=== PATIENT | male | born 1965 | race Caucasian/White ===

== ENCOUNTER 2020-08-19 11:47 | Outpatient (REF) | payer MEDICARE, OTHER, SELFPAY | END 2020-08-19 11:48 | disposition home or self-care (01) | LOC: HO.LAB 11:47 | PROVIDERS: Visit Provider Internal Medicine | DX: Z20.828 Contact with and (suspected) exposure to other viral communicable diseases (principal) | CPT/HCPCS: C9803; U0003 ==

== ENCOUNTER 2021-02-08 09:53 | Outpatient (REF) | payer MEDICARE, OTHER, SELFPAY ==
[2021-02-08 11:06] LABS: Appearance Urine CLEAR; Color Urine YELLOW; Glucose Urine UA NEG (NEG); Leukocyte Esterase Urine NEG (NEG); Nitrite Urine NEG (NEG); Specific Gravity - Urine 1.025 (1.005-1.025); Urine Blood 1+ (NEG); Urine Ketones NEG (NEG); Urine Protein NEG (NEG-TRACE)
[2021-02-08 11:21] LABS: Amorphous Sediment Urine 2+ /LPF; Mucus Urine TRACE /LPF; WBC Urine 0 /HPF (0-4)
[2021-02-08 11:57] LABS: Alanine Aminotransferase 30 U/L (0-40); Albumin Level 4.3 g/dL (3.5-5.0); Alkaline Phosphatase 52 U/L (39-117); Anion Gap 13 (12-20); Aspartate Amino Transferase 36 U/L (5-37); Bilirubin Total 0.2 mg/dL (0.0-1.0); Blood Urea Nitrogen 17 mg/dL (9-16); Calcium 9.8 mg/dL (8.4-10.2); Carbon Dioxide 27 mmol/L (22-29); Chloride 104 mmol/L (96-108); Cholesterol 186 mg/dL; Estimated Glomerular Filt Rate > 60; Glucose Random 95 mg/dL (60-115); HDL Cholesterol 38 mg/dL; LDL Cholesterol Calculated 124 mg/dl; Potassium 4.3 mmol/L (3.3-5.1); Sodium 140 mmol/L (135-145); Triglycerides 121 mg/dL
[2021-02-08 12:18] LABS: Prostate Specific Antigen Scr 0.46 ng/mL (<0.05-4.0)
[2021-02-09 08:36] LABS: LDL Cholesterol Direct 128 mg/dL (<100)
== END 2021-02-08 09:54 | disposition home or self-care (01) ==
LOC: HO.WFDLDS 09:53
PROVIDERS: Visit Provider Family Medicine
DX: Z00.00 Encounter for general adult medical examination without abnormal findings (principal); E78.5 Hyperlipidemia, unspecified; I10 Essential (primary) hypertension; K21.9 Gastro-esophageal reflux disease without esophagitis; M54.5 Low back pain; M46.1 Sacroiliitis, not elsewhere classified; Z12.5 Encounter for screening for malignant neoplasm of prostate; Z87.19 Personal history of other diseases of the digestive system; Z98.1 Arthrodesis status
CPT/HCPCS: 36415; 80053; 80061; 81001; 81003; 83721; 84153; 84443

== ENCOUNTER → 2021-03-04 08:04 | Outpatient (BNVA) | payer MEDICARE, OTHER, SELFPAY | PROVIDERS: PCP Family Medicine; Visit Provider Nurse Practitioner Family | DX: M53.3 Sacrococcygeal disorders, not elsewhere classified (principal); M47.816 Spondylosis without myelopathy or radiculopathy, lumbar region | CPT/HCPCS: 99202 ==

== ENCOUNTER → 2021-03-16 10:29 | Outpatient (BNVA) | payer MEDICARE, OTHER, SELFPAY | PROVIDERS: PCP Family Medicine; Visit Provider Nurse Practitioner Family | DX: M47.816 Spondylosis without myelopathy or radiculopathy, lumbar region (principal); M53.3 Sacrococcygeal disorders, not elsewhere classified | CPT/HCPCS: 99212 ==

== ENCOUNTER → 2021-03-24 13:28 | Outpatient (BNVA) | payer MEDICARE, SELFPAY | PROVIDERS: PCP Family Medicine; Visit Provider Physician Assistant | DX: R13.10 Dysphagia, unspecified (principal); Z87.19 Personal history of other diseases of the digestive system | CPT/HCPCS: 99202 ==

== ENCOUNTER 2021-04-07 08:26 | Outpatient (REF) | payer MEDICARE, SELFPAY ==
--- NOTE | ~2021-04-07 | FL_ITS ---
EXAMINATION: FL BARIUM SWALLOW CLINICAL INFORMATION: Dysphagia COMPARISON: None TECHNIQUE: Barium swallow examination is performed using fluoroscopic evaluation in addition to multiple fluoroscopic spot views. The patient is imaged both upright and prone and using both thick and thin sulfate along with effervescent granules. Fluoroscopy time: 2.7 minutes DAP: 42.634 Gycm2 Images: 68 FINDINGS: Following oral administration of thick barium and barium coated turkey there is normal progression of bolus from the oral cavity through the pharynx, esophagus into stomach without any evidence of obstruction, narrowing or stricture. On placing patient supine and prone lying and oral administration of thin barium, there is good distention of esophagus without obstruction or narrowing. There is a small sliding hiatal hernia with no visible gastroesophageal reflux. FL/FL barium swallow IMPRESSION: Small sliding hiatal hernia without gastroesophageal reflux.
== END 2021-04-07 08:27 | disposition home or self-care (01) ==
LOC: HO.XRAY 08:26
PROVIDERS: Visit Provider Physician Assistant
DX: K21.9 Gastro-esophageal reflux disease without esophagitis (principal); Z87.19 Personal history of other diseases of the digestive system; R13.10 Dysphagia, unspecified
CPT/HCPCS: 74220

== ENCOUNTER → 2021-05-12 07:11 | Outpatient (BNVA) | payer MEDICARE, OTHER, SELFPAY | PROVIDERS: PCP Family Medicine; Visit Provider Physician Assistant | DX: R13.10 Dysphagia, unspecified (principal) | CPT/HCPCS: Q3014 ==

== ENCOUNTER 2021-05-19 08:29 | Day surgery (SDC) | payer MEDICARE, OTHER, SELFPAY ==
[2021-05-13 14:53] VITALS: BMI 32.5
--- NOTE | 2021-05-18 09:28 | P.CONAN_ITS ---
Documented by User: Elza Rodriguez NP 05/18/21 09:29 HPI - Anesthesia Eval Consult details Narrative: 56yo M for Upper Endoscopy [facility] Active Problems Active Problems: All Active Problems (Updated 05/13/21 @ 14:52 by Tran Velazquez RN) Hypertension (Acute Unknown) Asthma (Acute) Chronic headaches (Acute) Depression (Acute) Low back pain (Acute) History of lumbar fusion (Acute) Sacroiliitis (Acute) Essential hypertension (Acute) GERD (gastroesophageal reflux disease) (Acute) History of esophageal stricture (Acute) Hyperlipidemia (Acute) Sacroiliac joint pain (Acute) Spondylosis of lumbar region without myelopathy or radiculopathy (Acute) Encounter for screening colonoscopy (Acute) Dysphagia (Acute) Past Medical History Medical History Asthma Back pain Depression Dysphagia Elevated cholesterol GERD (gastroesophageal reflux disease) HTN (hypertension) Family History Family History Father Paternal family history of mental health disorder Alcoholism Mother No problems noted. Brother Brain aneurysm Surgical History Surgical History H/O colonoscopy History of back surgery History of esophagogastroduodenoscopy (EGD) Social History Social History Household Members Other:: With his mother- relocated from [place]- getting Alcohol intake: current Advance Directives Information Provided: No Current occupational status: previously employed and disabled Meds Allergies Allergy/AdvReac Type Severity Reaction Status Date / Time Hydrocodone-Ibuprofen Allergy Mild headaches Uncoded 05/12/21 07:42 Home Medications Medication Instructions Recorded Confirmed Last Taken Type fluticasone propionate 220 1 puff INHALATION BID 06/18/20 05/13/21 Unknown History mcg/actuation HFA aerosol inhaler (Flovent HFA) methocarbamol 500 mg tablet 500 mg PO Q4H tab 06/18/20 05/13/21 Unknown History omeprazole 40 mg capsule,delayed 40 mg PO DAILY 06/18/20 05/13/21 Unknown History release Exam Exam Date and Time: May 18, 2021 0928 Height,Weight and Vital Signs: Height 5 ft 7 in Weight 94.347 kg Pertinent Lab Results Pertinent Lab Results: Laboratory Tests 02/08/21 10:10 Sodium 140 Potassium 4.3 Chloride 104 Carbon Dioxide 27 BUN 17 H Creatinine 1.04 Assessment and Plan Assessment Anesthesia Assessment: Chart Reviewed Documented by User: Magaly Bourgeois MD 05/19/21 09:13 [facility] Past Medical History Medical History Asthma Back pain Depression Dysphagia Elevated cholesterol GERD (gastroesophageal reflux disease) HTN (hypertension) Family History Family History Father Paternal family history of mental health disorder Alcoholism Mother No problems noted. Brother Brain aneurysm Surgical History Surgical History H/O colonoscopy History of back surgery History of esophagogastroduodenoscopy (EGD) History of Problems with Anesthesia: No Social History Social History Household Members Other:: With his mother- relocated from [place]- getting Alcohol intake: current Advance Directives Information Provided: No Current occupational status: previously employed and disabled Meds Allergies Allergy/AdvReac Type Severity Reaction Status Date / Time Hydrocodone-Ibuprofen Allergy Mild headaches Uncoded 05/12/21 07:42 Home Medications Medication Instructions Recorded Confirmed Last Taken Type fluticasone propionate 220 1 puff INHALATION BID 06/18/20 05/13/21 Unknown History mcg/actuation HFA aerosol inhaler (Flovent HFA) methocarbamol 500 mg tablet 500 mg PO Q4H tab 06/18/20 05/13/21 Unknown History omeprazole 40 mg capsule,delayed 40 mg PO DAILY 06/18/20 05/13/21 Unknown History release Exam Airway Mallampati Class: III TM Dist: >3cm Neck ROM: Limited Loose/Missing/Broken Teeth: No Heart: RRR Lungs: CTA Assessment and Plan Assessment Anesthesia Assessment: Anesthesia Plan Discussed Final Anesthetic Review History of Problems with Anesthesia: No NPO: Yes ASA Class: II Final Preanesthetic Review: Meds/Allgs Chart Reviewed, Consent Obtained/Reviewed and Anes Risks/Benef Reviewed Patient Risk: Low Procedure Risk: Intermediate Anesthetic Plan Anesthetic Plan: MAC: Disposition: Standard PACU
[2021-05-19 08:51] VITALS: BP 158/104; PULSE 71; RESP 16; TEMP 36.8; O2SAT 97
[2021-05-19] MEDS: Lactated Ringers 1,000 ML 100 ML IVCONT (09:02)
--- NOTE | 2021-05-19 10:00 | MHC.SHP ---
Pre-Procedural Eval Section A Date of Service: 05/19/21 Section B Chief Complaint: dysphagia Relevant Family History (Specify if Yes): No Relevant Social History: None Present Medications: see Short Stay Collaborative assessment Medical History: Significant History (Asthma Back pain Depression Dysphagia Elevated cholesterol GERD (gastroesophageal reflux disease) HTN (hypertension)) History of Previous Operations: Relevant previous surgery/procedure and date(s) (H/O colonoscopy History of back surgery History of esophagogastroduodenoscopy (EGD)) Allergies: Allergies Allergy/AdvReac Type Severity Reaction Status Date / Time Hydrocodone-Ibuprofen Allergy Mild headaches Uncoded 05/12/21 07:42 Review of Systems Sugical H&P ROS: Negative: Constitution, Cardiovascular, Respiratory, Neurological, Psychiatric, Hem-Onc, Allergic/Immunologic, Gastrointestinal, Genitourinary, Musculoskeletal, Integumentary, Endocrine and Eyes/Ears/Nose/Throat Exam Surgical H&P Exam: Normal: HEENT, Normal: Heart, Normal: Lungs, Normal: Extremities, Normal: Abdomen, Normal: Skin and Normal: Neurological Plan Diagnosis/Plan: Unchanged I have reviewed the history and physical and performed a pertinent physical examination on my patient. No changes have occurred unless specified.
--- NOTE | 2021-05-19 10:06 | PM.OP ---
Brief Operative Note Date of Service: 05/19/21 Pre-op diagnosis: dysphagia Post-op diagnosis: same Procedure: see op note Surgeon: Matt Carbajal MD Anesthesia: MAC Was an Plan Manager used for this Procedure?: No Estimated blood loss (mL): 0 Condition: stable Disposition: PACU
--- NOTE | 2021-05-19 10:07 | W.PM.OPN ---
Operative Note Operative Note Date of Service: 05/19/21 Narrative: Procedure Description: EGD FLEXIBLE TRANSORAL UPPER GASTROINTESTINAL ENDOSCOPY UPPER ENDOSCOPY Consent: Indications for the procedure and potential complications of bleeding, perforation, reaction to medications and missed diagnosis were discussed with the patient and informed consent was obtained. Instrument: Olympus GIF H 190 J mid size upper endoscope Monitoring: Vital signs and clinical assessment, continuous EKG monitoring, Pulse oximetry, Carbon Dioxide monitoring and blood pressure monitoring were done throughout the procedure. Procedure: The patient was placed in the left lateral decubitis position and pre-procedure medications were administered and a bite block was placed. The endoscope was inserted into the mouth and advanced under direct vision to the third part of duodenum. A careful inspection was made as the upper endoscope was withdrawn including a retroflexed examination of the proximal stomach; Findings and interventions are described below. Findings: Larynx:normal Esophagus: GE junction at 38 cm, diaphragm hiatus at 38 cm, LA grade A esophagitis noted, bx taken from GEJ and distal and proximal esophagus in separate jars. Concentric rings noted in esophagus probably due to reflux. A schatzki ring also noted. A 16 mm savary dilator was used with disruption of the schatzki ring noted. Stomach: Patchy gastric erythema with linear streaks in pylorus. Biopsies were obtained. Grade 2 flap valve on retroflexed examination of the cardia. Duodenum: Normal bulb and descending duodenum, bx taken Intervention: Biopsies as noted above, savary dilation Impression/Findings: esophagitis gastritis schatzki ring PLAN: change PPI to pantoprazole 40 mg and see if get better effect tramadol can also be asscoaited with esophageal dysmotility
[2021-05-19 10:42] VITALS: BP 105/74; PULSE 78; RESP 20; TEMP 36.1; O2SAT 99
[2021-05-19 10:48] VITALS: BP 133/91; PULSE 85; RESP 18; O2SAT 96
[2021-05-19 10:58] VITALS: BP 150/76; PULSE 71; RESP 18; TEMP 36.3; O2SAT 97
== END 2021-05-19 12:00 | disposition home or self-care (01) ==
PROVIDERS: PCP Family Medicine; Visit Provider Internal Medicine Gastroenterology
PROC: 0DJ08ZZ Inspection of Upper Intestinal Tract, Via Natural or Artificial Opening Endoscopic (ICD-10-PCS; CPT 43235; principal; 2021-05-19 11:00)
DX: R13.10 Dysphagia, unspecified (principal); K22.2 Esophageal obstruction; K20.90 Esophagitis, unspecified without bleeding; K29.70 Gastritis, unspecified, without bleeding
CPT/HCPCS: 43239; 43248; 88305; 88342; C1769

== ENCOUNTER → 2021-06-08 11:06 | Outpatient (BNVA) | payer MEDICARE, OTHER, SELFPAY | PROVIDERS: PCP Family Medicine; Referring Provider Family Medicine; Visit Provider Physician Assistant | DX: K21.9 Gastro-esophageal reflux disease without esophagitis (principal); R13.10 Dysphagia, unspecified | CPT/HCPCS: 99212 ==

== ENCOUNTER → 2021-10-04 12:13 | Outpatient (BNVA) | payer MEDICARE, OTHER, SELFPAY | PROVIDERS: PCP Family Medicine; Visit Provider Physician Assistant | DX: K22.2 Esophageal obstruction (principal); K21.9 Gastro-esophageal reflux disease without esophagitis; G89.29 Other chronic pain; R10.12 Left upper quadrant pain | CPT/HCPCS: 99212 ==

== ENCOUNTER 2021-10-05 11:38 | Outpatient (REF) | payer MEDICARE, OTHER, SELFPAY ==
[2021-10-05 14:09] LABS: MANUAL DIFF FLAG NO
[2021-10-05 14:11] LABS: Basophils Absolute Auto 0.1 X10*3/uL (0.0-0.2); Basophils Percent Auto 1.1 % (0-2); Eosinophils Absolute Auto 0.1 X10*3/uL (0.0-0.4); Eosinophils Percent Auto 1.4 % (0-4); Hematocrit 43.3 % (42.0-52.0); Imm Gran Abs Auto 0.03 X10*3/uL (0.00-0.03); Imm Gran Pct Auto 0.5 % (0.0-0.4); Lymphocytes Absolute Auto 2.3 X10*3/uL (1.2-4.9); Lymphocytes Percent Auto 35.1 % (20-40); Mean Corpuscular HGB Conc 32.3 g/dl (31.0-36.0); Mean Corpuscular Hemoglobin 29.9 pg (27.0-33.0); Mean Corpuscular Volume 92.3 fL (80.0-98.0); Mean Platelet Volume 10.8 fL (9.4-12.4); Monocytes Absolute Auto 0.7 X10*3/uL (0.1-1.2); Monocytes Percent Auto 10.6 % (2-11); Neutrophils Absolute Auto 3.3 x10*3/uL (2.0-8.3); Neutrophils Percent Auto 51.3 % (45-73); Platelet Count 382 X10*3/uL (160-400); Red Blood Count 4.69 X10*6/uL (4.60-5.80); Red Cell Distribution Width 13.3 % (11.0-16.0); White Blood Count 6.4 X10*3/uL (4.8-10.8)
[2021-10-05 14:30] LABS: Alanine Aminotransferase 31 U/L (0-40); Albumin Level 4.3 g/dL (3.5-5.0); Alkaline Phosphatase 51 U/L (39-117); Anion Gap 11 (12-20); Aspartate Amino Transferase 29 U/L (5-37); Bilirubin Total 0.5 mg/dL (0.0-1.0); Blood Urea Nitrogen 15 mg/dL (9-16); Calcium 9.9 mg/dL (8.4-10.2); Carbon Dioxide 26 mmol/L (22-29); Chloride 111 mmol/L (96-108); Estimated Glomerular Filt Rate 60; Glucose Random 111 mg/dL (60-115); Potassium 4.6 mmol/L (3.3-5.1); Sodium 143 mmol/L (135-145); Total Protein 7.2 g/dL (6.5-8.0)
== END 2021-10-05 11:39 | disposition home or self-care (01) ==
LOC: HO.WFDLDS 11:38
PROVIDERS: Visit Provider Physician Assistant
DX: R10.9 Unspecified abdominal pain (principal); K21.9 Gastro-esophageal reflux disease without esophagitis; K22.2 Esophageal obstruction
CPT/HCPCS: 36415; 80053; 85025

== ENCOUNTER 2021-11-01 10:58 | Outpatient (REF) | payer MEDICARE, OTHER, SELFPAY ==
--- NOTE | ~2021-11-01 | US_ITS ---
EXAMINATION: US ABDOMEN COMPLETE CLINICAL INFORMATION: Unspecified abdominal pain. COMPARISON: None TECHNIQUE: Real-time imaging of the abdominal viscera. Technically difficult study secondary to midline scar and bowel gas. FINDINGS: PANCREAS: The pancreas appears unremarkable, without masses or ductal dilatation, with the exception of the tail which is obscured by bowel gas. ABDOMINAL AORTA: The proximal and mid segments are normal in caliber. The distal aorta could not be seen as it was obscured by bowel gas. INFERIOR VENA CAVA: Visualized portions are normal. LIVER: The liver is mildly enlarged measuring 16 cm in greatest length and demonstrates increased echogenicity consistent with hepatic steatosis. The liver contour is normal. No focal hepatic lesion. There is no intrahepatic biliary duct dilatation seen. GALLBLADDER: Normal. The gallbladder is physiologically distended without evidence of stones, sludge, polyps, wall thickening or pericholecystic fluid. COMMON BILE DUCT: Was not seen. RIGHT KIDNEY: No hydronephrosis. No renal calculi or focal parenchymal lesions. The kidney measures 11.6 cm in maximum dimension. LEFT KIDNEY: No hydronephrosis. No renal calculi or focal parenchymal lesions. The kidney measures 11.5 cm in maximum dimension. SPLEEN: Normal. The spleen measures 9.5 cm in maximum dimension. FREE FLUID: None. US/US abdomen complete IMPRESSION: 1. Limited exam with poor visualization of the pancreatic tail, distal aorta and common bile duct. 2. Mildly enlarged echogenic liver consistent with hepatic steatosis.
== END 2021-11-01 10:59 | disposition home or self-care (01) ==
LOC: HO.US 10:58
PROVIDERS: Visit Provider Physician Assistant
DX: R10.9 Unspecified abdominal pain (principal)
CPT/HCPCS: 76700

== ENCOUNTER → 2021-11-08 10:38 | Outpatient (BNVA) | payer MEDICARE, OTHER, SELFPAY | PROVIDERS: PCP Family Medicine; Referring Provider Family Medicine; Visit Provider Physician Assistant | DX: K76.0 Fatty (change of) liver, not elsewhere classified (principal); R13.10 Dysphagia, unspecified | CPT/HCPCS: 99212 ==

== ENCOUNTER 2022-01-10 09:01 | Outpatient (REF) | payer MEDICARE, OTHER, SELFPAY ==
[2022-01-10 11:57] LABS: Appearance Urine CLEAR; Color Urine YELLOW; Glucose Urine UA NEG (NEG); Leukocyte Esterase Urine NEG (NEG); Nitrite Urine NEG (NEG); PH 5.5 (5.0-8.0); Specific Gravity - Urine >= 1.030 (1.005-1.025); Urine Blood NEG (NEG); Urine Ketones NEG (NEG); Urine Protein NEG (NEG-TRACE)
[2022-01-10 12:22] LABS: Alanine Aminotransferase 31 U/L (0-40); Albumin Level 4.3 g/dL (3.5-5.0); Alkaline Phosphatase 51 U/L (39-117); Anion Gap 12 (12-20); Aspartate Amino Transferase 35 U/L (5-37); Bilirubin Total 0.5 mg/dL (0.0-1.0); Blood Urea Nitrogen 19 mg/dL (9-16); Calcium 9.4 mg/dL (8.4-10.2); Carbon Dioxide 24 mmol/L (22-29); Chloride 107 mmol/L (96-108); Cholesterol 189 mg/dL; Estimated Glomerular Filt Rate > 60; Glucose Fasting 97 mg/dL (60-99); HDL Cholesterol 39 mg/dL; LDL Cholesterol Calculated 134 mg/dl; Potassium 4.3 mmol/L (3.3-5.1); Sodium 139 mmol/L (135-145); Total Protein 7.2 g/dL (6.5-8.0); Triglycerides 81 mg/dL
[2022-01-10 12:23] LABS: Microalbum/Creatinine Ratio Ur 4.9 ug/mg cr; TSH reflex Free T4 2.37 uIU/mL (0.32-4.0)
== END 2022-01-10 09:02 | disposition home or self-care (01) ==
LOC: HO.WFDLDS 09:01
PROVIDERS: Visit Provider Family Medicine
DX: Z00.00 Encounter for general adult medical examination without abnormal findings (principal); I10 Essential (primary) hypertension; Z13.220 Encounter for screening for lipoid disorders; Z13.29 Encounter for screening for other suspected endocrine disorder
CPT/HCPCS: 36415; 80053; 80061; 81003; 82043; 84443

== ENCOUNTER → 2022-02-01 13:20 | Outpatient (BNVA) | payer MEDICARE, OTHER, SELFPAY | PROVIDERS: PCP Family Medicine; Visit Provider Nurse Practitioner Family | DX: M54.50 Low back pain, unspecified (principal) | CPT/HCPCS: Q3014 ==

== ENCOUNTER 2022-08-14 10:20 | Outpatient (REF) | payer MEDICARE, SELFPAY ==
[2022-08-14 14:22] LABS: Alanine Aminotransferase 32 U/L (0-40); Albumin Level 4.5 g/dL (3.5-5.0); Alkaline Phosphatase 58 U/L (39-117); Anion Gap 14 (12-20); Aspartate Amino Transferase 29 U/L (5-37); Bilirubin Total 0.5 mg/dL (0.0-1.0); Blood Urea Nitrogen 19 mg/dL (9-16); Calcium 9.7 mg/dL (8.4-10.2); Carbon Dioxide 26 mmol/L (22-29); Chloride 107 mmol/L (96-108); Cholesterol 194 mg/dL; Estimated Glomerular Filt Rate > 60; Glucose Fasting 106 mg/dL (60-99); HDL Cholesterol 41 mg/dL; LDL Cholesterol Calculated 118 mg/dl; Potassium 4.7 mmol/L (3.3-5.1); Sodium 142 mmol/L (135-145); Total Protein 7.4 g/dL (6.5-8.0); Triglycerides 178 mg/dL
[2022-08-14 14:47] LABS: Prostate Specific Antigen Scr 0.53 ng/mL (<0.05-4.0)
== END 2022-08-14 10:21 | disposition home or self-care (01) ==
LOC: HO.WFDLDS 10:20
PROVIDERS: Visit Provider Family Medicine
DX: Z00.00 Encounter for general adult medical examination without abnormal findings (principal); E78.5 Hyperlipidemia, unspecified; E78.6 Lipoprotein deficiency; M96.1 Postlaminectomy syndrome, not elsewhere classified; M47.816 Spondylosis without myelopathy or radiculopathy, lumbar region; Z98.1 Arthrodesis status; Z12.5 Encounter for screening for malignant neoplasm of prostate
CPT/HCPCS: 36415; 80053; 80061; 84153; 99212

== ENCOUNTER 2022-09-04 08:26 | Outpatient (REF) | payer MEDICARE, SELFPAY ==
--- NOTE | ~2022-09-04 | XR_ITS ---
EXAMINATION: XR LUMBAR SPINE XR HIPS BILATERAL WITH PELVIS CLINICAL INFORMATION: Sacroiliitis. Arthrodesis. COMPARISON: None TECHNIQUE: 6 views of the lumbar spine with flexion and extension. 2 views of each hip with frontal view of the pelvis. FINDINGS: Posterior fusion hardware is in place from L3 through S1. Hardware is intact. Disc spacer present at L4-L5. Vertebral body height and alignment maintained. Remaining disc spaces are maintained at the upper lumbar spine. Small multilevel endplate osteophytes. The sacroiliac joints are symmetric. No abnormal sclerosis. No effusion. No erosions. The sacrum appears intact. The hips are well aligned. Mild degenerative change of the left hip with small osteophytes. The pelvic rim is intact. Normal bowel gas pattern. There is no evidence of lumbar spine instability on flexion or extension. There is minimal mobility. XR/XR hip BI w PEL1V IMPRESSION: Posterior fusion from L3 through S1 with intact hardware. No evidence of instability. Mild degenerative changes of the hips. Normal appearance of the sacroiliac joints.
--- NOTE | ~2022-09-04 | XR_ITS ---
EXAMINATION: XR LUMBAR SPINE XR HIPS BILATERAL WITH PELVIS CLINICAL INFORMATION: Sacroiliitis. Arthrodesis. COMPARISON: None TECHNIQUE: 6 views of the lumbar spine with flexion and extension. 2 views of each hip with frontal view of the pelvis. FINDINGS: Posterior fusion hardware is in place from L3 through S1. Hardware is intact. Disc spacer present at L4-L5. Vertebral body height and alignment maintained. Remaining disc spaces are maintained at the upper lumbar spine. Small multilevel endplate osteophytes. The sacroiliac joints are symmetric. No abnormal sclerosis. No effusion. No erosions. The sacrum appears intact. The hips are well aligned. Mild degenerative change of the left hip with small osteophytes. The pelvic rim is intact. Normal bowel gas pattern. There is no evidence of lumbar spine instability on flexion or extension. There is minimal mobility. XR/XR lumbar spine 6V w bending IMPRESSION: Posterior fusion from L3 through S1 with intact hardware. No evidence of instability. Mild degenerative changes of the hips. Normal appearance of the sacroiliac joints.
== END 2022-09-04 08:27 | disposition home or self-care (01) ==
LOC: HO.XRAY 08:26
PROVIDERS: PCP Family Medicine; Visit Provider Nurse Practitioner Family
DX: M25.552 Pain in left hip (principal); M46.1 Sacroiliitis, not elsewhere classified; M53.3 Sacrococcygeal disorders, not elsewhere classified; M96.1 Postlaminectomy syndrome, not elsewhere classified; Z98.1 Arthrodesis status
CPT/HCPCS: 72114; 73521

== ENCOUNTER 2022-09-12 13:13 | Outpatient (REF) | payer MEDICARE, SELFPAY ==
--- NOTE | ~2022-09-12 | CT_ITS ---
EXAMINATION: CT LUMBAR SPINE WITH CONTRAST CLINICAL INFORMATION: Postlaminectomy syndrome. COMPARISON: Plain films of the lumbar spine 09/04/2022. TECHNIQUE: A post contrast axial CT scan of the lumbar spine was obtained. Intravenous contrast: 85 mL Omnipaque 350 Coronal and sagittal reformatted images were generated at the acquisition workstation. This CT examination was performed using dose optimization techniques as appropriate, variously including the following: *Automated exposure control *Adjustment of mA and/or kV according to patient size (this includes techniques or standardized protocols for targeted exams where dose is matched to indication/reason for exam; i.e. extremities or head) *Use of iterative reconstruction technique DLP: 921 mGy-cm FINDINGS: VERTEBRAL BODIES AND PARASPINAL STRUCTURES: There is mild retrolisthesis of L5 on S1. There are sequelae of a multilevel instrumented posterior decompression and fusion from L3-L4 through L5-S1. There are bilateral pedicular screws in L3, L4 and L5 joined by vertical rods and there is an interbody device at L4-L5. A cross bar is noted at L4-L5. There is good lateral mass fusion between L3-L4 and L5-S1 bilaterally. There is marked narrowing of intervertebral disc height at L5-S1. Vertebral body heights are maintained and no fractures are demonstrated. There are bridging osteophytes anterolaterally on the right at L3-L4. Overall, bone mineralization appears slightly diffusely decreased. There are atherosclerotic calcifications of the aorta and its branches. The visualized pelvic structures are unremarkable. The visualized pelvic structures appear intact. SPINAL LEVELS: T12-L1: The facet joints appear normal bilaterally. Disc contour is normal. There is no central stenosis or foraminal narrowing. L1-L2: There is mild bilateral facet arthropathy. There is a posterior disc protrusion with an annular calcification, and there is mild flattening of the ventral thecal sac, but there is no definite stenosis. The neural foramina are patent bilaterally. L2-L3: There is severe bilateral facet hypertrophy with ligamenta flava hypertrophy. There is a broad-based posterior disc protrusion extending into the inferior neural foramina without definite exiting nerve root impingement. There is narrowing of the bilateral subarticular recesses with moderate central stenosis. L3-L4: There are sequelae of an instrumented posterior decompression and fusion. There is a broad-based posterior disc protrusion which flattens the ventral thecal sac, but there is no central stenosis. There are small foraminal disc protrusions with annular calcification, more prominent on the left. L4-L5: There are sequelae of an instrumented posterior decompression and fusion. There is a posterior disc osteophyte complex without significant mass effect on the thecal sac. There are small foraminal disc protrusions bilaterally, more prominent on the left and there may be impingement on the exiting left L4 nerve root. There is no central stenosis. L5-S1: There are sequelae of an instrumented posterior decompression and fusion. There is a prominent posterior disc osteophyte complex which flattens the ventral thecal sac and narrows the subarticular recesses bilaterally. There is no central stenosis. There are bilateral foraminal disc osteophyte complexes impinging the exiting L5 nerve roots. CT/CT lumbar spine w IV con IMPRESSION: 1. There are sequelae of a multilevel instrumented posterior decompression and fusion problem L3-L4 through L5-S1. There is good bilateral lateral mass fusion at these levels. 2. At L2-L3 there is severe facet arthropathy and there is a broad-based posterior disc protrusion. There is narrowing of the bilateral subarticular recesses with moderate central stenosis. 3. At L4-L5 there is a posterior disc osteophyte complex. There are small foraminal disc protrusions bilaterally, more prominent on the left and there may be impingement on the exiting left L4 nerve root. There is no central stenosis. 4. At L5-S1 there is a prominent posterior disc osteophyte complex which flattens the ventral thecal sac and narrows the subarticular recesses. There is no central stenosis. There are bilateral foraminal disc osteophyte complexes impinging the exiting L5 nerve roots.
[2022-09-12] MEDS: iohexoL 350 MG/ML 100 ML INFUS..BTL IV (14:19)
== END 2022-09-12 13:14 | disposition home or self-care (01) ==
LOC: HO.CT 13:13
PROVIDERS: PCP Family Medicine; Visit Provider Nurse Practitioner Family
DX: M96.1 Postlaminectomy syndrome, not elsewhere classified (principal); M47.816 Spondylosis without myelopathy or radiculopathy, lumbar region; Z98.1 Arthrodesis status; M54.50 Low back pain, unspecified
CPT/HCPCS: 72132; Q9967

== ENCOUNTER → 2022-10-02 15:00 | Outpatient (BNVA) | payer MEDICARE, SELFPAY | PROVIDERS: PCP Family Medicine; Visit Provider Nurse Practitioner Family | DX: M62.838 Other muscle spasm (principal); M96.1 Postlaminectomy syndrome, not elsewhere classified; M46.1 Sacroiliitis, not elsewhere classified; M53.3 Sacrococcygeal disorders, not elsewhere classified; M51.36 Other intervertebral disc degeneration, lumbar region; M47.816 Spondylosis without myelopathy or radiculopathy, lumbar region | CPT/HCPCS: 99212 ==

== ENCOUNTER 2023-03-06 08:00 | Outpatient (REF) | payer MEDICARE, SELFPAY ==
[2023-03-06 12:05] LABS: Alanine Aminotransferase 35 U/L (0-40); Albumin Level 4.4 g/dL (3.5-5.0); Alkaline Phosphatase 56 U/L (39-117); Anion Gap 14 (12-20); Aspartate Amino Transferase 32 U/L (5-37); Bilirubin Total 0.4 mg/dL (0.0-1.0); Blood Urea Nitrogen 15 mg/dL (9-16); Calcium 9.9 mg/dL (8.4-10.2); Carbon Dioxide 26 mmol/L (22-29); Chloride 107 mmol/L (96-108); Cholesterol 191 mg/dL; Estimated Glomerular Filt Rate > 60; Glucose Fasting 104 mg/dL (60-99); HDL Cholesterol 40 mg/dL; LDL Cholesterol Calculated 135 mg/dl; Potassium 4.1 mmol/L (3.3-5.1); Sodium 143 mmol/L (135-145); Total Protein 7.6 g/dL (6.5-8.0); Triglycerides 81 mg/dL
[2023-03-06 12:30] LABS: TSH reflex Free T4 2.43 uIU/mL (0.32-4.0)
[2023-03-06 12:31] LABS: Prostate Specific Antigen Scr 0.79 ng/mL (<0.05-4.0)
[2023-03-06 12:40] LABS: Appearance Urine Clear; Color Urine Yellow; Glucose Urine UA Negative (Negative); Leukocyte Esterase Urine Negative (Negative); Nitrite Urine Negative (Negative); UMIC TRIGGER UA YES; Urine Blood Trace (Negative); Urine Ketones Negative (Negative); Urine Protein Negative (Neg-Trace)
[2023-03-06 12:45] LABS: Bacteria Urine None Seen (None Seen); Hyaline Casts Urine 0-2 /LPF (0-2); Squamous Epithelial Cell Urine 0-2 /HPF (0-2); WBC Urine 0-5 /HPF (0-5)
[2023-03-06 13:59] LABS: Creatinine Urine 177.87 mg/dL; Microalbum/Creatinine Ratio Ur 6.1 ug/mg cr
== END 2023-03-06 08:01 | disposition home or self-care (01) ==
LOC: HO.WFDLDS 08:00
PROVIDERS: Visit Provider Family Medicine
DX: Z00.00 Encounter for general adult medical examination without abnormal findings (principal); Z12.5 Encounter for screening for malignant neoplasm of prostate; I10 Essential (primary) hypertension
CPT/HCPCS: 36415; 80053; 80061; 81001; 81003; 82043; 84153; 84443

== ENCOUNTER 2023-04-05 13:25 | Outpatient (AMB) | payer MEDICARE, SELFPAY ==
[2023-04-05 13:27] VITALS: BP 120/80; PULSE 83; O2SAT 96; BMI 34.6
--- NOTE | 2023-04-05 13:27 | A.OFFPC_ITS ---
Vital Signs 04/05/23 13:27 Height 5 ft 7 in Weight 221 lb 2 oz BMI 34.6 BP 120/80 Blood Pressure Location Lt brachial Position Sitting Pulse 83 Pulse Source Pulse Oximeter Pulse Oximetry (%) 96 Oxygen Delivery Method Room Air Intake Visit Reasons: f/u hypertension and labs Intake Note: Patient is following up on hypertension and labs. Allergies Hydrocodone-Ibuprofen Adverse Reaction (Mild, Uncoded 04/05/23 13:31) headaches Tobacco use date assessed: 04/05/23 Dental Screening Dental Screen Date: 04/05/23 Did you have a dental visit in the last 12 months?: Yes Did you have a dental problem in the last 6 months where you did not have access to dental care?: No Was dental information given to patient?: No HPI f/u hypertension and labs HPI Details 58 y/o male presents to f/u hypertension and CPE-labs. Following his lipids and triglycerides - he is on fenofibrate and simvastatin. Labs were drawn 03/06/23. Reviewed labs with pt. Elevated fasting glucose of 104. TC 191. LDL 135. HDL 40. Triglycerides 81. He is on simvastatin 20mg daily. Pt also reports some back pain. COUNTS INCLUDE 234 BEDS AT THE [facility] Medical History Abdominal pain Asthma Back pain Chronic LUQ pain Depression Dysphagia Elevated cholesterol GERD (gastroesophageal reflux disease) HTN (hypertension) Schatzki's ring Surgical History H/O colonoscopy H/O endoscopy History of back surgery History of esophagogastroduodenoscopy (EGD) Family History Father Paternal family history of mental health disorder Alcoholism Mother No problems noted. Brother Brain aneurysm Other Mental health disorder Substance use disorder Social History Household Members Other:: With his mother- relocated from [place]- getting Housing: House Alcohol intake: current Patient Tobacco Use Status: Current everyday Tobacco user Tobacco use type: Smokeless Tobacco e-Cigarette/Vaping Use: Never Used Second Hand Smoke Exposure: No Current occupational status: previously employed and disabled Cognitive needs: No Hearing needs: No Vision needs: No Questionnaire ANTHONY-7 AMB Questionnaire ANTHONY-7 Date ANTHONY - 7 assessed: 08/23/22 Source: Developed by Drs. Doyle Guardado, Isabel Dalton, Hector Durham and colleagues, with an educational delfin from [employer]. Review of Systems Const Denies chills, Denies fatigue, Denies fever(s), Denies headache(s) and Denies weakness ENT Denies dizziness and Denies headache(s) Card Denies chest pain, Denies lightheadedness, Denies dyspnea and Denies other (Palpitations) Resp Denies cough, Denies dyspnea, Denies wheezing and Denies other ( shortness of breath) Musc Reports back pain, Denies numbness and Denies tingling Neuro Denies dizziness, Denies headache(s), Denies numbness, Denies tingling, Denies paresthesias and Denies weakness Psych Denies anxiety and Denies depression Endo Denies fatigue Aller/Immun Denies wheezing Physical exam (Primary Care) Vital Signs: Last Vital Signs Pulse 83 04/05/23 13:27 BP 120/80 04/05/23 13:27 Pulse Ox 96 04/05/23 13:27 Oxygen Delivery Method Room Air 04/05/23 13:27 BMI result Body Mass Index 34.6 Tobacco/Smoking Status: Tobacco use Status Tobacco use date assessed 04/05/23 04/05/23 13:36 Patient Tobacco Use Status Current everyday Tobacco 04/05/23 13:36 Tobacco use type Smokeless Tobacco 04/05/23 13:36 e-Cigarette/Vaping Use Never Used 04/05/23 13:36 Const General: no acute distress and well developed Nutritional Appearance: well nourished Orientation/consciousness: patient oriented x3 HENMT Head: Yes normocephalic and Yes atraumatic Eyes General: appearance normal, both eyes and all related structures Pupils: Equal, round and reactive pupils present EOM: EOMs intact bilaterally Resp Effort & Inspection: normal respiratory effort Auscultation: clear to auscultation bilaterally Cardio Rate: regular rate Rhythm: regular rhythm Heart sounds: S1 normal heart sound present, S2 normal heart sound present, no gallops, no murmurs and no rubs Neuro General: patient oriented x3 and gait normal Cranial nerves: Yes Equal, round and reactive pupils present Psych Affect: normal affect Assessment and Plan Assessment & Plan (1) Essential hypertension: Code(s): I10 - Essential (primary) hypertension Plan: Blood pressure is well controlled. Goal is less than 140/90 Continue current medication regimen (2) Pre-diabetes: Code(s): R73.03 - Prediabetes Plan: Fasting blood sugar still elevated and A1cs have been in pre diabetes range Encouraged a diet low in sugars and starches Encouraged exercise and weight loss (3) Hyperlipidemia: Code(s): E78.5 - Hyperlipidemia, unspecified Plan: Triglycerides are controlled with fenofibrate LDL is slightly above goal and I encouraged a diet low in saturated fats and cholesterol as well as diet and exercise and weight loss HDL is at 40. Encouraged exercise (4) Back pain: Code(s): M54.9 - Dorsalgia, unspecified Plan: Encouraged exercise and stretching Coding Level of Care Code Est Pt Level 4 (79808) Diagnoses Essential hypertension I10 Pre-diabetes R73.03 Hyperlipidemia E78.5 Back pain M54.9
== END 2023-04-05 14:16 | disposition home or self-care (01) ==
PROVIDERS: PCP Family Medicine; Visit Provider Family Medicine
DX: I10 Essential (primary) hypertension (principal); R73.03 Prediabetes; E78.5 Hyperlipidemia, unspecified; M54.9 Dorsalgia, unspecified
CPT/HCPCS: 99214

== ENCOUNTER 2023-07-09 09:49 | Outpatient (AMB) | payer MEDICARE, SELFPAY ==
--- NOTE | 2023-07-09 10:10 | MHC.OFFVIS ---
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 Patient was last seen in our office in September 2022 with plans for potential Caudal VERONICA but never followed up to schedule this. Back pain radiates to his right leg, into his right anterior thigh and laterally to his top of right foot with associated weakness, numbness and tingling. He describes his pain as sharp, shooting, dull and stabbing. Patient reports most of his chronic radicular symptoms were on the left. Patient has been managing his acute on chronic pain with Ibuprofen, Tylenol and muscle relaxant with continued symptoms and states these medications are not working for him and believes he needs a stronger medication like opiate. I have reminded patient that our office does not offer opioid prescribing at this time. Patient reports his walking capacity has decreased to 3-5 min, standing 7-10 min, and he consistently has to adjust his sitting or sleeping positions. Coughing or sneezing does not reproduce pain. Denies any fever, abdominal or groin pain, foot drop, bladder or bowel dysfunction or saddle anesthesia. PRIOR: Patient presents today for follow up and to review lumbar spine CT scan. Patient reports minimal back symptoms today. Back pain is intermittent and depends on level of activity. Symptoms both axial and radicular as well with sacroiliac joint pain components. Patient reports back pain radiates down to his left buttock and into his left posterior thigh and encircles into his medial thigh without any numbness or tingling in his thigh or groin. Reports residual numbness and tingling in his dorsal left foot post lumbar fusion. Lumbar spine CT scan reviewed at length with patient today and is noted below. We discussed caudal VERONICA with catheter and longer term pain relief with lumbar spinal cord stimulator. Patient reports his pain is minimal today and rates it at 2/10. He requests refill for tizanidine refill at a lower dose and reports this has been helpful with muscle stiffness and spasms in his lower back with occasional dry mouth. Patient denies any weakness, gait instability, bowel or bladder incontinence or saddle anesthesia. PRIOR: Patient is a 57 years old male who returns today for worsening lower back pain. He was last seen in this office via telehealth encounter by Amanda LANGLEY with plans for therapeutic left SIJ but has not undergone this due to insurance changes. He moved from [place] to [place] 2 years ago and was followed by Pain Management in [place]. Patient reports today his back pain is mostly axial and has been spreading across his lower back due to recently moving and lifting heavy boxes. He states occasionally his pain will radiate to his left lower extremity posteriorly to the knee level only. Patient reports residual numbness in his left foot s/p lumbar fusion but not his toes. Prolonged sitting worsens his pain. He tolerates long distance driving and notes that walking actually alleviates his pain. Patient reports completing the PT 3-4 years ago with minimal improvement. Patient reports he was on Tramadol in [place] that he takes intermittently. I have informed patient that we currently do not offer opioid prescribing. He also takes gabapentin and methocarbamol for migraine headaches. Denies any fever, unintentional weight loss, abdominal or groin pain, weakness, bowel or bladder incontinence, or saddle anesthesia. PRIOR Amanda LANGLEY 02/01/22: Today's visit was conducted via telephone to discuss his ongoing back pain. He reports chronic left sided low back pain which was recently exacerbated. He was scheduled for a left therapeutic SIJ almost one year ago but it appears it was never scheduled. He is interested in proceeding with this injection. PRIOR: Javier is a pleasant 56 year old male who presents to the office with complaints of low back pain. 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 He did undergo a lumbar fusion in 2016 which alleviated his LLE discomfort significantly but still has low back pain. He reports the pain starts in the low back, mostly midline and radiates to the left posterior upper thigh. He denies any radiating leg pain, numbness, tinging, weakness or bladder dysfunction. He was previously under the care of pain management in [place] where he received both interventional and medical management. He reports having injections that were helpful anywhere from 3-6 months, but can no recall what type of procedure they were. He also notes having a prescription for Tramadol 300 QD in divided doses that he would use intermittently. He is hoping that he can continue that same treatment here. The pain is worse in the morning and less severe at night time. He reports pain onset was gradual but the pain can worsen suddenly and is constant. He rates the pain anywhere from 2-9/10. He states the pain is interfering with sleep and he cannot function normally. The patient reports the pain in terms of tissue damage as burning, pulsing, sharp, pinching and aching. He has been taking Tramadol intermittently when the pain is severe. He states having almost half a bottle left over that was prescribed almost a year ago. He has tried physical therapy multiple times with some improvement. He does admit to continuing HEP. He has attempted chiropractic manipulation and massage with minimal relief. He has also used a TENS unit with some improvement, but only while its applied.Denies any previous injections or surgery. He last had imaging of the lumbar spine years ago. This imaging/report is not available today, as it as performed in [place]. [facility] Medical History Chronic LUQ pain Schatzki's ring Abdominal pain Dysphagia Back pain Depression Asthma Elevated cholesterol HTN (hypertension) GERD (gastroesophageal reflux disease) Surgical History H/O endoscopy H/O colonoscopy History of esophagogastroduodenoscopy (EGD) History of back surgery Family History Father Paternal family history of mental health disorder Alcoholism Mother No problems noted. Brother Brain aneurysm Other Mental health disorder Substance use disorder Social History Household Members Other:: With his mother- relocated from [place]- getting Housing: House Alcohol intake: current Patient Tobacco Use Status: Current everyday Tobacco user Tobacco use type: Smokeless Tobacco e-Cigarette/Vaping Use: Never Used Second Hand Smoke Exposure: No service: Yes Current occupational status: retired and disabled Cognitive needs: No Hearing needs: No Vision needs: No Review of Systems Const All systems reviewed & are unremarkable except as noted in HPI and below ENT Reports Normal hearing present Neuro Reports Normal hearing present, Denies Abnormal speech present and Denies Sensory deficit (Neuro) Physical Exam Vital Signs: Last Vital Signs Pulse 106 H 07/09/23 10:15 BP 173/90 H 07/09/23 10:15 Pulse Ox 98 07/09/23 10:15 Oxygen Delivery Method Room Air 07/09/23 10:15 BMI result Body Mass Index 35.0 Const General: cooperative, alert, awake and in distress (due to pain) mild Nutritional Appearance: obese Orientation/consciousness: patient oriented x3 HEENT Head: Yes normal to inspection and Yes normocephalic Eyes General: appearance normal, both eyes and all related structures Resp Effort & Inspection: normal respiratory effort, able to speak in complete sentences, no cough and no respiratory distress Cardio Jugular venous distension: no JVD Rate: regular rate Peripheral pulses: Peripheral pulses 2+ throughout GI Inspection: Yes obesity Palpation (GI): Soft to palpation, nontender and no guarding Back/Spine/Pelvis Other: Limited lumbar ROM, flexion, extension, bending and rotations reproduce moderate pain. Antalgic gait. No limping. Can flex forward to 60-70 degrees and extend to 5-10 degrees before experiencing lumbar pain. Demonstrates 5/5 strength of quadriceps bilaterally as well as flexion/dorsiflexion of bilateral feet against resistance. 2+ pedal pulses bilaterally. Straight leg rise with dorsiflexion negative bilaterally. +1 patellar and achilles reflexes bilaterally. Facet loading test positive bilaterally. Aelx signs positive bilaterally. Pelvic compression, Sajan?s, and Stinchfield tests are positive bilaterally, L>R. No pain with I/E hip rotations bilaterally. No foot drop. Valsalva maneuver negative. Cervical Spine: cervical muscular tenderness and No Cervical spine tenderness Thoracic/Lumbar Spine: thoracic and lumbar spine normal to inspection, Thoracic/lumbar spine scar(s), Lasegue's sign negative, straight leg raise negative bilaterally, pain with thoraco-lumbar ROM, paraspinal muscle tenderness, thoraco-lumbar ROM limited, No thoracic spinal tenderness and lumbar spinal tenderness (L4-S1) Pelvis: buttock tenderness bilaterally Sacroiliac joints: bilaterally tender to palpation Neuro General: patient oriented x3 and no focal motor deficits Cranial nerves: Yes Normal hearing present Cognition (Neuro): normal cognition Speech: No Abnormal speech present Gait exam (Neuro): Antalgic gait present Motor exam (neuro): 5/5 motor strength present throughout, no tremor noted and Motor abnormalities not present Sensory Exam: No Sensory deficit (Neuro) Extrem General: Yes capillary refill normal, Yes no clubbing, cyanosis or edema and Yes no calf tenderness Psych Appearance: grossly normal Mental Status: mental status grossly normal Speech and movement: Clear speech present Affect: normal affect and Anxious affect present Attitude: cooperative Thought process: Normal thought process present Thought content: Normal thought content present Insight: Good insight present (Psych) Judgement: Good judgement present (Psych) Results Reviewed Results Reviewed: CT LUMBAR SPINE WITH CONTRAST 09/12/22 CLINICAL INFORMATION: Postlaminectomy syndrome. FINDINGS: VERTEBRAL BODIES AND PARASPINAL STRUCTURES: There is mild retrolisthesis of L5 on S1. There are sequelae of a multilevel instrumented posterior decompression and fusion from L3-L4 through L5-S1. There are bilateral pedicular screws in L3, L4 and L5 joined by vertical rods and there is an interbody device at L4-L5. A cross bar is noted at L4-L5. There is good lateral mass fusion between L3-L4 and L5-S1 bilaterally. There is marked narrowing of intervertebral disc height at L5-S1. Vertebral body heights are maintained and no fractures are demonstrated. There are bridging osteophytes anterolaterally on the right at L3-L4. Overall, bone mineralization appears slightly diffusely decreased. There are atherosclerotic calcifications of the aorta and its branches. The visualized pelvic structures are unremarkable. The visualized pelvic structures appear intact. SPINAL LEVELS: T12-L1: The facet joints appear normal bilaterally. Disc contour is normal. There is no central stenosis or foraminal narrowing. L1-L2: There is mild bilateral facet arthropathy. There is a posterior disc protrusion with an annular calcification, and there is mild flattening of the ventral thecal sac, but there is no definite stenosis. The neural foramina are patent bilaterally. L2-L3: There is severe bilateral facet hypertrophy with ligamenta flava hypertrophy. There is a broad-based posterior disc protrusion extending into the inferior neural foramina without definite exiting nerve root impingement. There is narrowing of the bilateral subarticular recesses with moderate central stenosis. L3-L4: There are sequelae of an instrumented posterior decompression and fusion. There is a broad-based posterior disc protrusion which flattens the ventral thecal sac, but there is no central stenosis. There are small foraminal disc protrusions with annular calcification, more prominent on the left. L4-L5: There are sequelae of an instrumented posterior decompression and fusion. There is a posterior disc osteophyte complex without significant mass effect on the thecal sac. There are small foraminal disc protrusions bilaterally, more prominent on the left and there may be impingement on the exiting left L4 nerve root. There is no central stenosis. L5-S1: There are sequelae of an instrumented posterior decompression and fusion. There is a prominent posterior disc osteophyte complex which flattens the ventral thecal sac and narrows the subarticular recesses bilaterally. There is no central stenosis. There are bilateral foraminal disc osteophyte complexes impinging the exiting L5 nerve roots. IMPRESSION: 1. There are sequelae of a multilevel instrumented posterior decompression and fusion problem L3-L4 through L5-S1. There is good bilateral lateral mass fusion at these levels. 2. At L2-L3 there is severe facet arthropathy and there is a broad-based posterior disc protrusion. There is narrowing of the bilateral subarticular recesses with moderate central stenosis. 3. At L4-L5 there is a posterior disc osteophyte complex. There are small foraminal disc protrusions bilaterally, more prominent on the left and there may be impingement on the exiting left L4 nerve root. There is no central stenosis. 4. At L5-S1 there is a prominent posterior disc osteophyte complex which flattens the ventral thecal sac and narrows the subarticular recesses. There is no central stenosis. There are bilateral foraminal disc osteophyte complexes impinging the exiting L5 nerve roots. Assessment & Plan Assessment & Plan (1) Muscle spasm: Code(s): M62.838 - Other muscle spasm (2) Post laminectomy syndrome: Code(s): M96.1 - Postlaminectomy syndrome, not elsewhere classified (3) Sacroiliac joint pain: Code(s): M53.3 - Sacrococcygeal disorders, not elsewhere classified (4) Lumbar degenerative disc disease: Code(s): M51.36 - Other intervertebral disc degeneration, lumbar region (5) Lumbar spondylosis: Code(s): M47.816 - Spondylosis without myelopathy or radiculopathy, lumbar region (6) Lumbar radiculopathy: Code(s): M54.16 - Radiculopathy, lumbar region Plan MRI of the lumbar spine to assess for neural integrity and compression and follow up on previous lumbar spine CT scan findings. For acute symptoms, script sent for methocarbamol as tizanidine has been mildly effective and Medrol Deangelo. Side effects and precautions were discussed with patient. Patient was advised that our chronic opioid program is currently closed since November 2021, referred back to follow up with his PCP for medical opioid management. Patient will return to the clinic to discuss results of the MRI findings when it is done and consider interventional therapy as indicated. All questions were answered and the patient is in agreement of plan. Follow-up for MRI results and sooner as needed.? Orders: Orders MR lumbar spine wo/w con 07/09/23 M51.36 - Other intervertebral disc degeneration, lumbar region, M54.16 - Radiculopathy, lumbar region, M96.1 - Postlaminectomy syndrome, not elsewhere classified Medications: New methocarbamol 750 mg PO Q8H PRN 90 tabs 1RF muscle spasm M47.816 - Spondylosis without myelopathy or radiculopathy, lumbar region, M51.36 - Other intervertebral disc degeneration, lumbar region, M62.838 - Other muscle spasm, M96.1 - Postlaminectomy syndrome, not elsewhere classified methylprednisolone (Medrol (Deangelo)) PO PER PKG DIR 21 ea 0RF pain M51.36 - Other intervertebral disc degeneration, lumbar region, M96.1 - Postlaminectomy syndrome, not elsewhere classified Discontinued tizanidine Discontinued Reason: Patient no longer taking 2 mg PO Q8H PRN 90 tabs 1RF for muscle spasm M62.838 - Other muscle spasm Coding Level of Care Code Est Pt Level 4 (85657) Diagnoses Muscle spasm M62.838 Post laminectomy syndrome M96.1 Sacroiliac joint pain M53.3 Lumbar degenerative disc disease M51.36 Lumbar spondylosis M47.816 Lumbar radiculopathy M54.16
[2023-07-09 10:15] VITALS: BP 173/90; PULSE 106; O2SAT 98; BMI 35.0
== END 2023-07-09 10:28 | disposition home or self-care (01) ==
PROVIDERS: PCP Family Medicine; Visit Provider Nurse Practitioner Family
DX: M62.838 Other muscle spasm (principal); M96.1 Postlaminectomy syndrome, not elsewhere classified; M53.3 Sacrococcygeal disorders, not elsewhere classified; M51.36 Other intervertebral disc degeneration, lumbar region; M47.816 Spondylosis without myelopathy or radiculopathy, lumbar region; M54.16 Radiculopathy, lumbar region
CPT/HCPCS: 99214

== ENCOUNTER → 2023-07-09 09:49 | Outpatient (BNVA) | payer MEDICARE, SELFPAY | PROVIDERS: PCP Family Medicine; Visit Provider Nurse Practitioner Family | DX: M62.838 Other muscle spasm (principal); M96.1 Postlaminectomy syndrome, not elsewhere classified; M53.3 Sacrococcygeal disorders, not elsewhere classified; M51.36 Other intervertebral disc degeneration, lumbar region; M47.816 Spondylosis without myelopathy or radiculopathy, lumbar region; M54.16 Radiculopathy, lumbar region | CPT/HCPCS: 99212 ==

== ENCOUNTER 2023-07-09 12:26 | Outpatient (AMB) | payer MEDICARE, SELFPAY ==
--- NOTE | 2023-07-09 13:04 | AM.OFFWIN_ITS ---
Intake Vital Signs 07/09/23 13:06 Height 5 ft 7 in BP 130/76 Blood Pressure Location Rt brachial Position Sitting Pulse 97 Pulse Source Pulse Oximeter Temp 97.0 F Pulse Oximetry (%) 98 Intake Visit Reasons: severe back pain [phone] Intake Note: pt is here today for severe back pain Patient Tobacco Use Status: Current everyday Tobacco user Allergies Hydrocodone-Ibuprofen Adverse Reaction (Mild, Uncoded 07/09/23 13:49) headaches Medication List - Last Reconciled 07/09/23 by Kobi Braswell MD amlodipine 10 mg PO DAILY fenofibrate micronized 134 mg PO DAILY 90 days fluoxetine 20 mg PO DAILY fluticasone propionate 220 mcg/actuation (Flovent HFA) 1 puff inhalation BID gabapentin 600 mg PO DAILY 90 days losartan 100 mg PO DAILY magnesium glycinate 200 mg (2 x 100 mg) PO DAILY 30 days meloxicam 15 mg PO DAILY 15 days methocarbamol 750 mg PO Q8H PRN methylprednisolone (Medrol (Deangelo)) PO PER PKG DIR omega3,5,6,7,9 no.1-salmon oil 700-1,500 mg-mg 4 caps PO DAILY 90 days pantoprazole 40 mg PO DAILY riboflavin (vitamin B2) 400 mg PO DAILY 30 days simvastatin 20 mg PO BEDTIME 90 days sumatriptan succinate take 1 tab at onset of headache; if no relief may repeat 1 tab after at least 2 hrs; max = 4 tabs/24 hr PO 30 days HPI severe back pain [phone] HPI Details 58-year-old male presents to the office for a sick visit. Patient has history of chronic pain and is seeing the pain clinic. He was seen there this morning and put on prednisone and muscle relaxant for pain control. Unfortunately patient believes he needs in opiate for pain control. He has history of back surgeries which were done in [place]. He uses the muscle relaxant for low back pain and migraines. [facility] Medical History Chronic LUQ pain Schatzki's ring Abdominal pain Dysphagia Back pain Depression Asthma Elevated cholesterol HTN (hypertension) GERD (gastroesophageal reflux disease) Surgical History H/O endoscopy H/O colonoscopy History of esophagogastroduodenoscopy (EGD) History of back surgery Family History Father Paternal family history of mental health disorder Alcoholism Mother No problems noted. Brother Brain aneurysm Other Mental health disorder Substance use disorder Social History Household Members Other:: With his mother- relocated from [place]- getting Housing: House Alcohol intake: current Patient Tobacco Use Status: Current everyday Tobacco user Tobacco use type: Smokeless Tobacco e-Cigarette/Vaping Use: Never Used Second Hand Smoke Exposure: No Current occupational status: previously employed and disabled Cognitive needs: No Hearing needs: No Vision needs: No Physical Exam Vital Signs: Last Vital Signs Temp 97.0 F 07/09/23 13:06 Pulse 97 07/09/23 13:06 BP 130/76 07/09/23 13:06 Pulse Ox 98 07/09/23 13:06 Neck Neck: Yes normal visual inspection and Yes full ROM General: Yes no CVA tenderness Back/Spine/Pelvis Back: no CVA tenderness Assessment & Plan Assessment & Plan (1) Lumbar radiculopathy: Code(s): M54.16 - Radiculopathy, lumbar region Plan: Declined to prescribe opiates. Patient was advised that meloxicam will be c alled in. I offered him an injection of Toradol. He declined as he has no but he had to drive the car. Prescription for meloxicam called in. Medications: Refilled meloxicam 15 mg PO DAILY 15 days 15 tabs 0RF Coding Level of Care Code Est Pt Level 3 (59817) Diagnoses Lumbar radiculopathy M54.16
[2023-07-09 13:06] VITALS: BP 130/76; PULSE 97; TEMP 36.1; O2SAT 98
== END 2023-07-09 14:22 | disposition home or self-care (01) ==
PROVIDERS: PCP Family Medicine; Visit Provider Internal Medicine
DX: M54.16 Radiculopathy, lumbar region (principal)
CPT/HCPCS: 99213

== ENCOUNTER 2023-07-10 11:12 | Outpatient (AMB) | payer MEDICARE, SELFPAY ==
--- NOTE | 2023-07-10 11:16 | A.OFFPC_ITS ---
Vital Signs 07/10/23 11:18 Height 5 ft 7 in Weight 226 lb 3 oz BMI 35.4 BP 150/80 H Blood Pressure Location Lt brachial Position Sitting Respiration 13 Pulse 104 H Pulse Source Pulse Oximeter Temp 98 F Temp Source Temporal Artery Scan Pulse Oximetry (%) 98 Oxygen Delivery Method Room Air Intake Visit Reasons: Back Pain Intake Note: Patient is stating that this is the worst his back has been in a while and has been experiencing it since . Patient has a MRI ordered and was told that they will call once they have an opening. Grounds Person Required: No Accompanied by: Self / Same As Patient Allergies Hydrocodone-Ibuprofen Adverse Reaction (Mild, Uncoded 07/10/23 11:29) Headache Tobacco use date assessed: 04/05/23 Dental Screening Dental Screen Date: 07/10/23 Did you have a dental visit in the last 12 months?: Yes Did you have a dental problem in the last 6 months where you did not have access to dental care?: No Was dental information given to patient?: Patient has dentist HPI HPI Comments History of Present Illness Details 58 y/o male presents with complaints of acute, severe, persistent low back pain. He notes that the pain started upon waking up 6 days ago. The pain radiates from his lumbar spin to his right lower back. He describes the pain as dull at rest, and sharp with standing up and walking and increased from 6/10 to 9-10/10. He notes that he cut some plywood in his year, the day before the pain started. He was evaluated for similar complaints at [facility] and [facility] walk-in clinic on 07/09/2023. He was prescribed prednisone, methocarbamol, and meloxicam. He notes that his symptoms have been refractory to current treatment regimen. No tingling, numbness, or loss of sensation. He has h/o chronic back pain with multiple surgeries. [facility] Medical History Chronic LUQ pain Schatzki's ring Abdominal pain Dysphagia Back pain Depression Asthma Elevated cholesterol HTN (hypertension) GERD (gastroesophageal reflux disease) Surgical History H/O endoscopy H/O colonoscopy History of esophagogastroduodenoscopy (EGD) History of back surgery Family History Father Paternal family history of mental health disorder Alcoholism Mother No problems noted. Brother Brain aneurysm Other Mental health disorder Substance use disorder Social History Household Members Other:: With his mother- relocated from [place]- getting Housing: House Alcohol intake: current Patient Tobacco Use Status: Current everyday Tobacco user Tobacco use type: Smokeless Tobacco e-Cigarette/Vaping Use: Never Used Second Hand Smoke Exposure: No service: Yes Current occupational status: retired and disabled Cognitive needs: No Hearing needs: No Vision needs: No Questionnaire ANTHONY-7 AMB Questionnaire ANTHONY-7 Date ANTHONY - 7 assessed: 08/23/22 Source: Developed by Drs. Doyle Guardado, Isabel Dalton, Hector Durham and colleagues, with an educational delfin from [employer]. Review of Systems Const Details: Const Denies chills, Denies fatigue, Denies fever(s), Denies headache(s) and Denies weakness ENT Denies dizziness and Denies headache(s) Card Denies chest pain, Denies lightheadedness, Denies dyspnea and Denies other (Palpitations) Resp Denies cough, Denies dyspnea, Denies wheezing and Denies other ( shortness of breath) GI Denies abdominal pain, Denies melena, Denies hematochezia, Denies change in bowel habits, Denies dyspepsia and Denies nausea Denies hematuria and Denies dysuria Musc Reports as per HPI Skin/Breast Denies rash, Denies unusual bruising and Denies wounds Neuro Denies abnormal gait, Denies dizziness, Denies headache(s), Denies memory loss, Denies numbness, Denies Sensory deficit (Neuro), Denies tingling and Denies weakness Psych Denies anxiety, Denies depression, Denies memory loss Endo Denies cold intolerance, Denies fatigue, Denies heat intolerance, Denies polydipsia and Denies polyuria Aller/Immun Denies wheezing Physical exam (Primary Care) Vital Signs: Last Vital Signs Temp 98 F 07/10/23 11:18 Pulse 104 H 07/10/23 11:18 Resp 13 07/10/23 11:18 BP 150/80 H 10/24/23 11:18 Pulse Ox 98 07/10/23 11:18 Oxygen Delivery Method Room Air 07/10/23 11:18 BMI result Body Mass Index 35.4 Tobacco/Smoking Status: Tobacco use Status Tobacco use date assessed 04/05/23 07/10/23 11:17 Patient Tobacco Use Status Current everyday Tobacco 07/10/23 11:17 Tobacco use type Smokeless Tobacco 07/10/23 11:17 e-Cigarette/Vaping Use Never Used 07/10/23 11:17 Const Other: General: no acute distress and well developed Nutritional Appearance: well nourished Orientation/consciousness: patient oriented x3 HENMT Head: Yes normocephalic and Yes atraumatic Eyes General: appearance normal, both eyes and all related structures Pupils: Equal, round and reactive pupils present EOM: EOMs intact bilaterally Resp Effort & Inspection: normal respiratory effort Auscultation: clear to auscultation bilaterally Cardio Rate: regular rate Rhythm: regular rhythm Heart sounds: S1 normal heart sound present, S2 normal heart sound present, no gallops, no murmurs and no rubs GI Palpation (GI): No Abdominal aortic bruit present, Soft to palpation, nontender, No hepatosplenomegaly present and No Rebound tenderness present Auscultation: normal bowel sounds General: Yes no CVA tenderness Back/Spine/Pelvis Back: no CVA tenderness Cervical Spine: cervical ROM normal and No Cervical spine tenderness Thoracic/Lumbar Spine: thoraco-lumbar ROM normal, No pain with thoraco-lumbar ROM, No thoracic spinal tenderness and lumbar spinal tenderness Extrem General: Yes normal to inspection, No edema and No calf tenderness Negative straight leg raise bilaterally Skin General: warm and dry. Normal skin color. Normal skin turgorl Neuro General: patient oriented x3, gait normal and no focal neuro deficit Cranial nerves: Yes Equal, round and reactive pupils present Cognition (Neuro): normal cognition Gait exam (Neuro): Normal gait present Sensory Exam: No Sensory deficit (Neuro) Psych Appearance: grossly normal Affect: normal affect Attitude: cooperative Thought process: Normal thought process present Assessment and Plan Assessment & Plan (1) Low back pain: Code(s): M54.5 - Low back pain Plan: Reports severe persistent acute low back pain for the past 6 days. The pain intensifies with standing and walking and is refractory to current treatment regimen. He has history of chronic low back pain with multiple surgeries. Positive lumbar spine tenderness. Negative straight leg raises bilaterally Tramadol ordered. Take as prescribed Warm/cool compresses and stretching encouraged Follow-up with pain management as planned Follow-up with PCP with worsening or new symptoms Verbalized understanding and agreed with treatment plan. Blood pressure is likely elevated due to pain. Medications: New tramadol 50 mg PO BID 7 days PRN 14 tabs 0RF pain Coding Level of Care Code Est Pt Level 4 (38252) Diagnoses Low back pain M54.5
[2023-07-10 11:18] VITALS: BP 150/80; PULSE 104; RESP 13; TEMP 36.6; O2SAT 98; BMI 35.4
== END 2023-07-10 12:13 | disposition home or self-care (01) ==
PROVIDERS: PCP Family Medicine; Visit Provider Nurse Practitioner Family
DX: M54.50 Low back pain, unspecified (principal)
CPT/HCPCS: 99214

== ENCOUNTER 2023-08-13 08:10 | Outpatient (REF) | payer MEDICARE, SELFPAY ==
[2023-08-13 11:54] LABS: Cholesterol 189 mg/dL (<200); HDL Cholesterol 37 mg/dL (>40); LDL Cholesterol Calculated 120 mg/dL (<100); Triglycerides 163 mg/dL (<150)
== END 2023-08-13 08:11 | disposition home or self-care (01) ==
LOC: HO.WFDLDS 08:10
PROVIDERS: Visit Provider Family Medicine
DX: Z00.00 Encounter for general adult medical examination without abnormal findings (principal); E78.6 Lipoprotein deficiency
CPT/HCPCS: 36415; 80061

== ENCOUNTER 2023-08-16 14:29 | Outpatient (AMB) | payer MEDICARE, SELFPAY ==
--- NOTE | 2023-08-16 14:40 | A.OFFPC_ITS ---
Vital Signs 08/16/23 14:42 Height 5 ft 7 in Weight 221 lb BMI 34.6 BP 134/74 Blood Pressure Location Lt brachial Position Sitting Respiration 13 Pulse 92 Pulse Source Pulse Oximeter Temp 98 F Temp Source Temporal Artery Scan Pulse Oximetry (%) 98 Oxygen Delivery Method Room Air Intake Visit Reasons: f/u hypertension and labs Intake Note: Patient would like a refill on metacarbomal. Patient states that he does not have asthma. Produce Inspector Required: No Allergies Hydrocodone-Ibuprofen Adverse Reaction (Mild, Uncoded 07/10/23 11:29) Headache Tobacco use date assessed: 04/05/23 Dental Screening Dental Screen Date: 08/16/23 Did you have a dental visit in the last 12 months?: Yes Did you have a dental problem in the last 6 months where you did not have access to dental care?: No Was dental information given to patient?: Patient has dentist HPI f/u hypertension and labs HPI Details 58 y/o male presents to f/u hypertension and labs. Labs were drawn 08/13/23. Reviewed labs with pt. Triglycerides worsened from 81 to 163. TC 189. LDL 120. HDL low at 37. Blood pressure today 134/74. He is on amlodipine 10mg, losartan 100mg daily. Pt asked about asthma and he states he does not have asthma. [facility] Medical History Chronic LUQ pain Schatzki's ring Abdominal pain Dysphagia Back pain Depression Asthma Elevated cholesterol HTN (hypertension) GERD (gastroesophageal reflux disease) Surgical History H/O endoscopy H/O colonoscopy History of esophagogastroduodenoscopy (EGD) History of back surgery Family History Father Paternal family history of mental health disorder Alcoholism Mother No problems noted. Brother Brain aneurysm Other Mental health disorder Substance use disorder Social History Household Members Other:: With his mother- relocated from [place]- getting Housing: House Alcohol intake: current Patient Tobacco Use Status: Current everyday Tobacco user Tobacco use type: Smokeless Tobacco e-Cigarette/Vaping Use: Never Used Second Hand Smoke Exposure: No service: Yes Current occupational status: retired and disabled Cognitive needs: No Hearing needs: No Vision needs: No Questionnaire ANTHONY-7 AMB Questionnaire ANTHONY-7 Date ANTHONY - 7 assessed: 08/23/22 Source: Developed by Drs. Doyle Guardado, Isabel Dalton, Hector Durham and colleagues, with an educational delfin from [employer]. Review of Systems Const Denies chills, Denies fatigue, Denies fever(s), Denies headache(s) and Denies weakness ENT Denies dizziness and Denies headache(s) Card Denies chest pain, Denies lightheadedness, Denies dyspnea and Denies other (Palpitations) Resp Denies cough, Denies dyspnea, Denies wheezing and Denies other ( shortness of breath) Musc Denies numbness and Denies tingling Neuro Denies dizziness, Denies headache(s), Denies numbness, Denies tingling, Denies paresthesias and Denies weakness Psych Denies anxiety and Denies depression Endo Denies fatigue Aller/Immun Denies wheezing Physical exam (Primary Care) Vital Signs: Last Vital Signs Temp 98 F 08/16/23 14:42 Pulse 106 H 08/16/23 14:42 Resp 13 08/16/23 14:42 BP 134/74 08/16/23 14:42 Pulse Ox 98 08/16/23 14:42 Oxygen Delivery Method Room Air 08/16/23 14:42 BMI result Body Mass Index 34.6 Tobacco/Smoking Status: Tobacco use Status Tobacco use date assessed 04/05/23 08/16/23 14:49 Patient Tobacco Use Status Current everyday Tobacco 08/16/23 14:49 Tobacco use type Smokeless Tobacco 08/16/23 14:49 e-Cigarette/Vaping Use Never Used 08/16/23 14:49 Const General: no acute distress and well developed Nutritional Appearance: well nourished Orientation/consciousness: patient oriented x3 HENMT Head: Yes normocephalic and Yes atraumatic Eyes General: appearance normal, both eyes and all related structures Pupils: Equal, round and reactive pupils present EOM: EOMs intact bilaterally Resp Effort & Inspection: normal respiratory effort Auscultation: clear to auscultation bilaterally Cardio Rate: regular rate Rhythm: regular rhythm Heart sounds: Murmur heart sound present Neuro General: patient oriented x3 and gait normal Cranial nerves: Yes Equal, round and reactive pupils present Psych Affect: normal affect Assessment and Plan Assessment & Plan (1) Essential hypertension: Code(s): I10 - Essential (primary) hypertension Plan: Blood?pressure?is?controlled.??Goal?is?less?than?140/90 Continue?current?medication?regimen (2) Hyperlipidemia: Code(s): E78.5 - Hyperlipidemia, unspecified Plan: LDL?cholesterol?now?below?130?on?simvastatin. Triglycerides?fairly?well?controlled?on?fenofibrate (3) Low HDL (under 40): Code(s): E78.6 - Lipoprotein deficiency Plan: HDL?has?decreased.??I?encouraged?exercise (4) Lumbar radiculopathy: Code(s): M54.16 - Radiculopathy, lumbar region Plan: Recent?flare?up?of?his?pain?though?this?is?improving. Continue?to?follow-up?with?pain?management.??Has?an?upcoming?MRI?lumbar?spine Will?refill?his?muscle?relaxant Medications: Refilled methocarbamol 750 mg PO Q8H PRN 90 tabs 1RF muscle spasm M47.816 - Spondylosis without myelopathy or radiculopathy, lumbar region, M51.36 - Other intervertebral disc degeneration, lumbar region, M62.838 - Other muscle spasm, M96.1 - Postlaminectomy syndrome, not elsewhere classified Coding Level of Care Code Est Pt Level 4 (42830) Diagnoses Essential hypertension I10 Hyperlipidemia E78.5 Low HDL (under 40) E78.6 Lumbar radiculopathy M54.16
[2023-08-16 14:42] VITALS: BP 134/74; PULSE 92; RESP 13; TEMP 36.6; O2SAT 98; BMI 34.6
== END 2023-08-16 16:08 | disposition home or self-care (01) ==
PROVIDERS: PCP Family Medicine; Visit Provider Family Medicine
DX: I10 Essential (primary) hypertension (principal); E78.5 Hyperlipidemia, unspecified; E78.6 Lipoprotein deficiency; M54.16 Radiculopathy, lumbar region
CPT/HCPCS: 99214

== ENCOUNTER 2023-08-22 11:37 | Outpatient (REF) | payer MEDICARE, SELFPAY ==
--- NOTE | ~2023-08-22 | XR_ITS ---
EXAMINATION: Pre-MRI orbits. CLINICAL INDICATION: Foreign body in eyes. Screening. TECHNIQUE: 3 views. FINDINGS: There is no radiopaque foreign body seen in the orbits. There is dental fillings along the left lower jaw. No bony abnormality seen. The paranasal sinuses are clear. XR/XR pre mri screening IMPRESSION: No radiopaque foreign body seen in the orbits.
--- NOTE | ~2023-08-22 | MR_ITS ---
MR LUMBAR SPINE WITHOUT AND WITH CONTRAST CLINICAL INFORMATION: Intervertebral disc degeneration/lumbar region. COMPARISON: Lumbar spine CT September 12, 2022. TECHNIQUE: MRI of the lumbar spine was obtained using routine sequences with and without contrast. Intravenous contrast: Gadavist 10 mL FINDINGS: There are 5 nonrib-bearing lumbar-type vertebral bodies. There are postoperative changes following laminectomy and posterior instrumented fusion at the L3-S1 levels as well as interbody fusion at L4-L5. Surgical hardware not diagnostically assessed on MRI. There is no bone marrow edema. There are no acute fractures. The vertebral body heights are maintained. There is moderate disc volume loss and there is disc desiccation at L1-L2. There are T2 signal changes within the paraspinal musculature at and below the postsurgical levels, most likely related to denervation. Conus terminates at the L1 level. There are no significant extraspinal soft tissue findings. L1-L2: There is a large central disc protrusion that along with dorsal epidural lipomatosis results in severe central canal stenosis. Disc osteophyte and facet arthropathy result in mild bilateral foraminal encroachment. L2-L3: Small annular disc bulge and severe bilateral facet arthropathy and ligamentum flavum thickening. Epidural lipomatosis. Findings in concert result in mild to moderate central canal stenosis/thecal sac effacement. There is no foraminal stenosis. L3-L4: Postoperative changes following laminectomy and posterior instrumented fusion. There is no central canal stenosis. There is mild bilateral foraminal encroachment. L4-L5: Postoperative changes following laminectomy and posterior instrumented lumbar interbody fusion. There is enhancing granulation/scar tissue within the left subarticular zone inseparable from the traversing left L5 nerve root. Osteophytic ridging and facet arthropathy result in mild bilateral foraminal encroachment. L5-S1: Postoperative changes following laminectomy and posterior instrumented fusion. Diffuse disc osteophyte complex and bilateral facet arthropathy. Moderate right and mild left foraminal stenosis with mass effect on the foraminal and extraforaminal segments of the exiting right L5 nerve root. MR/MR lumbar spine wo/w con IMPRESSION: - At L1-L2, there is a large central disc protrusion that along with dorsal epidural lipomatosis results in severe central canal stenosis. - At the junctional L2-L3 level, spondylitic changes and epidural lipomatosis result in mild to moderate central canal stenosis. Advanced bilateral facet arthropathy at this level. - There are postoperative changes following laminectomy and posterior instrumented fusion at the L3-S1 levels as well as interbody fusion at L4-L5. At L4-L5, there is enhancing granulation/scar tissue within the left subarticular zone inseparable from the traversing left L5 nerve root. At L5-S1, osteophytic ridging and facet arthropathy result in moderate right-sided foraminal stenosis and mass effect on the foraminal and extraforaminal segments of the exiting right L5 nerve root.
[2023-08-22] MEDS: gadobutroL 10 ML VIAL IVPUSH (14:04)
== END 2023-08-22 11:38 | disposition home or self-care (01) ==
LOC: HO.MRI 11:37
PROVIDERS: PCP Family Medicine; Visit Provider Nurse Practitioner Family
DX: M51.36 Other intervertebral disc degeneration, lumbar region (principal); M96.1 Postlaminectomy syndrome, not elsewhere classified; M54.16 Radiculopathy, lumbar region
CPT/HCPCS: 72158; A9585

== ENCOUNTER 2023-09-13 09:27 | Outpatient (AMB) | payer MEDICARE, SELFPAY ==
--- NOTE | 2023-09-12 13:18 | HO.SPINEOV ---
Intake Intake Visit Reasons: radiculopathy Acquisition Lead Required: No Allergies Hydrocodone-Ibuprofen Adverse Reaction (Mild, Uncoded 07/10/23 11:29) Headache Assessment & Plan Assessment & Plan (1) Lumbar radiculopathy: Code(s): M54.16 - Radiculopathy, lumbar region Plan Dear Madhuri, Thank you for referring Javier to our office today. He is a pleasant 58-year-old male who comes in today with a chief complaint of low back pain with radiation into his bilateral anterior/lateral thighs. He reports that his back pain has been longstanding for roughly 15 years, and reports he has surgery in [place] 10 years ago to help alleviate his back pain. He states that he had a fusion from L3-S1. He notes that at the time surgery they showed him a very small disc bulge just above the level that they would be fusing, and that they reported they did not seem interested in pursuing a diskectomy at that time. He states that his low back pain is now to the point where it is causing daily pain, and reports that the radiation into his thighs limits his ability to complete meaningful activities such as yard work around his home. He reports that the pain in his left thigh is worse, and describes it as a constant dull ache. He reports that his right sided symptoms are more intermittent. He has attempted to utilize all [id number] remedies including Tylenol, ibuprofen, ice, heat, and zgqg-vus-[id number] pain creams without significant relief of symptoms. He is also attempted to utilize gabapentin and Robaxin with only minor relief. He has been to physical therapy before, but felt that has not been helpful for him and only exacerbates his symptoms. He is also attempted to utilize healthcare advisory services manager, acupuncture, and has had cortisone injections. He states that the epidural cortisone injections have been intermittently useful, but only last short periods of time before his symptoms return. PMH: High blood pressure, migraine headaches, depression, Schatzki ring (esophagus), GERD, hyperlipidemia. Social hx: Patient does not smoke, reports no substance use. Medications: Amlodipine, fenofibrate, fluoxetine, fluticasone, gabapentin, losartan, magnesium, meloxicam, methocarbamol, Medrol Dosepak, fish oil, pantoprazole, vitamin B2, simvastatin, sumatriptan, tramadol. Allergies: NKDA. Physical exam: The patient has 5/5 strength in his upper and lower extremities. No significant sensational deficits. Reflexes are 2+ intact. The patient ambulates well and is able to rise from a seated position without significant difficulty. Some discomfort with bilateral straight leg raise but not enough to call it positive. (-) Mcgarry's, (-) clonus. Imaging review: MRI completed at [facility] showed previously stated L3-S1 fusion with posterior instrumentation. There is a significant posterior disc herniation at L1-2. This is causing severe central canal stenosis at this level and is moderately impinging the bilateral foramen. Impression: The patient is a pleasant 58-year-old male who comes in today with a chief complaint of chronic longstanding low back pain with exacerbation of low back pain causing radiation into his bilateral thighs. He is unable to identify an inciting incident but feels as though his pain has gotten to the point where it is affecting his daily life. His symptoms are in a classic L2 distribution, with pain radiation from his low back around his lateral thigh over the anterior aspect of his thigh. When reviewing his MRI with him he noted that he has previously seen a disc bulge at L1-2, when he had his 3 level fusion completed in [place]. He states that it was much smaller than in the neurosurgeon did not want to pursue it as an intervention, however was discussed. He notes that is significantly enlarged at this time compared to his last viewing. I believe that this disc bulge could be the cause of his symptoms, however is unclear when the full herniation happen. For this reason I would like to have a CT scan of lumbar spine completed to evaluate both his inferior fusion and any osteophyte growth that may have occurred around the disc herniation. We did extensively discuss the potential for a microdiskectomy at this level, which he agreed to. He would like to problem to be resolved. I informed him that I would call him with results of his CT scan after I review his imaging with Dr. Dailey Thank you for allowing us to care for your patient. The total time spent with this visit with this patient was 45 minutes reviewing history, physical exam, MRI imaging review, and implementation of treatment plan or further diagnostic testing Tutu Dailey MD,PhD [facility] Orders: Orders CT lumbar spine wo IV con Today M54.16 - Radiculopathy, lumbar region Coding Level of Care Code New Pt Level 4 (58216) Diagnoses Lumbar radiculopathy M54.16
== END 2023-09-13 10:37 | disposition home or self-care (01) ==
PROVIDERS: PCP Family Medicine; Referring Provider Nurse Practitioner Family; Visit Provider Physician Assistant
DX: M54.16 Radiculopathy, lumbar region (principal)
CPT/HCPCS: 99204

== ENCOUNTER → 2023-09-13 09:27 | Outpatient (BNVA) | payer MEDICARE, SELFPAY | PROVIDERS: PCP Family Medicine; Visit Provider Physician Assistant | DX: M54.16 Radiculopathy, lumbar region (principal) | CPT/HCPCS: 99202 ==

== ENCOUNTER 2023-09-18 13:26 | Outpatient (REF) | payer MEDICARE, SELFPAY | END 2023-09-18 13:27 | disposition home or self-care (01) | LOC: HO.HOSX 13:26 | PROVIDERS: Visit Provider Physician Assistant | DX: Z13.89 Encounter for screening for other disorder (principal) ==

== ENCOUNTER 2023-09-19 10:32 | Outpatient (REF) | payer MEDICARE, SELFPAY ==
--- NOTE | ~2023-09-19 | XR_ITS ---
EXAMINATION: XR LUMBOSACRAL SPINE WITH OBLIQUES CLINICAL INFORMATION: Low back pain. COMPARISON: MR lumbar spine of 08/22/2023, CT lumbar spine 09/12/2022, x-ray lumbar spine 09/04/2022 . TECHNIQUE: 5 views of the lumbar spine. FINDINGS: Redemonstration of posterior fusion hardware from L3 through S1 with disc spacer at L4-L5. Hardware appears intact. Moderate degenerative changes at L1-L2 and L2-L3 as well as in the imaged lower thoracic spine. Degenerative changes in the imaged lower thoracic spine and upper lumbar spine. XR/XR lumbar spine 4V min IMPRESSION: Redemonstration of posterior fusion hardware from L3 through S1. Hardware appears intact.
== END 2023-09-19 10:33 | disposition home or self-care (01) ==
LOC: HO.XRAY 10:32
PROVIDERS: PCP Nurse Practitioner Family; Visit Provider Physician Assistant
DX: M54.50 Low back pain, unspecified (principal)
CPT/HCPCS: 72110

== ENCOUNTER 2023-10-19 13:17 | Outpatient (REF) | payer MEDICARE, SELFPAY ==
--- NOTE | ~2023-10-19 | CT_ITS ---
EXAMINATION: CT LUMBAR SPINE WITHOUT CONTRAST CLINICAL INFORMATION: A 58-year-old with radiculopathy lumbar region. Evaluate for osteophyte growth at L1-L2 for possible microdiscectomy and evaluate progression of fusion L3 to S1. COMPARISON: 09/19/2023 X-rays, 08/22/2023 MRI, 09/12/2022 CT lumbar spine. TECHNIQUE: Volumetric CT imaging of the lumbar spine was done with multiplanar reformatted reconstructions. This CT examination was performed using dose optimization techniques as appropriate, variously including the following: *Automated exposure control *Adjustment of mA and/or kV according to patient size (this includes techniques or standardized protocols for targeted exams where dose is matched to indication/reason for exam; i.e. extremities or head) *Use of iterative reconstruction technique DLP; 852 mGy-cm FINDINGS: ALIGNMENT: There is trace lumbar levocurvature, stable in appearance, from previous MRI. There is 3 mm of retrolisthesis at L1-L2, stable in appearance from previous CT. Otherwise, the lumbosacral spine is anatomically aligned in the sagittal plane. LUMBOSACRAL JUNCTION: Normal. There are 5 qbz-dme-jkkiqmd lumbar-type vertebral bodies. VERTEBRAL BODIES: Vertebral body heights are well maintained. No acute fractures. HARDWARE: Redemonstrated is a posterior instrumented spinal fusion hardware construct spanning the L3-S1 levels bilaterally, with intact hardware with no evidence for loosening or infection. Interbody spacer device with titanium marker is noted in place at L4-L5. There is solid osseous posterolateral bony fusion spanning the L3 toL5-S1 levels bilaterally similar to previous CT. DISC SPACES AND ENDPLATES: There is some bridging bone along the posterolateral aspect of the intervertebral disc space at L4-L5 on the right, similar appearance to the previous exam. There is now a small focus of new bridging bone on the left side of the L4-L5 intervertebral disc space since previous CT. Otherwise, the L4-L5 intervertebral disc space is still visualized. Bridging bone is noted within the central aspect of the spacer, stable in appearance. Severe disc space height loss with intradiscal calcification and spondylosis at L5-S1 is stable. There is partial ankylosis at this level similar to prior exam. Mild disc volume loss at L3-L4 is stable with mild bridging bone at the posterolateral margins of the intervertebral disc space at this level, stable in appearance. Disc space height at L2-L3 is well maintained, stable in appearance. There is zxzs-md-niyfgove disc volume loss at L1-L2 with paravertebral spondylosis unchanged. SPINAL LEVELS: L5-S1: Status post the decompressive laminectomy with mild deformity of the anterolateral thecal sac on the right in the subarticular zones, stable from previous MRI, consistent with postoperative changes without recurrent spinal canal stenosis. Bony hypertrophic changes of posterior elements and osteophytic ridging of the endplates is unchanged with dzgu-fm-mnrmcnjf left and moderate right-sided foraminal narrowing, unchanged. L4-L5: Status post laminectomy with no evidence for recurrent spinal canal stenosis. Soft tissues are partially obscured by artifact. Facet hypertrophic changes noted bilaterally. No significant bony neural foraminal stenosis. L3-L4: Posterolateral disc osteophyte complex asymmetric to the left is noted with posterior element hypertrophic changes without significant canal stenosis. Mild left-sided foraminal narrowing is stable from previous MRI. Minimal right-sided foraminal narrowing noted. L2-L3: Minor posterolateral disc osteophyte complex with minimal annular bulging is noted, with mild encroachment on the ventral dural sac. There is marked facet hypertrophic degenerative change bilaterally with partially calcified ligamentum flavum thickening and a prominent dorsal fat pad similar to prior MRI, with moderate central spinal canal stenosis, stable in appearance. No significant neural foraminal stenosis. L1-L2: There is a central partially calcified extruded disc herniation with marked mass effect on the ventral dural sac and a prominent dorsal fat pad similar to the previous MRI. The degree of canal stenosis is similar to the prior MRI. There is facet hypertrophic change and partially calcified ligamentum flavum thickening with mild bilateral neural foraminal stenosis, similar to prior MRI. T12-L1: Normal annular contour. Moderate right and mild left-sided facet arthrosis without significant canal stenosis. There is mild right-sided neural foraminal stenosis, stable in appearance. T11-T12: Disc bulging is noted with mild encroachment on the ventral dural sac without significant canal stenosis. Partially imaged facet arthrosis noted bilaterally. Neural foramina are only partially included in the field of view. PARAVERTEBRAL AND INCLUDED EXTRASPINAL SOFT TISSUES: The visualized paravertebral soft tissues and included retroperitoneal structures are unremarkable within the limitations of the exam. CT/CT lumbar spine wo IV con IMPRESSION: 1. Status post posterior instrumented spinal fusion from L3 through S1 with solid osseous posterolateral bony fusion from L3 through S1 bilaterally similar to previous CT. Stable appearance to multilevel laminectomies. No evidence for recurrent spinal canal stenosis at these levels. 2. Small amount of new bridging bone along the left side of the L4-L5 intervertebral disc space since previous CT. Otherwise, the L4-L5 intervertebral disc space is still visualized and unchanged. 3. Multilevel DDD, spondylosis and DJD as described above similar to the previous CT. Multilevel bilateral neural foraminal stenosis unchanged from previous CT. 4. Central partially calcified disc herniation at L1-L2 with posterior element hypertrophic degenerative changes and partially calcified ligamentum flavum thickening with probable severe spinal canal stenosis at this level similar to previous MRI
== END 2023-10-19 13:18 | disposition home or self-care (01) ==
LOC: HO.CT 13:17
PROVIDERS: PCP Nurse Practitioner Family; Visit Provider Physician Assistant
DX: M54.16 Radiculopathy, lumbar region (principal)
CPT/HCPCS: 72132

== ENCOUNTER 2023-11-07 11:17 | Outpatient (AMB) | payer MEDICARE, SELFPAY ==
--- NOTE | 2023-11-07 12:10 | A.SPINEOV_ITS ---
Intake Intake Visit Reasons: Imaging review Intake Note: Mr. Jerez is here today to discuss results of his MRI (brought disc) Financial Services Technician Required: No Allergies Hydrocodone-Ibuprofen Adverse Reaction (Mild, Uncoded 07/10/23 11:29) Headache Assessment & Plan Assessment & Plan (1) Lumbar radiculopathy: Code(s): M54.16 - Radiculopathy, lumbar region Plan Javier is a pleasant 58-year-old male who came in today as a follow-up to review his CT imaging and his preoperative MRI. After reviewing his case with Dr. Dailey we discussed reviewing his pre-fusion MRI to see if the posterior disc bulge at L1-2 has worsened at all since his surgery. After reviewing his imaging it appears that the herniation has remained stable and is not causing any further impingement. I evaluated the patient alongside Dr. Dailey who concluded that this chronic issue may not alone be the cause of his current pain. I would like to have the patient sent for evaluation by pain management for possible injections at this area or pain management solution/recommendations. He is agreeable to this, and will follow-up with them when their office reaches out to him. Total amount of time spent in this visit was 20 minutes in discussion of symptoms, MRI imaging results and subsequent plan of care Tutu Dailey MD,PhD [facility] Coding Level of Care Code Est Pt Level 2 (01579) Diagnoses Lumbar radiculopathy M54.16
== END 2023-11-07 12:24 | disposition home or self-care (01) ==
PROVIDERS: PCP Nurse Practitioner Family; Visit Provider Neurological Surgery
DX: M54.16 Radiculopathy, lumbar region (principal)
CPT/HCPCS: 99212

== ENCOUNTER → 2023-11-07 11:17 | Outpatient (BNVA) | payer MEDICARE, SELFPAY | PROVIDERS: PCP Nurse Practitioner Family; Visit Provider Neurological Surgery | DX: M54.16 Radiculopathy, lumbar region (principal) | CPT/HCPCS: 99212 ==

== ENCOUNTER 2023-12-11 15:24 | Outpatient (AMB) | payer MEDICARE, SELFPAY ==
--- NOTE | 2023-12-11 15:28 | MHC.PC.OV ---
Vital Signs 12/11/23 15:30 Height 5 ft 7 in Weight 221 lb BMI 34.6 BP 130/72 Blood Pressure Location Lt brachial Pulse 84 Pulse Source Pulse Oximeter Pulse Oximetry (%) 97 Oxygen Delivery Method Room Air Intake Visit Reasons: f/u HTN Intake Note: Patient is here to follow up on hypertension. Allergies Hydrocodone-Ibuprofen Adverse Reaction (Mild, Uncoded 12/11/23 15:31) Headache Tobacco use date assessed: 12/11/23 Dental Screening Dental Screen Date: 12/11/23 Did you have a dental visit in the last 12 months?: Yes Did you have a dental problem in the last 6 months where you did not have access to dental care?: No Was dental information given to patient?: Patient has dentist HPI f/u HTN HPI Details 58 y/o male presents to f/u HLD and hypertension. Blood pressure today 130/72. He is on amlodipine 10mg, losartan 100mg daily. He is on simvastatin 20mg. [facility] Medical History Chronic LUQ pain Schatzki's ring Abdominal pain Dysphagia Back pain Depression Asthma Elevated cholesterol HTN (hypertension) GERD (gastroesophageal reflux disease) Surgical History H/O endoscopy H/O colonoscopy History of esophagogastroduodenoscopy (EGD) History of back surgery Family History Father Paternal family history of mental health disorder Alcoholism Mother No problems noted. Brother Brain aneurysm Other Mental health disorder Substance use disorder Social History Household Members Other:: With his mother- relocated from [place]- getting Housing: House Alcohol intake: current Patient Tobacco Use Status: Current everyday Tobacco user Tobacco use type: Smokeless Tobacco e-Cigarette/Vaping Use: Never Used Second Hand Smoke Exposure: No service: Yes Current occupational status: retired and disabled Cognitive needs: No Hearing needs: No Vision needs: No Questionnaire PHQ-9 Over the last 2 weeks, how often have you been bothered by any of the following problems? 1. Little interest or pleasure in doing things: not at all 2. Feeling down, depressed, or hopeless: not at all 3. Trouble falling or staying asleep, or sleeping too much: not at all 4. Feeling tired or having little energy: not at all 5. Poor appetite or overeating: not at all 6. Feeling bad about yourself - or that you are a failure or have let yourself or your family down: not at all 7. Trouble concentrating on things, such as reading the newspaper or watching television: not at all 8. Moving or speaking so slowly that other people could have noticed. Or the opposite - being so fidgety or restless that you have been moving around a lot more than usual: not at all 9. Thoughts that you would be better off or of hurting yourself in some way: not at all Total score: 0 Depression Screening Interpretation: Negative Depression Screening Done: Yes Source: Developed by Drs. Doyle Guardado, Isabel Dalton, Hector Durham and colleagues, with an educational delfin from [employer]. Thrive Questionnaire Date Thrive assessed: 12/11/23 I am a: Patient What is your living situation today?: I have a steady place to live Within the past 12 months, did the food you bought not last and you didn't have the money to get more?: Never true Within the past 12 months, did you worry whether your food would run out before you got money to buy more?: Never true Do you have trouble paying for medicines?: No Do you have trouble getting transportation to medical appointments?: No Do you have trouble paying your heating and electricity bill?: No Do you have trouble taking care of your child, family member or friend?: No Do you have trouble with day-to-day activities such as bathing, preparing meals, shopping, managing finances, etc.?: No Are you currently unemployed and looking for a job?: No Are you interested in more education?: No THRIVE Score: 0 AUDIT C Alcohol Use Questionnaire (AUDIT-C) 1. How often do you have a drink containing alcohol?: Monthly or less 2. How many drinks containing alcohol do you have on a typical day when you are drinking?: 1 or 2 3. How often do you have six or more drinks on one occasion?: Never Total Score: 1 ANTHONY-7 AMB Questionnaire ANTHONY-7 Date ANTHONY - 7 assessed: 12/11/23 Feeling nervous, anxious, or on edge: 0 = Not at all Not being able to stop or control worryin = Not at all Worrying too much about different things: 0 = Not at all Trouble relaxin = Not at all Being so restless that it is hard to sit still: 0 = Not at all Becoming easily annoyed or irritable: 0 = Not at all Feeling afraid as if something awful might happen: 0 = Not at all Total ANTHONY-7 score (0-4 normal; 5-9 mild; 10-14 moderate; 15-21 severe): 0 Source: Developed by Drs. Doyle Guardado, Isabel Dalton, Hector Durham and colleagues, with an educational delfin from [employer]. Physical exam (Primary Care) Vital Signs: Last Vital Signs Pulse 84 12/11/23 15:30 BP 130/72 12/11/23 15:30 Pulse Ox 97 12/11/23 15:30 Oxygen Delivery Method Room Air 12/11/23 15:30 BMI result Body Mass Index 34.6 Tobacco/Smoking Status: Tobacco use Status Tobacco use date assessed 12/11/23 12/11/23 15:32 Patient Tobacco Use Status Current everyday Tobacco 12/11/23 15:30 Tobacco use type Smokeless Tobacco 12/11/23 15:30 e-Cigarette/Vaping Use Never Used 12/11/23 15:30 PHQ-9: PHQ-9 Score PHQ-9: Total score 0 12/11/23 15:45 Depression Screening Interpretation: Negative Thrive Assessment: Date of Thrive Assessment Date Thrive assessed 12/11/23 12/11/23 15:40 Assessment and Plan Assessment & Plan (1) Essential hypertension: Code(s): I10 - Essential (primary) hypertension Plan: Blood?pressure?is?controlled.??Goal?is?less?than?140/90 Continue?current?medications (2) Hyperlipidemia: Code(s): E78.5 - Hyperlipidemia, unspecified Plan: Lipids?were?fairly?well?controlled?at?his?last?visit.??HDL?is?low Increase?exercise Work?at?weight?loss Will?recheck?prior?to?his?physical?in?February (3) Low HDL (under 40): Code(s): E78.6 - Lipoprotein deficiency Plan: As?above (4) Lumbar spinal stenosis: Code(s): M48.061 - Spinal stenosis, lumbar region without neurogenic claudication Plan: Was?seen?by?Neurosurgery?and?referred?by?them?to?pain?management Has?appointment Follow-up?with?pain?management?as?recommended Orders: Orders Comprehensive [place]. Panel Fast Today Z00.00 - Encounter for general adult medical examination without abnormal findings Microalbumin, Random (w Creat) Today I10 - Essential (primary) hypertension Lipid Panel Today Z00.00 - Encounter for general adult medical examination without abnormal findings UA and rflx microscopic Today Z00.00 - Encounter for general adult medical examination without abnormal findings TSH reflex Free T4 Today Z00.00 - Encounter for general adult medical examination without abnormal findings Hemoglobin A1c Today R73.01 - Impaired fasting glucose Prostate Specific Antigen Scr Today Z12.5 - Encounter for screening for malignant neoplasm of prostate Coding Level of Care Code Est Pt Level 4 (73308) Diagnoses Essential hypertension I10 Hyperlipidemia E78.5 Low HDL (under 40) E78.6 Lumbar spinal stenosis M48.061
[2023-12-11 15:30] VITALS: BP 130/72; PULSE 84; O2SAT 97; BMI 34.6
== END 2023-12-11 16:04 | disposition home or self-care (01) ==
PROVIDERS: PCP Family Medicine; Visit Provider Family Medicine
DX: I10 Essential (primary) hypertension (principal); E78.5 Hyperlipidemia, unspecified; E78.6 Lipoprotein deficiency; M48.061 Spinal stenosis, lumbar region without neurogenic claudication
CPT/HCPCS: 99214

== ENCOUNTER 2024-03-19 08:06 | Outpatient (REF) | payer MEDICARE, SELFPAY ==
[2024-03-19 13:23] LABS: Appearance Urine Clear; Color Urine Yellow; Glucose Urine UA Negative (Negative); Leukocyte Esterase Urine Negative (Negative); Nitrite Urine Negative (Negative); Specific Gravity - Urine 1.025 (1.005-1.025); Urine Blood Negative (Negative); Urine Ketones Negative (Negative); Urine Protein Negative (Neg-Trace)
[2024-03-19 13:31] LABS: Alanine Aminotransferase 40 U/L (0-40); Albumin Level 4.3 g/dL (3.5-5.0); Alkaline Phosphatase 61 U/L (39-117); Anion Gap 12 (12-20); Aspartate Amino Transferase 38 U/L (5-37); Bilirubin Total 0.3 mg/dL (0.0-1.0); Blood Urea Nitrogen 15 mg/dL (9-16); Calcium 9.1 mg/dL (8.4-10.2); Carbon Dioxide 24 mmol/L (22-29); Chloride 108 mmol/L (96-108); Cholesterol 194 mg/dL (<200); Estimated Glomerular Filt Rate > 60; Glucose Fasting 106 mg/dL (60-99); HDL Cholesterol 43 mg/dL (>40); LDL Cholesterol Calculated 113 mg/dL (<100); Potassium 3.9 mmol/L (3.3-5.1); Sodium 140 mmol/L (135-145); Total Protein 7.3 g/dL (6.5-8.0); Triglycerides 192 mg/dL (<150)
[2024-03-19 13:39] LABS: Estimated Average Glucose 114 mg/dL; Hemoglobin A1C 139.0978 umol/L; Hemoglobin A1c % 5.6 % (<6.0)
[2024-03-19 13:43] LABS: Prostate Specific Antigen Scr 1.07 ng/mL (<0.05-4.0)
[2024-03-19 13:52] LABS: TSH reflex Free T4 2.08 uIU/mL (0.32-4.0)
[2024-03-19 14:06] LABS: Creatinine Urine 140.29 mg/dL; Microalbum/Creatinine Ratio Ur 4.2 ug/mg cr (<30)
== END 2024-03-19 08:07 | disposition home or self-care (01) ==
LOC: HO.WFDLDS 08:06
PROVIDERS: Visit Provider Family Medicine
DX: Z00.00 Encounter for general adult medical examination without abnormal findings (principal); Z12.5 Encounter for screening for malignant neoplasm of prostate; R73.01 Impaired fasting glucose; I10 Essential (primary) hypertension
CPT/HCPCS: 36415; 80053; 80061; 81003; 82043; 82570; 83036; 84153; 84443

== ENCOUNTER 2024-04-01 13:35 | Outpatient (AMB) | payer MEDICARE, SELFPAY ==
[2024-04-01 13:47] VITALS: BP 126/64; PULSE 93; RESP 13; O2SAT 99; BMI 35.1
--- NOTE | 2024-04-01 13:47 | MHC.PC.OV ---
Vital Signs 04/01/24 13:47 Height 5 ft 7 in Weight 224 lb BMI 35.1 BP 126/64 Blood Pressure Location Rt brachial Position Sitting Respiration 13 Pulse 93 Pulse Source Pulse Oximeter Pulse Oximetry (%) 99 Oxygen Delivery Method Room Air Intake Visit Reasons: CPE - see comments Intake Note: Patient is here for his cpe and would like to discuss the pain on the right sided collar bone. Senior Relationship Manager Required: No Accompanied by: Self / Same As Patient Allergies Hydrocodone-Ibuprofen Adverse Reaction (Mild, Uncoded 04/01/24 13:51) Headache Medication List - Last Reconciled 04/01/24 by Vasyl Mckay MD amlodipine 10 mg PO DAILY fenofibrate micronized 134 mg PO DAILY 90 days fluoxetine 20 mg PO DAILY fluticasone propionate 220 mcg/actuation (Flovent HFA) 1 puff inhalation BID gabapentin 600 mg PO DAILY 90 days losartan 100 mg PO DAILY magnesium glycinate 200 mg (2 x 100 mg) PO DAILY 30 days meloxicam 15 mg PO DAILY 15 days methocarbamol 750 mg PO Q8H PRN methylprednisolone (Medrol (Deangelo)) PO PER PKG DIR omega3,5,6,7,9 no.1-salmon oil 700-1,500 mg-mg 4 caps PO DAILY 90 days pantoprazole 40 mg PO DAILY riboflavin (vitamin B2) 400 mg PO DAILY 30 days simvastatin 20 mg PO BEDTIME 90 days sumatriptan succinate take 1 tab at onset of headache; if no relief may repeat 1 tab after at least 2 hrs; max = 4 tabs/24 hr PO 30 days tramadol 50 mg PO BID PRN 7 days Tobacco use date assessed: 12/11/23 Dental Screening Dental Screen Date: 12/11/23 HPI CPE - see comments HPI Details 59 y/o male presents for a CPE with f/u labs and health maintenance. Labs were drawn 03/19/24. Reviewed labs with pt. Elevated fasting glucose of 106. A1c 5.6%. Triglycerides 192. TC 194. LDL 113. HDL 43. He is on simvastatin 20mg. PSA level 1.07. Elevated AST of 38. Blood pressure today 126/64. He is on losartan 100mg daily. [facility] Medical History Chronic LUQ pain Schatzki's ring Abdominal pain Dysphagia Back pain Depression Asthma Elevated cholesterol HTN (hypertension) GERD (gastroesophageal reflux disease) Surgical History (Reviewed 12/11/23 @ 15:32 by Dania Hoyos [facility]) H/O endoscopy H/O colonoscopy History of esophagogastroduodenoscopy (EGD) History of back surgery Family History Father Paternal family history of mental health disorder Alcoholism Mother No problems noted. Brother Brain aneurysm Other Mental health disorder Substance use disorder Social History Household Members Other:: With his mother- relocated from [place]- getting Housing: House Alcohol intake: current Patient Tobacco Use Status: Current everyday Tobacco user Tobacco use type: Smokeless Tobacco e-Cigarette/Vaping Use: Never Used Second Hand Smoke Exposure: No service: Yes Current occupational status: retired and disabled Cognitive needs: No Hearing needs: No Vision needs: No Questionnaire Thrive Questionnaire Date Thrive assessed: 12/11/23 ANTHONY-7 AMB Questionnaire ANTHONY-7 Date ANTHONY - 7 assessed: 12/11/23 Source: Developed by Drs. Doyle Guardado, Isabel Dalton, Hector Durham and colleagues, with an educational delfin from [email or web address]. Review of Systems Const Denies chills, Denies fatigue, Denies fever(s), Denies headache(s) and Denies weakness Eyes Denies change in vision ENT Denies dizziness, Denies headache(s), Denies hearing loss, Denies nasal congestion, Denies sinus pain, Denies sinus pressure and Denies sore throat Card Denies chest pain, Denies lightheadedness, Denies dyspnea and Denies other (palpitations) Resp Denies cough, Denies dyspnea and Denies wheezing GI Denies abdominal pain, Denies melena, Denies hematochezia, Denies change in bowel habits, Denies dyspepsia and Denies nausea Denies hematuria and Denies dysuria Musc Denies abnormal gait, Denies myalgias, Denies arthralgias, Denies numbness and Denies tingling Skin/Breast Denies rash, Denies unusual bruising and Denies wounds Neuro Denies abnormal gait, Denies dizziness, Denies headache(s), Denies memory loss, Denies numbness, Denies Sensory deficit (Neuro), Denies tingling and Denies weakness Psych Denies anxiety, Denies depression and Denies memory loss Endo Denies cold intolerance, Denies fatigue, Denies heat intolerance, Denies polydipsia and Denies polyuria Juancarlos/Lymph Denies easy bleeding and Denies easy bruising Aller/Immun Denies wheezing Physical exam (Primary Care) Vital Signs: Last Vital Signs Pulse 93 04/01/24 13:47 Resp 13 04/01/24 13:47 BP 126/64 04/01/24 13:47 Pulse Ox 99 04/01/24 13:47 Oxygen Delivery Method Room Air 04/01/24 13:47 BMI result Body Mass Index 35.1 Tobacco/Smoking Status: Tobacco use Status Tobacco use date assessed 12/11/23 04/01/24 13:53 Patient Tobacco Use Status Current everyday Tobacco 04/01/24 13:53 Tobacco use type Smokeless Tobacco 04/01/24 13:53 e-Cigarette/Vaping Use Never Used 04/01/24 13:53 Thrive Assessment: Date of Thrive Assessment Date Thrive assessed 12/11/23 04/01/24 13:53 Const General: no acute distress, well developed, alert and awake Nutritional Appearance: well nourished Orientation/consciousness: patient oriented x3 HENMT Head: Yes normocephalic and Yes atraumatic Ears: hearing grossly normal bilaterally and TM's normal bilaterally General nose exam: Normal external nose present and Normal nares present Mouth: Normal oral and palatal mucosa present and moist mucous membranes Teeth and gingiva: dentition normal Throat: Yes posterior oropharynx normal Eyes General: appearance normal, both eyes and all related structures Pupils: Equal, round and reactive pupils present and Pupil accommodation reflex normal EOM: EOMs intact bilaterally Neck Neck: Yes normal visual inspection, Yes no lymphadenopathy and Yes trachea midline Thyroid: Thyroid normal Carotids: no bruits Lymphatic: no lymphadenopathy noted Chest Chest palpation & inspection: normal inspection of the chest Resp Effort & Inspection: normal respiratory effort Auscultation: clear to auscultation bilaterally Cardio Rate: regular rate Rhythm: regular rhythm Heart sounds: S1 normal heart sound present, S2 normal heart sound present, no gallops, no murmurs and no rubs Bruits: no abdominal aortic bruits and no carotid bruits GI Palpation (GI): No Abdominal aortic bruit present, Soft to palpation, nontender, No hepatosplenomegaly present and No Rebound tenderness present Auscultation: normal bowel sounds General: Yes no CVA tenderness Back/Spine/Pelvis Back: no CVA tenderness Cervical Spine: cervical ROM normal and No Cervical spine tenderness Thoracic/Lumbar Spine: thoraco-lumbar ROM normal, No pain with thoraco-lumbar ROM, No thoracic spinal tenderness and No lumbar spinal tenderness Skin Lesions: no lesions Rashes: no rashes Trauma: no lacerations or abrasions Wounds: no wounds Nails: normal Neuro General: patient oriented x3 Cranial nerves: Yes Equal, round and reactive pupils present Cognition (Neuro): normal cognition Gait exam (Neuro): Normal gait present Motor exam (neuro): 5/5 motor strength present throughout Sensory Exam: No Sensory deficit (Neuro) Deep tendon reflexes (DTR's): Right patellar reflex intensity grade: 2+ and Left patellar reflex intensity grade: 2+ Extrem General: Yes normal to inspection and No edema Psych Appearance: grossly normal Affect: normal affect Attitude: cooperative Thought process: Normal thought process present Assessment and Plan Assessment & Plan (1) Annual physical exam: Code(s): Z00.00 - Encounter for general adult medical examination without abnormal findings Plan: 59-year-old?male?presents?for?complete?physical?exam Encouraged?healthy?diet?with?active?lifestyle?and?plenty?of?exercise Encouraged?weight?loss (2) Essential hypertension: Code(s): I10 - Essential (primary) hypertension Plan: Blood?pressure?is?controlled.??Goal?is?less?than?140/90 Continue?current?medication (3) Pre-diabetes: Code(s): R73.03 - Prediabetes Plan: A1c?5.6%?which?is?top?normal?range Encouraged?diet?lower?in?sugars?and?starches Encouraged?weight?loss (4) Hyperlipidemia: Code(s): E78.5 - Hyperlipidemia, unspecified Plan: LDL?is?not?at?goal HDL?has?improved He?is?on?simvastatin.??Will?switch?to?atorvastatin (5) Dysphagia: Code(s): R13.10 - Dysphagia, unspecified Plan: Ongoing?dysphagia?and?patient?waking?up?with?substernal?discomfort?and?burning?sensation. Continue?pantoprazole Follow-up?with?GI (6) Screening for colon cancer: Code(s): Z12.11 - Encounter for screening for malignant neoplasm of colon Plan: Patient?thinks?he?started?colonoscopies?earlier?than?age?52?and?says?he?has?had?more?than?1?colonoscopy. He?is?uncertain?when?he?should?follow-up Already?referred?back?to?GI?for?dysphagia?and?GERD (7) Screening for prostate cancer: Code(s): Z12.5 - Encounter for screening for malignant neoplasm of prostate Plan: PSA?was?within?normal?range Continue?annual?screen (8) Elevated liver enzymes: Code(s): R74.8 - Abnormal levels of other serum enzymes Plan: Mildly?elevated?liver?enzyme?and?patient?notes?that?he?has?been?diagnosed?with?fatty?liver?disorder?in?the?past Encouraged?weight?loss Will?recheck?liver?enzymes?with?next?blood?drawn?a?few?months If?rising,?would?recheck?liver?ultrasound?as?he?this?was?last?done?a?couple?of?years?ago. Orders: Orders Lipid Panel Today E78.5 - Hyperlipidemia, unspecified, Z00.00 - Encounter for general adult medical examination without abnormal findings Comprehensive [place]. Panel Fast Today E78.5 - Hyperlipidemia, unspecified, Z00.00 - Encounter for general adult medical examination without abnormal findings Referrals Pain Management Referral M48.061 - Spinal stenosis, lumbar region without neurogenic claudication, M54.16 - Radiculopathy, lumbar region, M54.2 - Cervicalgia Gastroenterology Referral K21.9 - Gastro-esophageal reflux disease without esophagitis, Z12.11 - Encounter for screening for malignant neoplasm of colon Medications: New atorvastatin 20 mg PO DAILY 90 days 90 tabs 3RF Discontinued simvastatin Discontinued Reason: Doctor's Order 20 mg PO BEDTIME 90 days 90 tabs 2RF Coding Level of Care Code Est Pt Level 3 (66123) Est Pt Prev Care 40-64y(87117) Diagnoses Annual physical exam Z00.00 Essential hypertension I10 Pre-diabetes R73.03 Hyperlipidemia E78.5 Dysphagia R13.10 Screening for colon cancer Z12.11 Screening for prostate cancer Z12.5 Elevated liver enzymes R74.8
== END 2024-04-01 14:53 | disposition home or self-care (01) ==
PROVIDERS: PCP Family Medicine; Visit Provider Family Medicine
DX: Z00.00 Encounter for general adult medical examination without abnormal findings (principal); I10 Essential (primary) hypertension; R73.03 Prediabetes; E78.5 Hyperlipidemia, unspecified; R13.10 Dysphagia, unspecified; Z12.11 Encounter for screening for malignant neoplasm of colon; Z12.5 Encounter for screening for malignant neoplasm of prostate; R74.8 Abnormal levels of other serum enzymes
CPT/HCPCS: 99213; 99396

== ENCOUNTER 2024-04-07 13:26 | Outpatient (AMB) | payer MEDICARE, SELFPAY ==
--- NOTE | 2024-04-07 13:27 | MHC.OFFVIS ---
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 He was last seen in our office in early 2022 and was sent for Neurosurgical evaluation. Patient was seen by Dr. Lay in October 2023 with repeated imaging as noted below and was recommended to follow up with us for potential injections to address posterior disc bulge at L1-L2 level. Patient reports he had episodic flare ups in low back pain with shooting and pounding pain radiating into his buttocks and posterior lower extremities, regularly on the left and intermittently on the right with associated numbness, tingling and intermittent weakness. Pain increases during heavy lifting, pulling, pull-ups or summer projects and physical activities and pain would last for about 3 weeks during which he takes meloxicam, gabapentin, methocarbamol with partial relief. He reports tramadol in the past has relieved severe pounding low back pain. Today his back pain symptoms are minimal at rest, rating it at 3/10 and increases to 7-8/10 with physical activities, pulling or lifting. He denies any significant pain in the L1-L2 distribution today. We were previously planning Caudal VERONICA last year but patient never followed up to schedule this. He would like to schedule this injection today. Denies any fever, abdominal or groin pain, foot drop, bladder or bowel dysfunction or saddle anesthesia. PRIOR: Patient is a 57 years old male who returns today for worsening lower back pain. He was last seen in this office via telehealth encounter by Amanda LANGLEY with plans for therapeutic left SIJ but has not undergone this due to insurance changes. He moved from [place] to [place] 2 years ago and was followed by Pain Management in [place]. Patient reports today his back pain is mostly axial and has been spreading across his lower back due to recently moving and lifting heavy boxes. He states occasionally his pain will radiate to his left lower extremity posteriorly to the knee level only. Patient reports residual numbness in his left foot s/p lumbar fusion but not his toes. Prolonged sitting worsens his pain. He tolerates long distance driving and notes that walking actually alleviates his pain. Patient reports completing the PT 3-4 years ago with minimal improvement. Patient reports he was on Tramadol in [place] that he takes intermittently. I have informed patient that we currently do not offer opioid prescribing. He also takes gabapentin and methocarbamol for migraine headaches. Denies any fever, unintentional weight loss, abdominal or groin pain, weakness, bowel or bladder incontinence, or saddle anesthesia. 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 He reports chronic left sided low back pain which was recently exacerbated. He was scheduled for a left therapeutic SIJ almost one year ago but it appears it was never scheduled. He is interested in proceeding with this injection. PRIOR: Javier is a pleasant 56 year old male who presents to the office with complaints of low back pain. 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 He did undergo a lumbar fusion in 2016 which alleviated his LLE discomfort significantly but still has low back pain. He reports the pain starts in the low back, mostly midline and radiates to the left posterior upper thigh. He denies any radiating leg pain, numbness, tinging, weakness or bladder dysfunction. He was previously under the care of pain management in [place] where he received both interventional and medical management. He reports having injections that were helpful anywhere from 3-6 months, but can no recall what type of procedure they were. He also notes having a prescription for Tramadol 300 QD in divided doses that he would use intermittently. He is hoping that he can continue that same treatment here. The pain is worse in the morning and less severe at night time. He reports pain onset was gradual but the pain can worsen suddenly and is constant. He rates the pain anywhere from 2-9/10. He states the pain is interfering with sleep and he cannot function normally. The patient reports the pain in terms of tissue damage as burning, pulsing, sharp, pinching and aching. He has been taking Tramadol intermittently when the pain is severe. He states having almost half a bottle left over that was prescribed almost a year ago. He has tried physical therapy multiple times with some improvement. He does admit to continuing HEP. He has attempted chiropractic manipulation and massage with minimal relief. He has also used a TENS unit with some improvement, but only while its applied.Denies any previous injections or surgery. He last had imaging of the lumbar spine years ago. This imaging/report is not available today, as it as performed in [place]. COUNTS INCLUDE 234 BEDS AT THE [facility] Medical History Chronic LUQ pain Schatzki's ring Abdominal pain Dysphagia Back pain Depression Asthma Elevated cholesterol HTN (hypertension) GERD (gastroesophageal reflux disease) Surgical History H/O endoscopy H/O colonoscopy History of esophagogastroduodenoscopy (EGD) History of back surgery Family History Father Paternal family history of mental health disorder Alcoholism Mother No problems noted. Brother Brain aneurysm Other Mental health disorder Substance use disorder Social History Household Members Other:: With his mother- relocated from [place]- getting Housing: House Alcohol intake: current Patient Tobacco Use Status: Current everyday Tobacco user Tobacco use type: Smokeless Tobacco e-Cigarette/Vaping Use: Never Used Second Hand Smoke Exposure: No service: Yes Current occupational status: retired and disabled Cognitive needs: No Hearing needs: No Vision needs: No Review of Systems Const All systems reviewed & are unremarkable except as noted in HPI and below ENT Reports Normal hearing present Neuro Reports Normal hearing present, Denies Abnormal speech present and Denies Sensory deficit (Neuro) Physical Exam Vital Signs: Last Vital Signs Pulse 86 04/07/24 13:32 BP 156/76 H 04/07/24 13:32 Pulse Ox 98 04/07/24 13:32 Oxygen Delivery Method Room Air 04/07/24 13:32 BMI result Body Mass Index 35.1 Const General: cooperative, no acute distress, alert and awake Nutritional Appearance: obese Orientation/consciousness: patient oriented x3 HEENT Head: Yes normal to inspection and Yes normocephalic Eyes General: appearance normal, both eyes and all related structures Cardio Jugular venous distension: no JVD Rate: regular rate Peripheral pulses: Peripheral pulses 2+ throughout GI Inspection: Yes obesity Palpation (GI): Soft to palpation, nontender and no guarding General: Yes no CVA tenderness Back/Spine/Pelvis Other: Limited lumbar ROM, flexion, extension, bending and rotations reproduce mild-moderate pain. Slightly antalgic gait. No limping. Can flex forward to 60-70 degrees and extend to 5-10 degrees before experiencing lumbar pain. Demonstrates 5/5 strength of quadriceps bilaterally as well as flexion/dorsiflexion of bilateral feet against resistance. 2+ pedal pulses bilaterally. Straight leg rise with dorsiflexion positive bilaterally. +1 patellar and achilles reflexes bilaterally. Facet loading test positive bilaterally. Alex signs positive bilaterally. Pelvic compression, Sajan?s, and Stinchfield tests are positive bilaterally, L>R. No pain with I/E hip rotations bilaterally. Valsalva maneuver negative. Back: no CVA tenderness Cervical Spine: cervical muscular tenderness and No Cervical spine tenderness Thoracic/Lumbar Spine: thoracic and lumbar spine normal to inspection, Thoracic/lumbar spine scar(s), Lasegue's sign positive bilateral, pain with thoraco-lumbar ROM, paraspinal muscle tenderness, thoraco-lumbar ROM limited, No thoracic spinal tenderness and lumbar spinal tenderness (L4-S1) Pelvis: buttock tenderness bilaterally Sacroiliac joints: bilaterally tender to palpation Neuro General: patient oriented x3 and no focal motor deficits Cranial nerves: Yes Normal hearing present Cognition (Neuro): normal cognition Speech: No Abnormal speech present Gait exam (Neuro): Antalgic gait present Motor exam (neuro): 5/5 motor strength present throughout, no tremor noted and Motor abnormalities not present Sensory Exam: No Sensory deficit (Neuro) Extrem General: Yes capillary refill normal, Yes no clubbing, cyanosis or edema and Yes no calf tenderness Psych Appearance: grossly normal Mental Status: mental status grossly normal Speech and movement: Clear speech present Affect: normal affect and Anxious affect present Attitude: cooperative Thought process: Normal thought process present Thought content: Normal thought content present Insight: Good insight present (Psych) Judgement: Good judgement present (Psych) Results Reviewed Results Reviewed: MR LUMBAR SPINE WITHOUT AND WITH CONTRAST 08/22/23 CLINICAL INFORMATION: Intervertebral disc degeneration/lumbar region. COMPARISON: Lumbar spine CT September 12, 2022. TECHNIQUE: MRI of the lumbar spine was obtained using routine sequences with and without contrast. Intravenous contrast: Gadavist 10 mL FINDINGS: There are 5 nonrib-bearing lumbar-type vertebral bodies. There are postoperative changes following laminectomy and posterior instrumented fusion at the L3-S1 levels as well as interbody fusion at L4-L5. Surgical hardware not diagnostically assessed on MRI. There is no bone marrow edema. There are no acute fractures. The vertebral body heights are maintained. There is moderate disc volume loss and there is disc desiccation at L1-L2. There are T2 signal changes within the paraspinal musculature at and below the postsurgical levels, most likely related to denervation. Conus terminates at the L1 level. There are no significant extraspinal soft tissue findings. L1-L2: There is a large central disc protrusion that along with dorsal epidural lipomatosis results in severe central canal stenosis. Disc osteophyte and facet arthropathy result in mild bilateral foraminal encroachment. L2-L3: Small annular disc bulge and severe bilateral facet arthropathy and ligamentum flavum thickening. Epidural lipomatosis. Findings in concert result in mild to moderate central canal stenosis/thecal sac effacement. There is no foraminal stenosis. L3-L4: Postoperative changes following laminectomy and posterior instrumented fusion. There is no central canal stenosis. There is mild bilateral foraminal encroachment. L4-L5: Postoperative changes following laminectomy and posterior instrumented lumbar interbody fusion. There is enhancing granulation/scar tissue within the left subarticular zone inseparable from the traversing left L5 nerve root. Osteophytic ridging and facet arthropathy result in mild bilateral foraminal encroachment. L5-S1: Postoperative changes following laminectomy and posterior instrumented fusion. Diffuse disc osteophyte complex and bilateral facet arthropathy. Moderate right and mild left foraminal stenosis with mass effect on the foraminal and extraforaminal segments of the exiting right L5 nerve root. IMPRESSION: - At L1-L2, there is a large central disc protrusion that along with dorsal epidural lipomatosis results in severe central canal stenosis. - At the junctional L2-L3 level, spondylitic changes and epidural lipomatosis result in mild to moderate central canal stenosis. Advanced bilateral facet arthropathy at this level. - There are postoperative changes following laminectomy and posterior instrumented fusion at the L3-S1 levels as well as interbody fusion at L4-L5. At L4-L5, there is enhancing granulation/scar tissue within the left subarticular zone inseparable from the traversing left L5 nerve root. At L5-S1, osteophytic ridging and facet arthropathy result in moderate right-sided foraminal stenosis and mass effect on the foraminal and extraforaminal segments of the exiting right L5 nerve root. CT LUMBAR SPINE WITHOUT CONTRAST 10/19/23 CLINICAL INFORMATION: A 58-year-old with radiculopathy lumbar region. Evaluate for osteophyte growth at L1-L2 for possible microdiscectomy and evaluate progression of fusion L3 to S1. COMPARISON: 09/19/2023 X-rays, 08/22/2023 MRI, 09/12/2022 CT lumbar spine. FINDINGS: ALIGNMENT: There is trace lumbar levocurvature, stable in appearance, from previous MRI. There is 3 mm of retrolisthesis at L1-L2, stable in appearance from previous CT. Otherwise, the lumbosacral spine is anatomically aligned in the sagittal plane. LUMBOSACRAL JUNCTION: Normal. There are 5 [id number] lumbar-type vertebral bodies. VERTEBRAL BODIES: Vertebral body heights are well maintained. No acute fractures. HARDWARE: Redemonstrated is a posterior instrumented spinal fusion hardware construct spanning the L3-S1 levels bilaterally, with intact hardware with no evidence for loosening or infection. Interbody spacer device with titanium marker is noted in place at L4-L5. There is solid osseous posterolateral bony fusion spanning the L3 toL5-S1 levels bilaterally similar to previous CT. DISC SPACES AND ENDPLATES: There is some bridging bone along the posterolateral aspect of the intervertebral disc space at L4-L5 on the right, similar appearance to the previous exam. There is now a small focus of new bridging bone on the left side of the L4-L5 intervertebral disc space since previous CT. Otherwise, the L4-L5 intervertebral disc space is still visualized. Bridging bone is noted within the central aspect of the spacer, stable in appearance. Severe disc space height loss with intradiscal calcification and spondylosis at L5-S1 is stable. There is partial ankylosis at this level similar to prior exam. Mild disc volume loss at L3-L4 is stable with mild bridging bone at the posterolateral margins of the intervertebral disc space at this level, stable in appearance. Disc space height at L2-L3 is well maintained, stable in appearance. There is [id number] disc volume loss at L1-L2 with paravertebral spondylosis unchanged. SPINAL LEVELS: L5-S1: Status post the decompressive laminectomy with mild deformity of the anterolateral thecal sac on the right in the subarticular zones, stable from previous MRI, consistent with postoperative changes without recurrent spinal canal stenosis. Bony hypertrophic changes of posterior elements and osteophytic ridging of the endplates is unchanged with [id number] left and moderate right-sided foraminal narrowing, unchanged. L4-L5: Status post laminectomy with no evidence for recurrent spinal canal stenosis. Soft tissues are partially obscured by artifact. Facet hypertrophic changes noted bilaterally. No significant bony neural foraminal stenosis. L3-L4: Posterolateral disc osteophyte complex asymmetric to the left is noted with posterior element hypertrophic changes without significant canal stenosis. Mild left-sided foraminal narrowing is stable from previous MRI. Minimal right-sided foraminal narrowing noted. L2-L3: Minor posterolateral disc osteophyte complex with minimal annular bulging is noted, with mild encroachment on the ventral dural sac. There is marked facet hypertrophic degenerative change bilaterally with partially calcified ligamentum flavum thickening and a prominent dorsal fat pad similar to prior MRI, with moderate central spinal canal stenosis, stable in appearance. No significant neural foraminal stenosis. L1-L2: There is a central partially calcified extruded disc herniation with marked mass effect on the ventral dural sac and a prominent dorsal fat pad similar to the previous MRI. The degree of canal stenosis is similar to the prior MRI. There is facet hypertrophic change and partially calcified ligamentum flavum thickening with mild bilateral neural foraminal stenosis, similar to prior MRI. T12-L1: Normal annular contour. Moderate right and mild left-sided facet arthrosis without significant canal stenosis. There is mild right-sided neural foraminal stenosis, stable in appearance. T11-T12: Disc bulging is noted with mild encroachment on the ventral dural sac without significant canal stenosis. Partially imaged facet arthrosis noted bilaterally. Neural foramina are only partially included in the field of view. PARAVERTEBRAL AND INCLUDED EXTRASPINAL SOFT TISSUES: The visualized paravertebral soft tissues and included retroperitoneal structures are unremarkable within the limitations of the exam. IMPRESSION: 1. Status post posterior instrumented spinal fusion from L3 through S1 with solid osseous posterolateral bony fusion from L3 through S1 bilaterally similar to previous CT. Stable appearance to multilevel laminectomies. No evidence for recurrent spinal canal stenosis at these levels. 2. Small amount of new bridging bone along the left side of the L4-L5 intervertebral disc space since previous CT. Otherwise, the L4-L5 intervertebral disc space is still visualized and unchanged. 3. Multilevel DDD, spondylosis and DJD as described above similar to the previous CT. Multilevel bilateral neural foraminal stenosis unchanged from previous CT. 4. Central partially calcified disc herniation at L1-L2 with posterior element hypertrophic degenerative changes and partially calcified ligamentum flavum thickening with probable severe spinal canal stenosis at this level similar to previous MRI. Assessment & Plan Assessment & Plan (1) Lumbar radiculopathy: Code(s): M54.16 - Radiculopathy, lumbar region Category: Medical (2) Lumbar spondylosis: Code(s): M47.816 - Spondylosis without myelopathy or radiculopathy, lumbar region Category: Medical (3) Lumbar degenerative disc disease: Code(s): M51.36 - Other intervertebral disc degeneration, lumbar region Category: Medical (4) Post laminectomy syndrome: Code(s): M96.1 - Postlaminectomy syndrome, not elsewhere classified Category: Medical (5) Low back pain: Code(s): M54.5 - Low back pain Category: Medical Plan Schedule Caudal VERONICA with catheter with sedation and fluoroscopy for post-laminectomy syndrome and bilateral radiculopathy. Expectations, risks and benefits were reviewed. Patient is aware he will be contacted to schedule this procedure. All questions were answered and the patient is in agreement of plan. Follow-up after injection and sooner as needed. Anticoagulation: Patient is not on anticoagulation Justification for interventional therapy: ? Patient with average pain > 6/10 ? Patient has exhausted conservative therapy The risks, consequences, alternatives, and benefits of various treatment options were discussed with the patient in great detail, including conservative management, injections and procedures. Patient is aware of hyperglycemic effects of steroids. Coding Level of Care Code Est Pt Level 4 (76466) Diagnoses Lumbar radiculopathy M54.16 Lumbar spondylosis M47.816 Lumbar degenerative disc disease M51.36 Post laminectomy syndrome M96.1 Low back pain M54.5
[2024-04-07 13:32] VITALS: BP 156/76; PULSE 86; O2SAT 98; BMI 35.1
== END 2024-04-07 13:47 | disposition home or self-care (01) ==
PROVIDERS: PCP Family Medicine; Visit Provider Nurse Practitioner Family
DX: M54.16 Radiculopathy, lumbar region (principal); M47.816 Spondylosis without myelopathy or radiculopathy, lumbar region; M51.36 Other intervertebral disc degeneration, lumbar region; M96.1 Postlaminectomy syndrome, not elsewhere classified; M54.50 Low back pain, unspecified
CPT/HCPCS: 99214

== ENCOUNTER → 2024-04-07 13:26 | Outpatient (BNVA) | payer MEDICARE, SELFPAY | PROVIDERS: PCP Family Medicine; Visit Provider Nurse Practitioner Family | DX: M47.26 Other spondylosis with radiculopathy, lumbar region (principal); M51.36 Other intervertebral disc degeneration, lumbar region; M96.1 Postlaminectomy syndrome, not elsewhere classified | CPT/HCPCS: 99212 ==

== ENCOUNTER 2024-04-25 05:43 | Day surgery (SDC) | payer MEDICARE, SELFPAY ==
[2024-04-23 12:29] VITALS: BMI 35.1
--- NOTE | ~2024-04-25 | FL_ITS ---
EXAMINATION: XR FLUOROSCOPY WITH IMAGES CLINICAL INFORMATION: Pain management sacral epidural injection. COMPARISON: CT lumbar spine to 224. TECHNIQUE: Fluoroscopy provided to: Dr. Thompson Fluoroscopy time: 7.9 seconds DAP: 2.2892 Gycm2 Images: 2 FINDINGS: 2 lateral views of the sacrum/coccyx show needle in place in the sacral foramen, and epidural contrast injection subsequently. Transpedicular screws noted in S1 with connecting rods. FL/FL guidance in OR IMPRESSION: Fluoroscopic guidance. Please refer to the full operative report for details. Electronically signed by: Lenard Adams MD 06/20/2024 04:28 PM EDT
[2024-04-25 06:16] VITALS: BMI 34.5
[2024-04-25 06:23] VITALS: BP 159/95; PULSE 72; RESP 15; TEMP 36.7; O2SAT 96
[2024-04-25] MEDS: Lactated Ringers 1,000 ML 100 ML IVCONT (06:44)
--- NOTE | 2024-04-25 06:57 | MHC.SHP ---
Pre-Procedural Eval Section A - 24 Hr Update-Section A only Date of Service: 04/25/24 The patient is an INPATIENT: No Changes since office visit: Yes Patient answered all questions The patient has been examined within 24 hours of the surgical procedure. The History & Physical has been completed within 30 days and I have reviewed it.: No Section B - Complete if H&P > 30 days Chief Complaint: Postlaminectomy syndrome,Radiculopathy, lumbar Details of Present Illness: as above Relevant Family History (Specify if Yes): No Relevant Social History: None Present Medications: see Short Stay Collaborative assessment Medical History: No relevant PMH History of Previous Operations: Relevant previous surgery/procedure and date(s) Allergies: Allergies Allergy/AdvReac Type Severity Reaction Status Date / Time Hydrocodone-Ibuprofen AdvReac Mild Headache Uncoded 04/25/24 06:15 Review of Systems Sugical H&P ROS: Negative: Constitution, Respiratory, Neurological, Psychiatric, Hem-Onc, Allergic/Immunologic, Gastrointestinal, Genitourinary, Musculoskeletal, Integumentary, Endocrine and Eyes/Ears/Nose/Throat and Yes, Specify: Cardiovascular (HTN) Exam Surgical H&P Exam: Normal: HEENT, Normal: Heart, Normal: Lungs, Normal: Extremities, Normal: Abdomen, Normal: Skin and Normal: Neurological Plan Diagnosis/Plan: Unchanged I have reviewed the history and physical and performed a pertinent physical examination on my patient. No changes have occurred unless specified. Time Spent With Patient Time: Total time managing care of this patient today ___5_ minutes.
--- NOTE | 2024-04-25 07:26 | HO.ANESPROP2 ---
HPI - Anesthesia Eval Consult details Narrative: for caudal epid steroid inj PMFSH Active Problems Active Problems: All Active Problems Cervicalgia (Acute) Elevated liver enzymes (Acute) Screening for colon cancer (Acute) Lumbar spinal stenosis (Acute) Tachycardia (Acute) Lumbar radiculopathy (Acute) Pre-diabetes (Acute) Lumbar spondylosis (Acute) Lumbar degenerative disc disease (Acute) Migraines (Acute) Elevated fasting glucose (Acute) Chronic migraine w/o aura w/o status migrainosus, not intractable (Acute) Muscle spasm (Acute) Left hip pain (Acute) Post laminectomy syndrome (Acute) Low HDL (under 40) (Acute) Chest pain (Acute) Screening for prostate cancer (Acute) Annual physical exam (Acute) NAFLD (nonalcoholic fatty liver disease) (Acute) Plantar wart, right foot (Acute) Foot pain (Acute) Right ankle pain (Acute) Dysphagia (Acute) Encounter for screening colonoscopy (Acute) Spondylosis of lumbar region without myelopathy or radiculopathy (Acute) Sacroiliac joint pain (Acute) Hyperlipidemia (Acute) History of esophageal stricture (Acute) Essential hypertension (Acute) Sacroiliitis (Acute) History of lumbar fusion (Acute) Low back pain (Acute) Depression (Acute) Chronic headaches (Acute) Hypertension (Acute Unknown) Chronic LUQ pain (Acute) Schatzki's ring (Acute) Abdominal pain (Acute) GERD (gastroesophageal reflux disease) (Acute) Past Medical History Medical History (Updated 04/25/24 @ 06:13 by Lakeisha Hanley RN) Migraine NAFLD (nonalcoholic fatty liver disease) Chronic LUQ pain Schatzki's ring Abdominal pain Dysphagia Back pain Depression Asthma Elevated cholesterol HTN (hypertension) GERD (gastroesophageal reflux disease) Family History Family History Father Paternal family history of mental health disorder Alcoholism Mother No problems noted. Brother Brain aneurysm Other Mental health disorder Substance use disorder Family history of problems with anesthesia: No Surgical History Surgical History (Updated 04/25/24 @ 06:15 by Lakeisha Hanley RN) Hx of left inguinal hernia repair History of repair of vocal cord History of esophageal surgery Hx of hand surgery H/O colonoscopy History of esophagogastroduodenoscopy (EGD) History of back surgery History of Problems with Anesthesia: No Social History Social History (Reviewed 04/07/24 @ 13:34 by BOB Reed Household Members Other:: With his mother- relocated from [place]- getting Housing: House Alcohol intake: current Alcohol intake frequency: holidays/special occasions only Patient Tobacco Use Status: Current everyday Tobacco user Tobacco use type: Smokeless Tobacco e-Cigarette/Vaping Use: Never Used Second Hand Smoke Exposure: No Use of substances other than those prescribed or required for medical reasons: No Are you DNR?: No Advance Directives: No Advance Directives Information Provided: Yes service: Yes Current occupational status: retired and disabled Cognitive needs: No Hearing needs: No Vision needs: No Meds Allergies Allergy/AdvReac Type Severity Reaction Status Date / Time Hydrocodone-Ibuprofen AdvReac Mild Headache Uncoded 04/25/24 06:15 Active Medications: Current Medications Lactated Ringer's (Lr) 1,000 mls @ 100 mls/hr IVCONT .Q10H LUKE Last Admin: 04/25/24 06:44 Dose: 100 mls/hr Home Medications ?Medication ?Instructions ?Recorded ?Confirmed ?Last Taken ?Type fluticasone propionate 220 1 puff inhalation BID 06/18/20 04/25/24 Unknown History mcg/actuation HFA aerosol inhaler (Flovent HFA) Exam Height,Weight and Vital Signs: Height 5 ft 7 in Weight 99.79 kg Last Vital Signs Temp 98.0 F 04/25/24 06:23 Pulse 72 04/25/24 06:23 Resp 15 04/25/24 06:23 BP 159/95 H 04/25/24 06:23 Pulse Ox 96 04/25/24 06:23 O2 Del Method Room Air 04/25/24 06:23 Airway Mallampati Class: II TM Dist: <=3cm Neck ROM: Full Loose/Missing/Broken Teeth: No Heart: ok Lungs: ok Assessment and Plan Assessment Anesthesia Assessment: Anesthesia Plan Discussed and Chart Reviewed Final Anesthetic Review Family History of Problems with Anesthesia: No History of Problems with Anesthesia: No NPO: Yes ASA Class: II Final Preanesthetic Review: No Changes in Pt Med Stat, Meds/Allgs Chart Reviewed, Consent Obtained/Reviewed and Anes Risks/Benef Reviewed Patient Risk: Intermediate Procedure Risk: Intermediate Anesthetic Plan Anesthetic Plan: MAC: and Agree w/ Assess. and Plan Disposition: Standard PACU
[2024-04-25 08:09] VITALS: BP 112/81; PULSE 87; RESP 16; TEMP 36.4; O2SAT 95
--- NOTE | 2024-04-25 08:11 | W.PM.OPN ---
Operative Note Operative Note Date of Service: 04/25/24 Narrative: Caudal VERONICA with catheter. Informed consent was explained to the patient. All questions were explained and answered. The patient was taken inside of the operating room where she was positioned prone on the operating table. Time-out was performed delineating patient's name and date of , correct site, side, the nature of the procedure, patient's allergy, All operating room staff and the patient were participating in OR time-out procedure. ASA monitors were applied and patient was deeply sedated the patient's lower back buttock and intragluteal crease were prepped with ChloraPrep and draped with sterile utility draped. C-arm was brought over the operating field and sq picture of sacral bone was de the ASA monitors were applied skin. After that 18 G Tuohy needle was inserted through the skin and under intermittent AP and lateral guide was advanced into the sacral hiatus and into the caudal canal . injection of the contrast demonstrated epidural spread of the contrast. After that 22 g epidual catheter was advanced into the epidural space until the resistance was met and the injection of the contrast was performed again. The injection of the contrast was delineating epidural space at the L5-S1 and S1 proper intervale. After that injection of 25 mls of normal saline was performed into the catheter. Following this injection of the lidocaine 1% PF 5 mL mixed with kenalog 40 mg was performed. Upon completion of the injection the needle was removed with epidural catheter en mass the tip of the catheter was intact. Sterile dressing with bacitracin ointment was applied. Patient tolerated the procedure well he was awakened taken outside of the operating room to recovery room.
--- NOTE | 2024-04-25 08:13 | PM.OP ---
Brief Operative Note Date of Service: 04/25/24 Pre-op diagnosis: Postlaminectomy syndrome chronic pain syndrome Post-op diagnosis: same Procedure: Caudal epidural steroid injection with catheter Surgeon: Owen Thompson MD Anesthesia: MAC Was an Director Of [employer] used for this Procedure?: No Estimated blood loss (mL): 1 Condition: stable Disposition: PACU
[2024-04-25 08:24] VITALS: BP 136/81; PULSE 74; RESP 18; O2SAT 96
[2024-04-25 08:43] VITALS: BP 141/76; PULSE 87; RESP 18; TEMP 36.4; O2SAT 97
== END 2024-04-25 08:05 | disposition home or self-care (01) ==
PROVIDERS: PCP Family Medicine; Visit Provider Anesthesiology
PROC: 3E0R3GC Introduction of Other Therapeutic Substance into Spinal Canal, Percutaneous Approach (ICD-10-PCS; CPT 62322; principal; 2024-04-25 07:30)
DX: M54.16 Radiculopathy, lumbar region (principal); M96.1 Postlaminectomy syndrome, not elsewhere classified; G89.4 Chronic pain syndrome; M54.50 Low back pain, unspecified; M47.816 Spondylosis without myelopathy or radiculopathy, lumbar region; M51.36 Other intervertebral disc degeneration, lumbar region; R10.12 Left upper quadrant pain; F32.A Depression, unspecified; J45.909 Unspecified asthma, uncomplicated; E78.00 Pure hypercholesterolemia, unspecified; I10 Essential (primary) hypertension; K21.9 Gastro-esophageal reflux disease without esophagitis; Z88.8 Allergy status to other drugs, medicaments and biological substances; F17.290 Nicotine dependence, other tobacco product, uncomplicated; Z98.890 Other specified postprocedural states
CPT/HCPCS: 62323; J2250; J2704; J2795; J3010; J3301; Q9965

== ENCOUNTER → 2024-04-25 05:43 | Outpatient (BNV) | payer MEDICARE, SELFPAY | PROVIDERS: PCP Family Medicine; Visit Provider Anesthesiology | DX: M96.1 Postlaminectomy syndrome, not elsewhere classified (principal); M54.16 Radiculopathy, lumbar region | CPT/HCPCS: 62323 ==

== ENCOUNTER 2024-06-04 08:59 | Outpatient (AMB) | payer MEDICARE, SELFPAY ==
--- NOTE | 2024-06-04 09:01 | A.OFFVIS_ITS ---
Vital Signs 06/04/24 09:04 Height 5 ft 7 in Weight 222 lb BMI 34.8 BP 147/83 H Blood Pressure Location Lt brachial Position Sitting Respiration 17 Pulse 79 Pulse Source Pulse Oximeter Pulse Oximetry (%) 97 Oxygen Delivery Method Room Air Intake Visit Reasons: S/p Caudal VERONICA w/ Catheter 04/25/24 Intake Note: Patient comes in for post-op. Reports pain 3/10. Allergies Hydrocodone-Ibuprofen Adverse Reaction (Mild, Uncoded 04/25/24 06:15) Headache HPI Comments Details: Javier is back in my office to discuss with me results of the caudal epidural steroid injection with catheter which was done under deep sedation in the operating room. Receive this procedure on 04/24/2024. He reports his pain today 3/10. He reports that his pain on the left is much better. However his pain on the right is staying the same. He reports that his pain in the right is actually pain in the right flank approximately few cm below the ribcage. He had this pain in the past with kidney stones and he went for urologist in the past who did not diagnose him with continuous nephrolithiasis. I explained to the patient that the pain on the left and pain in right most likely 2 different entities. I recommended him to continue caudal epidural steroid injection when he has pain in the left will come back. We can perform the procedure once in 3 months however I prefer it will be less frequent. For the evaluation would be needed for his thoracic spine once a urologist rules out presence of nephrolithiasis. Prior: Patient presents today for follow up for chronic low back pain with bilateral radiculopathy. He was last seen in our office in early 2022 and was sent for Neurosurgical evaluation. Patient was seen by Dr. Lay in October 2023 with repeated imaging as noted below and was recommended to follow up with us for potential injections to address posterior disc bulge at L1-L2 level. Patient reports he had episodic flare ups in low back pain with shooting and pounding pain radiating into his buttocks and posterior lower extremities, regularly on the left and intermittently on the right with associated numbness, tingling and intermittent weakness. Pain increases during heavy lifting, pulling, pull-ups or summer projects and physical activities and pain would last for about 3 weeks during which he takes meloxicam, gabapentin, methocarbamol with partial relief. He reports tramadol in the past has relieved severe pounding low back pain. Today his back pain symptoms are minimal at rest, rating it at 3/10 and increases to 7-8/10 with physical activities, pulling or lifting. He denies any significant pain in the L1-L2 distribution today. We were previously planning Caudal VERONICA last year but patient never followed up to schedule this. He would like to schedule this injection today. Denies any fever, abdominal or groin pain, foot drop, bladder or bowel dysfunction or saddle anesthesia. PRIOR: Patient is a 57 years old male who returns today for worsening lower back pain. He was last seen in this office via telehealth encounter by Amanda LANGLEY with plans for therapeutic left SIJ but has not undergone this due to insurance changes. [place] ago and was followed by Pain Management in [place]. Patient reports today his back pain is mostly axial and has been spreading across his lower back due to recently moving and lifting heavy boxes. He states occasionally his pain will radiate to his left lower extremity po steriorly to the knee level only. Patient reports residual numbness in his left foot s/p lumbar fusion but not his toes. Prolonged sitting worsens his pain. He tolerates long distance driving and notes that walking actually alleviates his pain. Patient reports completing the PT 3-4 years ago with minimal improvement. Patient reports he was on Tramadol in [place] that he takes intermittently. I have informed patient that we currently do not offer opioid prescribing. He also takes gabapentin and methocarbamol for migraine headaches. Denies any fever, unintentional weight loss, abdominal or groin pain, weakness, bowel or bladder incontinence, or saddle anesthesia. [facility] Medical History (Updated 04/25/24 @ 06:13 by Lakeisha Hanley RN) Migraine NAFLD (nonalcoholic fatty liver disease) Chronic LUQ pain Schatzki's ring Abdominal pain Dysphagia Back pain Depression Asthma Elevated cholesterol HTN (hypertension) GERD (gastroesophageal reflux disease) Surgical History (Updated 04/25/24 @ 06:15 by Lakeisha Hanley RN) Hx of left inguinal hernia repair History of repair of vocal cord History of esophageal surgery Hx of hand surgery H/O colonoscopy History of esophagogastroduodenoscopy (EGD) History of back surgery Family History Father Paternal family history of mental health disorder Alcoholism Mother No problems noted. Brother Brain aneurysm Other Mental health disorder Substance use disorder Social History Household Members Other:: With his mother- relocated from [place]- getting Housing: House Alcohol intake: current Alcohol intake frequency: holidays/special occasions only Patient Tobacco Use Status: Current everyday Tobacco user Tobacco use type: Smokeless Tobacco e-Cigarette/Vaping Use: Never Used Second Hand Smoke Exposure: No service: Yes Current occupational status: retired and disabled Cognitive needs: No Hearing needs: No Vision needs: No Review of Systems Const All systems reviewed & are unremarkable except as noted in HPI and below ENT Reports Normal hearing present Neuro Reports Normal hearing present, Denies Abnormal speech present and Denies Sensory deficit (Neuro) Physical Exam Vital Signs: Last Vital Signs Pulse 79 06/04/24 09:04 Resp 17 06/04/24 09:04 BP 147/83 H 06/04/24 09:04 Pulse Ox 97 06/04/24 09:04 Oxygen Delivery Method Room Air 06/04/24 09:04 BMI result Body Mass Index 34.8 Const General: cooperative, no acute distress, alert and awake Nutritional Appearance: obese Orientation/consciousness: patient oriented x3 HEENT Head: Yes normal to inspection and Yes normocephalic Eyes General: appearance normal, both eyes and all related structures Cardio Jugular venous distension: no JVD Rate: regular rate Peripheral pulses: Peripheral pulses 2+ throughout GI Inspection: Yes obesity Palpation (GI): Soft to palpation, nontender and no guarding General: Yes no CVA tenderness Back/Spine/Pelvis Other: Limited lumbar ROM, flexion, extension, bending and rotations reproduce mild- moderate pain. Slightly antalgic gait. No limping. Can flex forward to 60-70 degrees and extend to 5-10 degrees before experiencing lumbar pain. Demonstrates 5/5 strength of quadriceps bilaterally as well as flexion/dorsiflexion of bilateral feet against resistance. 2+ pedal pulses bilaterally. Straight leg rise with dorsiflexion positive bilaterally. +1 patellar and achilles reflexes bilaterally. Facet loading test positive bilaterally. Alex signs positive bilaterally. Pelvic compression, Sajan?s, and Stinchfield tests are positive bilaterally, L>R. No pain with I/E hip rotations bilaterally. Valsalva maneuver negative. Back: no CVA tenderness Cervical Spine: cervical muscular tenderness and No Cervical spine tenderness Thoracic/Lumbar Spine: thoracic and lumbar spine normal to inspection, Thoracic/lumbar spine scar(s), Lasegue's sign positive bilateral, pain with thoraco-lumbar ROM, paraspinal muscle tenderness, thoraco-lumbar ROM limited, No thoracic spinal tenderness and lumbar spinal tenderness (L4-S1) Pelvis: buttock tenderness bilaterally Sacroiliac joints: bilaterally tender to palpation Neuro General: patient oriented x3 and no focal motor deficits Cranial nerves: Yes Normal hearing present Cognition (Neuro): normal cognition Speech: No Abnormal speech present Gait exam (Neuro): Antalgic gait present Motor exam (neuro): 5/5 motor strength present throughout, no tremor noted and Motor abnormalities not present Sensory Exam: No Sensory deficit (Neuro) Extrem General: Yes capillary refill normal, Yes no clubbing, cyanosis or edema and Yes no calf tenderness Psych Appearance: grossly normal Mental Status: mental status grossly normal Speech and movement: Clear speech present Affect: normal affect and Anxious affect present Attitude: cooperative Thought process: Normal thought process present Thought content: Normal thought content present Insight: Good insight present (Psych) Judgement: Good judgement present (Psych) Assessment & Plan Assessment & Plan (1) Lumbar radiculopathy: Code(s): M54.16 - Radiculopathy, lumbar region Category: Medical (2) Lumbar spondylosis: Code(s): M47.816 - Spondylosis without myelopathy or radiculopathy, lumbar region Category: Medical (3) Lumbar degenerative disc disease: Code(s): M51.36 - Other intervertebral disc degeneration, lumbar region Category: Medical (4) Post laminectomy syndrome: Code(s): M96.1 - Postlaminectomy syndrome, not elsewhere classified Category: Medical (5) Low back pain: Code(s): M54.5 - Low back pain Category: Medical Plan Caudal VERONICA with catheter with resulted in good pain relief on the left. Pain in right flank probably is different entity. He is recommended to schedule appointment with urologist to rule out nephrolithiasis. If there is no kidney stones on the right we can possibly discuss evaluation of the thoracic spine for the thoracic spine pathology. Good results for caudal VERONICA. Can repeat this procedure once in 3 months. Patient was explained to follow-up with us when his pain on the left will come back. Coding Level of Care Code Est Pt Level 3 (19216) Diagnoses Lumbar radiculopathy M54.16 Lumbar spondylosis M47.816 Lumbar degenerative disc disease M51.36 Post laminectomy syndrome M96.1 Low back pain M54.5
[2024-06-04 09:04] VITALS: BP 147/83; PULSE 79; RESP 17; O2SAT 97; BMI 34.8
== END 2024-06-04 09:53 | disposition home or self-care (01) ==
PROVIDERS: PCP Family Medicine; Visit Provider Anesthesiology
DX: M54.16 Radiculopathy, lumbar region (principal); M47.816 Spondylosis without myelopathy or radiculopathy, lumbar region; M51.36 Other intervertebral disc degeneration, lumbar region; M96.1 Postlaminectomy syndrome, not elsewhere classified; M54.50 Low back pain, unspecified
CPT/HCPCS: 99213

== ENCOUNTER → 2024-06-04 08:59 | Outpatient (BNVA) | payer MEDICARE, SELFPAY | PROVIDERS: PCP Family Medicine; Visit Provider Anesthesiology | DX: M54.16 Radiculopathy, lumbar region (principal); M47.816 Spondylosis without myelopathy or radiculopathy, lumbar region; M51.36 Other intervertebral disc degeneration, lumbar region; M96.1 Postlaminectomy syndrome, not elsewhere classified; M54.50 Low back pain, unspecified | CPT/HCPCS: 99212 ==

== ENCOUNTER → 2024-07-04 11:23 | Outpatient (BNVA) | payer MEDICARE, SELFPAY | PROVIDERS: PCP Family Medicine; Visit Provider Family Medicine ==

== ENCOUNTER 2024-07-04 11:53 | Outpatient (REF) | payer MEDICARE, SELFPAY ==
[2024-07-04 15:01] LABS: Alanine Aminotransferase 34 U/L (0-40); Albumin Level 4.5 g/dL (3.5-5.0); Alkaline Phosphatase 61 U/L (39-117); Anion Gap 15 (12-20); Aspartate Amino Transferase 29 U/L (5-37); Bilirubin Total 0.4 mg/dL (0.0-1.0); Blood Urea Nitrogen 17 mg/dL (9-16); Calcium 9.5 mg/dL (8.4-10.2); Carbon Dioxide 25 mmol/L (22-29); Chloride 106 mmol/L (96-108); Cholesterol 174 mg/dL (<200); Estimated Glomerular Filt Rate > 60; Glucose Fasting 116 mg/dL (60-99); HDL Cholesterol 37 mg/dL (>40); LDL Cholesterol Calculated 106 mg/dL (<100); Potassium 4.1 mmol/L (3.3-5.1); Sodium 142 mmol/L (135-145); Total Protein 7.5 g/dL (6.5-8.0); Triglycerides 156 mg/dL (<150)
== END 2024-07-04 11:54 | disposition home or self-care (01) ==
LOC: HO.WFDLDS 11:53
PROVIDERS: Visit Provider Family Medicine
DX: Z00.00 Encounter for general adult medical examination without abnormal findings (principal); E78.5 Hyperlipidemia, unspecified
CPT/HCPCS: 36415; 80053; 80061

== ENCOUNTER 2024-07-08 15:04 | Outpatient (AMB) | payer MEDICARE, SELFPAY ==
--- NOTE | 2024-07-08 15:06 | MHC.PC.OV ---
Vital Signs 07/08/24 15:12 Height 5 ft 7 in Weight 226 lb 6 oz BMI 35.5 BP 155/70 H Blood Pressure Location Rt brachial Position Sitting Respiration 14 Pulse 94 Pulse Source Pulse Oximeter Temp 98.2 F Temp Source Temporal Artery Scan Pulse Oximetry (%) 96 Oxygen Delivery Method Room Air Intake Visit Reasons: FU HLD Intake Note: f/u labs Allergies Hydrocodone-Ibuprofen Adverse Reaction (Mild, Uncoded 07/08/24 15:09) Headache Medication List - Last Reconciled 07/08/24 by Vasyl Mckay MD amlodipine 10 mg PO DAILY atorvastatin 20 mg PO DAILY 90 days fenofibrate micronized 134 mg PO DAILY 90 days fluticasone propionate 220 mcg/actuation (Flovent HFA) 1 puff inhalation BID gabapentin 600 mg PO DAILY 90 days losartan 100 mg PO DAILY methocarbamol 750 mg PO Q8H PRN omega3,5,6,7,9 no.1-salmon oil 700-1,500 mg-mg 4 caps PO DAILY 90 days pantoprazole 40 mg PO DAILY sumatriptan succinate take 1 tab at onset of headache; if no relief may repeat 1 tab after at least 2 hrs; max = 4 tabs/24 hr PO 30 days tizanidine 2 mg PO TID PRN Tobacco use date assessed: 12/11/23 Dental Screening Dental Screen Date: 12/11/23 HPI FU HLD HPI Details 59 y/o male presents to f/u D. Labs were drawn 07/04/24. Reviewed labs with pt. Triglycerides 156. TC 174. LDL 106. HDL low at 37. He is on artovastatin 20mg daily. Blood pressure today 155/70, 94p. He is on losartan 100mg, amlodipine 10mg daily. Hx of pre-diabetes. A1c today 07/08/24 is 6.0%. Has complaints of shoulder pain that started a couple days ago. [facility] Medical History (Updated 07/08/24 @ 15:35 by Benny Zuleta) Migraine NAFLD (nonalcoholic fatty liver disease) Chronic LUQ pain Schatzki's ring Abdominal pain Dysphagia Back pain Depression Asthma Elevated cholesterol HTN (hypertension) GERD (gastroesophageal reflux disease) Surgical History (Updated 04/25/24 @ 06:15 by Lakeisha Hanley RN) Hx of left inguinal hernia repair History of repair of vocal cord History of esophageal surgery Hx of hand surgery H/O colonoscopy History of esophagogastroduodenoscopy (EGD) History of back surgery Family History Father Paternal family history of mental health disorder Alcoholism Mother No problems noted. Brother Brain aneurysm Other Mental health disorder Substance use disorder Social History Household Members Other:: With his mother- relocated from [place]- getting Housing: House Alcohol intake: current Alcohol intake frequency: holidays/special occasions only Patient Tobacco Use Status: Current everyday Tobacco user Tobacco use type: Smokeless Tobacco e-Cigarette/Vaping Use: Never Used Second Hand Smoke Exposure: No service: Yes Current occupational status: retired and disabled Cognitive needs: No Hearing needs: No Vision needs: No Questionnaire Thrive Questionnaire Date Thrive assessed: 07/04/24 I am a: Patient What is your living situation today?: I have a steady place to live Within the past 12 months, did the food you bought not last and you didn't have the money to get more?: Never true Within the past 12 months, did you worry whether your food would run out before you got money to buy more?: Never true Do you have trouble paying for medicines?: No Do you have trouble getting transportation to medical appointments?: No Do you have trouble paying your heating and electricity bill?: No Do you have trouble taking care of your child, family member or friend?: No Do you have trouble with day-to-day activities such as bathing, preparing meals, shopping, managing finances, etc.?: No Are you currently unemployed and looking for a job?: I choose not to answer this question Are you interested in more education?: No Please select the resources that you would like help with: Care for elder or disabled Currently or been in a relationship where the following occur: No concerns reported THRIVE Score: 0 ANTHONY-7 AMB Questionnaire ANTHONY-7 Date ANTHONY - 7 assessed: 12/11/23 Source: Developed by Drs. Doyle Guardado, Isabel Dalton, Hector Durham and colleagues, with an educational delfin from [employer]. Review of Systems Const Denies chills, Denies fatigue, Denies fever(s), Denies headache(s) and Denies weakness ENT Denies dizziness and Denies headache(s) Card Denies dyspnea Resp Denies cough, Denies dyspnea, Denies wheezing and Denies other (shortness of breath) Musc Denies numbness and Denies tingling Neuro Denies dizziness, Denies headache(s), Denies numbness, Denies tingling and Denies weakness Psych Denies anxiety and Denies depression Endo Denies fatigue Aller/Immun Denies wheezing Physical exam (Primary Care) Vital Signs: Last Vital Signs Temp 98.2 F 07/08/24 15:12 Pulse 94 07/08/24 15:12 Resp 14 07/08/24 15:12 BP 155/70 H 07/08/24 15:12 Pulse Ox 96 07/08/24 15:12 Oxygen Delivery Method Room Air 07/08/24 15:12 BMI result Body Mass Index 35.5 Tobacco/Smoking Status: Tobacco use Status Tobacco use date assessed 12/11/23 07/08/24 15:06 Patient Tobacco Use Status Current everyday Tobacco 07/08/24 15:06 Tobacco use type Smokeless Tobacco 07/08/24 15:06 e-Cigarette/Vaping Use Never Used 07/08/24 15:06 Thrive Assessment: Date of Thrive Assessment Date Thrive assessed 07/04/24 07/08/24 15:06 Currently or been in a relationship where the following occur: No concerns reported Const General: well developed; No acute distress Nutritional Appearance: well nourished Orientation/consciousness: patient oriented x3 HENMT Head: Yes normocephalic and Yes atraumatic Eyes General: appearance normal, both eyes and all related structures Pupils: Equal, round and reactive pupils present EOM: EOMs intact bilaterally Resp Effort & Inspection: normal respiratory effort Neuro General: patient oriented x3 and gait normal Cranial nerves: Yes Equal, round and reactive pupils present Psych Affect: normal affect Coding Level of Care Code Est Pt Level 4 (83352) Diagnoses Essential hypertension I10 Hypertension type: essential hypertension Hyperlipidemia E78.5 Pre-diabetes R73.03 Shoulder pain M25.519 Elevated liver enzymes R74.8 Assessment & Plan Assessment & Plan (1) Hypertension: Onset Date: Unknown Code(s): I10 - Essential (primary) hypertension Category: Medical Qualifiers: Hypertension type: essential hypertension Qualified Code(s): I10 - Essential (primary) hypertension Plan: Blood?pressure?is?again?to?high Continue?amlodipine?and?change?losartan?100?mg?daily?to?losartan-hydrochlorothiazide?100/12.5?mg?daily (2) Hyperlipidemia: Code(s): E78.5 - Hyperlipidemia, unspecified Category: Medical Plan: LDL?cholesterol?has?improved?slightly?but?is?still?above?goal?of?less?than?100. Had?changed?patient's?simvastatin?to?atorvastatin.??He?is?not?certain?he?has?made?this?change?yet. Encouraged?him?to?make?the?change?and?we?follow-up?at?a?subsequent?blood?draw (3) Pre-diabetes: Code(s): R73.03 - Prediabetes Category: Medical Plan: A1c?has?climbed?to?6.0% Encouraged?diet?lower?in?sugars?and?starches Encouraged?exercise (4) Shoulder pain: Code(s): M25.519 - Pain in unspecified shoulder Category: Medical Plan: Patient?has?bilateral?anterior?shoulder?pain?at?AC?joint Gave?him?exercises?to?try?and?advised?ice/heat?and?he?can?use?Aspercreme?topically He?will?let?me?know?if?this?is?not?improving?and?will?start?physical?therapy (5) Elevated liver enzymes: Code(s): R74.8 - Abnormal levels of other serum enzymes Category: Medical Plan: Liver?enzymes?are?back?within?normal?range Continue?working?on?weight?loss Will?continue?to?monitor?periodically Medications: New losartan-hydrochlorothiazide 100-12.5 mg 1 tab PO DAILY 90 days 90 tabs 3RF Discontinued losartan Discontinued Reason: Doctor's Order 100 mg PO DAILY 90 tabs 4RF
[2024-07-08 15:12] VITALS: BP 155/70; PULSE 94; RESP 14; TEMP 36.8; O2SAT 96; BMI 35.5
== END 2024-07-08 15:46 | disposition home or self-care (01) ==
PROVIDERS: PCP Family Medicine; Visit Provider Family Medicine
DX: R73.03 Prediabetes (principal)

== ENCOUNTER → 2024-07-08 15:04 | Outpatient (BNVA) | payer MEDICARE, SELFPAY | PROVIDERS: PCP Family Medicine; Visit Provider Family Medicine | DX: I10 Essential (primary) hypertension (principal); E78.5 Hyperlipidemia, unspecified; R73.03 Prediabetes; M25.511 Pain in right shoulder; M25.512 Pain in left shoulder; R74.8 Abnormal levels of other serum enzymes; Z79.899 Other long term (current) drug therapy | CPT/HCPCS: 83036; 99212 ==

== ENCOUNTER 2024-10-08 14:08 | Outpatient (AMB) | payer MEDICARE, SELFPAY ==
--- NOTE | 2024-10-08 14:20 | MHC.PC.OV ---
Vital Signs 10/08/24 14:22 Height 5 ft 7 in Weight 233 lb BMI 36.5 BP 126/60 Blood Pressure Location Lt brachial Position Sitting Respiration 16 Pulse 82 Pulse Source Pulse Oximeter Temp 98.1 F Temp Source Oral Pulse Oximetry (%) 96 Oxygen Delivery Method Room Air Intake Visit Reasons: f/u hypertension, pre-diabetes Intake Note: pre-dm and htn f/u Allergies Hydrocodone-Ibuprofen Adverse Reaction (Mild, Uncoded 07/08/24 15:09) Headache Medication List - Last Reconciled 10/08/24 by Vasyl Mckay MD amlodipine 10 mg PO DAILY atorvastatin 20 mg PO DAILY 90 days fenofibrate micronized 134 mg PO DAILY 90 days gabapentin 600 mg PO DAILY 90 days losartan-hydrochlorothiazide 100-12.5 mg 1 tab PO DAILY 90 days methocarbamol 750 mg PO Q8H PRN omega3,5,6,7,9 no.1-salmon oil 700-1,500 mg-mg 4 caps PO DAILY 90 days pantoprazole 40 mg PO DAILY sumatriptan succinate take 1 tab at onset of headache; if no relief may repeat 1 tab after at least 2 hrs; max = 4 tabs/24 hr PO 30 days Tobacco use date assessed: 12/11/23 Dental Screening Dental Screen Date: 12/11/23 HPI f/u hypertension, pre-diabetes HPI Details 59 y/o male presents to f/u HTN, pre-diabetes. BP today 126/60, 82p. He is on amlodipine 10mg, losartan-HCTZ 100-12.5mg daily. A1c today 6.1%. [facility], [facility] Medical History (Updated 07/08/24 @ 15:35 by Benny Zuleta) Migraine NAFLD (nonalcoholic fatty liver disease) Chronic LUQ pain Schatzki's ring Abdominal pain Dysphagia Back pain Depression Asthma Elevated cholesterol HTN (hypertension) GERD (gastroesophageal reflux disease) Surgical History (Updated 04/25/24 @ 06:15 by Lakeisha Hanley RN) Hx of left inguinal hernia repair History of repair of vocal cord History of esophageal surgery Hx of hand surgery H/O colonoscopy History of esophagogastroduodenoscopy (EGD) History of back surgery Family History Father Paternal family history of mental health disorder Alcoholism Mother No problems noted. Brother Brain aneurysm Other Mental health disorder Substance use disorder Social History Household Members Other:: With his mother- relocated from [place]- getting Housing: House Alcohol intake: current Alcohol intake frequency: holidays/special occasions only Patient Tobacco Use Status: Current everyday Tobacco user Tobacco use type: Smokeless Tobacco e-Cigarette/Vaping Use: Never Used Second Hand Smoke Exposure: No service: Yes Current occupational status: retired and disabled Cognitive needs: No Hearing needs: No Vision needs: No Questionnaire PHQ-9 Over the last 2 weeks, how often have you been bothered by any of the following problems? 1. Little interest or pleasure in doing things: not at all 2. Feeling down, depressed, or hopeless: not at all 3. Trouble falling or staying asleep, or sleeping too much: not at all 4. Feeling tired or having little energy: not at all 5. Poor appetite or overeating: not at all 6. Feeling bad about yourself - or that you are a failure or have let yourself or your family down: not at all 7. Trouble concentrating on things, such as reading the newspaper or watching television: not at all 8. Moving or speaking so slowly that other people could have noticed. Or the opposite - being so fidgety or restless that you have been moving around a lot more than usual: not at all 9. Thoughts that you would be better off or of hurting yourself in some way: not at all Total score: 0 Source: Developed by Drs. Doyle Guardado, Isabel Dalton, Hector Durham and colleagues, with an educational delfin from [employer]. Thrive Questionnaire Date Thrive assessed: 07/04/24 I am a: Patient What is your living situation today?: I have a steady place to live Within the past 12 months, did the food you bought not last and you didn't have the money to get more?: Never true Within the past 12 months, did you worry whether your food would run out before you got money to buy more?: Never true Do you have trouble paying for medicines?: No Do you have trouble getting transportation to medical appointments?: No Do you have trouble paying your heating and electricity bill?: No Do you have trouble taking care of your child, family member or friend?: No Do you have trouble with day-to-day activities such as bathing, preparing meals, shopping, managing finances, etc.?: No Are you currently unemployed and looking for a job?: No Are you interested in more education?: No Please select the resources that you would like help with: None Currently or been in a relationship where the following occur: No concerns reported THRIVE Score: 0 AUDIT C Alcohol Use Questionnaire (AUDIT-C) 1. How often do you have a drink containing alcohol?: Never Total Score: 0 ANTHONY-7 AMB Questionnaire ANTHONY-7 Date ANTHONY - 7 assessed: 12/11/23 Feeling nervous, anxious, or on edge: 0 = Not at all Not being able to stop or control worryin = Not at all Worrying too much about different things: 0 = Not at all Trouble relaxin = Not at all Being so restless that it is hard to sit still: 0 = Not at all Becoming easily annoyed or irritable: 0 = Not at all Feeling afraid as if something awful might happen: 0 = Not at all Total ANTHONY-7 score (0-4 normal; 5-9 mild; 10-14 moderate; 15-21 severe): 0 Source: Developed by Drs. Doyle Guardado, Isabel Dalton, Hector Durham and colleagues, with an educational delfin from [employer]. Review of Systems Const Denies chills, Denies fatigue, Denies fever(s), Denies headache(s) and Denies weakness ENT Denies dizziness and Denies headache(s) Card Denies dyspnea Resp Denies cough, Denies dyspnea, Denies wheezing and Denies other (shortness of breath) Musc Denies numbness and Denies tingling Neuro Denies dizziness, Denies headache(s), Denies numbness, Denies tingling and Denies weakness Psych Denies anxiety and Denies depression Endo Denies fatigue Aller/Immun Denies wheezing Physical exam (Primary Care) Vital Signs: Last Vital Signs Temp 98.1 F 10/08/24 14: Pulse 82 10/08/24 14:22 Resp 16 10/08/24 14:22 BP 126/60 10/08/24 14:22 Pulse Ox 96 10/08/24 14:22 Oxygen Delivery Method Room Air 10/08/24 14:22 BMI result Body Mass Index 36.5 Tobacco/Smoking Status: Tobacco use Status Tobacco use date assessed 12/11/23 10/08/24 14:26 Patient Tobacco Use Status Current everyday Tobacco 10/08/24 14:26 Tobacco use type Smokeless Tobacco 10/08/24 14:26 e-Cigarette/Vaping Use Never Used 10/08/24 14:26 PHQ-9: PHQ-9 Score PHQ-9: Total score 0 10/08/24 14:35 Thrive Assessment: Date of Thrive Assessment Date Thrive assessed 07/04/24 10/08/24 14:26 Currently or been in a relationship where the following occur: No concerns reported Const General: well developed; No acute distress Nutritional Appearance: well nourished Orientation/consciousness: patient oriented x3 HENMT Head: Yes normocephalic and Yes atraumatic Eyes General: appearance normal, both eyes and all related structures Pupils: Equal, round and reactive pupils present EOM: EOMs intact bilaterally Resp Effort & Inspection: normal respiratory effort Auscultation: clear to auscultation bilaterally Cardio Rate: regular rate Rhythm: regular rhythm Heart sounds: S1 normal heart sound present, S2 normal heart sound present, no gallops, no murmurs and no rubs Neuro General: patient oriented x3 and gait normal Cranial nerves: Yes Equal, round and reactive pupils present Psych Affect: normal affect Results AMB Hemoglobin A1c AMB Hemoglobin A1c 6.1 % Last Edit by Matti Thomas CMA on 10/08/24 14:33 Results Reviewed Results Reviewed: Laboratory Last Values Hgb A1c (Clinic) 6.1 % (4.0-6.0) H 10/08/24 14:32 Coding Level of Care Code Est Pt Level 3 (85753) Diagnoses Essential hypertension I10 Hypertension type: essential hypertension Pre-diabetes R73.03 Hyperlipidemia E78.5 Assessment & Plan Assessment & Plan (1) Hypertension: Onset Date: Unknown Code(s): I10 - Essential (primary) hypertension Category: Medical Qualifiers: Hypertension type: essential hypertension Qualified Code(s): I10 - Essential (primary) hypertension Plan: Blood?pressure?now?controlled.??Goal?is?less?than?140/90 Continue?current?medications Encouraged?weight?loss?and?exercise (2) Pre-diabetes: Code(s): R73.03 - Prediabetes Category: Medical Plan: A1c?climbed?again.??Now?at?6.1%. Encouraged?diet?lower?in?sugars?and?starches Encouraged?exercise?and?weight?loss (3) Hyperlipidemia: Code(s): E78.5 - Hyperlipidemia, unspecified Category: Medical Plan: Had changed his statin from simvastatin to atorvastatin. Will?recheck?lipids?visit Orders: Orders AMB Hemoglobin A1c Today R73.03 - Prediabetes Microalbumin, Random (w Creat) Today I10 - Essential (primary) hypertension Lipid Panel Today E78.5 - Hyperlipidemia, unspecified, Z00.00 - Encounter for general adult medical examination without abnormal findings Comprehensive [place]. Panel Fast Today R74.8 - Abnormal levels of other serum enzymes, Z00.00 - Encounter for general adult medical examination without abnormal findings
[2024-10-08 14:22] VITALS: BP 126/60; PULSE 82; RESP 16; TEMP 36.7; O2SAT 96; BMI 36.5
== END 2024-10-08 14:45 | disposition home or self-care (01) ==
PROVIDERS: PCP Family Medicine; Visit Provider Family Medicine
DX: I10 Essential (primary) hypertension (principal); R73.03 Prediabetes; E78.5 Hyperlipidemia, unspecified

== ENCOUNTER → 2024-10-08 14:08 | Outpatient (BNVA) | payer MEDICARE, SELFPAY | PROVIDERS: PCP Family Medicine; Visit Provider Family Medicine | DX: I10 Essential (primary) hypertension (principal); R73.03 Prediabetes; E78.5 Hyperlipidemia, unspecified | CPT/HCPCS: 83036; 99212 ==

== ENCOUNTER 2024-12-31 08:21 | Outpatient (REF) | payer MEDICARE, SELFPAY ==
--- OUTSIDE RECORDS SUMMARY | 2024-12-31 08:32 | XMS_ITS | Patient Health Record ---
Author Organization [facility] Address [address] [place] [address] Care Team Providers Care Member Of [employer] Name Role Phone Vasyl Mckay MD Primary Care Provider Paula Stewart Unavailable [phone] Allergies Allergen (clinical drug ingredient) Drug/Non Drug Allergy documented on EMR Reaction Allergy Type Onset Date Status acetaminophen / hydrocodone HYDROcodone-Acetamin ophen Headaches Drug Allergy Active Reason For Referral No Information Medications Medication SIG (Take, Route, Frequency, Duration) Notes Start Date End Date Status Pantoprazole Sodium 40 MG 1 tablet Orall y Once a day for 30 day(s) Active Flovent HFA Active Simvastatin 20 MG 1 tablet in the even ing Orally Once a day for 30 day(s) Active Losartan Potassium 100 MG 1 tablet Orall y Once a day for 30 day(s) Active Fenofibrate 134 MG 1 capsule with a adriana l Orally Once a day for 30 day(s) Active Methocarbamol 1500mg Active Ramona 3 4000mg Active Gabapentin 600 MG 1 capsule Orally Onc e a day Active traMADol HCl Active Tylenol Active amLODIPine Besylate 10 MG Oral for 100 Active Social History Tobacco Use: Social History Observation Description Date Details (start date - stop date) Never Smoker NA - NA Tobacco Use/Smoking Question Answer Notes Are you a: nonsmoker Additional Findings: Tobacco Non-User Current no n-smoker Alcohol Screen Question Answer Notes Did you have a drink containing alcohol in the p ast year? No Points 0 Interpretation Negative Tobacco use other than smoking: Question Answer Notes Are you an other tobacco user? No Problems Problem Type SNOMED Code ICD Code Onset Dates Problem Status W/U Status Risk Notes Problem [id number] Plantar wart (B07.0) Active confirmed Vital Signs Height 5 ft 7 in in 01/02/2024 Weight 225 lbs 01/02/2024 BMI 35.24 kg/m2 01/02/2024 Encounters Encounter Location Date Provider Diagnosis [facility] [address] [place] [address] 01/02/2024 Paula Benson Right foot pain M79.671 ; Plantar wart B07.0 and Left foot pain M79.672 Assessments Encounter Date Diagnosis (ICD Code) Assessment Notes Treatment Notes Treatment Clinical Notes Section Notes 01/02/2024 Right foot pain (ICD-10 - M79.671) 01/02/2024 Plantar wart (ICD-10 - B07.0) 01/02/2024 Left foot pain (ICD-10 - M79.672) Plan Of Treatment No Information Insurance Providers Payer Name Payer Address Payer Phone Subscriber Number Group Number Insured Name Patient Relationship to Insured Coverage Start Date Coverage End Date A[employer] Medicare Complete [address] [address] [place] [address] [phone] [id number] Javier Jerez Self - patient is the insured Medical (General) History Medical History History ICD Code asthma Depression Dysphagia Cholesterol Reflux ( GERD) Hypertension Broken bones Back,Hip,and Knee pain Epilepsy Headaches/Migraines Numbness Warts Chicken pox Joint implants/screws Surgical History Surgery Date(Month/Year) back fusion surgery 2016 endoscopy colonoscopy removed L.I finger 1989 repaired esophagus 2009, 2011 low hernia 1996
--- OUTSIDE RECORDS SUMMARY | 2024-12-31 08:32 | XMS_ITS | Continuity of Care Document ---
Author Organization [facility] Address [address] [place] [address] Phone Care Team Providers Care Lumber Scaler Name Role Phone Tiff Kowalski MD Unavailable [...] Active simvastatin 20 mg tablet - Active [place]-3 1,050 mg-1,200 mg capsule - Active acetaminophen 325 mg tablet take 1 tablet by oral route every 4 hours as needed 325 MG - Active fluticasone propionate (bulk) 100 % Powder - Active omeprazole 20 mg capsule,delayed release take 1 capsule by oral route every day before a meal 20 MG - Active Procedures Procedure Date OFFICE/OUTPATIENT VISIT, [...] EHR Attests To Documenting In EHR Current Wi ds OFFICE/OUTPATIENT VISIT, EST OFFICE/OUTPATIENT VISIT, EST [...] Providers Copied on Encounter [facility], [address], [place], [place], [address] , [place] tel:[phone] Neurology in [place] No Information 2 Tiff. [address] [facility] [address], [address], [place], [address], [place]. tel:[phone] [facility], [address], [place], [place], [address] , [place] tel:[phone] Neurology in [place] No Information 1 Tiff. [address] [facility] [address], [address], [place], [address], [place]. tel:[phone] OFFICE/OUTPAT IENT VISIT, EST [facility], [address], [place], [place], [address] , [place] tel:[phone] Neurology in [place] Follow Up of Migraine (chief complaint) Body mass index (BMI) 32.0-32.9, adultChronic migraine w/o aura, not intractable, w/o stat migrOther intervertebr al disc degeneration , lumbosacral region 0 Boundaryjaycob HornTiff. [address] [facility], [facility] [address], [address], [place], [address], [place]. tel:[phone] Ana Zaldivar.Latanya Zaldivar.Referr ing Provider: Tiff Moura N, [address] [facility] [address], [address], [place], [address]. tel:[phone] [facility], [address], [place], [place], [address] , [place] tel:[phone] Pain Management [place] back pain (chief complaint)pa in medication (chief complaint) Sacroiliitis , not elsewhere classifiedPo stlaminectom y syndrome, not elsewhere classifiedOt her intervertebr al disc degeneration , lumbosacral regionOther spondylosis with radiculopath y, lumbar region 0 Beltran Darren. [address], [place], [place], [address], [place]. tel:[phone] Ana Zaldivar.Referr ing Provider: Toña Irvin, [address] [facility] [address], [place], [address]. tel:[phone] OFFICE/OUTPAT IENT VISIT, EST [facility], [address], [place], [place], [address] , [place] tel:[phone] Pain Management [place] back pain (chief complaint)Pa in medication (chief complaint)sh oulder (chief complaint) Postlaminect jono syndrome, not elsewhere classifiedRa diculopathy, lumbar regionSacroi liitis, not elsewhere classifiedOt her specified dorsopathies , cervical region 0 Beltran Darren. [address], [address], [place], [place], [address], [place]. tel:[phone] Ana Zaldivar.Referr ing Provider: Toña Irvin, [address], [place], [address]. tel:[phone] OFFICE/OUTPAT IENT VISIT, EST [facility], [address], [place], [place], [address] , [place] tel:[phone] Pain Management [place] back pain (chief complaint)sh oulder (chief complaint)Pa in medication (chief complaint) Postlaminect jono syndrome, not elsewhere classifiedSa croiliitis, not elsewhere classifiedRa diculopathy, lumbar regionOther specified dorsopathies , cervical region 0 Beltran Darren. [address], [address], [place], [place], [address], [place]. tel:[phone] Ana Zaldivar.Referr ing Provider: Toña Irvin, [address], [place], [address]. tel:[phone] OFFICE/OUTPAT IENT VISIT, EST [facility], [address], [place], [place], [address] , [place] tel:[phone] Neurology in [place] Follow Up of Migraine (chief complaint) Body mass index (BMI) 30.0-30.9, adultChronic migraine w/o aura, not intractable, w/o stat migrOther intervertebr al disc degeneration , lumbosacral region 0 Boundaryjaycob HornTiff. [address] [facility], [address], [address], [place], [address], [place]. tel:[phone] Ana Zaldivar.Referr ing Provider: Toña Irvin, [address], [place], [address]. tel:[phone] OFFICE/OUTPAT IENT VISIT, EST [facility], [address], [place], [place], [address] , [place] tel:[phone] Urology [place] BPH (chief complaint)he maturia (chief complaint) Enlarged prostate with lower urinary tract symptomsBeni gn essential microscopic hematuriaBod y mass index (BMI) 30.0-30.9, adult Dec- 9 Gurmeet Casey. [address] [facility], [address], [address], [place], [place], [address], [place]. tel:[phone] Specialist: Jay Jay Saxena, [address] [place], [address]. tel:[phone] Provider: Usama Campbell, [address] [place], [address]. tel:[phone] OFFICE/OUTPAT IENT VISIT, EST [facility], [address], [place], [place], [address] , [place] tel:[phone] Pain Management [place] back pain (chief complaint)hi p (chief complaint)Pa in medication (chief complaint) Postlaminect jono syndrome, not elsewhere classifiedOt her spondylosis with radiculopath y, lumbar regionPain in left hipRadiculop athy, lumbar region 9 [facility]. [address] [facility], [address], [place], [place], [address], [place]. tel:[phone] Ana Zaldivar.Referr ing Provider: Toña Irvin, [address], [place], [address]. tel:[phone] OFFICE/OUTPAT IENT VISIT, EST [facility], [address], [place], [place], [address] , [place] tel:[phone] Pain Management [place] back pain (chief complaint)Pa in medication (chief complaint) Postlaminect jono syndrome, not elsewhere classifiedOt her intervertebr al disc degeneration , lumbosacral regionOther spondylosis with radiculopath y, lumbar regionSacroi liitis, not elsewhere classified 9 [facility]. [address], [address], [place], [place], [address], [place]. tel:[phone] Ana Zaldivar.Referr ing Provider: [address], [place], [address]. tel:[phone] OFFICE/OUTPAT IENT VISIT, EST [facility], [address], [place], [place], [address] , [place] tel:[phone] Neurology in [place] Follow Up of Migraine (chief complaint) Body mass index (BMI) 31.0-31.9, adultChronic migraine w/o aura, not intractable, w/o stat migrOther intervertebr al disc degeneration , lumbosacral region [facility]. [address] [facility], [address], [address], [place], [address], [place]. tel:[phone] Ana Zaldivar.Referr ing Provider: Toña Irvin, [address], [place], [address]. tel:[phone] OFFICE/OUTPAT IENT VISIT, EST [facility], [address], [place], [place], [address] , [place] tel:[phone] Pain Management [place] back pain (chief complaint)Pa in medication (chief complaint) Postlaminect jono syndrome, not elsewhere classifiedSa croiliitis, not elsewhere classifiedOt her intervertebr al disc degeneration , lumbosacral regionOther spondylosis with radiculopath y, lumbar region 9 [facility]. [address], [place], [place], [address], [place]. tel:[phone] Ana Zaldivar.Referr ing Provider: Toña Irvin, [address], [place], [address]. tel:[phone] OFFICE/OUTPAT IENT VISIT, EST [facility], [address], [place], [place], [address] , [place] tel:[phone] Pain Management [place] back pain (chief complaint)Pa in medication (chief complaint) Sacroiliitis , not elsewhere classifiedOt her intervertebr al disc degeneration , lumbosacral regionOther spondylosis with radiculopath y, lumbar regionPostla minectomy syndrome, not elsewhere classified [facility]. [address], [place], [place], [address], [place]. tel:[phone] Ana Zaldivar.Referr ing Provider: Toña Irvin, [address], [place], [address]. tel:[phone] [facility], [address], [place], [place], [address] , [place] tel:[phone] Pain Management [place] back pain (chief complaint) Sacroiliitis , not elsewhere classified Blevins Darren. [address], [place], [place], [address], [place]. tel:[phone] Ana Zaldivar.Referr ing Provider: Toña Irvin, [address] [facility] [address], [place], [address]. tel:[phone] OFFICE/OUTPAT IENT VISIT, EST [facility], [address], [place], [place], [address] , [place] tel:[phone] Pain Management [place] back pain (chief complaint)hi p (chief complaint)Pa in medication (chief complaint) Postlaminect jono syndrome, not elsewhere classifiedSa croiliitis, not elsewhere classifiedOt her spondylosis with radiculopath y, lumbar regionPain in left hip 9 Devin Banks. [address], [place], [place], [address], [place]. tel:[phone] Ana Zaldivar. OFFICE/OUTPAT IENT VISIT, EST [facility], [address], [place], [place], [address] , [place] tel:[phone] Neurology in [place] Headache (chief complaint) Chronic migraine w/o aura, not intractable, w/o stat migrOther intervertebr al disc degeneration , lumbosacral region 9 Meghana Matthew. [address] [facility], [address], [address], [place], [address], [place]. tel:[phone] Ana Zaldivar.Referr ing Provider: Toña Irvin, [address] [facility] [address], [place], [address]. tel:[phone] [facility], [address], [place], [place], [address] , [place] tel:[phone] Pain Management [place] back pain (chief complaint) Postlaminect jono syndrome, not elsewhere classified 8 [facility]. [address] [facility], [address], [place], [place], [address], [place]. tel:[phone] Ana Zaldivar. OFFICE/OUTPAT IENT VISIT, EST [facility], [address], [place], [place], [address] , [place] tel:[phone] Pain Management [place] back pain (chief complaint)Pa in medication (chief complaint)sh oulder (chief complaint) Other intervertebr al disc degeneration , lumbosacral regionOther spondylosis with radiculopath y, lumbar regionPostla minectomy syndrome, not elsewhere classifiedOt her specified mononeuropat hies 8 Beltran Darren. [address], [address], [place], [place], [address], [place]. tel:[phone] Ana Zaldivar. OFFICE/OUTPAT IENT VISIT, EST [facility], [address], [place], [place], [address] , [place] [phone] Urology [place] BPH (chief complaint)he maturia (chief complaint) Body mass index (BMI) 30.0-30.9, adultEnlarge d prostate with lower urinary tract symptomsBeni gn essential microscopic hematuria 8 Gurmeet Casey. [address] [facility], [address], [place], [place], [address], [place]. tel:[phone] Specialist: Jay Jay Saxena, [facility] [place], [address]. tel:[phone] ng Provider: Jacinto Napoles, [address] [facility] [facility], [place], [address]. tel:[phone] OFFICE/OUTPAT IENT VISIT, EST [facility], [address], [place], [place], [address] , [phone] Pain Management [place] back pain (chief complaint)Ab dominal pain (chief complaint)Pa in medication (chief complaint) Postlaminect jono syndrome, not elsewhere classifiedUp per abdominal painOther intervertebr al disc degeneration , lumbosacral regionOther spondylosis with radiculopath y, lumbar region Blevins Darren. [address] [facility], [address], [place], [place], [address], [place]. tel:[phone] Ana Zaldivar. OFFICE/OUTPAT IENT VISIT, EST [facility], [address], [place], [place], [address] , [place] tel:[phone] Pain Management [place] back pain (chief complaint)Ab domen/ribs (chief complaint)Pa in medication (chief complaint) Postlaminect jono syndrome, not elsewhere classifiedOt her intervertebr al disc degeneration , lumbosacral regionUpper abdominal painIntercos guillermo neuropathy Beltran Draren. [address] [facility], [address], [place], [place], [address], [place]. tel:[phone] Ana Zaldivar. OFFICE/OUTPAT IENT VISIT, EST [facility], [address], [place], [place], [address] , [place] [phone] Pain Management [place] back pain (chief complaint)he adache/shoul martín (chief complaint)pa in medication (chief complaint) Other intervertebr al disc degeneration , lumbosacral regionOther specified mononeuropat hiesPostlami nectomy syndrome, not elsewhere classifiedCh ronic migraine w/o aura, not intractable, w/o stat migr 8 Blevins Darren. [address], [address], [place], [place], [address], [place]. tel:[phone] Ana Zaldivar. OFFICE/OUTPAT IENT VISIT, EST [facility], [address], [place], [place], [address] , [place] tel:[phone] Neurology in [place] Follow Up of Migraine (chief complaint) Chronic migraine w/o aura, not intractable, w/o stat migrOther intervertebr al disc degeneration , lumbosacral region Meghana Tiff. [address] [facility], [address], [address], [place], [address], [place]. tel:[phone] Ana Zaldivar. OFFICE/OUTPAT IENT VISIT, EST [facility], [address], [place], [place], [address] , [place] tel:[phone] Pain Management [place] back pain (chief complaint)sh oulder (chief complaint)pa in medication (chief complaint) Postlaminect jono syndrome, not elsewhere classifiedOt her specified mononeuropat hiesCervical giaOther specified dorsopathies , cervical region Devin Banks. [address], [address], [place], [place], [address], [place]. tel:[phone] Ana Zaldivar. OFFICE/OUTPAT IENT VISIT, EST [facility], [address], [place], [place], [address] , [place] tel:[phone] Urology [place] hematuria (chief complaint)BP H (chief complaint) Benign essential microscopic hematuriaEnl arged prostate with lower urinary tract symptoms 7 Gurmeet Casey. [address] [facility], [address], [address], [place], [place], [address], [place]. tel:[phone] Specialist: Jay Jay Saxena, [facility] [address], [place], [address]. tel:[phone] Provider: Jacinto Napoles, [address] [facility] [address], [address], [place], [address]. tel:[phone] [facility], [address], [place], [place], [address] , [place] tel:[phone] Pain Management [place] back pain (chief complaint) Other intervertebr al disc degeneration , lumbosacral regionPostla minectomy syndrome, not elsewhere classified Devin Banks. [address], [address], [place], [place], [address], [place]. tel:[phone] Ana Zaldivar. OFFICE/OUTPAT IENT VISIT, EST [facility], [address], [place], [place], [address] , [place] tel:[phone] Pain Management [place] back pain (chief complaint)pa in medication (chief complaint) Other intervertebr al disc degeneration , lumbosacral regionPostla minectomy syndrome, not elsewhere classifiedOt her spondylosis with radiculopath y, lumbar regionSacroi liitis, not elsewhere classified Beltran Darren. [address], [address], [place], [place], [address], [place]. tel:[phone] Ana Zaldivar. OFFICE/OUTPAT IENT VISIT, EST [facility], [address], [place], [place], [address] , [place] [phone] Pain Management [place] back pain (chief complaint)pa in medication (chief complaint)fu nctional capacity evaluation (chief complaint) Postlaminect jono syndrome, not elsewhere classifiedOt her intervertebr al disc degeneration , lumbosacral regionOther spondylosis with radiculopath y, lumbar regionSacroi liitis, not elsewhere classified Devin Banks. [address], [address], [place], [place], [address], [place]. tel:[phone] Ana Zaldivar. OFFICE/OUTPAT IENT VISIT, EST [facility], [address], [place], [place], [address] , [place] [phone] Pain Management [place] back pain (chief complaint)pa in medication (chief complaint) Postlaminect jono syndrome, not elsewhere classifiedOt her intervertebr al disc degeneration , lumbosacral regionOther spondylosis with radiculopath y, lumbar regionSacroi liitis, not elsewhere classified 7 [facility]. [address], [address], [facility], [place], [address], [place]. tel:[phone] Ana Zaldivar. OFFICE/OUTPAT IENT VISIT, EST [facility], [address], [place], [place], [address] , [place] tel:[phone] Pain Management [place] back pain (chief complaint)pa in medication (chief complaint) Other spondylosis with radiculopath y, lumbar regionPain in left hipSacroilii tis, not elsewhere classifiedOt her intervertebr al disc degeneration , lumbosacral region [facility]. [address], [address], [place], [place], [address], [place]. tel:[phone] Ana Zaldivar. OFFICE/OUTPAT IENT VISIT, EST [facility], [address], [place], [place], [address] , [place] tel:[phone] [facility] Follow Up of Migraine (chief complaint)Fo llow Up of Pain in the left hip (chief complaint) Chronic migraine w/o aura, not intractable, w/o stat migrPain in left hipOther intervertebr al disc degeneration , lumbosacral region 7 Meghana Matthew. [address] [facility] [address], [address], [place], [address], [place]. tel:[phone] Ana Zaldivar.Referr ing Provider: Toña Irvin, [address] [facility] [address], [place], [address]. tel:[phone] OFFICE/OUTPAT IENT VISIT, EST [facility], [address], [place], [place], [address] , [place] tel:[phone] Urology [place] hematuria (chief complaint)BP H (chief complaint) Benign essential microscopic hematuria 6 Gurmeet Casey. [address] [facility], [facility]. [address], [address], [place], [place], [address], [place]. tel:[phone] Specialist: Jay Jay Saxena, [address] [facility], [place], [address]. tel:[phone] ng Provider: Jacinto Napoles, [address] [facility], [place], [address]. tel:[phone] [facility], [address], [place], [place], [address] , [place] tel:[phone] Urology [place] No Information 6 Gurmeet Casey. [address] [facility], [address], [address], [place], [place], [address], [place]. tel:[phone] Toña Whitlock.Gely Zaldivar.Referr ing Provider: Toña Irvin, [address] [facility] [address], [place], [address]. tel:[phone] OFFICE/OUTPAT IENT VISIT, EST [facility], [address], [place], [place], [address] , [place] tel:[phone] Pain Management [place] back pain (chief complaint)pa in medication (chief complaint) Spondylosis w/o myelopathy of lumbosacral regionOther spondylosis with radiculopath y, lumbar regionSacroi liitis, not elsewhere classified 6 Beltran Darren. [address], [address], [place], [place], [address], [place]. tel:[phone] Toña Whitlock.Gely Zaldivar. [facility], [address], [place], [place], [address] , [place] tel:[phone] Pain Management [place] back pain (chief complaint)pa in medication (chief complaint) Spondylosis w/o myelopathy of lumbosacral regionOther intervertebr al disc degeneration , lumbosacral regionOther spondylosis with radiculopath y, lumbar regionMuscle spasm of back 6 [facility]. [address], [address], [facility], [address], [place]. tel:[phone] Toña Whitlock.Gely Zaldivar. OFFICE/OUTPAT IENT VISIT, EST [facility], [address], [place], [place], [address] , [place] tel:[phone] [facility] Follow Up of Migraine (chief complaint)Fo llow Up of Lumbar stenosis (chief complaint) Chronic migraine w/o aura, not intractable, w/o stat migrPain in left hipOther intervertebr al disc degeneration , lumbosacral region 6 Meghana Matthew. [address] [facility], [facility] [address], [address], [place], [address], [place]. tel:[phone] Toña Whitlock.Gely Zaldivar.Referr ing Provider: Toña Irvin, [address] [facility] [address], [place], [address]. tel:[phone] OFFICE/OUTPAT IENT VISIT, EST [facility], [address], [place], [place], [address] , [place] tel:[phone] Pain Management [place] back pain (chief complaint)pa in medication (chief complaint)hi p (chief complaint) Sacroiliitis , not elsewhere classifiedPa in in left hipOther intervertebr al disc degeneration , lumbosacral regionSpondy losis w/o myelopathy of lumbosacral region 6 Blevins Darren. [address], [address], [facility], [place], [address], [place]. tel:[phone] Toña Whitlock.Gely Zaldivar. OFFICE/OUTPAT IENT VISIT, EST [facility], [address], [place], [place], [address] , [place] tel:[phone] Pain Management [place] back pain (chief complaint)hi p (chief complaint)pa in medication (chief complaint) Primary osteoarthrit is of lt hipSacroilii tis, not elsewhere classifiedPa in in left hip 6 [facility]. [address], [facility], [place], [address], [place]. tel:[phone] Toña Whitlock.Gely Zaldivar. OFFICE/OUTPAT IENT VISIT, EST [facility], [address], [place], [place], [address] , [place] tel:[phone] Pain Management [place] back pain (chief complaint)hi p (chief complaint) Primary osteoarthrit is of lt hipSacroilii tis, not elsewhere classifiedPa in in left hip 6 Blevins Darren. [address], [facility], [place], [address], [place]. tel:[phone] Toña Whitlock.Gely Zaldivar. OFFICE/OUTPAT IENT VISIT, EST [facility], [address], [place], [place], [address] , [place] tel:[phone] [facility] Migraine (chief complaint)Nancy mbar stenosis (chief complaint) Other intervertebr al disc degeneration , lumbosacral regionChroni c migraine w/o aura, not intractable, w/o stat migrPain in left hip 6 Meghana Matthew. [address] [facility], [facility] [address], [address], [place], [address], [place]. tel:[phone] Toña Whitlock.Gely Zaldivar.Referr ing Provider: Tiff Moura N, [address] [facility] [address], [address], [place], [address]. tel:[phone] OFFICE/OUTPAT IENT VISIT, EST [facility], [address], [place], [place], [address] , [place] tel:[phone] Urology [place] hematuria (chief complaint)Fl ank pain (chief complaint) Benign essential microscopic hematuriaLow back pain 5 Gurmeet Casey. [address] [facility], [address], [address], [place], [place], [address], [place]. tel:[phone] Toña Whitlock, [address] [facility] [address], [place], [address].Specia list: Jay Jay Saxena, [address] [facility], [place], [address]. tel:[phone] ng Provider: Toña Whitlock C, [address] [facility] [address], [place], [address]. tel:[phone] [facility], [address], [place], [place], [address] , [place] tel:[phone] Urology [place] No Information 5 Gurmeet Casey. [address] [facility], [address], [address], [place], [place], [address], [place]. tel:[phone] Ana Zaldivar.Referr ing Provider: Jacinto Napoles, [address] [facility], [place], [address]. tel:[phone] [facility], [address], [place], [place], [address] , [place] tel:[phone] Pain Management [place] back pain (chief complaint) No Information 5 Beltran Darren. [address], [place], [place], [address], [place]. tel:[phone] Ana Zaldivar. OFFICE/OUTPAT IENT VISIT, EST [facility], [address], [place], [place], [address] , [place] tel:[phone] Pain Management [place] back pain (chief complaint)pa in medications (chief complaint) No Information 5 Beltran Darren. [address], [place], [place], [address], [place]. tel:[phone] Ana Zaldivar. OFFICE/OUTPAT IENT VISIT, EST [facility], [address], [place], [place], [address] , [place] tel: [phone] Pain Management [place] back pain (chief complaint) No Information 5 Beltran Darren. [address], [facility], [place], [address], [place]. tel:[phone] Ana White. [facility], [address], [place], [place], [address] , [place] tel: [phone] Pain Management [place] back pain (chief complaint) No Information 5 Beltran Darren. [address], [facility], [place], [address], [place]. tel:[phone] Ana White. OFFICE/OUTPAT IENT VISIT, EST [facility], [address], [place], [place], [address] , [place] tel: [phone] Pain Management [place] back pain (chief complaint)hi p (chief complaint) No Information 5 Beltran Darren. [address], [facility], [place], [address], [place]. tel:[phone] Ana White. OFFICE/OUTPAT IENT VISIT, EST [facility], [address], [place], [place], [address] , [place] tel: [phone] Pain Management [place] back pain (chief complaint)pa in medication (chief complaint) No Information 5 Beltran Darren. [address] [address], [address], [facility], [place], [address], [place]. tel:[phone] Ana White. [facility], [address], [place], [place], [address] , [place] tel:[phone] Pain Management Squire back pain (chief complaint) No Information 5 Beltran Darren. [address], [address], [facility], [place], [address], [place]. tel:[phone] Ana White. OFFICE/OUTPAT IENT VISIT, EST [facility], [address], [place], [place], [address] , [place] tel:[phone] Pain Management Squire back pain (chief complaint) No Information 5 Devin Banks. [address], [address], [place], [place], [address], [place]. tel:[phone] Ana Zaldivar. OFFICE/OUTPAT IENT VISIT, EST [facility], [address], [place], [place], [address] , [place] tel:[phone] Urology Squire hematuria (chief complaint) No Information 4 Kostiner Jacinto. [address] [facility], [place], [place], [address], [place]. tel:[phone] , [facility] [facility] [address], [place], [address].Referr ing Provider: Toña Irvin, [facility] [facility] [address], [place], [address]. tel:[phone] [facility], [address], [place], [place], [address] , [place] tel:[phone] Pain Management Squire back pain (chief complaint) No Information 4 Devin Banks. [address], [address], [place], [place], [address], [place]. tel:[phone] Waldemar Encinas.Re ferring Provider: Waldemar Parker, [address] [facility] [address], [place], [address]. tel:[phone] [facility], [address], [place], [place], [address] , [place] tel:[phone] Urology Squire No Information 4 Kostiner Jacinto. [address], [place], [place], [address], [place]. tel:[phone] Referring Provider: Waldemra Parker, [address] [facility] [address], [place], [address]. tel:[phone] OFFICE/OUTPAT IENT VISIT, EST [facility], [address], [place], [place], [address] , [place] tel:[phone] Pain Management Squire back pain (chief complaint) No Information 4 Beltran Darren. [address], [address], [facility], [place], [address], [place]. tel:[phone] Waldemar Encinas.Re ferring Provider: Waldemar Parker, [address], [place], [address]. tel:[phone] [facility], [address], [place], [place], [address] , [place] tel:[phone] Pain Management Squire back pain (chief complaint) No Information 4 Beltran Darren. [address], [address], [facility], [place], [address], [place]. tel:[phone] Waldemar Encinas.Re ferring Provider: Himanshu Buck, [address], [place], [address]. tel:[phone] OFFICE/OUTPAT IENT VISIT, EST [facility], [address], [place], [place], [address] , [place] tel:[phone] Pain Management [facility] back pain (chief complaint) No Information 4 Beltran Darren. [address], [address], [facility], [place], [address], [place]. tel:[phone] Waldemar Encinas.Re ferring Provider: Himanshu Buck, [address], [place], [address]. tel:[phone] OFFICE/OUTPAT IENT VISIT, EST [facility], [address], [place], [place], [address] , [place] tel:[phone] Pain Management Squire back pain (chief complaint) No Information 4 Beltran Darren. [address], [address], [facility], [place], [address], [place]. tel:[phone] [facility] Provider: Himanshu Buck, [address], [place], [address]. tel:[phone] [facility], [address], [place], [place], [address] , [place] tel:[phone] Pain Management Squire back pain (chief complaint) No Information 4 Beltran Darren. [address], [address], [place], [place], [address], [place]. tel:[phone] [facility] Provider: Himanshu Buck, [address], [place], [address]. tel:[phone] [facility], [address], [place], [place], [address] , [place] tel:[phone] [facility] No Information 4 Teo Caro. [address] [place], [address], [place]. tel:[phone] Referring Provider: Waldemar Parker, [address] [place], [place] [address]e [address], [place], [address]. tel:[phone] OFFICE/OUTPAT IENT VISIT, EST [facility], [address], [place], [place], [address] , [place] tel:[phone] Urology Squire hematuria (chief complaint) No Information 4 Gurmeet Casey. [address] [facility], [place], [place], [address], [place]. tel:[phone] <list xmlns='[email or web address]'>< item>Primary Practice Provider: Waldemar Encinas, [address] [facility] [address], [place], [address]. tel:[phone]</item> <item> .</item><ite m>Referring Provider: Waldemar Parker, [address], [place], [address]. tel:[phone]</item> </list> [facility], [address], [place], [place], [address] , [place] tel:[phone] Urology [facility] No Information 4 Gurmeet Casey. [address] [facility] [address] [facility] [address], [place], [place], [address], [place]. tel:[phone] Referring Provider: Jacinto Napoles, [address] [facility], [place], [address]. tel:[phone] OFFICE CONSULTATION [facility], [address], [place], [place], [address] , [place] tel:[phone] Urology Squire hematuria (chief complaint) No Information 0 4 Gurmeet Casey. [address] [facility] [facility], [place], [place], [address], [place]. tel:[phone] Primary Practice Provider: Waldemar Encinsa, [address] [facility] [address], [place], [address]. tel:[phone] Provider: Waldemar Parker, [address] [facility] [address], [place], [address]. tel:[phone] [facility], [address], [place], [place], [address] , [place] tel:[phone] Pain Management Squire back pain (chief complaint) No Information Nov- 4 Beltran Darren. [address], [place], [place], [address], [place]. tel:[phone] Referring Provider: [address], [place], [address]. tel:[phone] OFFICE/OUTPAT IENT VISIT, EST [facility], [address], [place], [place], [address] , [place] tel:[phone] Pain Management Squire back pain (chief complaint) No Information 4 Beltran Darren. [address], [place], [place], [address], [place]. tel:[phone] Referring Provider: Meg[address], [place], [address]. tel:[phone] OFFICE/OUTPAT IENT VISIT, EST [facility], [address], [place], [place], [address] , [phone] Pain Management Squire lumbar spine (chief complaint) No Information 3 Beltran Darren. [address], [place], [place], [address], [place]. tel:[phone] Referring Provider: [place], [address]. tel:[phone] [facility], [address], [place], [place], [address] , [phone] Pain Management [facility] hip (chief complaint)nancy mbar spine (chief complaint) No Information 3 Beltran Darren. [address], [place], [place], [address], [place]. tel:[phone] Referring Provider: [place], [address]. tel:[phone] [facility], [address], [place], [place], [address] , [place] [phone] Pain Management Squire back pain (chief complaint) No Information 3 Beltran Darren. [address] [place], [place], [address], [place]. tel:[phone] Referring Provider: [place], [address]. tel:[phone] Family History Family Member Type Diagnosis Age At Onset Father Problem (finding) diabetes melli tus in first degree relative Payers Payer name Insurance type Covered alliance party ID Authoriza timaury(s) Medicare MB [id number] Social History Type Description Quantity Date Captured Comments Alcohol Use Details Unknown Caffeine Use Details Unknown Tobacco Use Status Smoking Status No Information Sex Male Chief Complaint And Reason For Visit No Information Reason For Referral Reason For Referral No Information Plan Of Treatment Date Type Action Status Goal Tdap. Due on due Goal Td vaccine. Due on due Goal Sigmoidoscopy. Due on due Goal Colonoscopy. Due on due Goal PSA. [...] due Goal FOBT. Due on due Goal Lifestyle education regardin g diet completed Goal PSA. Due on due Goal H&P. Due on due Goal Tdap. Due on due Goal Document TOB Sta tus\ Cessation Advice. Due on due Goal Sigmoidoscopy. Due on due Goal Zoster vaccine ( 1st). Due on due Goal Influenza Vaccine. Due on due Goal Colonoscopy. Due on due Goal Shingrix #2. Due on due Goal Lipid panel. Due on due Goal Shingrix #1. Due on due Goal Td vaccine. Due on due Goal FOBT. Due on due Goal Depression scree low. Due on due Goal PSA. Due on due Goal Zoster vaccine ( 1st). Due on due Goal Influenza Vaccine. Due on due Goal Document TOB Sta tus\ Cessation Advice. Due on due Goal Colonoscopy. Due on due Goal Shingrix #2. Due on due Goal H&P. Due on due Goal Sigmoidoscopy. Due on due Goal Lipid panel. Due on due Goal Shingrix #1. Due on due Goal Td vaccine. Due on due Goal Tdap. Due on due Goal Depression scree low. Due on due Goal FOBT. Due on due Goal Zoster vaccine ( 1st). Due on due Goal H&P. Due on [...] due Goal Tdap. Due on due Goal Shingrix #2. Due on due Goal PSA. Due on due Goal FOBT. Due on due Goal FOBT. Due on [...] Goal Shingrix #1. Due on due Goal Lifestyle education regardin [...] Shingrix #1. Due on due Goal Prescribed diet education [...] due Goal Tdap. Due on due Goal Shingrix #1. Due on due Goal Influenza Vaccine. Due on due Goal Td vaccine. Due on due Goal Document TOB Sta tus\ Cessation Advice. Due on due Goal Sigmoidoscopy. Due on due Goal Document TOB Sta tus\ Cessation Advice. Due on due Goal Tdap. Due on due Goal Shingrix #2. Due on due Goal Depression scree low. Due on due Goal Sigmoidoscopy. Due on due Goal H&P. Due on due Goal Td vaccine. Due on due Goal Colonoscopy. Due on due Goal Influenza Vaccine. Due on due Goal FOBT. Due on due Goal Shingrix #1. Due on due Goal Lifestyle education regardin g diet completed Goal Shingrix #2. Due on due Goal [...] due Goal Sigmoidoscopy. Due on due Goal Tdap. Due on [...] due Goal Tdap. Due on due Goal Shingrix #2. Due [...] Goal Shingrix #1. Due on due Goal Sigmoidoscopy. Due on due Goal Shingrix #2. Due on due Goal FOBT. Due on due Goal Document TOB Sta tus\ Cessation Advice. Due on due Goal Depression scree low. Due on due Goal Colonoscopy. Due on due Goal Td vaccine. Due on 19 due Goal Tdap. Due on due Goal H&P. Due on due Goal Shingrix #2. Due on due Goal Document TOB Sta tus\ Cessation Advice. Due on due Goal Colonoscopy. Due on due Goal Depression scree low. Due on due Goal Td vaccine. Due on 18 due Goal Shingrix #1. Due on due Goal Sigmoidoscopy. Due on [...] Goal Colonoscopy. Due on due Goal Shingrix #1. Due [...] Td vaccine. Due on 18 due Goal Prescribed dietary intake co mpleted Goal Shingrix #1. Due on due Goal [...] due Goal Colonoscopy. Due on due Goal Colonoscopy. Due on due Goal Document TOB Sta tus\ Cessation Advice. Due on due Goal Td vaccine. Due on due Goal Depression scree low. Due on due Goal Sigmoidoscopy. Due on [...] Td vaccine. Due on 18 due Goal Sigmoidoscopy. Due on due Goal Colonoscopy. Due on due Goal H&P. Due on due Goal Document TOB Sta tus\ Cessation Advice. Due on due Goal FOBT. Due on due Goal Tdap. Due on due Goal Influenza Vaccine. Due on due Goal Depression scree low. Due on due Goal H&P. Due on due Goal Td vaccine. Due on 17 due Goal Sigmoidoscopy. Due on due Goal FOBT. Due on due Goal Tdap. Due on due Goal Influenza Vaccine. Due on due Goal Colonoscopy. Due on due Goal Depression scree low. Due on due Goal Document TOB Sta tus\ Cessation Advice. Due on due Goal Tdap. Due on due Goal Colonoscopy. Due on 017 due Goal Document TOB Sta tus\ Cessation [...] Td vaccine. Due on 17 due Goal Tdap. Due on due Goal Td vaccine. Due on 16 due Goal Influenza Vaccine. Due on due Goal H&P. Due on due Goal Tdap. Due on due Goal Document TOB Sta tus\ Cessation Advice. Due on due Goal Depression scree low. Due on due Goal Dietary manageme nt education, guidance, and counseling completed Goal Depression scree low. Due on due Goal Influenza Vaccine. Due on due Goal H&P. Due on due Goal Td vaccine. Due on 16 due Goal Tdap. Due on due Goal Document TOB Sta tus\ Cessation Advice. Due on due Goal Document TOB Sta tus\ Cessation Advice. Due on due Goal Tdap. Due on due Goal Influenza Vaccine. Due on due Goal Td vaccine. Due on 16 due Goal Depression scree low. Due on due Goal H&P. Due on due Goal Tdap. Due on due Goal Td vaccine. Due on 16 due Goal Depression scree low. Due on [...] tus\ Cessation Advice. Due on due Goal Document TOB Sta tus\ Cessation Advice. Due on due Goal H&P. Due on due Goal Td vaccine. Due on 16 due Goal Tdap. Due on due Goal Depression scree low. Due on due Goal Influenza Vaccine. Due on due Goal Tdap. Due on due Goal Td vaccine. Due on 16 due Goal Influenza Vaccine. Due on due Goal H&P. Due on due Goal Document TOB Sta tus\ Cessation Advice. Due on due Goal Depression scree low. Due on due Patient Education The Spine: [...] Urine Cy tology and FISH if Positive ([id number]), Appointment on: , Sent on: Sent Future Order: Lab Order Urine Cy tology and FISH if Positive ([id number]), Appointment on: , Sent on: Sent Future Order: Lab Order Urine Cy tology and FISH if Positive ([id number]), Appointment on: , Sent on: Sent Future Order: Lab Order Urine Cy tology and FISH if Positive ([id number]), Appointment on: , Sent on: Sent Future [...] is lower back. Follow Up of Migraine Onset: 40 years [...] an improvement in his headaches and migraines. Follow Up of Migraine (comments) Gabapentin continues to help with the headaches. hematuria The patient pres ents with hematuria [...] normal findings. BPH The problem is w orse. Reviewed [...] persistently. Location of pain is lower back. BPH [...] pain is lower back. pain medication headache/shoulder Follow Up of Migraine It occurs intermittently. [...] moderate. Location of pain is lower back. hematuria [...] pain is lower back. functional capacity evaluation pain medication pain medication back pain Onset: gradual w ithout injury. Severity level is moderate-severe. It occurs persistently. Location of pain is lower back. pain medication back pain Onset: gradual w ithout injury. Severity level is moderate. Location of pain is lower back. Follow Up of Migraine Onset: 30 years [...] he can walk steady for 3 hours. BPH The problem is w ith no [...] positive UA's for blood since April 2013. pain medication back pain Onset: gradual w [...] steps. Few weeks ago he went to [employer] at the end he felt he could [...] moderate-severe. It occurs persistently. pain medication hip hip back pain Onset: gradual w ithout injury. Severity level is moderate-severe. It occurs persistently. Migraine (comments) Mr. Jerez is here today [...] on the left hip intermittent. Lumbar stenosis Migraine Onset: 30 years ago. It occurs [...] and no migraines since the back surgery. Flank pain Onset was 2 to 3 [...] states pain level is a 5 today. pain medications back pain Onset: gradual w ithout injury. Severity level is moderate-severe. It occurs persistently. Additional information: pt states pain level is a 6 today. back pain Onset: gradual w ithout [...] Information Instructions Date Instruction Additional Infor silver Stable.Continue to f ricardolow up Dr. Beltran. Related to Other intervertebral [...] education Tramadol precautions education Tramadol precautions education Stable. 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 Beltran . Related to Other intervertebral disc degeneration, lumbosacral region Continue the Robaxin 750 mg one tablet three times. Keep a log of the headaches. Increase the Gabapentin 300 mg to two capsules at bed time. Follow up in 6 months. 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 Keep a log of the headaches. Continue the Gabapentin 300 mg one capsules at bed time. Follow up in 12 months. Related to Chronic migraine w/o aura, not intractable, w/o stat migr Continue to follow up Dr. Beltran . Related to Other intervertebral disc degeneration, lumbosacral region peripheral nerve block education He has obstructive [...] Other intervertebral disc degeneration, lumbosacral region epidural CERT injection educatio n epidural steroid injection educa tion 1. 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 Continue Ultram f or low back/leg pain2. 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 Left L4 transfora ce epidural2. Dairy 5 mg tablets for low back/leg pain.3. [...] months. Related to Pain in left hip Ultram precautions education 1. Follow-up three m [...] Schedule left sac roiliac injection2. FPR cream ? KLCB ? one ??? 2 g Q I D to low back Related to Sacroiliitis sacroiliac injections education 1. FPR cream ? apply 1 to 2 g AGD BCB [...]
--- OUTSIDE RECORDS SUMMARY | 2024-12-31 08:32 | XMS_ITS ---
[facility] Organization [facility] Address [address] [place] [address] Care Team Providers Care Graphic Design Professor Name Role Phone Vasyl Mckay MD Primary Care Provider Paula Stewart Unavailable [phone] Allergies Allergen (clinical drug ingredient) Drug/Non Drug Allergy documented on EMR Reaction Allergy Type Onset Date Status acetaminophen / hydrocodone HYDROcodone-Acetamin ophen Headaches Drug Allergy Active REASON FOR VISIT Pcp- 07/09, Kiki(s) Medications Medication SIG (Take, Route, Frequency, Duration) Notes Start Date End Date Status amLODIPine Besylate 10 MG Oral for 100 Active Simvastatin 20 MG 1 tablet in the even ing Orally Once a day for 30 day(s) Active Losartan Potassium 100 MG 1 tablet Orall y Once a day for 30 day(s) Active Pantoprazole Sodium 40 MG 1 tablet Orall y Once a day for 30 day(s) Active Flovent HFA Active traMADol HCl Active Vernon 3 4000mg Active Gabapentin 600 MG 1 capsule Orally Onc e a day Active Fenofibrate 134 MG 1 capsule with a adriana l Orally Once a day for 30 day(s) Active Methocarbamol 1500mg Active Tylenol Active Social History Tobacco Use: Social History [...] Are you an other tobacco user? No Vital Signs Height 5 ft 7 in in 11/21/2023 Weight 225 lbs 11/21/2023 BMI 35.24 kg/m2 11/21/2023 Encounters Encounter Location Date Provider Diagnosis [facility] [address] [place] [address] 11/21/2023 Paula Benson Right foot pain M79.671 ; Plantar wart B07.0 and Left foot pain M79.672 Assessments Encounter Date Diagnosis (ICD Code) Assessment Notes Treatment Notes Treatment Clinical Notes Section Notes 11/21/2023 Right foot pain (ICD-10 - M79.671) 11/21/2023 Plantar wart (ICD-10 - B07.0) 11/21/2023 Left foot pain (ICD-10 - M79.672) Plan Of Treatment Next Appt Details Follow Up: 6 Weeks, Reason: Procedure Notes * Category Sub-Category Detail Notes Wart Treatment Procedure Verrucae were de brided to pin-point bleeding margins with sterile 15 surgical blade, silver nitrate chemocautery applied, recomm. immune-boosting meds such as zinc, recomm. follow up with topical chemosurgical agents, Discussed/Rxed use of Custom Compounded anti-viral creams Progress Notes * Javier JEREZDOB:[birth year] (58 yo M)Acc No.[id number]:11/21/2023 Progress Note Patient:?Coy Jerezin Keith Provider:?Paula Benson DPM :1965???Age:58 Y???Sex:Male Lenny e:11/21/2023 Address:[address] [place] [address] , [facility] Pcp:Vasyl Mckay MD Subjective: * Chief Complaints: * ???Pcp- 07/09Wart(s) * HPI: ???Skin problems:?Pt States PCP Visit: ?DATE?09/18/2023 * ROS:?General/Constitutional:?Nausea?denies.?Vomiting?denies.?Hunger Thirst?denies.?Loss appetite?denies.?Chills?denies.?Fatigue?denies.?Fever?denies.?Night Sweats?denies.?Unexplained weight loss?denies.?Unexplained weight gain?denies.?HEENTM:?Dentures?denies.?Dizziness?denies.?Glasses/contacts?denies.?Retinopathy?de nies.?Blurred/double vision?denies.?TMJ?denies.?Discharge/drainage?denies.?Implants?denies.?Sore throat?denies.?Dental implants?denies.?Hard of hearing ?denies.?Difficulty chewing/swallowing/speaking?denies.?Nose bleeds?denies.?Sore mouth?denies.?Respiratory:?On Oxygen?denies.?Pneumonia/pleurisy?denies.?Bronchitis?denies.?Emphysema?denies.?C oughing?denies.?Cough blood?denies.?Shortness of breath?denies.?Wheezing?denies.?Cardiovascular:?Pacemaker?denies.?MVP?denies.?WPW?denies.?CHF?denies.?Heart attack?denies.?Septal defect?denies.?Rapid beat?denies.?Chest pain ?denies.?Atrial Fib.?denies.?Murmur/Palpitations?denies.?Gastrointestinal:?Hemorrhoids?denies.?Stomach/Abdominal pain?denies.?Dark blood stool?denies.?Irritable bowel ?denies.?Constipation?denies.?Diarrhea?denies.?Hematology:?Swelling?denies.?Clots?denies.?Varicose Veins?denies.?Bruising?denies.?Bleeding problem?denies.?Genitourinary:?Blood urine?denies.?Frequent/Painfu/urination/bladder control?denies.?Kidney stones?denies.?Infection (UTI)?denies.?Nephropathy?denies.?sex trans dis (STD)?denies.?Prostate?denies.?Musculoskeletal:?Hammertoes?denies.?Bunions?denies.?Back Pain?denies.?Muscle Cramps/ Resting?denies.?Muscle cramps / walking?denies.?Generalized aches and pains?denies.?Weakness?denies.?Integ.:?Bartlett?denies.?Scars?denies.?Corns/calluses?denies.?Ingrown nails?denies.?Painful nails?denies.?Open Sores?denies.?Rashes?denies.?Neurologic:?Difficulty sleeping?denies.?Brain disorder?denies.?Numbness?denies.?Balance trouble?denies.?Confusion?denies.?Fainting/blackouts?denies.?Tingling?admits.?Tr emors?denies.? * Medical History:? * Surgical History:?back fusio n surgery 2016endoscopy colonoscopy removed L.I finger 1989repaired esophagus 2009, 2011low hernia 1995 * Hospitalization/Major Diagno stic Procedure:?Denies Past Hospitalization * Family History:?Mother: scooter foreman, skin cancer.?Father: , alcohol abuse, mental illness, diagnosed with Diabetic - NIDDM, Unspecified essential hypertension.?Siblings: aneurysm.? * Social History:?Tobacco Use:?Tobacco Use/Smoking?Are you a:?nonsmoker ?Additional Findings: Tobacco Non-User?Current non-smoker ?Tobacco use other than smoking?Are you an other tobacco user??No ???Drugs/Alcohol:?Drugs?Have you used drugs other than those for medical reasons in the past 12 months??Yes ?Marijuana??Yes CBD, THC ?Alcohol Screen?Did you have a drink containing alcohol in the past year??No ?Points?0 ?Interpretation?Negative ???Miscellaneous:?Caffeine: yes, frequency: Soda. ?Children: yes, 4. ?no Exercise. ?Marital status: . ?Occupation: Retired, disabled. * Medications:?TakingTylenol t raMADol HCl Gabapentin 600 MG Tablet 1 capsule Orally Once a dayOmega 3 , Notes: 4000mgMethocarbamol , Notes: 1500mgFenofibrate 134 MG Capsule 1 capsule with a meal Orally Once a dayLosartan Potassium 100 MG Tablet 1 tablet Orally Once a daySimvastatin 20 MG Tablet 1 tablet in the evening Orally Once a dayFlovent HFA Pantoprazole Sodium 40 MG Tablet Delayed Release 1 tablet Orally Once a dayamLODIPine Besylate 10 MG Tablet Oral Medication List reviewed and reconciled with the patientTaking Tylenol Taking traMADol HCl Taking Gabapentin 600 MG Tablet 1 capsule Orally Once a dayTaking Vernon 3 , Notes: 4000mgTaking Methocarbamol , Notes: 1500mgTaking Fenofibrate 134 MG Capsule 1 capsule with a meal Orally Once a dayTaking Losartan Potassium 100 MG Tablet 1 tablet Orally Once a dayTaking Simvastatin 20 MG Tablet 1 tablet in the evening Orally Once a dayTaking Flovent HFA Taking Pantoprazole Sodium 40 MG Tablet Delayed Release 1 tablet Orally Once a dayTaking amLODIPine Besylate 10 MG Tablet Oral Medication List reviewed and reconciled with the patient * Allergies:?HYDROcodone-Aceta minophen: Headachesyes[Allergies Verified] Objective: * Vitals:?Ht: 5 ft 7 in, Wt:22 5, BMI:35.24, Shoe size:9.5. * Examination: ???Dermatologic: ?VERRUCA:?Reveals Multiple ( 6), multi-loculated , mosaic-patterned, round, raised, flat-topped, petechial bleeding papule(s), with cauliflower appearance and interruption of skin lines, with pain to lateral compression, and size estimated at 5-12mm diameter 1st toe 2nd toe LEFT 4th toe RIGHT plantar Forefoot B/L.? Assessment: * Assessment: 1.?Right foot pain - M79.671 ?2.?Left foot pain - M79.672?3.?Plantar wart - B07.0 (Primary)? Plan: * Treatment: * Procedures:?Wart Treatment:?Procedure?Verrucae were debrided to pin-point bleeding margins with sterile 15 surgical blade, silver nitrate chemocautery applied, recomm. immune-boosting meds such as zinc, recomm. follow up with topical chemosurgical agents, Discussed/Rxed use of Custom Compounded anti-viral creams .? * Procedure Codes:?91931 Wart Destruction, 1-14, Modifiers: XS * Follow Up:?6 Weeks * Images: * Sign off status: Completed true * Provider:?Paual Benson, DPSangita Date:?02/2024 Generated for Thom stover/Berta/eTransmitting on:?12/31/2024 08:31 AM EDT History and Physical Notes * HPI (History of Present Illness) Category Sub-Category Detail Notes Category Not es Skin problems Pt States PCP Visit: DATE: 09/18/2023 Examination Category Sub-Category Detail Notes Category Not es Dermatologic VERRUCA: Reveals Multiple ( 6), multi-loculated , mosaic-patterned, round, raised, flat-topped, petechial bleeding papule(s), with cauliflower appearance and interruption of skin lines, with pain to lateral compression, and size estimated at 5-12mm diameter 1st toe 2nd toe LEFT 4th toe RIGHT plantar Forefoot B/L
--- OUTSIDE RECORDS SUMMARY | 2024-12-31 08:32 | XMS_ITS ---
Author Organization [facility] Address [address] [place] [address] Care Team Providers Care Dental Services Director Name Role Phone Vasyl Mckay MD Primary Care Provider Paula Stewart Unavailable [phone] Allergies Allergen (clinical drug ingredient) Drug/Non Drug Allergy documented on EMR Reaction Allergy Type Onset Date Status acetaminophen / hydrocodone HYDROcodone-Acetamin ophen Headaches Drug Allergy Active REASON FOR VISIT PCP: 11/2023, Kiki(s) Medications Medication SIG (Take, Route, Frequency, [...] Once a day for 30 day(s) Active amLODIPine Besylate 10 MG Oral for 100 Active Fenofibrate 134 MG 1 capsule with a adriana l Orally Once a day for 30 day(s) Active Methocarbamol 1500mg Active Allardt 3 4000mg Active Gabapentin 600 MG 1 capsule Orally Onc e a day Active traMADol HCl Active Tylenol Active Social History Tobacco Use: [...] 01/02/2024 Encounters Encounter Location Date Provider Diagnosis [facility] [address] [place] [address] 01/02/2024 Paula Benson Right foot pain M79.671 ; Plantar wart B07.0 and Left foot pain M79.672 Assessments Encounter Date Diagnosis (ICD Code) Assessment Notes Treatment Notes Treatment Clinical Notes Section Notes 01/02/2024 Right foot pain (ICD-10 - M79.671) 01/02/2024 Plantar wart (ICD-10 - B07.0) 01/02/2024 Left foot pain (ICD-10 - M79.672) Plan Of Treatment Next Appt Details Follow Up: prn, Reason: Procedure Notes * Category Sub-Category Detail Notes Wart Treatment Procedure Verrucae were de brided to pin-point bleeding margins with sterile 15 surgical blade, silver nitrate chemocautery applied, recomm. immune-boosting meds such as zinc, recomm. follow up with topical chemosurgical agents, continue use of Custom Compounded anti-viral creams until resolved Progress Notes * Javier JEREZDOB:[birth year] (58 yo M)Acc No.[id number]:01/02/2024 Progress Notes Patient:?Coy Jerezin Keith Provider:?Paula Benson DPM :1965???Age:58 Y???Sex:Male Lenny e:01/02/2024 Address:[address] [place] [address] , [facility] Pcp:Vasyl Mckay MD Subjective: * Chief Complaints: * ???PCP: 11/2023Wart(s) * HPI: ???Skin problems:?Pt States PCP Visit: ?DATE?11/28/2023 * ROS:?General/Constitutional:?Nausea?denies, denies.?Vomiting?denies, denies.?Hunger Thirst?denies, denies.?Loss appetite?denies, denies.?Chills?denies, denies.?Fatigue?denies, denies.?Fever?denies, denies.?Night Sweats denies, denies.?Unexplained weight loss?denies, denies.?Unexplained weight gain?denies, denies.?HEENTM:?Dentures?denies, denies.?Dizziness?denies, denies.?Glasses/contacts?denies, denies.?Retinopathy?denies, denies.?Blurred/double vision?denies, denies.?TMJ?denies, denies.?Discharge/drainage?denies, denies.?Implants?denies, denies.?Sore throat?denies, denies.?Dental implants?denies, denies.?Hard of hearing ?denies, denies.?Difficulty chewing/swallowing/speaking?denies, denies.?Nose bleeds?denies, denies.?Sore mouth?denies, denies.?Respiratory:?On Oxygen?denies, denies.?Pneumonia/pleurisy?denies, denies.?Bronchitis?denies, denies.?Emphysema?denies, denies.?Coughing?denies, denies.?Cough blood?denies, denies.?Shortness of breath?denies, denies.?Wheezing?denies, denies.?Cardiovascular:?Pacemaker?denies, denies.?MVP?denies, denies.?WPW?denies, denies.?CHF?denies, denies.?Heart attack?denies, denies.?Septal defect?denies, denies.?Rapid beat?denies, denies.?Chest pain ?denies, denies.?Atrial Fib.?denies, denies.?Murmur/Palpitations?denies, denies.?Gastrointestinal:?Hemorrhoids?denies, denies.?Stomach/Abdominal pain?denies, denies.?Dark blood stool?denies, denies.?Irritable bowel ?denies, denies.?Constipation?denies, denies.?Diarrhea?denies, denies.?Hematology:?Swelling?denies, denies.?Clots?denies, denies.?Varicose Veins?denies, denies.?Bruising?denies, denies.?Bleeding problem?denies, denies.?Genitourinary:?Blood urine?denies, denies.?Frequent/Painfu/urination/bladder control?denies, denies.?Kidney stones?denies, denies.?Infection (UTI)?denies, denies.?Nephropathy?denies, denies.?sex trans dis (STD)?denies, denies.?Prostate?denies, denies.?Musculoskeletal:?Hammertoes?denies, denies.?Bunions?denies, denies.?Back Pain?denies, denies.?Muscle Cramps/ Resting?denies, denies.?Muscle cramps / walking?denies, denies.?Generalized aches and pains?denies, denies.?Weakness?denies, denies.?Integ.:?Bartlett?denies, denies.?Scars?denies, denies.?Corns/calluses?denies, denies.?Ingrown nails?denies, denies.?Painful nails?denies, denies.?Open Sores?denies, denies.?Rashes?denies, denies.?Neurologic:?Difficulty sleeping?denies, denies.?Brain disorder?denies, denies.?Numbness?denies, denies.?Balance trouble?denies, denies.?Confusion?denies, denies.?Fainting/blackouts?denies, denies.?Tingling?admits, admits.?Tremors?denies, denies.? * Medical History:? * Surgical History:?back fusio n surgery 2016endoscopy colonoscopy removed Mumtaz queen 1990repaired esophagus 2009, 2011low hernia 1996 * Hospitalization/Major Diagno stic Procedure:?Denies Past Hospitalization [...] Tablet 1 capsule Orally Once a dayTaking Allardt 3 , Notes: 4000mgTaking Methocarbamol , Notes: [...] to lateral compression, and size estimated at 3-7mm diameter 1st toe 2nd toe LEFT 4th toe RIGHT plantar Forefoot B/L.? Assessment: * Assessment: 1.?Right foot pain - M79.671 ?2.?Plantar wart - B07.0 (Primary)?3.?Left foot pain - M79.672? Plan: * Treatment: * Procedures:?Wart Treatment:?Procedure?Verrucae were debrided to pin-point bleeding margins with sterile 15 surgical blade, silver nitrate chemocautery applied, recomm. immune-boosting meds such as zinc, recomm. follow up with topical chemosurgical agents, continue use of Custom Compounded anti-viral creams until resolved.? * Procedure Codes:?91225 Wart Destruction, 1-14, Modifiers: XS * Follow Up:?prn * Images: * Sign off status: Completed true * Provider:?Paula Benson DPM Date:? Generated for Thom stover/Berta/Mikie on:?12/31/2024 08:32 AM EDT History and Physical Notes * HPI (History of Present Illness) Category Sub-Category Detail Notes Category Not es Skin problems Pt States PCP Visit: DATE: 11/28/2023 Examination Category Sub-Category Detail Notes Category Not es Dermatologic VERRUCA: Reveals Multiple ( 6), multi-loculated , mosaic-patterned, round, raised, flat-topped, petechial bleeding papule(s), with cauliflower appearance and interruption of skin lines, with pain to lateral compression, and size estimated at 3-7mm diameter 1st toe 2nd toe LEFT 4th toe RIGHT plantar Forefoot B/L
[2024-12-31 11:51] LABS: Alanine Aminotransferase 47 U/L (0-40); Albumin Level 4.3 g/dL (3.5-5.0); Alkaline Phosphatase 50 U/L (39-117); Anion Gap 12 (12-20); Aspartate Amino Transferase 54 U/L (5-37); Bilirubin Total 0.5 mg/dL (0.0-1.0); Blood Urea Nitrogen 18 mg/dL (9-16); Calcium 9.2 mg/dL (8.4-10.2); Carbon Dioxide 26 mmol/L (22-29); Chloride 106 mmol/L (96-108); Cholesterol 158 mg/dL (<200); Estimated Glomerular Filt Rate > 60; Glucose Fasting 120 mg/dL (60-99); HDL Cholesterol 37 mg/dL (>40); LDL Cholesterol Calculated 89 mg/dL (<100); Potassium 3.4 mmol/L (3.3-5.1); Sodium 141 mmol/L (135-145); Total Protein 7.1 g/dL (6.5-8.0); Triglycerides 160 mg/dL (<150)
[2024-12-31 12:55] LABS: Creatinine Urine 191.56 mg/dL; Microalbum/Creatinine Ratio Ur 5.7 ug/mg cr (<30)
== END 2024-12-31 08:22 | disposition home or self-care (01) ==
LOC: HO.WFDLDS 08:21
PROVIDERS: Visit Provider Family Medicine
DX: Z00.00 Encounter for general adult medical examination without abnormal findings (principal); I10 Essential (primary) hypertension; E78.5 Hyperlipidemia, unspecified; R74.8 Abnormal levels of other serum enzymes
CPT/HCPCS: 36415; 80053; 80061; 82043; 82570

== ENCOUNTER 2025-01-07 09:06 | Outpatient (AMB) | payer MEDICARE, SELFPAY ==
--- NOTE | 2025-01-07 09:19 | MHC.PC.OV ---
Vital Signs 01/07/25 09:21 Height 5 ft 7 in Weight 240 lb 6 oz BMI 37.6 BP 110/64 Blood Pressure Location Rt brachial Position Sitting Respiration 16 Pulse 76 Pulse Source Pulse Oximeter Temp 97.9 F Temp Source Oral Pulse Oximetry (%) 97 Oxygen Delivery Method Room Air Intake Visit Reasons: f/u HTN, HLD Intake Note: patient is scheduled for lab review Creative Resource Manager Required: No Allergies Hydrocodone-Ibuprofen Adverse Reaction (Mild, Uncoded 07/08/24 15:09) Headache Medication List - Last Reconciled 01/07/25 by Vasyl Mckay MD amlodipine 10 mg PO DAILY atorvastatin 20 mg PO DAILY 90 days fenofibrate micronized 134 mg PO DAILY 90 days gabapentin 600 mg PO DAILY 90 days losartan-hydrochlorothiazide 100-12.5 mg 1 tab PO DAILY 90 days methocarbamol 750 mg PO Q8H PRN omega3,5,6,7,9 no.1-salmon oil 700-1,500 mg-mg 4 caps PO DAILY 90 days pantoprazole 40 mg PO DAILY sumatriptan succinate take 1 tab at onset of headache; if no relief may repeat 1 tab after at least 2 hrs; max = 4 tabs/24 hr PO 30 days Tobacco use date assessed: 12/11/23 Dental Screening Dental Screen Date: 12/11/23 HPI f/u HTN, HLD HPI Details 59 y/o male presents to f/u HTN, pre-diabetes, HLD, elevated liver renzymes. Last A1c 6.1%. A1c today 01/07/25 is 6.1%. Labs drawn 12/31/24. Reviewed labs with pt. Elevated liver enzymes - AST 54, ALT 47. Triglycerides 160. TC 158. LDL 89. HDL low at 37. Blood pressure today 110/64, 76p. He is on losartan-HCTZ 100-12.5mg daily. HPI Comments History of Present Illness Details Documentation assistance for Vasyl Mckay MD, was provided by Benny Zuleta,? Wearing Apparel Presser on 01/07/2025 at 9:55 AM EST. Velasco, Dr. Mckay, have read, observed, and verified documentation. ?? [facility] Medical History (Updated 07/08/24 @ 15:35 by Benny Zuleta) Migraine NAFLD (nonalcoholic fatty liver disease) Chronic LUQ pain Schatzki's ring Abdominal pain Dysphagia Back pain Depression Asthma Elevated cholesterol HTN (hypertension) GERD (gastroesophageal reflux disease) Surgical History (Updated 04/25/24 @ 06:15 by Lakeisha Hanley RN) Hx of left inguinal hernia repair History of repair of vocal cord History of esophageal surgery Hx of hand surgery H/O colonoscopy History of esophagogastroduodenoscopy (EGD) History of back surgery Family History Father Paternal family history of mental health disorder Alcoholism Mother No problems noted. Brother Brain aneurysm Other Mental health disorder Substance use disorder Social History Household Members Other:: With his mother- relocated from [place]- getting Housing: House Alcohol intake: current Alcohol intake frequency: holidays/special occasions only Patient Tobacco Use Status: Current everyday Tobacco user Tobacco use type: Smokeless Tobacco e-Cigarette/Vaping Use: Never Used Second Hand Smoke Exposure: No service: Yes Current occupational status: retired and disabled Cognitive needs: No Hearing needs: No Vision needs: No Questionnaire Thrive Questionnaire Date Thrive assessed: 10/08/24 I am a: Patient What is your living situation today?: I have a steady place to live Within the past 12 months, did the food you bought not last and you didn't have the money to get more?: Never true Within the past 12 months, did you worry whether your food would run out before you got money to buy more?: Never true Do you have trouble paying for medicines?: No Do you have trouble getting transportation to medical appointments?: No Do you have trouble paying your heating and electricity bill?: No Do you have trouble taking care of your child, family member or friend?: No Do you have trouble with day-to-day activities such as bathing, preparing meals, shopping, managing finances, etc.?: No Are you currently unemployed and looking for a job?: No Are you interested in more education?: No Please select the resources that you would like help with: None Currently or been in a relationship where the following occur: No concerns reported THRIVE Score: 0 AUDIT C Alcohol Use Questionnaire (AUDIT-C) 2. How many drinks containing alcohol do you have on a typical day when you are drinking?: 1 or 2 3. How often do you have six or more drinks on one occasion?: Never Total Score: 0 ANTHONY-7 AMB Questionnaire ANTHONY-7 Date ANTHONY - 7 assessed: 12/11/23 Source: Developed by Drs. Doyle Guardado, Isabel Dalton, Hector Durham and colleagues, with an educational delfin from [employer]. Review of Systems Const Denies chills, Denies fatigue, Denies fever(s), Denies headache(s) and Denies weakness ENT Denies dizziness and Denies headache(s) Card Denies dyspnea Resp Denies cough, Denies dyspnea, Denies wheezing and Denies other (shortness of breath) Musc Denies numbness and Denies tingling Neuro Denies dizziness, Denies headache(s), Denies numbness, Denies tingling and Denies weakness Psych Denies anxiety and Denies depression Endo Denies fatigue Aller/Immun Denies wheezing Physical exam (Primary Care) Vital Signs: Last Vital Signs Temp 97.9 F 01/07/25 09:21 Pulse 76 01/07/25 09:21 Resp 16 01/07/25 09:21 BP 110/64 01/07/25 09:21 Pulse Ox 97 01/07/25 09:21 Oxygen Delivery Method Room Air 01/07/25 09:21 BMI result Body Mass Index 37.6 Tobacco/Smoking Status: Tobacco use Status Tobacco use date assessed 12/11/23 01/07/25 09:24 Patient Tobacco Use Status Current everyday Tobacco 01/07/25 09:24 Tobacco use type Smokeless Tobacco 01/07/25 09:24 e-Cigarette/Vaping Use Never Used 01/07/25 09:24 Thrive Assessment: Date of Thrive Assessment Date Thrive assessed 10/08/24 01/07/25 09:24 Currently or been in a relationship where the following occur: No concerns reported Const General: well developed; No acute distress Nutritional Appearance: well nourished Orientation/consciousness: patient oriented x3 HENMT Head: Yes normocephalic and Yes atraumatic Eyes General: appearance normal, both eyes and all related structures Pupils: Equal, round and reactive pupils present EOM: EOMs intact bilaterally Resp Effort & Inspection: normal respiratory effort Neuro General: patient oriented x3 and gait normal Cranial nerves: Yes Equal, round and reactive pupils present Psych Affect: normal affect Coding Level of Care Code Est Pt Level 4 (84431) Diagnoses Essential hypertension I10 Hyperlipidemia E78.5 Elevated liver enzymes R74.8 Pre-diabetes R73.03 Assessment & Plan Assessment & Plan (1) Essential hypertension: Code(s): I10 - Essential (primary) hypertension Category: Medical Plan: Blood?pressure?appears?well?controlled.??Goal?is?less?than?140/90 Continue?medication?regimen (2) Hyperlipidemia: Code(s): E78.5 - Hyperlipidemia, unspecified Category: Medical Plan: LDL?cholesterol?is?controlled?on?atorvastatin. HDL?is?still?a?little?low Continue?current?medications Encouraged?exercise?and?weight loss (3) Elevated liver enzymes: Code(s): R74.8 - Abnormal levels of other serum enzymes Category: Medical Plan: Patient?had?had?mildly?elevated?liver?enzyme?in?the?past. This?improved?with?some?weight?loss?but?he?has?gained?back?weight.??He?is?working?on?weight?loss?again. Liver?enzymes?have?increased?with?weight?gain?again. History?of?fatty?liver He?will?work?weight?loss?again?and?we?follow-up?on?his?liver?enzymes?and?few?months. If?still?elevated?or?rising,?would?recheck?liver?ultrasound (4) Pre-diabetes: Code(s): R73.03 - Prediabetes Category: Medical Plan: A1c?increased?from?6.0 to 6.1%. Still?in?pre?diabetes?range?but?encouraged?diet?lower?in?sugars?and?starches,?weight?loss?and?exercise. Orders: Orders Comprehensive Brantley. Panel Fast Today R74.8 - Abnormal levels of other serum enzymes, Z00.00 - Encounter for general adult medical examination without abnormal findings
[2025-01-07 09:21] VITALS: BP 110/64; PULSE 76; RESP 16; TEMP 36.6; O2SAT 97; BMI 37.6
--- OUTSIDE RECORDS SUMMARY | 2025-01-07 09:55 | XMS_ITS | Patient Health Record ---
Author Organization [facility] Address [address] [place] [address] Care Team Providers Care Lead Instructor/Flight Attendant Name Role Phone Vasyl Mckay MD Primary Care Provider Paula Stewart Unavailable [phone] Allergies Allergen (clinical drug ingredient) Drug/Non Drug [...] for 30 day(s) Active Methocarbamol 1500mg Active Clarinda 3 4000mg Active Gabapentin 600 MG 1 [...] Problem Status W/U Status Risk Notes Problem [id number] Plantar wart (B07.0) Active confirmed Plan Of Treatment No Information Insurance Providers Payer Name Payer Address Payer Phone Subscriber Number Group Number Insured Name Patient Relationship to Insured Coverage Start Date Coverage End Date A[employer] Medicare Complete [address] [address] [place] [address] [id number] Javier Jerez Self - patient is the insured Medical (General) History Medical History History ICD Code asthma Depression Dysphagia Cholesterol Reflux ( GERD) Hypertension Broken bones Back,Hip,and Knee pain Epilepsy Headaches/Migraines Numbness Warts Chicken pox Joint implants/screws Surgical History Surgery Date(Month/Year) back fusion surgery 2016 endoscopy colonoscopy removed L.I finger 1989 repaired esophagus 2009, 2011 low hernia 1995
--- OUTSIDE RECORDS SUMMARY | 2025-01-07 09:55 | XMS_ITS ---
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 Name Role Phone Vasyl Mckay MD Primary Care Provider Paula Stewart Unavailable [phone] Allergies Allergen (clinical drug ingredient) Drug/Non Drug [...] for 30 day(s) Active Methocarbamol 1500mg Active [facility] 3 4000mg Active Gabapentin 600 MG 1 [...] 01/02/2024 Encounters Encounter Location Date Provider Diagnosis [facility] [place] [address] [place] [address] 01/02/2024 Paula Benson Right foot pain M79.671 [...] * Javier JEREZDOB:[birth year] (58 yo M)Acc No.[id number]:01/02/2024 Progress Notes Patient:?Coy Jerezin Keith Provider:?Paula Benson DPM :1965???Age:58 Y???Sex:Male Lenny e:01/02/2024 Address:[address] [place] [address] , [facility] Pcp:Vasyl Mckay MD Subjective: * Chief Complaints: [...] Tablet 1 capsule Orally Once a dayTaking [facility] 3 , Notes: 4000mgTaking Methocarbamol , Notes: [...] Compounded anti-viral creams until resolved.? * Procedure Codes:?24947 Wart Destruction, 1-14, Modifiers: XS * Follow Up:?prn * Images: * Sign off status: Completed true * Provider:?Paula Benson DPM Date:? Generated for Thom stover/Berta/Mikie on:?01/07/2025 09:54 AM EDT History and Physical Notes * [...]
--- OUTSIDE RECORDS SUMMARY | 2025-01-07 09:55 | XMS_ITS ---
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 Role Phone Vasyl Mckay MD Primary Care Provider Paula Stewart Unavailable [phone] Allergies Allergen (clinical drug ingredient) Drug/Non Drug [...] Active Flovent HFA Active traMADol HCl Active Moran 3 4000mg Active Gabapentin 600 MG 1 [...] 11/21/2023 Encounters Encounter Location Date Provider Diagnosis [facility] [place] [address] [place] [address] 11/21/2023 Paula Benson Right foot pain M79.671 [...] * Javier JEREZDOB:[birth year] (58 yo M)Acc No.[id number]:11/21/2023 Progress Note Patient:?Coy Jerezin Keith Provider:?Paula Benson DPM :1965???Age:58 Y???Sex:Male Lenny e:11/21/2023 Address:[address] [place] [address] , [facility] Pcp:Vasyl Mckay MD Subjective: * Chief Complaints: [...] Tablet 1 capsule Orally Once a dayTaking Moran 3 , Notes: 4000mgTaking Methocarbamol , Notes: [...] Custom Compounded anti-viral creams .? * Procedure Codes:?56150 Wart Destruction, 1-14, Modifiers: XS * Follow Up:?6 Weeks * Images: * Sign off status: Completed true * Provider:?Paula Benson, DPSangita Date:?02/2024 Generated for Thom stover/Berta/eTransmitting on:?01/07/2025 09:54 AM EDT History and Physical [...]
--- OUTSIDE RECORDS SUMMARY | 2025-01-07 09:55 | XMS_ITS | Continuity of Care Document ---
Author Organization [facility] Address [address] [place] [address] Phone Care Team Providers Care Vineyard Supervisor Name Role Phone Tiff Kowalski MD Unavailable [...] hours as needed 325 MG - Active [place]-3 1,050 mg-1,200 mg capsule - Active Procedures [...] EHR Attests To Documenting In EHR Current Hi ds OFFICE/OUTPATIENT VISIT, EST OFFICE/OUTPATIENT VISIT, EST [...] Providers Copied on Encounter [facility], [address], [place], [place], [address] , [place] tel:[phone] Neu[facility] [place] No Information 2 Tiff. [address] [facility] [address], [address], [place], [address], [place]. tel:[phone] [facility], [address], [place], [place], [address] , [place] tel:[phone] [facility] [place] No Information 1 Tiff. [address] [facility] [address], [address], [place], [address], [place]. tel:[phone] OFFICE/OUTPAT IENT VISIT, EST [facility], [address], [place], [place], [address] , [place] tel:[phone] [facility] [place] Follow Up of Migraine (chief complaint) Body mass index (BMI) 32.0-32.9, adultChronic migraine w/o aura, not intractable, w/o stat migrOther intervertebr al disc degeneration , lumbosacral region 0 Tetonjaycob HornTiff. [address] [facility], [facility] [address], [address], [place], [address], [place]. tel:[phone] Ana Zaldivar.Latanya Zaldivar.Referr ing Provider: Tiff Moura N, [address] [facility] [address], [address], [place], [address]. tel:[phone] [facility], [address], [place], [place], [address] , [place] tel:[phone] [facility] [place] back pain (chief complaint)pa in medication (chief complaint) Sacroiliitis , not elsewhere classifiedPo stlaminectom y syndrome, not elsewhere classifiedOt her intervertebr al disc degeneration , lumbosacral regionOther spondylosis with radiculopath y, lumbar region 0 Beltran Darren. [address], [place], [place], [address], [place]. tel:[phone] Ana Zaldivar.Referr ing Provider: Toña Irvin, [address] [facility] [address], [place], [address]. tel:[phone] OFFICE/OUTPAT IENT VISIT, EST [facility], [address], [place], [place], [address] , [place] tel:[phone] [facility] [place] back pain (chief complaint)Pa in medication (chief complaint)sh oulder (chief complaint) Postlaminect jono syndrome, not elsewhere classifiedRa diculopathy, lumbar regionSacroi liitis, not elsewhere classifiedOt her specified dorsopathies , cervical region 0 Beltran Darren. [address], [address], [place], [place], [address], [place]. tel:[phone] Ana Zaldivar.Referr ing Provider: Toña Irvin, [address], [place], [address]. tel:[phone] OFFICE/OUTPAT IENT VISIT, EST [facility], [address], [place], [place], [address] , [place] tel:[phone] [facility] [place] back pain (chief complaint)sh oulder (chief complaint)Pa in medication (chief complaint) Postlaminect jono syndrome, not elsewhere classifiedSa croiliitis, not elsewhere classifiedRa diculopathy, lumbar regionOther specified dorsopathies , cervical region 0 Beltran Darren. [address], [address], [place], [place], [address], [place]. tel:[phone] Ana Zaldivar.Referr ing Provider: Toña Irvin, [address], [place], [address]. tel:[phone] OFFICE/OUTPAT IENT VISIT, EST [facility], [address], [place], [place], [address] , [place] tel:[phone] Neurology in [place] Follow Up of Migraine (chief complaint) Body mass index (BMI) 30.0-30.9, adultChronic migraine w/o aura, not intractable, w/o stat migrOther intervertebr al disc degeneration , lumbosacral region 0 Tetonjaycob HornTiff. [address] [facility], [address], [address], [place], [address], [place]. tel:[phone] Ana Zaldivar.Referr ing Provider: Toña Irvin, [address], [place], [address]. tel:[phone] OFFICE/OUTPAT IENT VISIT, EST [facility], [address], [place], [place], [address] , [place] tel:[phone] [facility] [place] BPH (chief complaint)he maturia (chief complaint) Enlarged prostate with lower urinary tract symptomsBeni gn essential microscopic hematuriaBod y mass index (BMI) 30.0-30.9, adult Dec- 9 Gurmeet Casey. [address] [facility], [address], [address], [place], [place], [address], [place]. tel:[phone] Specialist: Jay Jay Saxena, [address] [place], [address]. tel:[phone] Provider: Usama Campbell, [address] [place], [address]. tel:[phone] OFFICE/OUTPAT IENT VISIT, EST [facility], [address], [place], [place], [address] , [place] tel:[phone] [facility] [place] back pain (chief complaint)hi p (chief complaint)Pa in medication (chief complaint) Postlaminect jono syndrome, not elsewhere classifiedOt her spondylosis with radiculopath y, lumbar regionPain in left hipRadiculop athy, lumbar region 9 [facility]. [address] [facility], [address], [place], [place], [address], [place]. tel:[phone] Ana Zaldivar.Referr ing Provider: Toña Irvin, [address], [place], [address]. tel:[phone] OFFICE/OUTPAT IENT VISIT, EST [facility], [address], [place], [place], [address] , [place] tel:[phone] Pain [facility] [place] back pain (chief complaint)Pa in medication (chief complaint) Postlaminect jono syndrome, not elsewhere classifiedOt her intervertebr al disc degeneration , lumbosacral regionOther spondylosis with radiculopath y, lumbar regionSacroi liitis, not elsewhere classified 9 [facility]. [address], [address], [place], [place], [address], [place]. tel:[phone] Ana Zaldivar.Referr ing Provider: [address], [place], [address]. tel:[phone] OFFICE/OUTPAT IENT VISIT, EST [facility], [address], [place], [place], [address] , [place] tel:[phone] Neurology in [place] Follow Up of Migraine (chief complaint) Body mass index (BMI) 31.0-31.9, adultChronic migraine w/o aura, not intractable, w/o stat migrOther intervertebr al disc degeneration , lumbosacral region [facility]. [address] [facility], [address], [address], [place], [address], [place]. tel:[phone] Ana Zaldivar.Referr ing Provider: Toña Irvin, [address], [place], [address]. tel:[phone] OFFICE/OUTPAT IENT VISIT, EST [facility], [address], [place], [place], [address] , [place] tel:[phone] [facility] [place] back pain (chief complaint)Pa in medication (chief complaint) Postlaminect jono syndrome, not elsewhere classifiedSa croiliitis, not elsewhere classifiedOt her intervertebr al disc degeneration , lumbosacral regionOther spondylosis with radiculopath y, lumbar region 9 [facility]. [address], [place], [place], [address], [place]. tel:[phone] Ana Zaldivar.Referr ing Provider: Toña Irvin, [address], [place], [address]. tel:[phone] OFFICE/OUTPAT IENT VISIT, EST [facility], [address], [place], [place], [address] , [place] tel:[phone] [facility] [place] back pain (chief complaint)Pa in medication (chief complaint) Sacroiliitis , not elsewhere classifiedOt her intervertebr al disc degeneration , lumbosacral regionOther spondylosis with radiculopath y, lumbar regionPostla minectomy syndrome, not elsewhere classified [facility]. [address], [place], [place], [address], [place]. tel:[phone] Ana Zaldivar.Referr ing Provider: Toña Irvin, [address], [place], [address]. tel:[phone] [facility], [address], [place], [place], [address] , [place] tel:[phone] [facility] [place] back pain (chief complaint) Sacroiliitis , not elsewhere classified Mobile Darren. [address], [place], [place], [address], [place]. tel:[phone] Ana Zaldivar.Referr ing Provider: Toña Irvin, [address] [facility] [address], [place], [address]. tel:[phone] OFFICE/OUTPAT IENT VISIT, EST [facility], [address], [place], [place], [address] , [place] tel:[phone] Pain [facility] [place] back pain (chief complaint)hi p (chief complaint)Pa in medication (chief complaint) Postlaminect jono syndrome, not elsewhere classifiedSa croiliitis, not elsewhere classifiedOt her spondylosis with radiculopath y, lumbar regionPain in left hip 9 Devin Banks. [address] [place], [place], [place], [address], [place]. tel:[phone] Ana Zaldivar. OFFICE/OUTPAT IENT VISIT, EST [facility], [address], [place], [place], [address] , [place] tel:[phone] Neurology [place] Headache (chief complaint) Chronic migraine w/o aura, not intractable, w/o stat migrOther intervertebr al disc degeneration , lumbosacral region 9 Meghana Matthew. [address] [facility], [address], [address], [place], [address], [place]. tel:[phone] Ana Zaldivar.Referr ing Provider: Toña Irvin, [address] [facility] [address], [place], [address]. tel:[phone] [facility], [address], [place], [place], [address] , [place] tel:[phone] Pain [facility] [place] back pain (chief complaint) Postlaminect jono syndrome, not elsewhere classified 8 [facility]. [address] [facility], [address], [place], [place], [address], [place]. tel:[phone] Ana Zaldivar. OFFICE/OUTPAT IENT VISIT, EST [facility], [address], [place], [place], [address] , [place] tel: [phone] Pain [facility] [place] back pain (chief complaint)Pa in medication (chief complaint)sh oulder (chief complaint) Other intervertebr al disc degeneration , lumbosacral regionOther spondylosis with radiculopath y, lumbar regionPostla minectomy syndrome, not elsewhere classifiedOt her specified mononeuropat hies 8 Beltran Darren. [address], [address], [place], [place], [address], [place]. tel:[phone] Ana Zaldivar. OFFICE/OUTPAT IENT VISIT, EST [facility], [address], [place], [place], [address] , [place] [phone] [facility] [place] BPH (chief complaint)he maturia (chief complaint) Body mass index (BMI) 30.0-30.9, adultEnlarge d prostate with lower urinary tract symptomsBeni gn essential microscopic hematuria 8 Gurmeet Casey. [address] [facility], [address], [place], [place], [address], [place]. tel:[phone] Specialist: Jay Jay Saxena, [facility] [place], [address]. tel:[phone] ng Provider: Jacinto Napoles, [address] [facility], [place], [address]. tel:[phone] OFFICE/OUTPAT IENT VISIT, EST [facility], [address], [place], [place], [address] , [phone] Pain [facility] [place] back pain (chief complaint)Ab dominal pain (chief complaint)Pa in medication (chief complaint) Postlaminect jono syndrome, not elsewhere classifiedUp per abdominal painOther intervertebr al disc degeneration , lumbosacral regionOther spondylosis with radiculopath y, lumbar region Mobile Darren. [address] [facility], [address], [place], [place], [address], [place]. tel:[phone] Ana Zaldivar. OFFICE/OUTPAT IENT VISIT, EST [facility], [address], [place], [place], [address] , [place] tel:[phone] Pain [facility] [place] back pain (chief complaint)Ab domen/ribs (chief complaint)Pa in medication (chief complaint) Postlaminect jono syndrome, not elsewhere classifiedOt her intervertebr al disc degeneration , lumbosacral regionUpper abdominal painIntercos guillermo neuropathy Beltran Darren. [address] [facility], [address], [place], [place], [address], [place]. tel:[phone] Ana Zaldivar. OFFICE/OUTPAT IENT VISIT, EST [facility], [address], [place], [place], [address] , [place] [phone] Pain [facility] [place] back pain (chief complaint)he adache/shoul martín (chief complaint)pa in medication (chief complaint) Other intervertebr al disc degeneration , lumbosacral regionOther specified mononeuropat hiesPostlami nectomy syndrome, not elsewhere classifiedCh ronic migraine w/o aura, not intractable, w/o stat migr 8 Mobile Darren. [address], [address], [place], [place], [address], [place]. tel:[phone] Ana Zaldivar. OFFICE/OUTPAT IENT VISIT, EST [facility], [address], [place], [place], [address] , [place] tel:[phone] Neurology in [place] Follow Up of Migraine (chief complaint) Chronic migraine w/o aura, not intractable, w/o stat migrOther intervertebr al disc degeneration , lumbosacral region Meghana Tiff. [address] [facility], [address], [address], [place], [address], [place]. tel:[phone] Ana Zaldivar. OFFICE/OUTPAT IENT VISIT, EST [facility], [address], [place], [place], [address] , [place] tel:[phone] Pain [facility] [place] back pain (chief complaint)sh oulder (chief complaint)pa in medication (chief complaint) Postlaminect jono syndrome, not elsewhere classifiedOt her specified mononeuropat hiesCervical giaOther specified dorsopathies , cervical region Devin Banks. [address], [address], [place], [place], [address], [place]. tel:[phone] Ana Zaldivar. OFFICE/OUTPAT IENT VISIT, EST [facility], [address], [place], [place], [address] , [place] tel:[phone] [facility] [place] hematuria (chief complaint)BP H (chief complaint) Benign essential microscopic hematuriaEnl arged prostate with lower urinary tract symptoms 7 Gurmeet Casey. [address] [facility], [address], [address], [place], [place], [address], [place]. tel:[phone] Specialist: Jay Jay Saxena, [facility] [address], [place], [address]. tel:[phone] Provider: Jacinto Napoles, [address] [facility] [address], [address], [place], [address]. tel:[phone] [facility], [address], [place], [place], [address] , [place] tel:[phone] Pain [facility] [place] back pain (chief complaint) Other intervertebr al disc degeneration , lumbosacral regionPostla minectomy syndrome, not elsewhere classified Devin Banks. [address], [address], [place], [place], [address], [place]. tel:[phone] Ana Zaldivar. OFFICE/OUTPAT IENT VISIT, EST [facility], [address], [place], [place], [address] , [place] tel:[phone] Pain Management [place] back pain (chief complaint)pa in medication (chief complaint) Other intervertebr al disc degeneration , lumbosacral regionPostla minectomy syndrome, not elsewhere classifiedOt her spondylosis with radiculopath y, lumbar regionSacroi liitis, not elsewhere classified Beltran Darren. [address], [address], [place], [place], [address], [place]. tel:[phone] Ana Zaldivar. OFFICE/OUTPAT IENT VISIT, EST [facility], [address], [place], [place], [address] , [place] [phone] Pain [facility] [place] back pain (chief complaint)pa in medication (chief complaint)fu nctional capacity evaluation (chief complaint) Postlaminect jono syndrome, not elsewhere classifiedOt her intervertebr al disc degeneration , lumbosacral regionOther spondylosis with radiculopath y, lumbar regionSacroi liitis, not elsewhere classified Devin Banks. [address], [address], [place], [place], [address], [place]. tel:[phone] Ana Zaldivar. OFFICE/OUTPAT IENT VISIT, EST [facility], [address], [place], [place], [address] , [place] [phone] Pain [facility] [place] back pain (chief complaint)pa in medication (chief complaint) Postlaminect jono syndrome, not elsewhere classifiedOt her intervertebr al disc degeneration , lumbosacral regionOther spondylosis with radiculopath y, lumbar regionSacroi liitis, not elsewhere classified 7 [facility]. [address], [address], [facility], [place], [address], [place]. tel:[phone] Ana Zaldivar. OFFICE/OUTPAT IENT VISIT, EST [facility], [address], [place], [place], [address] , [place] tel:[phone] Pain Management [place] back pain (chief complaint)pa in medication (chief complaint) Other spondylosis with radiculopath y, lumbar regionPain in left hipSacroilii tis, not elsewhere classifiedOt her intervertebr al disc degeneration , lumbosacral region [facility]. [address], [place], [place], [address], [place]. tel:[phone] Ana Zaldivar. OFFICE/OUTPAT IENT VISIT, EST [facility], [address], [place], [place], [address] , [place] tel:[phone] [facility] Follow Up of Migraine (chief complaint)Fo llow Up of Pain in the left hip (chief complaint) Chronic migraine w/o aura, not intractable, w/o stat migrPain in left hipOther intervertebr al disc degeneration , lumbosacral region 7 Meghana Matthew. [address] [facility] [address], [address], [place], [address], [place]. tel:[phone] Ana Zaldivar.Referr ing Provider: Toña Irvin, [address] [facility] [address], [place], [address]. tel:[phone] OFFICE/OUTPAT IENT VISIT, EST [facility], [address], [place], [place], [address] , [place] tel:[phone] [facility] [place] hematuria (chief complaint)BP H (chief complaint) Benign essential microscopic hematuria 6 Gurmeet Casey. [address] [facility], [facility], [address], [place], [place], [address], [place]. tel:[phone] Specialist: Jay Jay Saxena, [address] [facility], [place], [address]. tel:[phone] ng Provider: Jacinto Napoles, [address] [facility], [place], [address]. tel:[phone] [facility], [address], [place], [place], [address] , [place] tel:[phone] [facility] [place] No Information 6 Gurmeet Casey. [address] [facility], [address], [address], [place], [place], [address], [place]. tel:[phone] Toña Whitlock.Gely Zaldivar.Referr ing Provider: Toña Irvin, [address] [facility] [address], [place], [address]. tel:[phone] OFFICE/OUTPAT IENT VISIT, EST [facility], [address], [place], [place], [address] , [place] tel:[phone] [facility] [place] back pain (chief complaint)pa in medication (chief complaint) Spondylosis w/o myelopathy of lumbosacral regionOther spondylosis with radiculopath y, lumbar regionSacroi liitis, not elsewhere classified 6 Beltran Darren. [address], [place], [place], [address], [place]. tel:[phone] Toña Whitlock.Gely Zaldivar. [facility], [address], [place], [place], [address] , [place] tel:[phone] Pain [facility] [place] back pain (chief complaint)pa in medication (chief complaint) Spondylosis w/o myelopathy of lumbosacral regionOther intervertebr al disc degeneration , lumbosacral regionOther spondylosis with radiculopath y, lumbar regionMuscle spasm of back 6 [facility]. [address], [address], [facility], [place], [address], [place]. tel:[phone] Toña Whitlock.Gely Zaldivar. OFFICE/OUTPAT IENT VISIT, EST [facility], [address], [place], [place], [address] , [place] tel:[phone] [facility] Follow Up of Migraine (chief complaint)Fo llow Up of Lumbar stenosis (chief complaint) Chronic migraine w/o aura, not intractable, w/o stat migrPain in left hipOther intervertebr al disc degeneration , lumbosacral region 6 Meghana Matthew. [address] [facility], [facility] [address], [address], [place], [address], [place]. tel:[phone] Toña Whitlock.Gely Zaldivar.Referr ing Provider: Toña Irvin, [address] [facility] [address], [place], [address]. tel:[phone] OFFICE/OUTPAT IENT VISIT, EST [facility], [address], [place], [place], [address] , [place] tel:[phone] Pain [facility] [place] back pain (chief complaint)pa in medication (chief complaint)hi p (chief complaint) Sacroiliitis , not elsewhere classifiedPa in in left hipOther intervertebr al disc degeneration , lumbosacral regionSpondy losis w/o myelopathy of lumbosacral region 6 Mobile Darren. [address], [address], [facility], [place], [address], [place]. tel:[phone] Toña Whitlock.Gely Zaldivar. OFFICE/OUTPAT IENT VISIT, EST [facility], [address], [place], [place], [address] , [place] tel:[phone] [facility] [place] back pain (chief complaint)hi p (chief complaint)pa in medication (chief complaint) Primary osteoarthrit is of lt hipSacroilii tis, not elsewhere classifiedPa in in left hip 6 [facility]. [address], [address], [facility], [place], [address], [place]. tel:[phone] Toña Whitlock.Gely Zaldivar. OFFICE/OUTPAT IENT VISIT, EST [facility], [address], [place], [place], [address] , [place] tel:[phone] Pain [facility] [place] back pain (chief complaint)hi p (chief complaint) Primary osteoarthrit is of lt hipSacroilii tis, not elsewhere classifiedPa in in left hip 6 Mobile Darren. [address], [address], [facility], [place], [address], [place]. tel:[phone] Toña Whitlock.Gely Zaldivar. OFFICE/OUTPAT IENT VISIT, EST [facility], [address], [place], [place], [address] , [place] tel:[phone] [facility] Migraine (chief complaint)Nancy mbar stenosis (chief complaint) Other intervertebr al disc degeneration , lumbosacral regionChroni c migraine w/o aura, not intractable, w/o stat migrPain in left hip 6 Meghana Matthew. [address] [facility], [facility] [address], [address], [place], [address], [place]. tel:[phone] Toña Whitlock.Gely Zaldivar.Referr ing Provider: Tiff Moura N, [address] [facility] [address], [address], [place], [address]. tel:[phone] OFFICE/OUTPAT IENT VISIT, EST [facility], [address], [place], [place], [address] , [place] tel:[phone] [facility] [place] hematuria (chief complaint)Fl ank pain (chief complaint) Benign essential microscopic hematuriaLow back pain 5 Gurmeet Casey. [address] [facility], [address], [address], [place], [place], [address], [place]. tel:[phone] Toña Whitlock, [address] [facility] [address], [place], [address].Specia list: Jay Jay Saxena, [address] [facility], [place], [address]. tel:[phone] ng Provider: Toña Whitlock C, [address] [facility] [address], [place], [address]. tel:[phone] [facility], [address], [place], [place], [address] , [place] tel:[phone] [facility] [place] No Information 5 Gurmeet Casey. [address] [facility], [address], [address], [place], [place], [address], [place]. tel:[phone] Ana Zaldivar.Referr ing Provider: Jacinto Napoles, [address] [facility], [place], [address]. tel:[phone] [facility], [address], [place], [place], [address] , [place] tel:[phone] [facility] [place] back pain (chief complaint) No Information 5 Beltran Darren. [address], [place], [place], [address], [place]. tel:[phone] Ana Zaldivar. OFFICE/OUTPAT IENT VISIT, EST [facility], [address], [place], [place], [address] , [place] tel:[phone] [facility] [place] back pain (chief complaint)pa in medications (chief complaint) No Information 5 Beltran Darren. [address], [place], [place], [address], [place]. tel:[phone] Ana Zaldivar. OFFICE/OUTPAT IENT VISIT, EST [facility], [address], [place], [place], [address] , [place] tel: [phone] [facility] [place] back pain (chief complaint) No Information 5 Beltran Darren. [address], [facility], [place], [address], [place]. tel:[phone] Ana White. [facility], [address], [place], [place], [address] , [place] tel: [phone] [facility] [place] back pain (chief complaint) No Information 5 Beltran Darren. [address], [facility], [place], [address], [place]. tel:[phone] Ana White. OFFICE/OUTPAT IENT VISIT, EST [facility], [address], [place], [place], [address] , [place] tel: [phone] [facility] [place] back pain (chief complaint)hi p (chief complaint) No Information 5 Beltran Darren. [address], [address], [facility] [facility], [place], [address], [place]. tel:[phone] Ana White. OFFICE/OUTPAT IENT VISIT, EST [facility], [address], [place], [place], [address] , [place] tel: [phone] [facility] [place] back pain (chief complaint)pa in medication (chief complaint) No Information 5 Beltran Darren. [address], [address], [facility], [place], [address], [place]. tel:[phone] Ana White. [facility], [address], [place], [place], [address] , [place] tel:[phone] [facility] [place] back pain (chief complaint) No Information 5 Beltran Darren. [address], [address], [facility], [place], [address], [place]. tel:[phone] Ana White. OFFICE/OUTPAT IENT VISIT, EST [facility], [address], [place], [place], [address] , [place] tel:[phone] [facility] [place] back pain (chief complaint) No Information 5 Devin Banks. [address], [address], [place], [place], [address], [place]. tel:[phone] Ana Zaldivar. OFFICE/OUTPAT IENT VISIT, EST [facility], [address], [place], [place], [address] , [place] tel:[phone] [facility] [place] hematuria (chief complaint) No Information 4 Kostiner Jacinto. [address], [place], [place], [address], [place]. tel:[phone] , [facility] [facility] [address], [place], [address].Referr ing Provider: Toña Irvin, [facility] [facility] [address], [place], [address]. tel:[phone] [facility], [address], [place], [place], [address] , [place] tel:[phone] [facility] [place] back pain (chief complaint) No Information 4 Devin Banks. [address], [address], [place], [place], [address], [place]. tel:[phone] Waldemar Encinas.Re ferring Provider: Waldemar Parker, [address] [facility] [address], [place], [address]. tel:[phone] [facility], [address], [place], [place], [address] , [place] tel:[phone] [facility] [place] No Information 4 Kostiner Jacinto. [address], [place], [place], [address], [place]. tel:[phone] Referring Provider: Waldemar Parker, [address] [facility] [address], [place], [address]. tel:[phone] OFFICE/OUTPAT IENT VISIT, EST [facility], [address], [place], [place], [address] , [place] tel:[phone] [facility] [place] back pain (chief complaint) No Information 4 Beltran Darren. [address], [address], [facility], [place], [address], [place]. tel:[phone] Waldemar Encinas.Re ferring Provider: Waldemar Parker, [address], [place], [address]. tel:[phone] [facility], [address], [place], [place], [address] , [place] tel:[phone] [facility] [place] back pain (chief complaint) No Information 4 Beltran Darren. [address], [address], [facility], [place], [address], [place]. tel:[phone] Waldemar Encinas.Re ferring Provider: Himanshu Buck, [address], [place], [address]. tel:[phone] OFFICE/OUTPAT IENT VISIT, EST [facility], [address], [place], [place], [address] , [place] tel:[phone] [facility] [place] back pain (chief complaint) No Information 4 Beltran Darren. [address], [address], [facility], [place], [address], [place]. tel:[phone] Waldemar Encinas.Re ferring Provider: Himanshu Buck, [address], [place], [address]. tel:[phone] OFFICE/OUTPAT IENT VISIT, EST [facility], [address], [place], [place], [address] , [place] tel:[phone] [facility] [place] back pain (chief complaint) No Information 4 Beltran Darren. [address], [address], [facility], [place], [address], [place]. tel:[phone] Waldemar Encinas.Re [facility] Provider: Himanshu Buck, [address], [place], [address]. tel:[phone] [facility], [address], [place], [place], [address] , [place] tel:[phone] [facility] [place] back pain (chief complaint) No Information 4 Beltran Darren. [address], [address], [place], [place], [address], [place]. tel:[phone] Waldemar Encinas.Re [facility] Provider: Himanshu Buck, [address], [place], [address]. tel:[phone] [facility], [address], [place], [place], [address] , [place] tel:[phone] [employer] No Information 4 Teo Caro. [address] [place], [address], [place]. tel:[phone] Referring Provider: Waldemar Parker, [address] [place], [place] [address] [address], [place], [address]. tel:[phone] OFFICE/OUTPAT IENT VISIT, EST [facility], [address], [place], [place], [address] , [place] tel:[phone] [facility] [place] hematuria (chief complaint) No Information 4 Gurmeet Casey. [address] [facility], [place], [place], [address], [place]. tel:[phone] <list xmlns='[email or web address]'>< item>Primary Practice Provider: Waldemar Encinas, [address] [facility] [address], [place], [address]. tel:[phone]</item> <item> .</item><ite m>Referring Provider: Waldemar Parker, [address], [place], [address]. tel:[phone]</item> </list> [facility], [address], [place], [place], [address] , [place] tel:[phone] [facility] [place] No Information 4 Gurmeet Casey. [address], [place], [place], [address], [place]. tel:[phone] Referring Provider: Jacinto Napoles, [address], [place], [address]. tel:[phone] OFFICE CONSULTATION [facility], [address], [place], [place], [address] , [place] tel:[phone] [facility] [place] hematuria (chief complaint) No Information 0 4 Gurmeet Casey. [address], [place], [place], [address], [place]. tel:[phone] Primary Practice Provider: Waldemar Encinas, [address] [facility] [address], [place], [address]. tel:[phone] Provider: Waldemar Parker, [address] [facility] [address], [place], [address]. tel:[phone] [facility], [address], [place], [place], [address] , [place] tel:[phone] [facility] [place] back pain (chief complaint) No Information Nov- 4 Beltran Darren. [address], [address], [place], [place], [address], [place]. tel:[phone] Referring Provider: [address], [place], [address]. tel:[phone] OFFICE/OUTPAT IENT VISIT, EST [facility], [address], [place], [place], [address] , [place] tel:[phone] [facility] [place] back pain (chief complaint) No Information 4 Beltran Darren. [address], [place], [place], [address], [place]. tel:[phone] Referring Provider: [address], [place], [address]. tel:[phone] OFFICE/OUTPAT IENT VISIT, EST [facility], [address], [place], [place], [address] , [phone] [facility] [place] lumbar spine (chief complaint) No Information 3 Beltran Darren. [address], [place], [place], [address], [place]. tel:[phone] Referring Provider: [place], [address]. tel:[phone] [facility], [address], [place], [place], [address] , [phone] [facility] [place] hip (chief complaint)nancy mbar spine (chief complaint) No Information 3 Beltran Darren. [address], [place], [place], [address], [place]. tel:[phone] Referring Provider: [place], [address]. tel:[phone] [facility], [address], [place], [place], [address] , [place] [phone] [facility] [place] back pain (chief complaint) No Information 3 Beltran Darren. [address] [place], [place], [address], [place]. tel:[phone] Referring Provider: [place], [address]. tel:[phone] Family History Family Member Type Diagnosis Age At Onset Father Problem (finding) diabetes melli tus in first degree relative Payers Payer name Insurance type Covered green party ID Authoriza tion(s) Medicare MB [id number] Social History Type Description Quantity Date Captured [...] Lifestyle education regardin g diet completed Goal FOBT. Due on due Goal Depression [...] due Goal Sigmoidoscopy. Due on due Goal PSA. Due on [...] vaccine ( ). Due on due Goal H&P. Due on [...] due Goal Sigmoidoscopy. Due on due Goal Sigmoidoscopy. Due on [...] Td vaccine. Due on 19 due Goal Colonoscopy. Due on due Goal Influenza Vaccine. Due on due Goal FOBT. Due on due Goal Shingrix #1. Due on due Goal Shingrix #2. Due on due Goal Tdap. Due on due Goal Document TOB Sta tus\ Cessation Advice. Due on due Goal H&P. Due on due Goal Sigmoidoscopy. Due on due Goal Depression scree low. Due on due Goal Lifestyle education regardin [...] due Goal Sigmoidoscopy. Due on due Goal Hepatitis C Screen. [...] Td vaccine. Due on 19 due Goal Shingrix #2. Due on due Goal FOBT. Due on due Goal Document TOB Sta tus\ Cessation Advice. Due on due Goal Depression scree low. Due on due Goal Colonoscopy. Due on due Goal Td vaccine. Due on 19 due Goal Shingrix #1. Due on due [...] Td vaccine. Due on 18 due Goal H&P. Due on due Goal [...] on due Goal Shingrix #1. Due on 018 due Goal Prescribed dietary intake co mpleted [...] Td vaccine. Due on 18 due Goal H&P. Due on due Goal FOBT. Due on due Goal Tdap. Due on due Goal Influenza Vaccine. Due on due Goal Sigmoidoscopy. Due on due Goal YFM Shingles. Due on 2017 due Goal Sigmoidoscopy. Due on due Goal [...] Goal Colonoscopy. Due on 017 due Goal Tdap. Due on due Goal [...] tus\ Cessation Advice. Due on due Goal Dietary manageme nt [...] on due Goal Tdap. Due on due Patient [...] Urine Cy tology and FISH if Positive ([id number]), Appointment on: , Sent on: Sent Future Order: Lab Order Urine Cy tology and FISH if Positive ([id number]), Appointment on: , Sent on: Sent Future Order: Lab Order Urine Cy tology and FISH if Positive ([id number]), Appointment on: , Sent on: Sent Future Order: Lab Order Urine Cy tology and FISH if Positive ([id number]), Appointment on: , Sent on: Sent Future [...] an improvement in his headaches and migraines. hematuria The patient pres ents with hematuria [...] shower and go sleep and it improves. Follow Up of Migraine (comments) The Gabapentin has helped with decreasing amount of the migraines with the increase dosage to 600 mg. back pain Onset: gradual w ithout injury. [...] lower back. functional capacity evaluation pain medication back pain Onset: gradual w [...] steps. Few weeks ago he went to [employer] at the end he felt he could [...] injection soon after mocing this week, Toradol. Follow Up of Migraine (comments) He still have a very mild headaches about 1-2 times a week and they last for a few minutes up to couple of hours. He usually does not take something right away but if the pain persist he will take Tylenol after 30 minutes. He is doing well overall. back pain Onset: gradual w ithout injury. Severity level is moderate-severe. It occurs persistently. hip pain medication back pain Onset: gradual w ithout injury. Severity level is moderate-severe. It occurs persistently. pain medication hip back pain Onset: gradual w ithout injury. Severity level is moderate-severe. It occurs persistently. hip Lumbar stenosis (comments) His b ack pain is doing better since Dr. Saxena did her surgery. His right toes numbness and itching has improved and he than has stop the Gabapentin. He still have pain on the left hip intermittent. Lumbar stenosis Migraine (comments) Mr. Jerez is here today for follow up of his chronic migraines which have improved significantly since the last visit. He had about 4 headaches since Thanksgiving after his lumbar spine surgery. The migraines were not severe as before and he has been doing well. He does take the Robaxin one tablet twice a day. No new complaints. Migraine Onset: 30 years ago. It occurs [...] states pain level is a 8 today. back pain Onset: gradual w ithout injury. Severity level is moderate. Location of pain is lower back. hip back pain Onset: gradual w ithout [...] intractable, w/o stat migr Stable.Continue to f silva up Dr. Beltran. Related to Other intervertebral [...] that has improved with decreased Tramadol useCurrent [place] Urological Association Clinical Practice Guidelines on the [...] oiding issues with increased Tramadol use Current [place] [employer] Clinical Practice Guidelines on the [...] Body mass index (BMI) 30.0-30.9, adult Prescribed dietary intake Relate d to Body [...] education 1. Left L4 transfora ce epidural2. Clarkson 5 mg tablets for low back/leg pain.3. [...]
== END 2025-01-07 10:10 | disposition home or self-care (01) ==
LOC: HO.HMCFM 09:06
PROVIDERS: PCP Family Medicine; Visit Provider Family Medicine
DX: I10 Essential (primary) hypertension (principal); E78.5 Hyperlipidemia, unspecified; R74.8 Abnormal levels of other serum enzymes; R73.03 Prediabetes

== ENCOUNTER → 2025-01-07 09:06 | Outpatient (BNVA) | payer MEDICARE, SELFPAY | PROVIDERS: PCP Family Medicine; Visit Provider Family Medicine | DX: I10 Essential (primary) hypertension (principal); E78.5 Hyperlipidemia, unspecified; R74.8 Abnormal levels of other serum enzymes; R73.03 Prediabetes | CPT/HCPCS: 83036; 99212 ==

== ENCOUNTER 2025-03-30 10:05 | Outpatient (REF) | payer MEDICARE, SELFPAY ==
--- OUTSIDE RECORDS SUMMARY | 2025-03-30 10:49 | XMS_ITS | Patient Health Record ---
[facility] Organization [facility] Address [address] [place] [address] Care Team Providers Care Sofa Cover Inspector Name Role Phone Vasyl Mckay MD Primary Care Provider Paula Stewart Unavailable [phone] Allergies Allergen (clinical drug ingredient) Drug/Non Drug Allergy documented on EMR Reaction Allergy Type Onset Date Status acetaminophen / hydrocodone HYDROcodone-Acetamin ophen Headaches Drug Allergy Active Reason For Referral No Information Medications Medication SIG (Take, Route, Frequency, Duration) Notes Start Date End Date Status Pantoprazole Sodium 40 MG 1 tablet Orall y Once a day; Duration: 30 day(s) Active Flovent HFA Active Simvastatin 20 MG 1 tablet in the even ing Orally Once a day; Duration: 30 day(s) Active Losartan Potassium 100 MG 1 tablet Orall y Once a day; Duration: 30 day(s) Active Fenofibrate 134 MG 1 capsule with a adriana l Orally Once a day; Duration: 30 day(s) Active Methocarbamol 1500mg Active [place] 3 4000mg Active Gabapentin 600 MG 1 capsule Orally Onc e a day Active traMADol HCl Active Tylenol Active amLODIPine Besylate 10 MG Oral; Duration: 100 Active Social History Tobacco Use: Social [...] Problem Status W/U Status Risk Notes Problem Plantar wart (B07.0) Active confirmed Plan Of Treatment No Information Insurance Providers Payer Name Payer Address Payer Phone Subscriber Number Group Number Insured Name Patient Relationship to Insured Coverage Start Date Coverage End Date [facility] Medicare Complete [address] [address] [place] [id number] Javier Jerez Self - patient is the [...]
[2025-03-30 11:42] LABS: MANUAL DIFF FLAG NO
[2025-03-30 11:55] LABS: Hematocrit 43.4 % (42.0-52.0); Hemoglobin 14.4 g/dl (14.0-18.0); Imm Gran Abs Auto 0.05 X10*3/uL (0.00-0.03); Imm Gran Pct Auto 0.5 % (0.0-0.4); Lymphocytes Absolute Auto 2.7 X10*3/uL (1.2-4.9); Mean Corpuscular HGB Conc 33.2 g/dl (31.0-36.0); Mean Corpuscular Hemoglobin 29.6 pg (27.0-33.0); Mean Corpuscular Volume 89.1 fL (80.0-98.0); NRBC Abs Auto 0.000 X10*3/uL (0.0-0.012); NRBC Pct Auto 0.0 /100WBC (0.0-0.2); Platelet Count 362 X10*3/uL (160-400); Red Blood Count 4.87 X10*6/uL (4.60-5.80); White Blood Count 9.3 X10*3/uL (4.8-10.8)
[2025-03-30 12:28] LABS: Alanine Aminotransferase 49 U/L (0-40); Albumin Level 4.8 g/dL (3.5-5.0); Alkaline Phosphatase 56 U/L (39-117); Anion Gap 13 (12-20); Aspartate Amino Transferase 40 U/L (5-37); Blood Urea Nitrogen 18 mg/dL (9-16); Calcium 9.3 mg/dL (8.4-10.2); Carbon Dioxide 25 mmol/L (22-29); Chloride 105 mmol/L (96-108); Cholesterol 197 mg/dL (<200); Estimated Glomerular Filt Rate > 60; HDL Cholesterol 38 mg/dL (>40); Potassium 3.4 mmol/L (3.3-5.1); Sodium 140 mmol/L (135-145); Total Protein 7.6 g/dL (6.5-8.0); Triglycerides 198 mg/dL (<150)
[2025-03-30 12:44] LABS: Hemoglobin A1C 223.1536 umol/L; Total Hemoglobin (HGBA1C) 5161.3367 umol/L
[2025-03-30 15:13] LABS: Appearance Urine Clear; Glucose Urine UA Negative (Negative); PH 6.0 (5.0-9.0); Specific Gravity - Urine 1.020 (1.005-1.025); UMIC TRIGGER UACC YES
[2025-03-30 16:40] LABS: Microalbum/Creatinine Ratio Ur 8.1 ug/mg cr (<30)
== END 2025-03-30 10:06 | disposition home or self-care (01) ==
LOC: HO.WFDLDS 10:05
PROVIDERS: Visit Provider Family Medicine
DX: Z12.5 Encounter for screening for malignant neoplasm of prostate (principal); Z00.00 Encounter for general adult medical examination without abnormal findings; I10 Essential (primary) hypertension; R73.01 Impaired fasting glucose; R74.8 Abnormal levels of other serum enzymes
CPT/HCPCS: 36415; 80053; 80061; 81001; 82043; 82570; 83036; 84153; 84443; 85025

== ENCOUNTER 2025-04-03 15:23 | Outpatient (AMB) | payer MEDICARE, SELFPAY ==
--- OUTSIDE RECORDS SUMMARY | 2021-12-20 03:48 | XMS_ITS | Continuity of Care Document ---
Author Organization [facility] Address [address] [place] [address] Phone Care Team Providers Care Hunting Guide Name Role Phone Tiff Kowalski MD Unavailable Unavailable Allergies, Adverse Reactions, Alerts Substance Reaction Status Criticality No Known Allergies Active No Inform ation Medications Medication Instructions Dosage Effective Dates (start - stop) Status Comments METHOCARBAMOL TABS 750MG TAKE 1 TABLET EVERY 8 HOURS 750 MG - Active gabapentin 600 mg tablet take 1 tablet by oral route every day 600 MG - Active tramadol 50 mg tablet take 2 tablet by o ral route every 6 hours as needed 100 MG - Active fenofibrate 120 mg tablet take 1 tablet by oral route every day 120 MG - Active Flovent Diskus 50 mcg/actuation powder for inhalation inhale 1 puff by inhalation route 2 times every day - Active simvastatin 20 mg tablet - Active omeprazole 20 mg capsule,delayed release take 1 capsule by oral route every day before a meal 20 MG - Active fluticasone propionate (bulk) 100 % Powder - Active acetaminophen 325 mg tablet take 1 tablet by oral route every 4 hours as needed 325 MG - Active [place]-3 1,050 mg-1,200 mg capsule - Active Procedures Procedure Date OFFICE/OUTPATIENT VISIT, EST Attests To Documenting In EHR Current Me ds INJECT SACROILIAC JOINT Attests To Documenting In EHR Current Me ds OFFICE/OUTPATIENT VISIT, EST Attests To Documenting In EHR Current Me ds OFFICE/OUTPATIENT VISIT, EST Attests To Documenting In EHR Current Me ds OFFICE/OUTPATIENT VISIT, EST Attests To Documenting In EHR Current Me ds SYST BP >=130-139MM HG DIAST BP 80-89 MM HG Body Mass Index OFFICE/OUTPATIENT VISIT, EST Attests To Documenting In EHR Current Me ds OFFICE/OUTPATIENT VISIT, EST Attests To Documenting In EHR Current Me ds OFFICE/OUTPATIENT VISIT, EST Attests To Documenting In EHR Current Me ds OFFICE/OUTPATIENT VISIT, EST Attests To Documenting In EHR Current Me ds OFFICE/OUTPATIENT VISIT, EST Review All Meds By Provider Documented I n EHR Attests To Documenting In EHR Current Me ds OFFICE/OUTPATIENT VISIT, EST Review All Meds By Provider Documented I n EHR Attests To Documenting In EHR Current Me ds INJECT SACROILIAC JOINT Methylprednisolone 40 MG inj DEPO MEDROL Review All Meds By Provider Documented I n EHR Attests To Documenting In EHR Current Me ds OFFICE/OUTPATIENT VISIT, EST Review All Meds By Provider Documented I n EHR Attests To Documenting In EHR Current Me ds OFFICE/OUTPATIENT VISIT, EST Review All Meds By Provider Documented I n EHR Attests To Documenting In EHR Current Me ds INJ FORAMEN EPIDURAL L/S Methylprednisolone 40 MG inj DEPO MEDROL Review All Meds By Provider Documented I n EHR Attests To Documenting In EHR Current Me ds OFFICE/OUTPATIENT VISIT, EST Review All Meds By Provider Documented I n EHR Attests To Documenting In EHR Current Me ds OFFICE/OUTPATIENT VISIT, EST Review All Meds By Provider Documented I n EHR Attests To Documenting In EHR Current Me ds OFFICE/OUTPATIENT VISIT, EST Review All Meds By Provider Documented I n EHR Attests To Documenting In EHR Current Me ds OFFICE/OUTPATIENT VISIT, EST Review All Meds By Provider Documented I n EHR Attests To Documenting In EHR Current Me ds OFFICE/OUTPATIENT VISIT, EST Review All Meds By Provider Documented I n EHR Attests To Documenting In EHR Current Me ds OFFICE/OUTPATIENT VISIT, EST Review All Meds By Provider Documented I n EHR Attests To Documenting In EHR Current Me ds N BLOCK INJ, SUPRASCAPULAR Methylprednisolone 40 MG inj DEPO MEDROL OFFICE/OUTPATIENT VISIT, EST Review All Meds By Provider Documented I n EHR Attests To Documenting In EHR Current Me ds OFFICE/OUTPATIENT VISIT, EST Review All Meds By Provider Documented I n EHR Attests To Documenting In EHR Current Me ds INJ FORAMEN EPIDURAL L/S Methylprednisolone 80 MG inj DEPO MEDROL Review All Meds By Provider Documented I n EHR Attests To Documenting In EHR Current Me ds OFFICE/OUTPATIENT VISIT, EST Review All Meds By Provider Documented I n EHR Attests To Documenting In EHR Current Me ds OFFICE/OUTPATIENT VISIT, EST OFFICE/OUTPATIENT VISIT, EST OFFICE/OUTPATIENT VISIT, EST OFFICE/OUTPATIENT VISIT, EST Review All Meds By Provider Documented I n EHR Attests To Documenting In EHR Current Me ds OFFICE/OUTPATIENT VISIT, EST Review All Meds By Provider Documented I n EHR Attests To Documenting In EHR Current Me ds SPECIMEN HANDLING MICROSCOPIC EXAM OF URINE URINALYSIS, AUTO, W/O SCOPE MICROSCOPIC EXAM OF URINE OFFICE/OUTPATIENT VISIT, EST INJ FORAMEN EPIDURAL L/S Methylprednisolone 40 MG inj DEPO MEDROL Review All Meds By Provider Documented I n EHR Attests To Documenting In EHR Current Dc ds OFFICE/OUTPATIENT VISIT, EST OFFICE/OUTPATIENT VISIT, EST OFFICE/OUTPATIENT VISIT, EST INJECTION FOR HIP X-RAY NEEDLE LOCALIZATION BY XRAY Methylprednisolone 40 MG inj DEPO MEDROL OFFICE/OUTPATIENT VISIT, EST OFFICE/OUTPATIENT VISIT, EST OFFICE/OUTPATIENT VISIT, EST URINALYSIS, AUTO, W/O SCOPE MICROSCOPIC EXAM OF URINE SPECIMEN HANDLING INJ FORAMEN EPIDURAL L/S Drugs unclassified injection OFFICE/OUTPATIENT VISIT, EST OFFICE/OUTPATIENT VISIT, EST INJ FORAMEN EPIDURAL L/S Methylprednisolone 40 MG inj DEPO MEDROL OFFICE/OUTPATIENT VISIT, EST OFFICE/OUTPATIENT VISIT, EST INJ FORAMEN EPIDURAL L/S Methylprednisolone 40 MG inj DEPO MEDROL No Charge OFFICE/OUTPATIENT VISIT, EST OFFICE/OUTPATIENT VISIT, EST INJECT SACROILIAC JOINT No Charge MICROSCOPIC EXAM OF URINE SPECIMEN HANDLING OFFICE/OUTPATIENT VISIT, EST INJECT SACROILIAC JOINT No Charge OFFICE/OUTPATIENT VISIT, EST OFFICE/OUTPATIENT VISIT, EST INJECT SACROILIAC JOINT No Charge N BLOCK INJ, SCIATIC, SNG ROUTINE VENIPUNCTURE CYSTOSCOPY OFFICE/OUTPATIENT VISIT, EST MICROSCOPIC EXAM OF URINE URINALYSIS, AUTO, W/O SCOPE OFFICE CONSULTATION INJ FORAMEN EPIDURAL L/S Methylprednisolone 40 MG inj DEPO MEDROL No Charge INJECT SACROILIAC JOINT OFFICE/OUTPATIENT VISIT, EST INJECT SACROILIAC JOINT OFFICE/OUTPATIENT VISIT, EST Methylprednisolone 40 MG inj DEPO MEDROL INJECTION FOR HIP X-RAY No Charge INJECTION FOR HIP X-RAY Methylprednisolone 40 MG inj DEPO MEDROL NEEDLE LOCALIZATION BY XRAY No Charge Advance Directives Directive Yes / No Effective Date File Name No Information Encounters Encounter Description Practice Location Reason(s) For Visit Diagnoses Date Provider Providers Copied on Encounter [facility], [address], [place], [place], [address] , [place] tel:[phone] [facility] [place] No Information [address] [facility] [address], [address], [place], [address], [place]. tel:[phone] [facility], [address], [place], [place], [address] , [place] tel:[phone] [facility] [place] No Information [address] [facility] [address], [address], [place], [address], [place]. tel:[phone] OFFICE/OUTPAT IENT VISIT, EST [facility], [address], [place], [place], [address] , [place] tel:[phone] [facility] [place] Follow Up of Migraine (chief complaint) Body mass index (BMI) 32.0-32.9, adultChronic migraine w/o aura, not intractable, w/o stat migrOther intervertebr al disc degeneration , lumbosacral region 0 Vernonjaycob HornTiff. [address] [facility], [facility] [address], [address], [place], [address], [place]. tel:[phone] Ana Zaldivar.Latanya Zaldivar.Referr ing Provider: Tiff Moura N, [address] [facility] [address], [address], [place], [address]. tel:[phone] [facility], [address], [place], [place], [address] , [place] tel:[phone] [facility] [place] back pain (chief complaint)pa in medication (chief complaint) Sacroiliitis , not elsewhere classifiedPo stlaminectom y syndrome, not elsewhere classifiedOt her intervertebr al disc degeneration , lumbosacral regionOther spondylosis with radiculopath y, lumbar region 0 Beltran Darren. [address], [place], [place], [address], [place]. tel:[phone] Ana Zaldivar.Referr ing Provider: Toña Irvin, [address] [facility] [address], [place], [address]. tel:[phone] OFFICE/OUTPAT IENT VISIT, EST [facility], [address], [place], [place], [address] , [place] tel:[phone] [facility] [place] back pain (chief complaint)Pa in medication (chief complaint)sh oulder (chief complaint) Postlaminect jono syndrome, not elsewhere classifiedRa diculopathy, lumbar regionSacroi liitis, not elsewhere classifiedOt her specified dorsopathies , cervical region 0 Beltran Darren. [address], [address], [place], [place], [address], [place]. tel:[phone] Ana Zaldivar.Referr ing Provider: Toña Irvin, [address], [place], [address]. tel:[phone] OFFICE/OUTPAT IENT VISIT, EST [facility], [address], [place], [place], [address] , [place] tel:[phone] [facility] [place] back pain (chief complaint)sh oulder (chief complaint)Pa in medication (chief complaint) Postlaminect jono syndrome, not elsewhere classifiedSa croiliitis, not elsewhere classifiedRa diculopathy, lumbar regionOther specified dorsopathies , cervical region 0 Beltran Darren. [address], [address], [place], [place], [address], [place]. tel:[phone] Ana Zaldivar.Referr ing Provider: Toña Irvin, [address], [place], [address]. tel:[phone] OFFICE/OUTPAT IENT VISIT, EST [facility], [address], [place], [place], [address] , [place] tel:[phone] [facility] [place] Follow Up of Migraine (chief complaint) Body mass index (BMI) 30.0-30.9, adultChronic migraine w/o aura, not intractable, w/o stat migrOther intervertebr al disc degeneration , lumbosacral region 0 Vernonjaycob HornTiff. [address] [facility], [address], [address], [place], [address], [place]. tel:[phone] Ana Zadlivar.Referr ing Provider: Toña Irvin, [address], [place], [address]. tel:[phone] OFFICE/OUTPAT IENT VISIT, EST [facility], [address], [place], [place], [address] , [place] tel:[phone] [facility] [place] BPH (chief complaint)he maturia (chief complaint) Enlarged prostate with lower urinary tract symptomsBeni gn essential microscopic hematuriaBod y mass index (BMI) 30.0-30.9, adult Dec- 9 Gurmeet Casey. [address] [facility], [address], [address], [place], [place], [address], [place]. tel:[phone] Specialist: Jay Jay Saxena, [address] [place], [address]. tel:[phone] Provider: Usama Campbell, [address] [place], [address]. tel:[phone] OFFICE/OUTPAT IENT VISIT, EST [facility], [address], [place], [place], [address] , [place] tel:[phone] [facility] [place] back pain (chief complaint)hi p (chief complaint)Pa in medication (chief complaint) Postlaminect jono syndrome, not elsewhere classifiedOt her spondylosis with radiculopath y, lumbar regionPain in left hipRadiculop athy, lumbar region 9 [facility]. [address] [facility], [address], [place], [place], [address], [place]. tel:[phone] Ana Zaldivar.Referr ing Provider: Toña Irvin, [address], [place], [address]. tel:[phone] OFFICE/OUTPAT IENT VISIT, EST [facility], [address], [place], [place], [address] , [place] tel:[phone] [facility] [place] back pain (chief complaint)Pa in medication (chief complaint) Postlaminect jono syndrome, not elsewhere classifiedOt her intervertebr al disc degeneration , lumbosacral regionOther spondylosis with radiculopath y, lumbar regionSacroi liitis, not elsewhere classified 9 [facility]. [address], [place], [place], [address], [place]. tel:[phone] Ana Zaldivar.Referr ing Provider: [address], [place], [address]. tel:[phone] OFFICE/OUTPAT IENT VISIT, EST [facility], [address], [place], [place], [address] , [place] tel:[phone] [facility] [place] Follow Up of Migraine (chief complaint) Body mass index (BMI) 31.0-31.9, adultChronic migraine w/o aura, not intractable, w/o stat migrOther intervertebr al disc degeneration , lumbosacral region [facility]. [address] [facility], [address], [address], [place], [address], [place]. tel:[phone] Ana Zaldivar.Referr ing Provider: Toña Irvin, [address], [place], [address]. tel:[phone] OFFICE/OUTPAT IENT VISIT, EST [facility], [address], [place], [place], [address] , [place] tel:[phone] [facility] [place] back pain (chief complaint)Pa in medication (chief complaint) Postlaminect jono syndrome, not elsewhere classifiedSa croiliitis, not elsewhere classifiedOt her intervertebr al disc degeneration , lumbosacral regionOther spondylosis with radiculopath y, lumbar region 9 [facility]. [address], [place], [place], [address], [place]. tel:[phone] Ana Zaldivar.Referr ing Provider: Toña Irvin, [address], [place], [address]. tel:[phone] OFFICE/OUTPAT IENT VISIT, EST [facility], [address], [place], [place], [address] , [place] tel:[phone] [facility] [place] back pain (chief complaint)Pa in medication (chief complaint) Sacroiliitis , not elsewhere classifiedOt her intervertebr al disc degeneration , lumbosacral regionOther spondylosis with radiculopath y, lumbar regionPostla minectomy syndrome, not elsewhere classified [facility]. [address], [place], [place], [address], [place]. tel:[phone] Ana Zaldivar.Referr ing Provider: Toña Irvin, [address], [place], [address]. tel:[phone] [facility], [address], [place], [place], [address] , [place] tel:[phone] [facility] [place] back pain (chief complaint) Sacroiliitis , not elsewhere classified Dalton Darren. [address], [place], [place], [address], [place]. tel:[phone] Ana Zaldivar.Referr ing Provider: Toña Irvin, [address] [facility] [address], [place], [address]. tel:[phone] OFFICE/OUTPAT IENT VISIT, EST [facility], [address], [place], [place], [address] , [place] tel:[phone] [facility] [place] back pain (chief complaint)hi p (chief complaint)Pa in medication (chief complaint) Postlaminect jono syndrome, not elsewhere classifiedSa croiliitis, not elsewhere classifiedOt her spondylosis with radiculopath y, lumbar regionPain in left hip 9 Devin Banks. [address], [place], [place], [address], [place]. tel:[phone] Ana Zaldivar. OFFICE/OUTPAT IENT VISIT, EST [facility], [address], [place], [place], [address] , [place] tel:[phone] [facility] [place] Headache (chief complaint) Chronic migraine w/o aura, not intractable, w/o stat migrOther intervertebr al disc degeneration , lumbosacral region 9 Meghana Matthew. [address] [facility] [address], [address], [address], [place], [address], [place]. tel:[phone] Ana Zaldivar.Referr ing Provider: Toña Irvin, [address] [facility] [address], [place], [address]. tel:[phone] [facility], [address], [place], [address] , [place] tel:[phone] [facility] [place] back pain (chief complaint) Postlaminect jono syndrome, not elsewhere classified 8 [facility]. [address] [facility], [address], [place], [place], [address], [place]. tel:[phone] Ana Zaldivar. OFFICE/OUTPAT IENT VISIT, EST [facility], [address], [place], [place], [address] , [place] tel:[phone] [facility] [place] back pain (chief complaint)Pa in medication (chief complaint)sh oulder (chief complaint) Other intervertebr al disc degeneration , lumbosacral regionOther spondylosis with radiculopath y, lumbar regionPostla minectomy syndrome, not elsewhere classifiedOt her specified mononeuropat hies 8 Beltran Darren. [address], [place], [place], [address], [place]. tel:[phone] Ana Zaldivar. OFFICE/OUTPAT IENT VISIT, EST [facility], [address], [place], [place], [address] , [place] [phone] [facility] [place] BPH (chief complaint)he maturia (chief complaint) Body mass index (BMI) 30.0-30.9, adultEnlarge d prostate with lower urinary tract symptomsBeni gn essential microscopic hematuria 8 Gurmeet Casey. [address] [facility], [address], [place], [place], [address], [place]. tel:[phone] Specialist: Jay Jay Saxena, [facility] [place], [address]. tel:[phone] ng Provider: Jacinto Napoles, [address] [facility] [address], [place], [address]. tel:[phone] OFFICE/OUTPAT IENT VISIT, EST [facility], [address], [place], [place], [address] , [phone] [facility] [place] back pain (chief complaint)Ab dominal pain (chief complaint)Pa in medication (chief complaint) Postlaminect jono syndrome, not elsewhere classifiedUp per abdominal painOther intervertebr al disc degeneration , lumbosacral regionOther spondylosis with radiculopath y, lumbar region Dalton Darren. [address] [facility], [address], [place], [place], [address], [place]. tel:[phone] Ana Zaldivar. OFFICE/OUTPAT IENT VISIT, EST [facility], [address], [place], [place], [address] , [place] tel:[phone] [facility] [place] back pain (chief complaint)Ab domen/ribs (chief complaint)Pa in medication (chief complaint) Postlaminect jono syndrome, not elsewhere classifiedOt her intervertebr al disc degeneration , lumbosacral regionUpper abdominal painIntercos guillermo neuropathy Beltran Darren. [address] [facility], [address], [place], [place], [address], [place]. tel:[phone] Ana Zaldivar. OFFICE/OUTPAT IENT VISIT, EST [facility], [address], [place], [place], [address] , [place] [phone] [facility] [place] back pain (chief complaint)he adache/shoul martín (chief complaint)pa in medication (chief complaint) Other intervertebr al disc degeneration , lumbosacral regionOther specified mononeuropat hiesPostlami nectomy syndrome, not elsewhere classifiedCh ronic migraine w/o aura, not intractable, w/o stat migr 8 Dalton Darren. [address], [place], [place], [address], [place]. tel:[phone] Ana Zaldivar. OFFICE/OUTPAT IENT VISIT, EST [facility], [address], [place], [place], [address] , [place] tel:[phone] [facility] [place] Follow Up of Migraine (chief complaint) Chronic migraine w/o aura, not intractable, w/o stat migrOther intervertebr al disc degeneration , lumbosacral region Meghana Tiff. [address] [facility], [address], [address], [place], [address], [place]. tel:[phone] Ana Zaldivar. OFFICE/OUTPAT IENT VISIT, EST [facility], [address], [place], [place], [address] , [place] tel:[phone] [facility] [place] back pain (chief complaint)sh oulder (chief complaint)pa in medication (chief complaint) Postlaminect jono syndrome, not elsewhere classifiedOt her specified mononeuropat hiesCervical giaOther specified dorsopathies , cervical region Devin Banks. [address], [place], [place], [address], [place]. tel:[phone] Ana Zaldivar. OFFICE/OUTPAT IENT VISIT, EST [facility], [address], [place], [address] , [place] tel:[phone] [facility] [place] hematuria (chief complaint)BP H (chief complaint) Benign essential microscopic hematuriaEnl arged prostate with lower urinary tract symptoms 7 Gurmeet Casey. [address] [facility], [place], [place], [address], [place]. tel:[phone] Specialist: Jay Jay Saxena, [facility] [address], [place], [address]. tel:[phone] Provider: Jacinto Napoles, [address] [facility] [address], [address], [place], [address]. tel:[phone] [facility], [address], [place], [place], [address] , [place] tel:[phone] [facility] [place] back pain (chief complaint) Other intervertebr al disc degeneration , lumbosacral regionPostla minectomy syndrome, not elsewhere classified Devin Banks. [address], [place], [place], [address], [place]. tel:[phone] Ana Zaldivar. OFFICE/OUTPAT IENT VISIT, EST [facility], [address], [place], [place], [address] , [place] tel:[phone] [facility] [place] back pain (chief complaint)pa in medication (chief complaint) Other intervertebr al disc degeneration , lumbosacral regionPostla minectomy syndrome, not elsewhere classifiedOt her spondylosis with radiculopath y, lumbar regionSacroi liitis, not elsewhere classified Belrtan Darren. [address], [address], [place], [place], [address], [place]. tel:[phone] Ana Zaldivar. OFFICE/OUTPAT IENT VISIT, EST [facility], [address], [place], [place], [address] , [place] [phone] [facility] [place] back pain (chief complaint)pa in medication (chief complaint)fu nctional capacity evaluation (chief complaint) Postlaminect jono syndrome, not elsewhere classifiedOt her intervertebr al disc degeneration , lumbosacral regionOther spondylosis with radiculopath y, lumbar regionSacroi liitis, not elsewhere classified Devin Banks. [address], [address], [place], [place], [address], [place]. tel:[phone] Ana Zaldivar. OFFICE/OUTPAT IENT VISIT, EST [facility], [address], [place], [place], [address] , [place] [phone] [facility] [place] back pain (chief complaint)pa in medication (chief complaint) Postlaminect jono syndrome, not elsewhere classifiedOt her intervertebr al disc degeneration , lumbosacral regionOther spondylosis with radiculopath y, lumbar regionSacroi liitis, not elsewhere classified 7 [facility]. [address], [address], [facility], [place], [address], [place]. tel:[phone] Ana Zaldivar. OFFICE/OUTPAT IENT VISIT, EST [facility], [address], [place], [place], [address] , [place] tel:[phone] [facility] [place] back pain (chief complaint)pa in medication (chief complaint) Other spondylosis with radiculopath y, lumbar regionPain in left hipSacroilii tis, not elsewhere classifiedOt her intervertebr al disc degeneration , lumbosacral region [facility]. [address], [place], [place], [address], [place]. tel:[phone] Ana Zaldivar. OFFICE/OUTPAT IENT VISIT, EST [facility], [address], [place], [place], [address] , [place] tel:[phone] [facility] Follow Up of Migraine (chief complaint)Fo llow Up of Pain in the left hip (chief complaint) Chronic migraine w/o aura, not intractable, w/o stat migrPain in left hipOther intervertebr al disc degeneration , lumbosacral region [address] [facility] [address], [address], [place], [address], [place]. tel:[phone] Ana Zaldivar.Referr ing Provider: Toña Irvin, [address] [facility] [address], [place], [address]. tel:[phone] OFFICE/OUTPAT IENT VISIT, EST [facility], [address], [place], [place], [address] , [place] tel:[phone] [facility] [place] hematuria (chief complaint)BP H (chief complaint) Benign essential microscopic hematuria 6 Gurmeet Casey. [address] [facility], [facility]. [address], [address], [place], [place], [address], [place]. tel:[phone] Specialist: Jay Jay Saxena, [address] [facility], [place], [address]. tel:[phone] ng Provider: Jacinto Napoles, [address] [facility] [address], [place], [address]. tel:[phone] [facility], [address], [place], [place], [address] , [place] tel:[phone] [facility] [place] No Information 6 Gurmeet Casey. [address] [facility], [address], [place], [place], [address], [place]. tel:[phone] Toña Whtilock.Gely Zaldivar.Referr ing Provider: Toña Irvin, [address] [facility] [address], [place], [address]. tel:[phone] OFFICE/OUTPAT IENT VISIT, EST [facility], [address], [place], [address] , [place] tel:[phone] [facility] [place] back pain (chief complaint)pa in medication (chief complaint) Spondylosis w/o myelopathy of lumbosacral regionOther spondylosis with radiculopath y, lumbar regionSacroi liitis, not elsewhere classified 6 Beltran Darren. [address], [place], [place], [address], [place]. tel:[phone] Toña Whitlock.Gely Zaldivar. [facility], [address], [place], [place], [address] , [place] tel:[phone] [facility] [place] back pain (chief complaint)pa in medication (chief complaint) Spondylosis w/o myelopathy of lumbosacral regionOther intervertebr al disc degeneration , lumbosacral regionOther spondylosis with radiculopath y, lumbar regionMuscle spasm of back 6 [facility]. [address], [address], [facility], [place], [address], [place]. tel:[phone] Toña Whitlock.Gely Zaldivar. OFFICE/OUTPAT IENT VISIT, EST [facility], [address], [place], [place], [address] , [place] tel:[phone] [facility] Follow Up of Migraine (chief complaint)Fo llow Up of Lumbar stenosis (chief complaint) Chronic migraine w/o aura, not intractable, w/o stat migrPain in left hipOther intervertebr al disc degeneration , lumbosacral region 6 Meghana Matthew. [address] [facility], [facility] [address], [address], [place], [address], [place]. tel:[phone] Toña Whitlock.Gely Zaldivar.Referr ing Provider: Toña Irvin, [address] [facility] [address], [place], [address]. tel:[phone] OFFICE/OUTPAT IENT VISIT, EST [facility], [address], [place], [place], [address] , [place] tel:[phone] [facility] back pain (chief complaint)pa in medication (chief complaint)hi p (chief complaint) Sacroiliitis , not elsewhere classifiedPa in in left hipOther intervertebr al disc degeneration , lumbosacral regionSpondy losis w/o myelopathy of lumbosacral region 6 Dalton Darren. [address], [address], [facility], [place], [address], [place]. tel:[phone] Toña Whitlock.Gely Zaldivar. OFFICE/OUTPAT IENT VISIT, EST [facility], [address], [place], [place], [address] , [place] tel:[phone] [facility] [place] back pain (chief complaint)hi p (chief complaint)pa in medication (chief complaint) Primary osteoarthrit is of lt hipSacroilii tis, not elsewhere classifiedPa in in left hip 6 [facility]. [address], [address], [facility], [place], [address], [place]. tel:[phone] Toña Whitlock.Gely Zaldivar. OFFICE/OUTPAT IENT VISIT, EST [facility], [address], [place], [place], [address] , [place] tel:[phone] [facility] [place] back pain (chief complaint)hi p (chief complaint) Primary osteoarthrit is of lt hipSacroilii tis, not elsewhere classifiedPa in in left hip 6 Dalton Darren. [address], [address], [facility], [place], [address], [place]. tel:[phone] Toña Whitlock.Gely Zaldivar. OFFICE/OUTPAT IENT VISIT, EST [facility], [address], [place], [place], [address] , [place] tel:[phone] [facility] Migraine (chief complaint)Nancy mbar stenosis (chief complaint) Other intervertebr al disc degeneration , lumbosacral regionChroni c migraine w/o aura, not intractable, w/o stat migrPain in left hip 6 Meghana Matthew. [address] [facility], [facility] [address], [address], [place], [address], [place]. tel:[phone] Toña Whitlock.Gely Zaldivar.Referr ing Provider: Tiff Moura N, [address] [facility] [address], [address], [place], [address]. tel:[phone] OFFICE/OUTPAT IENT VISIT, EST [facility], [address], [place], [place], [address] , [place] tel:[phone] [facility] hematuria (chief complaint)Fl ank pain (chief complaint) Benign essential microscopic hematuriaLow back pain 5 Gurmeet Casey. [address] [facility], [address], [address], [place], [place], [address], [place]. tel:[phone] Toña Whitlock, [address] [facility] [address], [place], [address].Specia list: Jay Jay Saxena, [address] [facility], [place], [address]. tel:[phone] ng Provider: Toña Whitlock C, [address] [facility] [address], [place], [address]. tel:[phone] [facility], [address], [place], [place], [address] , [place] tel:[phone] [facility] No Information 5 Gurmeet Casey. [address] [facility], [address], [address], [place], [place], [address], [place]. tel:[phone] Ana Zaldivar.Referr ing Provider: Jacinto Napoles, [address] [facility], [place], [address]. tel:[phone] [facility], [address], [place], [place], [address] , [place] tel:[phone] [facility] back pain (chief complaint) No Information 5 Beltran Darren. [address], [address], [place], [place], [address], [place]. tel:[phone] Ana Zaldivar. OFFICE/OUTPAT IENT VISIT, EST [facility], [address], [place], [place], [address] , [place] tel:[phone] [facility] [place] back pain (chief complaint)pa in medications (chief complaint) No Information 5 Beltran Darren. [address], [address], [place], [place], [address], [place]. tel:[phone] Ana Zaldivar. OFFICE/OUTPAT IENT VISIT, EST [facility], [address], [place], [place], [address] , [place] tel: [phone] [facility] [place] back pain (chief complaint) No Information 5 Beltran Darren. [address], [address], [facility], [place], [address], [place]. tel:[phone] Ana White. [facility], [address], [place], [place], [address] , [place] tel: [phone] [facility] [place] back pain (chief complaint) No Information 5 Beltran Darren. [address], [address], [facility], [place], [address], [place]. tel:[phone] Ana White. OFFICE/OUTPAT IENT VISIT, EST [facility], [address], [place], [place], [address] , [place] tel: [phone] [facility] [place] back pain (chief complaint)hi p (chief complaint) No Information 5 Beltran Darren. [address], [address], [facility], [place], [address], [place]. tel:[phone] Ana White. OFFICE/OUTPAT IENT VISIT, EST [facility], [address], [place], [place], [address] , [place] tel: [phone] [facility] [place] back pain (chief complaint)pa in medication (chief complaint) No Information 5 Beltran Darren. [address], [address], [facility], [place], [address], [place]. tel:[phone] Ana White. [facility], [address], [place], [place], [address] , [place] tel:[phone] [facility] [place] back pain (chief complaint) No Information 5 Beltran Darren. [address], [address], [facility], [place], [address], [place]. tel:[phone] Ana White. OFFICE/OUTPAT IENT VISIT, EST [facility], [address], [place], [place], [address] , [place] tel:[phone] [facility] [place] back pain (chief complaint) No Information 5 Devin Banks. [address], [address], [place], [place], [address], [place]. tel:[phone] Ana Zaldivar. OFFICE/OUTPAT IENT VISIT, EST [facility], [address], [place], [place], [address] , [place] tel:[phone] [facility] [place] hematuria (chief complaint) No Information 4 Kostiner Jacinto. [address] [facility], [address], [place], [place], [address], [place]. tel:[phone] , [facility] [facility] [address], [place], [address].Referr ing Provider: Toña Irvin, [facility] [facility] [address], [place], [address]. tel:[phone] [facility], [address], [place], [place], [address] , [place] tel:[phone] [facility] [place] back pain (chief complaint) No Information 4 Devin Banks. [address], [address], [place], [place], [address], [place]. tel:[phone] Waldemar Encinas.Re ferring Provider: Waldemar Parker, [address] [facility] [address], [place], [address]. tel:[phone] [facility], [address], [place], [place], [address] , [place] tel:[phone] [facility] [place] No Information 4 Kostiner Jacinto. [address], [place], [place], [address], [place]. tel:[phone] Referring Provider: Waldemar Parker, [address] [facility] [address], [place], [address]. tel:[phone] OFFICE/OUTPAT IENT VISIT, EST [facility], [address], [place], [place], [address] , [place] tel:[phone] [facility] [place] back pain (chief complaint) No Information 4 Beltran Darren. [address], [address], [facility], [place], [address], [place]. tel:[phone] Waldemar Encinas.Re ferring Provider: Waldemar Parker, [address], [place], [address]. tel:[phone] [facility], [address], [place], [place], [address] , [place] tel:[phone] [facility] [place] back pain (chief complaint) No Information 4 Beltran Darren. [address], [address], [facility], [place], [address], [place]. tel:[phone] Waldemar Encinas.Re ferring Provider: Himanshu Buck, [address], [place], [address]. tel:[phone] OFFICE/OUTPAT IENT VISIT, EST [facility], [address], [place], [place], [address] , [place] tel:[phone] [facility] [place] back pain (chief complaint) No Information 4 Beltran Darren. [address], [address], [facility], [place], [address], [place]. tel:[phone] Waldemar Encinas.Re ferring Provider: Himanshu Buck, [address], [place], [address]. tel:[phone] OFFICE/OUTPAT IENT VISIT, EST [facility], [address], [place], [place], [address] , [place] tel:[phone] [facility] [place] back pain (chief complaint) No Information 4 Beltran Darren. [address], [address], [facility], [place], [address], [place]. tel:[phone] Waldemar Encinas.[facility] Provider: Himanshu Buck, [address], [place], [address]. tel:[phone] [facility], [address], [place], [place], [address] , [place] tel:[phone] [facility] [place] back pain (chief complaint) No Information 4 Beltran Darren. [address], [address], [place], [place], [address], [place]. tel:[phone] Waldemar Encinas.[facility] Provider: Himanshu Buck, [address], [place], [address]. tel:[phone] [facility], [address], [place], [place], [address] , [place] tel:[phone] [facility] No Information 4 Teo Caro. [address], [address], [place]. tel:[phone] Referring Provider: Waldemar Parker, [address] [place], [place] [address] [address], [place], [address]. tel:[phone] OFFICE/OUTPAT IENT VISIT, EST [facility], [address], [place], [place], [address] , [place] tel:[phone] [facility] [place] hematuria (chief complaint) No Information 4 Gurmeet Casey. [address] [facility], [address], [address], [place], [place], [address], [place]. tel:[phone] <list xmlns='[email or web address]'>< item>Primary Practice Provider: Waldemar Encinas, [address] [facility] [address], [place], [address]. tel:[phone]</item> <item> .</item><ite m>Referring Provider: Waldemar Parker, [address], [place], [address]. tel:[phone]</item> </list> [facility], [address], [place], [place], [address] , [place] tel:[phone] [facility] No Information 4 Gurmeet Casey. [address] [facility], [address], [place], [place], [address], [place]. tel:[phone] Referring Provider: Jacinto Napoles, [address] [facility] [address], [address], [place], [address]. tel:[phone] OFFICE CONSULTATION [facility], [address], [place], [place], [address] , [place] tel:[phone] [facility] hematuria (chief complaint) No Information 0 4 Gurmeet Casey. [address] [facility], [address], [address], [place], [place], [address], [place]. tel:[phone] Primary Practice Provider: Waldemar Encinas, [address] [facility] [address], [place], [address]. tel:[phone] Provider: Waldemar Parker, [address] [facility] [address], [place], [address]. tel:[phone] [facility], [address], [place], [place], [address] , [place] tel:[phone] [facility] [place] back pain (chief complaint) No Information Nov- 4 Beltran Darren. [address], [address], [place], [place], [address], [place]. tel:[phone] Referring Provider: [address], [place], [address]. tel:[phone] OFFICE/OUTPAT IENT VISIT, EST [facility], [address], [place], [place], [address] , [place] tel:[phone] [facility] [place] back pain (chief complaint) No Information 4 Beltran Darren. [address], [place], [place], [address], [place]. tel:[phone] Referring Provider: [address], [place], [address]. tel:[phone] OFFICE/OUTPAT IENT VISIT, EST [facility], [address], [place], [place], [address] , [phone] [facility] lumbar spine (chief complaint) No Information 3 Beltran Darren. [address], [place], [place], [address], [place]. tel:[phone] Referring Provider: [place], [address]. tel:[phone] [facility], [address], [place], [place], [address] , [phone] [facility] hip (chief complaint)nancy mbar spine (chief complaint) No Information 3 Beltran Darren. [address], [place], [place], [address], [place]. tel:[phone] Referring Provider: [place], [address]. tel:[phone] [facility], [address], [place], [place], [address] , [place] [phone] [facility] [place] back pain (chief complaint) No Information 3 Beltran Darren. [address] [place], [place], [address], [place]. tel:[phone] Referring Provider: [place], [address]. tel:[phone] Family History Family Member Type Diagnosis Age At Onset Father Problem (finding) diabetes melli tus in first degree relative Payers Payer name Insurance type Covered libertarian ID Authoriza tion(s) Medicare MB [id number] Social History Type Description Quantity Date Captured Comments Alcohol Use Details Unknown Caffeine Use Details Unknown Tobacco Use Status Smoking Status No Information Sex Male Chief Complaint And Reason For Visit No Information Reason For Referral Reason For Referral No Information Plan Of Treatment Date Type Action Status Goal Colonoscopy. Due on due Goal PSA. Due on due Goal Shingrix #2. Due on due Goal Depression scree low. Due on due Goal H&P. Due on due Goal Influenza Vaccine. Due on due Goal Zoster vaccine ( ). Due on due Goal Shingrix #1. Due on due Goal Lipid panel. Due on due Goal Document TOB Sta tus\ Cessation Advice. Due on due Goal FOBT. Due on due Goal Sigmoidoscopy. Due on due Goal Td vaccine. Due on due Goal Tdap. Due on due Goal Lifestyle education regardin g diet completed Goal Depression scree low. Due on due Goal FOBT. Due on due Goal Shingrix #1. Due on due Goal Lipid panel. Due on due Goal Td vaccine. Due on due Goal Shingrix #2. Due on due Goal Colonoscopy. Due on due Goal Influenza Vaccine. Due on due Goal Zoster vaccine ( 1st). Due on due Goal Sigmoidoscopy. Due on due Goal Document TOB Sta tus\ Cessation Advice. Due on due Goal Tdap. Due on due Goal PSA. Due on due Goal H&P. Due on due Goal FOBT. Due on due Goal Depression scree low. Due on due Goal Tdap. Due on due Goal Td vaccine. Due on 20 due Goal Shingrix #1. Due on due Goal Lipid panel. Due on due Goal Sigmoidoscopy. Due on due Goal H&P. Due on due Goal Shingrix #2. Due on due Goal Colonoscopy. Due on due Goal Document TOB Sta tus\ Cessation Advice. Due on due Goal Influenza Vaccine. Due on due Goal Zoster vaccine ( 1st). Due on due Goal PSA. Due on due Goal PSA. Due on due Goal Shingrix #2. Due on due Goal FOBT. Due on due Goal Tdap. Due on due Goal Depression scree low. Due on due Goal Document TOB Sta tus\ Cessation Advice. Due on due Goal Sigmoidoscopy. Due on due Goal Colonoscopy. Due on due Goal Lipid panel. Due on due Goal Influenza Vaccine. Due on due Goal Shingrix #1. Due on due Goal Zoster vaccine ( ). Due on due Goal Td vaccine. Due on due Goal H&P. Due on due Goal H&P. Due on due Goal PSA. Due on due Goal Influenza Vaccine. Due on due Goal Lipid panel. Due on due Goal Colonoscopy. Due on due Goal Zoster vaccine ( ). Due on due Goal Document TOB Sta tus\ Cessation Advice. Due on due Goal Lipid panel. Due on due Goal Sigmoidoscopy. Due on due Goal FOBT. Due on due Goal Shingrix #2. Due on due Goal Tdap. Due on due Goal Depression scree low. Due on due Goal Shingrix #1. Due on due Goal Td vaccine. Due on due Goal Lifestyle education regardin g diet completed Goal Shingrix #1. Due on due Goal FOBT. Due on due Goal Colonoscopy. Due on due Goal Influenza Vaccine. Due on due Goal Td vaccine. Due on due Goal Sigmoidoscopy. Due on due Goal Document TOB Sta tus\ Cessation Advice. Due on due Goal Tdap. Due on due Goal Depression scree low. Due on due Goal H&P. Due on due Goal Shingrix #2. Due on due Goal Prescribed diet education co mpleted Goal FOBT. Due on due Goal Colonoscopy. Due on due Goal Td vaccine. Due on due Goal Influenza Vaccine. Due on due Goal Document TOB Sta tus\ Cessation Advice. Due on due Goal H&P. Due on due Goal Shingrix #1. Due on due Goal Depression scree low. Due on due Goal Tdap. Due on due Goal Sigmoidoscopy. Due on due Goal Shingrix #2. Due on due Goal Sigmoidoscopy. Due on due Goal Document TOB Sta tus\ Cessation Advice. Due on due Goal Td vaccine. Due on due Goal Influenza Vaccine. Due on due Goal Shingrix #1. Due on due Goal Tdap. Due on due Goal FOBT. Due on due Goal H&P. Due on due Goal Colonoscopy. Due on due Goal Shingrix #2. Due on due Goal Depression scree low. Due on due Goal Shingrix #1. Due on due Goal FOBT. Due on due Goal Influenza Vaccine. Due on due Goal Colonoscopy. Due on due Goal Td vaccine. Due on 19 due Goal H&P. Due on due Goal Sigmoidoscopy. Due on due Goal Depression scree low. Due on due Goal Shingrix #2. Due on due Goal Tdap. Due on due Goal Document TOB Sta tus\ Cessation Advice. Due on due Goal Lifestyle education regardin g diet completed Goal Document TOB Sta tus\ Cessation Advice. Due on due Goal Sigmoidoscopy. Due on due Goal Colonoscopy. Due on due Goal Tdap. Due on due Goal Influenza Vaccine. Due on due Goal H&P. Due on due Goal Depression scree low. Due on due Goal Hepatitis C Screen. Due on due Goal Shingrix #1. Due on due Goal Td vaccine. Due on due Goal FOBT. Due on due Goal Shingrix #2. Due on due Goal Tdap. Due on due Goal Colonoscopy. Due on due Goal Sigmoidoscopy. Due on due Goal FOBT. Due on due Goal Shingrix #1. Due on due Goal H&P. Due on due Goal Td vaccine. Due on due Goal Depression scree low. Due on due Goal Document TOB Sta tus\ Cessation Advice. Due on due Goal Influenza Vaccine. Due on due Goal Shingrix #2. Due on due Goal Td vaccine. Due on due Goal Shingrix #2. Due on due Goal Influenza Vaccine. Due on due Goal Document TOB Sta tus\ Cessation Advice. Due on due Goal Tdap. Due on due Goal Depression scree low. Due on due Goal Shingrix #1. Due on due Goal FOBT. Due on due Goal Sigmoidoscopy. Due on due Goal Colonoscopy. Due on due Goal H&P. Due on due Goal FOBT. Due on due Goal Colonoscopy. Due on due Goal Depression scree low. Due on due Goal Document TOB Sta tus\ Cessation Advice. Due on due Goal H&P. Due on due Goal Shingrix #1. Due on due Goal Shingrix #2. Due on due Goal Tdap. Due on due Goal Influenza Vaccine. Due on due Goal Sigmoidoscopy. Due on due Goal Td vaccine. Due on due Goal Td vaccine. Due on due Goal Colonoscopy. Due on due Goal Depression scree low. Due on due Goal Document TOB Sta tus\ Cessation Advice. Due on due Goal FOBT. Due on due Goal Shingrix #2. Due on due Goal Sigmoidoscopy. Due on due Goal Shingrix #1. Due on due Goal Influenza Vaccine. Due on due Goal H&P. Due on due Goal Tdap. Due on due Goal FOBT. Due on due Goal Influenza Vaccine. Due on due Goal Sigmoidoscopy. Due on due Goal Shingrix #1. Due on due Goal Td vaccine. Due on 18 due Goal Depression scree low. Due on due Goal Colonoscopy. Due on due Goal Document TOB Sta tus\ Cessation Advice. Due on due Goal Shingrix #2. Due on due Goal H&P. Due on due Goal Tdap. Due on due Goal H&P. Due on due Goal Sigmoidoscopy. Due on due Goal Td vaccine. Due on due Goal Shingrix #1. Due on due Goal Colonoscopy. Due on due Goal Shingrix #2. Due on due Goal FOBT. Due on due Goal Depression scree low. Due on due Goal Tdap. Due on due Goal Influenza Vaccine. Due on due Goal Document TOB Sta tus\ Cessation Advice. Due on due Goal Td vaccine. Due on due Goal Colonoscopy. Due on due Goal Sigmoidoscopy. Due on due Goal Influenza Vaccine. Due on due Goal Document TOB Sta tus\ Cessation Advice. Due on due Goal FOBT. Due on due Goal Depression scree low. Due on due Goal Tdap. Due on due Goal H&P. Due on due Goal Shingrix #2. Due on due Goal Shingrix #1. Due on due Goal Prescribed dietary intake co mpleted Goal Colonoscopy. Due on due Goal Sigmoidoscopy. Due on due Goal Influenza Vaccine. Due on due Goal H&P. Due on due Goal Shingrix #2. Due on due Goal FOBT. Due on due Goal Document TOB Sta tus\ Cessation Advice. Due on due Goal Tdap. Due on due Goal Depression scree low. Due on due Goal Td vaccine. Due on due Goal Shingrix #1. Due on due Goal H&P. Due on due Goal FOBT. Due on due Goal Depression scree low. Due on due Goal Td vaccine. Due on 18 due Goal Document TOB Sta tus\ Cessation Advice. Due on due Goal Colonoscopy. Due on due Goal Sigmoidoscopy. Due on due Goal YFM Shingles. Due on 2017 due Goal Tdap. Due on due Goal Influenza Vaccine. Due on due Goal Sigmoidoscopy. Due on due Goal Influenza Vaccine. Due on due Goal FOBT. Due on due Goal Tdap. Due on due Goal H&P. Due on due Goal Depression scree low. Due on due Goal Td vaccine. Due on 18 due Goal Document TOB Sta tus\ Cessation Advice. Due on due Goal Colonoscopy. Due on due Goal Influenza Vaccine. Due on due Goal Tdap. Due on due Goal FOBT. Due on due Goal Document TOB Sta tus\ Cessation Advice. Due on due Goal H&P. Due on due Goal Colonoscopy. Due on due Goal Sigmoidoscopy. Due on due Goal Td vaccine. Due on 18 due Goal Depression scree low. Due on due Goal Influenza Vaccine. Due on due Goal Tdap. Due on due Goal Document TOB Sta tus\ Cessation Advice. Due on due Goal Colonoscopy. Due on due Goal Depression scree low. Due on due Goal FOBT. Due on due Goal H&P. Due on due Goal Sigmoidoscopy. Due on due Goal Td vaccine. Due on 17 due Goal FOBT. Due on due Goal Document TOB Sta tus\ Cessation Advice. Due on due Goal Colonoscopy. Due on due Goal Tdap. Due on due Goal H&P. Due on due Goal Depression scree low. Due on due Goal Influenza Vaccine. Due on due Goal Td vaccine. Due on due Goal Sigmoidoscopy. Due on due Goal Depression scree low. Due on due Goal Influenza Vaccine. Due on due Goal Document TOB Sta tus\ Cessation Advice. Due on due Goal Colonoscopy. Due on due Goal Sigmoidoscopy. Due on due Goal FOBT. Due on due Goal H&P. Due on due Goal Tdap. Due on due Goal Td vaccine. Due on due Goal Td vaccine. Due on due Goal Tdap. Due on due Goal Depression scree low. Due on due Goal Colonoscopy. Due on due Goal FOBT. Due on due Goal Sigmoidoscopy. Due on due Goal Influenza Vaccine. Due on due Goal H&P. Due on due Goal Document TOB Sta tus\ Cessation Advice. Due on due Goal H&P. Due on due Goal Influenza Vaccine. Due on due Goal Depression scree low. Due on due Goal Tdap. Due on due Goal Sigmoidoscopy. Due on due Goal Document TOB Sta tus\ Cessation Advice. Due on due Goal Colonoscopy. Due on 017 due Goal Td vaccine. Due on 17 due Goal FOBT. Due on due Goal Td vaccine. Due on 17 due Goal H&P. Due on due Goal Influenza Vaccine. Due on due Goal Depression scree low. Due on due Goal Document TOB Sta tus\ Cessation Advice. Due on due Goal Tdap. Due on due Goal Depression scree low. Due on due Goal Influenza Vaccine. Due on due Goal Td vaccine. Due on due Goal H&P. Due on due Goal Document TOB Sta tus\ Cessation Advice. Due on due Goal Tdap. Due on due Goal Tdap. Due on due Goal Td vaccine. Due on due Goal H&P. Due on due Goal Depression scree low. Due on due Goal Document TOB Sta tus\ Cessation Advice. Due on due Goal Influenza Vaccine. Due on due Goal Tdap. Due on due Goal H&P. Due on due Goal Depression scree low. Due on due Goal Document TOB Sta tus\ Cessation Advice. Due on due Goal Td vaccine. Due on 16 due Goal Influenza Vaccine. Due on No due Goal Dietary manageme nt education, guidance, and counseling completed Goal Document TOB Sta tus\ Cessation Advice. Due on due Goal Tdap. Due on due Goal Td vaccine. Due on 16 due Goal H&P. Due on due Goal Influenza Vaccine. Due on No due Goal Depression scree low. Due on due Goal H&P. Due on due Goal Depression scree low. Due on due Goal Td vaccine. Due on 16 due Goal Influenza Vaccine. Due on No due Goal Tdap. Due on due Goal Document TOB Sta tus\ Cessation Advice. Due on due Goal H&P. Due on due Goal Document TOB Sta tus\ Cessation Advice. Due on due Goal Influenza Vaccine. Due on due Goal Td vaccine. Due on 16 due Goal Tdap. Due on due Goal Depression scree low. Due on due Goal Depression scree low. Due on due Goal Tdap. Due on due Goal Influenza Vaccine. Due on due Goal Td vaccine. Due on 16 due Goal H&P. Due on due Goal Document TOB Sta tus\ Cessation Advice. Due on due Goal Influenza Vaccine. Due on due Goal Depression scree low. Due on due Goal Tdap. Due on due Goal Td vaccine. Due on 16 due Goal H&P. Due on due Goal Document TOB Sta tus\ Cessation Advice. Due on due Goal Depression scree low. Due on due Goal Document TOB Sta tus\ Cessation Advice. Due on due Goal H&P. Due on due Goal Influenza Vaccine. Due on due Goal Td vaccine. Due on 16 due Goal Tdap. Due on due Patient Education The Spine: Anatomy Sket completed Patient Education Ankylosing Spondylitis: Exercises completed Patient Education Ankylosing Spondylitis: Exercises completed Patient Education Back Care and Preventin g Injuries: Ca~ completed Patient Education The Spine: Anatomy Sket completed Patient Education The Spine: Anatomy Sket completed Patient Education The Spine: Anatomy Sket completed Patient Education Ankylosing Spondylitis: Exercises completed Patient Education Musculoskeletal Pain: C are Instructio~ completed Patient Education Recurring Migraine Head ache: Care Ins~ completed Patient Education Medial Branch Neurotomy : What to Expe~ completed Patient Education The Spine: Anatomy Sket completed Patient Education Musculoskeletal Pain: C are Instructio~ completed Patient Education Musculoskeletal Pain: C are Instruction completed Patient Education Musculoskeletal Pain: C are Instruction completed Patient Education Migraine Headache: Care Instructions completed Patient Education Medial Branch Neurotomy : Before Your P completed Patient Education Musculoskeletal Pain: C are Instruction completed Patient Education Ankylosing Spondylitis: Care Instructi completed Patient Education Headache: Care Instruct ions completed Patient Education Blood in the Urine: Aft er Your Visit completed Future Order: Lab Order Prostate -Specific, Ag Serum (dPSA), Scheduled for: , Scheduled for: Sent Future Order: Lab Order Prostate -Specific, Ag Serum (dPSA), Scheduled for: , Scheduled for: Sent Future Order: Lab Order Prostate -Specific, Ag Serum (dPSA), Ordered on: Ordered Future Order: Lab Order Urinalys is, Complete (UA w/micro), Scheduled for: Ordered Future Order: Lab Order URINE CY TOLOGY (URO1), Scheduled for: Ordered Future Order: Lab Order Urinalys is, Complete (UA w/micro), Ordered on: Ordered Future Order: Lab Order Urinalys is, Complete (UA w/micro), Ordered on: Ordered Future Order: Lab Order Urine Cy tology and FISH if Positive ([id number]), Appointment on: , Sent on: Sent Future Order: Lab Order Urine Cy tology and FISH if Positive ([id number]), Appointment on: , Sent on: Sent Future Order: Lab Order Urine Cy tology and FISH if Positive ([id number]), Appointment on: , Sent on: Sent Future Order: Lab Order Urine Cy tology and FISH if Positive ([id number]), Appointment on: , Sent on: Sent Future Order: Lab Order Creatini ne, Serum AU (CREATi AU), Appointment on: , Sent on: Sent Future Order: Lab Order BUN AU ( BUN AU), Appointment on: , Sent on: Sent History Of Present Illness Encounter Date Complaint History Of Prese nt Illness Follow Up of Migraine Onset: 40 years ago. It occurs monthly. The problem is improving. Location is frontal left, frontal right and occipital. There is no radiation. The patient describes it as dull, pressure and throbbing. Timing of headache: daytime. Context: history of migraine. Symptom is aggravated by bright lights, noise and smell. Relieving factors include darkness, prescription drugs and sleep. Associated symptoms include phonophobia and photophobia. Pertinent negatives include vomiting. Additional information: Mr. Jerez presents today for follow up of Migraine, patient reports that he has not had any migraines since his last visit. He has had 3-4 mild headaches, that lasted about 1 hr. He continues to take Gabapentin and and Methocarbamol as prescribed with good results. back pain Onset: gradual w ithout injury. Severity level is moderate-severe. It occurs persistently. Location of pain is lower back. back pain Onset: gradual w ithout injury. Severity level is moderate-severe. It occurs persistently. Location of pain is lower back. back pain Onset: gradual w ithout injury. Severity level is moderate-severe. It occurs persistently. Location of pain is lower back. Follow Up of Migraine (comments) Gabapentin continues to help with the headaches. Follow Up of Migraine Onset: 40 years ago. It occurs monthly. The problem is improving. Location is frontal left, frontal right and occipital. There is no radiation. The describes it as dull, pressure and throbbing. Timing of headache: daytime. Context: history of migraine. Symptom is aggravated by bright lights, noise and smell. Relieving factors include darkness, prescription drugs and sleep. Pertinent negatives include dizziness, fever, memory impairment, nausea and vomiting. Additional information: Mr. Jerez presents today for follow up of Migraine has kept a log of headaches and is having 4-12 headache days and migraines day combined every month. States that since increasing Gabapentin he has noticed an improvement in his headaches and migraines. BPH The problem is w orse. Reviewed today was a PSA taken on 08/13/2019 with findings of 1.180 ng/mL. PSA taken on 08/19/2018 with findings of 1.290 ng/mL. PSA taken on 08/20/2017 with findings of 1.860 ng/mL. Pertinent history includes delayed voiding with Tramadol. Associated symptoms include hematuria (microscopic) and nocturia (1 times per night). Pertinent negatives include chills, constipation, dysuria, fever, incomplete emptying, intermittent stream, pressure, slow stream, urgency, urinary incontinence, dribbling and urinary frequency. hematuria The patient pres ents with hematuria (microscopic). The problem began 4 years ago. The symptoms are intermittent. The problem has improved. He denies pain. Pertinent history includes being at least 42 years of age and mother with melanoma but not history of bladder cancer, history of irritative voiding symptoms, prior history of stones, history of prostate cancer, history of renal cancer, history of UTIs, family history of stones, prior prostate surgeries, exposure to radiation or smoking. Denies aggravating factors. Denies relieving factors. He also complains of secondhand smoke. He denies chills, dysuria, fever, incomplete emptying, intermittent stream, nausea, nocturia, pressure, slow stream, urinary dribbling, urinary frequency, urinary hesitancy, urinary incontinence, urgency and vomiting. Reviewed today was a CT Urogram taken on 01/07/2014 with normal findings. Cystoscopy taken on 01/15/2014 with normal findings. Cytology taken on 07/09/2015 with findings of benign. Renal ultrasound taken on 06/29/2015 with normal findings. back pain Onset: gradual w ithout injury. Severity level is moderate-severe. Location of pain is lower back. back pain Onset: gradual w ithout injury. Severity level is moderate-severe. It occurs persistently. Location of pain is lower back. Follow Up of Migraine (comments) The Gabapentin has helped with decreasing amount of the migraines with the increase dosage to 600 mg. Follow Up of Migraine Onset: 40 years ago. It occurs intermittently. The problem is improving. Location is frontal left, frontal right and occipital. There is radiation to neck. The describes it as dull, pressure and throbbing. Timing of headache: daytime. Context: history of migraine. Symptom is aggravated by bright lights, noise and smell. Relieving factors include darkness, prescription drugs and sleep. Pertinent negatives include dizziness, fever, memory impairment, nausea and vomiting. Additional information: Mr. Jerez is present for a 6 month f/u of Migraine and states that he has increased the Gabapentin and it has been improving only had 2 migraines in the past 6 months and was able to prevent 2 of the migraines by taking Methocarbamol 2 tablets and goes in the hot shower and go sleep and it improves. back pain Onset: gradual w ithout injury. Severity level is moderate-severe. It occurs persistently. Location of pain is lower back. back pain Onset: gradual w ithout injury. Severity level is moderate-severe. It occurs persistently. Location of pain is lower back. back pain Onset: gradual w ithout injury. Severity level is moderate-severe. It occurs persistently. Location of pain is lower back. back pain Onset: gradual w ithout injury. Severity level is moderate-severe. It occurs persistently. Location of pain is lower back. Headache Onset: 40 years ago. It occurs intermittently. The problem is improving. Location is frontal left, frontal right and occipital. There is radiation to neck. The patient describes it as dull, pressure and throbbing. Timing of headache: daytime. Context: history of migraine. Symptom is aggravated by bright lights, noise and smell. Relieving factors include darkness, prescription drugs and sleep. Associated symptoms include nausea, neck stiffness and photophobia. Additional information: Mr. Jerez is here for his yearly follow up of his migraine headaches. He stated he is having about 2-3 migraines a month. He usually takes an extra Methocarbamol and go lay down and it usually improve the headaches. back pain Onset: gradual w ithout injury. Severity level is moderate-severe. It occurs persistently. Location of pain is lower back. back pain Onset: gradual w ithout injury. Severity level is moderate-severe. It occurs persistently. Location of pain is lower back. hematuria The patient pres ents with hematuria (microscopic). The problem began 4 years ago. The symptoms are intermittent. The problem has improved. He denies pain. Pertinent history includes being at least 42 years of age and mother with melanoma but not history of bladder cancer, history of irritative voiding symptoms, prior history of stones, history of prostate cancer, history of renal cancer, history of UTIs, family history of stones, prior prostate surgeries, exposure to radiation or smoking. Denies aggravating factors. Denies relieving factors. He also complains of secondhand smoke. He denies chills, dysuria, fever, incomplete emptying, intermittent stream, nausea, nocturia, pressure, slow stream, urinary dribbling, urinary frequency, urinary hesitancy, urinary incontinence, urgency and vomiting. Reviewed today was a CT Urogram taken on 01/07/2014 with normal findings. Cystoscopy taken on 01/15/2014 with normal findings. Cytology taken on 07/09/2015 with findings of benign. Renal ultrasound taken on 06/29/2015 with normal findings. BPH The problem is w ith no change. Reviewed today was a PSA taken on 08/20/2017 with findings of 1.860 ng/mL. Pertinent history includes delayed voiding with Tramadol. Associated symptoms include hematuria (microscopic). Pertinent negatives include chills, constipation, dysuria, fever, incomplete emptying, intermittent stream, nocturia, pressure, slow stream, urgency, urinary incontinence, dribbling and urinary frequency. back pain Onset: gradual w ithout injury. Severity level is moderate-severe. It occurs persistently. Location of pain is lower back. back pain Onset: gradual w ithout injury. Severity level is moderate-severe. It occurs persistently. Location of pain is lower back. pain medication headache/shoulder back pain Onset: gradual w ithout injury. Severity level is moderate-severe. It occurs persistently. Location of pain is lower back. Follow Up of Migraine It occurs intermittently. The problem is improving. Location is occipital. There is radiation to anterior. The patient describes it as pressure and throbbing. Timing of headache: daytime. Context: history of migraine. Denies aggravating factors. Relieving factors include ice and relaxation. Pertinent negatives include dizziness, fever, memory impairment, nausea and vomiting. Additional information: He stated that his headaches have decreased to once a month and usually if the migraine pain is severe he may take Ibuprofen 800 mg and go to bed. He continue to take the Gabapentin and the Methocarbamol. Follow Up of Migraine (comments) His left hip pain is better and still have good days and bad days. He does follow up with Dr. Beltran. pain medication shoulder back pain Onset: gradual w ithout injury. Severity level is moderate. Location of pain is lower back. BPH The problem is w ith no change. Pertinent history includes delayed voiding with Tramadol. Associated symptoms include hematuria (microscopic). Pertinent negatives include chills, constipation, dysuria, fever, incomplete emptying, intermittent stream, nocturia, pressure, slow stream, urgency, urinary incontinence, dribbling and urinary frequency. hematuria The patient pres ents with hematuria (microscopic). The problem began 3 years ago. The symptoms are intermittent. The problem has improved. He denies pain. Pertinent history includes being at least 42 years of age and mother with melanoma but not history of bladder cancer, history of irritative voiding symptoms, prior history of stones, history of prostate cancer, history of renal cancer, history of UTIs, family history of stones, prior prostate surgeries, exposure to radiation or smoking. Denies aggravating factors. Denies relieving factors. He also complains of secondhand smoke. He denies chills, dysuria, fever, incomplete emptying, intermittent stream, nausea, nocturia, pressure, slow stream, urinary dribbling, urinary frequency, urinary hesitancy, urinary incontinence, urgency and vomiting. Reviewed today was a CT Urogram taken on 01/07/2014 with normal findings. Cystoscopy taken on 01/15/2014 with normal findings. Cytology taken on 07/09/2015 with findings of benign. Renal ultrasound taken on 06/29/2015 with normal findings. back pain Onset: gradual w ithout injury. Severity level is moderate. Location of pain is lower back. back pain Onset: gradual w ithout injury. Severity level is moderate-severe. It occurs persistently. Location of pain is lower back. pain medication pain medication back pain Onset: gradual w ithout injury. Severity level is moderate-severe. It occurs persistently. Location of pain is lower back. functional capacity evaluation back pain Onset: gradual w ithout injury. Severity level is moderate-severe. It occurs persistently. Location of pain is lower back. pain medication back pain Onset: gradual w ithout injury. Severity level is moderate. Location of pain is lower back. pain medication Follow Up of Migraine Onset: 30 years ago. Duration: varies. The problem is improving. Location is frontal right and ocular right. There is no radiation. The patient describes it as blinding and throbbing. Context: family history of migraine and history of migraine. Symptom is aggravated by bright lights and noise. Relieving factors include darkness and heat. Associated symptoms include neck stiffness, performance changes, phonophobia and photophobia. Pertinent negatives include dizziness, fever, memory impairment, nausea and vomiting. Additional information: Since last visit about a year ago his migraines is under control. Mr. Jerez says he has had two bad headaches since last visit. No migraines since last visit. He continue to take the Gabapentin and the Robaxin and tolerating well. Follow Up of Pain in the left hi p The symptoms are reported as being mild. The symptoms occur constantly. Associated symptoms include medication,. He states the symptoms are chronic. He continues to follow up with Dr. Beltran for steroid injection if his hip hurt. He has been walking his dog and it has helped with the hip pain. He noted that now he can walk steady for 3 hours. hematuria The patient pres ents with hematuria (microscopic). The problem began 2 years ago. The symptoms are intermittent. The problem has improved. He denies pain. Pertinent history includes being at least 42 years of age and mother with melanoma but not history of bladder cancer, history of irritative voiding symptoms, prior history of stones, history of prostate cancer, history of renal cancer, family history of stones, exposure to radiation or smoking. Denies aggravating factors. Denies relieving factors. He also complains of secondhand smoke. He denies chills, fever, intermittent stream, nausea, slow stream, urinary hesitancy and vomiting. Reviewed today was a CT Urogram taken on 01/07/2014 with normal findings. Cystoscopy taken on 01/15/2014 with normal findings. Cytology taken on 07/09/2015 with findings of benign. Renal ultrasound taken on 06/29/2015 with normal findings. Additional information: 08/01/16: UA RBC 0-2.07/09/15: UA RBC 10-20.12/25/13: UA blood mod.He has had more than 3 positive UA's for blood since April 2013. BPH The problem is w ith no change. Associated symptoms include hematuria (microscopic). Pertinent negatives include chills, constipation, dysuria, fever, incomplete emptying, intermittent stream, nocturia, pressure, slow stream, urgency, urinary incontinence, dribbling and urinary frequency. pain medication back pain Onset: gradual w ithout injury. Severity level is moderate. Location of pain is lower back. back pain Onset: gradual w ithout injury. Severity level is moderate-severe. It occurs persistently. Location of pain is lower back. pain medication Follow Up of Migraine (comments) He still have a very mild headaches about 1-2 times a week and they last for a few minutes up to couple of hours. He usually does not take something right away but if the pain persist he will take Tylenol after 30 minutes. He is doing well overall. Follow Up of Migraine Onset: 30 years ago. It occurs intermittently. The problem is improving. Location is frontal right, parietal right and occipital. There is radiation to posterior and neck. The patient describes it as blinding and throbbing. Context: family history of migraine and history of migraine. Symptom is aggravated by bright lights and noise. Relieving factors include darkness, heat, prescription drugs, relaxation, sleep and Robaxin twice a day. Associated symptoms include nausea, neck stiffness, performance changes, phonophobia, photophobia and vomiting. Pertinent negatives include blurred vision, clear sinus drainage, dizziness, double vision, fever, hemianopsia left, hemianopsia right, loss of consciousness, memory impairment, neurological symptoms, personality change, scintillations, scotoma, URI like symptoms, vertigo, vision loss left, vision loss right and visual aura. Additional information: Pt reports no migraines since he was seen last 6 motnhs ago. He does report good progress, he does reporst slight headaches that are intermitten and brief but stable he states. Pt on new cholesterol medication added and but otherwise doing well Pt is moving this week and is having some lower backpain. Follow Up of Lumbar stenosis (comments) He continues to have intermittent sharp pain in the back ( like a pintch) he feel week on his legs and that usually last a split second than improved. It usually occurs when he does goes down a step and sometimes can be trigger by walking about 10 steps. Few weeks ago he went to [employer] at the end he felt he could barrely walk and almost need it a wheechair.The Lidoderm patch helps some, in the past took Gabapentin for the itching sensation on his big toe and we discuss tried again to help with the lumbar radiculopathy and the headaches. Follow Up of Lumbar stenosis int ermitten lower nack pain, pt does see Dr. Beltran and he states he may be getting an injection soon after mocing this week, Toradol. back pain Onset: gradual w ithout injury. Severity level is moderate-severe. It occurs persistently. hip pain medication back pain Onset: gradual w ithout injury. Severity level is moderate-severe. It occurs persistently. pain medication hip back pain Onset: gradual w ithout injury. Severity level is moderate-severe. It occurs persistently. hip Migraine Onset: 30 years ago. It occurs monthly. The problem is improving. Location is frontal right, parietal right and occipital. There is radiation to posterior and neck. The patient describes it as blinding and throbbing. Context: family history of migraine and history of migraine. Symptom is aggravated by bright lights and noise. Relieving factors include darkness, heat, relaxation and sleep. Associated symptoms include nausea, performance changes, phonophobia, photophobia and vomiting. Pertinent negatives include blurred vision, clear sinus drainage, dizziness, double vision, fever, hemianopsia left, hemianopsia right, loss of consciousness, memory impairment, neck stiffness, neurological symptoms, personality change, scintillations, scotoma, URI like symptoms, vertigo, vision loss left, vision loss right and visual aura. Additional information: patient had lower back surgery in July 2015 and no migraines since the back surgery. Migraine (comments) Mr. Jerez is here today for follow up of his chronic migraines which have improved significantly since the last visit. He had about 4 headaches since Thanksgiving after his lumbar spine surgery. The migraines were not severe as before and he has been doing well. He does take the Robaxin one tablet twice a day. No new complaints. Lumbar stenosis (comments) His b ack pain is doing better since Dr. Saxena did her surgery. His right toes numbness and itching has improved and he than has stop the Gabapentin. He still have pain on the left hip intermittent. Lumbar stenosis Flank pain Onset was 2 to 3 months ago. Severity level is 3. Reviewed today was a Renal ultrasound taken on 06/29/2015 with normal findings. Location of pain is left flank. There is no prior history of stones. There have not been any recent ER visits. No prior pertinent history. There are no aggravating factors. Relieving factors include medication therapy with Tramadol. Associated symptoms include hematuria. Pertinent negatives include chills, constipation, diarrhea, fever, nausea, pain and vomiting. Additional information: Having back surgery in 1 week. hematuria The patient pres ents with hematuria (microscopic). The problem began 1 year ago. The symptoms are intermittent. The problem is unchanged. He denies pain. Pertinent history includes being at least 42 years of age and mother with melanoma but not history of bladder cancer, history of irritative voiding symptoms, prior history of stones, history of prostate cancer, history of renal cancer, exposure to radiation or smoking. Denies aggravating factors. Denies relieving factors. He also complains of secondhand smoke. He denies chills, fever, intermittent stream, nausea, slow stream, urinary hesitancy and vomiting. Reviewed today was a CT Urogram taken on 01/07/2014 with normal findings. Cystoscopy taken on 01/15/2014 with normal findings. Cytology taken on 07/09/2015 with findings of benign. Renal ultrasound taken on 06/29/2015 with normal findings. Additional information: 07/09/15: UA RBC -20.12/25/13: UA blood mod.He has had more than 3 positive UA's for blood since 04/2013. back pain Onset: gradual w ithout injury. Severity level is moderate-severe. It occurs persistently. Additional information: pt states pain level is a 5 today. back pain Onset: gradual w ithout injury. Severity level is moderate-severe. It occurs persistently. Additional information: pt states pain level is a 6 today. pain medications back pain Onset: gradual w ithout injury. Severity level is moderate-severe. It occurs persistently. Additional information: pt states pain level is a 3 today. back pain Onset: gradual w ithout injury. Severity level is moderate-severe. It occurs persistently. Additional information: pt states pain level is a 8 today. hip back pain Onset: gradual w ithout injury. Severity level is moderate. Location of pain is lower back. back pain Onset: gradual w ithout injury. Severity level is moderate-severe. It occurs persistently. pain medication back pain Onset: gradual w ithout injury. Severity level is moderate-severe. It occurs persistently. back pain Onset: gradual w ithout injury. Severity level is moderate-severe. It occurs persistently. hematuria The patient pres ents with hematuria (microscopic). The problem began 6 months ago. The symptoms are intermittent. The problem is unchanged. He denies pain. Pertinent history includes being at least 42 years of age and mother with melanoma but not history of bladder cancer, history of irritative voiding symptoms, prior history of stones, history of prostate cancer, history of renal cancer, exposure to radiation or smoking. Denies aggravating factors. Denies relieving factors. He also complains of secondhand smoke. He denies chills, fever, intermittent stream, nausea, slow stream, urinary hesitancy and vomiting. Reviewed today was a CT Urogram taken on 01/07/2014 with normal findings. cytology taken on 12/25/2013 with findings of benign. cytology taken on 07/12/2014 with findings of benign. Additional information: 12/25/13: UA blood mod> 3 positive UA's for blood since 04/2013. back pain Onset: gradual w ithout injury. Severity level is moderate-severe. It occurs persistently. back pain Onset: gradual w ithout injury. Severity level is moderate-severe. It occurs persistently. back pain Onset: gradual w ithout injury. Severity level is moderate-severe. It occurs persistently. back pain Onset: gradual w ithout injury. Severity level is moderate-severe. It occurs persistently. back pain Onset: gradual w ithout injury. Severity level is moderate-severe. It occurs persistently. back pain The symptoms are reported as being moderate. The symptoms occur daily. Last evaluated December 08. Received a left L4 transforaminal epidural. States that he is noted almost complete relief of his low back pain following epidural steroid injection. This continues do well. He has noted a recurrence of pain involving his left sacroiliac area and buttock. Throbbing ache. Sleep pattern continues to be altered however this has been like this for years. The pain in his left buttock/sacroiliac area is not been waking him from sleep. Throbbing ache. It's prolonged sitting will escalate his pain. Complains of soreness with prolonged standing and walking and general physical activity. Denies any progressive paresis, muscle atrophy or bowel/bladder dysfunction. Has also noted some intermittent right-sided symptoms. This has not bothered him and years . Primarily left-sided symptoms. Overall significantly improved from what a restarted with for the injections. Rare left lateral thigh pain. Heat... hematuria The patient pres ents with hematuria (microscopic). The problem began 1 year ago. The symptoms are intermittent. The problem is unchanged. He denies pain. Pertinent history includes being at least 42 years of age and mother with melanoma but not history of bladder cancer, history of irritative voiding symptoms, prior history of stones, history of prostate cancer, history of renal cancer, exposure to radiation or smoking. Denies aggravating factors. Denies relieving factors. He also complains of secondhand smoke. He denies chills, fever, intermittent stream, nausea, slow stream, urinary hesitancy and vomiting. Reviewed today was a CT Urogram taken on 01/07/2014 with normal findings. cytology taken on 12/25/2013 with findings of benign. Additional information: 12/25/13: UA blood mod> 3 positive UA's for blood since 04/2013. hematuria The patient pres ents with hematuria (microscopic). The problem began 1 year ago. The symptoms are intermittent. The problem is unchanged. He denies pain. Pertinent history includes being at least 40 years of age and mother with melanoma but not history of bladder cancer, history of irritative voiding symptoms, prior history of stones, history of prostate cancer, history of renal cancer, exposure to radiation or smoking. Denies aggravating factors. Denies relieving factors. He also complains of secondhand smoke. He denies chills, fever, intermittent stream, nausea, slow stream, urinary hesitancy and vomiting. Additional information: 12/25/13: UA blood mod> 3 positive UA's for blood since 04/2013. back pain The symptoms are reported as being moderate. The symptoms occur daily. Last evaluated the . Received a left sacroiliac injection and sciatic nerve block. Has had almost complete elimination of his left buttock/sacroiliac pain following the injections. He will note occasional ache in his buttock/SI area but this will subside quickly. He has noted a significant escalation of his low back pain. He has been bothered over the years with a constant underlying ache involving his low back. He has taken some intermittent Motrin however he must not do this due to previous esophageal surgery. Times not been beneficial. Heat with some minor temporary improvement. Pain escalated with standing, lumbar flexion ambulation. Some improvement sitting/lying down. Sleep intermittently interrupted. Difficult for him stand and perform normal daily activities. He does know intermittent radiation to his left lateral thigh to his knee. Occasionally anterior lower leg pain is noted. Function... back pain The symptoms are reported as being moderate. The symptoms occur daily. Last evaluated August 27. Received a left sacroiliac injection and sciatic nerve block. Noted almost complete relief of his buttock and low back and leg pain following the last injections. This lasted for about 10 days. He has had a recurrence of symptoms of approximate 50%. Overall much improved. Sleep much better to the night. The constant throbbing leg pain is not as prominent. Throbbing ache involving his left buttock, sacroiliac area low back. Sleep is approved a significantly. Able to walk without limping is much. Denies any progressive paresis, muscle sphere bowel/bladder and foot. Denies significant left greater trochanter tenderness. Pain does not wake him if he rolls onto his left side. back pain Long-standing lo w back pain with the exacerbation of current symptoms over the past few months. Describes a burning ache primarily in his left buttock. A pain will radiate to his left lateral thigh on a frequent basis.. A deep ache in his buttock is also described. Stairs and ambulation will exacerbate his symptoms. Standing is tolerable. He states that his low back feels tight and aches on a regular basis. He has trouble getting to sleep. The pain will intermittently wake him from sleep. Lumbar flexion as well as hip flexion is generally painful his left buttock. Intermittent radiation to his left lateral hip/SI area as noted. Also complains of a intermittent dull ache involving his left groin anterior thigh. This is generally tolerable. Applies heating pad/ThermaCare with some improvement is symptoms. Physical therapy was not beneficial. There is a family history of alcoholism. The patient denies any previous drug or alcohol problems. Functional Status Date Functional Assessmen t No Information Instructions Date Instruction Additional Infor silver Stable. Continue the Robaxin 750 mg one tablet three times. Keep a log of the headaches. Continue the Gabapentin 300 mg to two capsules at bed time. Follow up in 6 months. Related to Chronic migraine w/o aura, not intractable, w/o stat migr Stable.Continue to f ollow up Dr. Beltran. Related to Other intervertebral disc degeneration, lumbosacral region Lifestyle education regarding di et Related to Body mass index (BMI) 32.0-32.9, adult Sacroiliac injection education Tramadol precautions education Tramadol precautions education Continue to follow up Dr. Beltran . Related to Other intervertebral disc degeneration, lumbosacral region Stable. Continue the Robaxin 750 mg one tablet three times. Keep a log of the headaches. Continue the Gabapentin 300 mg to two capsules at bed time. Follow up in 6 months. Related to Chronic migraine w/o aura, not intractable, w/o stat migr Lifestyle education regarding di et Related to Body mass index (BMI) 30.0-30.9, adult He had obstructive v oiding issues related to Tramadol use, that has improved with decreased Tramadol useCurrent [place] U[facility] Association Clinical Practice Guidelines on the Early Detection of Prostate Cancer recommend the followin) The greatest benefit of Prostate cancer screening is in men ages 55 to 69 years old.2) Men with risk factors (race and family history) should talk with their Doctor about testing.3) Routine prostate cancer screening in men under 40 years old is NOT recommended.4) Men between the ages of 40 to 54 years old should discuss prostate cancer screening with their Doctor as there is INSUFFICIENT EVIDENCE for or against screening.5) Routine prostate cancer screening is NOT recommended in men 70 years old and older OR in men with less than a 10-15 year life expectancy. However, some men over the age of 70 may benefit from screening.I advised him to schedule a follow up with a PSA in 3 years. 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 Beltran . Related to Other intervertebral disc degeneration, lumbosacral region Continue the Robaxin 750 mg one tablet three times. Keep a log of the headaches. Continue the Gabapentin 300 mg to two capsules at bed time. Follow up in 6 months. Related to Chronic migraine w/o aura, not intractable, w/o stat migr Lifestyle education regarding di et Related to Body mass index (BMI) 31.0-31.9, adult Tramadol precautions education Tramadol precautions education sacroiliac injection education Continue the Robaxin 750 mg one tablet three times. Keep a log of the headaches. Increase the Gabapentin 300 mg to two capsules at bed time. Follow up in 6 months. Related to Chronic migraine w/o aura, not intractable, w/o stat migr Continue to follow up Dr. Beltran . 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 He has obstructive v oiding issues with increased Tramadol use Current [place] [employer] Clinical Practice Guidelines on the Early Detection of Prostate Cancer recommend the followin) The greatest benefit of Prostate cancer screening is in men ages 55 to 69 years old.2) Men with risk factors (race and family history) should talk with their Doctor about testing.3) Routine prostate cancer screening in men under 40 years old is NOT recommended.4) Men between the ages of 40 to 54 years old should discuss prostate cancer screening with their Doctor as there is INSUFFICIENT EVIDENCE for or against screening.5) Routine prostate cancer screening is NOT recommended in men 70 years old and older OR in men with less than a 10-15 year life expectancy. However, some men over the age of 70 may benefit from screening. Related to Enlarged prostate with lower urinary tract symptoms Epidural steroid injection educa tion Prescribed dietary intake Relate d to Body mass index (BMI) 30.0-30.9, adult Giving encouragement to exercise Related to Body mass index (BMI) 30.0-30.9, adult Tramadol precautions education Tramadol precautions education Ultram precautions education Continue to follow up Dr. Beltran . Related to Other intervertebral disc degeneration, lumbosacral region Continue the Robaxin 750 mg one tablet twice a day. Keep a log of the headaches. Continue the Gabapentin 300 mg one capsules at bed time. Follow up in 12 months. 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 Related to Postlaminectomy syndrome, not elsewhere classified epidural steroid injection educa tion 1. Schedule left L4 transforaminal epidural--proceed the right/bilateral If symptoms escalate 2. Continue with Ultram for low back/leg pain3. Follow-up four weeks following injections Related to Other intervertebral disc degeneration, lumbosacral region epidural steroid injection educa tion epidural CERT injection educatio n 1. Schedule left L4 transforaminal epidural2. Follow-up one month following injections3. Continue with Ultram Related to Postlaminectomy syndrome, not elsewhere classified epidural steroid injection educa tion 1. Continue with int ermittent Ultram2. Follow-up three months or sooner if symptoms escalate Related to Postlaminectomy syndrome, not elsewhere classified Ultram precautions education 1. Functional capaci ty evaluation2. Continue with Ultram for low back/leg pain3. 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 Continue Lid oderm patch 5 % apply up to three patches on the area of pain 12 hours on and 12 hours off. Continue to follow up with Dr. Beltran. Follow up in 12 months. Related to Pain in left hip Continue to follow u p with Dr. Saxena. Related to Other intervertebral disc degeneration, lumbosacral region Continue the Robaxin 750 mg one tablet twice a day. Keep a log of the headaches. Continue the Gabapentin 100 mg three capsules at bed time. Follow up in 12 months. 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 Continue Ultram f or low back/leg pain2. 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 Left L4 transfora ce epidural2. [place] 5 mg tablets for low back/leg pain.3. Follow-up three months or sooner if necessary Related to Other intervertebral disc degeneration, lumbosacral region epidural steroid injection educa tion 1. Continue with Ult ram2. Consider epidural steroid injection/set blocks for severe exacerbation of symptoms3. Follow-up three months Related to Other intervertebral disc degeneration, lumbosacral region Stable. Continue Lid oderm patch 5 % apply up to three patches on the area of pain 12 hours on and 12 hours off. Continue to follow up with Dr. Beltran. Follow up in 6 months. Related to Pain in left hip Continue the Robaxin 750 mg one tablet twice a day. Keep a log of the headaches. Trial with Gabapentin 100 mg one capsule at bed time x 7days, two capsules at bed time x 7days, three capsules at bed time. Follow up in 6 months. Related to Chronic migraine w/o aura, not intractable, w/o stat migr Continue to follow u p with Dr. Saxena. Related to Other intervertebral disc degeneration, lumbosacral region Ultram precautions education 1. Follow-up three m onths2. Continue with Ultram Related to Primary osteoarthritis of lt hip Ultram precautions education 1. Left intra-articu lar hip injection2. follow-up one month Related to Primary osteoarthritis of lt hip intra-articular hip injection education Trial with Lidoderm patch 5 % apply up to three patches on the area of pain 12 hours on and 12 hours off. Continue to follow up with Dr. Beltran. Follow up in 6 months. Related to Pain in left hip Continue to follow u p with Dr. Saxena. Related to Other intervertebral disc degeneration, lumbosacral region Continue the Robaxin 750 mg one tablet twice a day. Keep a log of the headaches. Follow up in 6 months. Related to Chronic migraine w/o aura, not intractable, w/o stat migr Likely related to lo w back pain due to disc disease.Renal ultrasound showed no anatomic evidence of obstruction Related to Low back pain A negative work up w as completed 12 months agoThere is no history of gross hematuria since the original negative work up, but microscopic hematuria persists.A current urine cytology is non-suspicious. 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 Left L4 transfora ce epidural2. Follow-up two months Related to Degeneration of lumbar or lumbosacral intervertebral disc epidural steroid injection educa tion 1. scheduled L4 murphy sforaminal epidural2. Follow-up four weeks following injections3. Continue with Ultram Related to Degeneration of lumbar or lumbosacral intervertebral disc epidural steroid inj ections education 1. Wait on injection s2. Follow-up two months or sooner if necessary Related to Degeneration of lumbar or lumbosacral intervertebral disc epidural steroid inj ections education 1. Left L4 transfora ce epidural2. Follow-up two months Related to Degeneration of lumbar or lumbosacral intervertebral disc epidural steroid injection educa tion 1. Schedule left L4 transforaminal epidural2. Follow-up six weeks following injections Related to Degeneration of lumbar or lumbosacral intervertebral disc epidural steroid injection educa tion education 1. Follow-up 6-8 wee ks2. Continue with Ultram Related to Lumbosacral spondylosis without myelopathy epidural steroid inj ections education 1. Left L4 transfora ce epidural2. Follow-up two months Related to Degeneration of lumbar or lumbosacral intervertebral disc epidural steroid injection educa tion 1. Schedule left L4 transforaminal epidural2. Follow-up six weeks following injections Related to Degeneration of lumbar or lumbosacral intervertebral disc epidural steroid inj ections education A negative work up w as completed 6 months agoThere is no history of gross hematuria since the original negative work up.A current urine cytology is non-suspicious. Related to Microscopic Hematuria 1. Left sacroiliac i njection2. Follow-up six weeks Related to Sacroiliitis Left sacroiliac injection educat ion 1. Schedule left sac roiliac injection/sciatic nerve block2. Follow-up 4 to 6 weeks following injections Related to Sacroiliitis sacroiliac injection education 1. Left sacroiliac i njection2. Follow-up two months Related to Sacroiliitis left sacroiliac injection educat ion 1. Schedule left sac roiliac injection2. FPR cream KLCB one 2 g Q I D to low back Related to Sacroiliitis sacroiliac injections education 1. FPR cream apply 1 to 2 g AGD BCB low back.2. Follow-up six weeks Related to Lumbosacral spondylosis without myelopathy FPR cream education sacroiliac injection education epidural steroid inj ections education sacroiliac injection education sacroiliac injection education intra-articular hip injection education intra-articular hip injection education Assessments Type Assessment Date No Information Patient Care Teams Name Effective Dates (start - stop) Status Members No Information
--- OUTSIDE RECORDS SUMMARY | 2025-04-03 15:26 | XMS_ITS | Patient Health Record ---
Author Organization [facility] Address [address] [place] [address] Care Team Providers Care Dock Operations Supervisor Name Role Phone Vasyl Mckay MD Primary Care Provider Paula Stewart Unavailable [phone] Allergies Allergen (clinical drug ingredient) Drug/Non Drug [...] Duration: 30 day(s) Active Methocarbamol 1500mg Active [place] 3 4000mg Active Gabapentin 600 MG 1 [...] W/U Status Risk Notes Problem Plantar wart ([id number]) Plantar wart (B07.0) Active confirmed Plan Of Treatment No Information Insurance Providers Payer Name Payer Address Payer Phone Subscriber Number Group Number Insured Name Patient Relationship to Insured Coverage Start Date Coverage End Date [facility] Medicare Complete [address] [address] [place] [id number] Javier Jreez Self - patient is the insured Medical (General) History Medical History History ICD Code asthma Depression Dysphagia Cholesterol Reflux ( GERD) Hypertension Broken bones Back,Hip,and Knee pain Epilepsy Headaches/Migraines Numbness Warts Chicken pox Joint implants/screws Surgical History Surgery Date(Month/Year) back fusion surgery 2016 endoscopy colonoscopy removed L.I finger 1989 repaired esophagus 2009, 2011 low hernia 1995
--- OUTSIDE RECORDS SUMMARY | 2025-04-03 15:26 | XMS_ITS | Clinical Summary ---
Author Organization [facility] Address [address] [id number] Phone Care Team Providers Care Lime Kiln Worker Name Role Phone Paola Wade MAYANK Primary Care Provider Allergies No known active allergies Medications gabapentin (NEURONTIN) 600 MG tablet Take 600 mg by mouth daily. 12/24/2020 Active omeprazole (PRILOSEC) 40 MG capsule Take 40 mg by mouth daily. Active fluticasone propionate (FLOVENT HFA) 110 mcg/actuation inhaler Inhale 1 puff into the lungs 2 (two) times a day. Active simvastatin (ZOCOR) 20 MG tablet Take 20 mg by mouth nightly at bedtime. Active fenofibrate micronized (LOFIBRA) 134 mg capsule Take 134 mg by mouth daily before breakfast. Active losartan (COZAAR) 50 MG tablet Take 50 mg by mouth daily. Active methocarbamoL (ROBAXIN) 500 MG tablet Take 500 mg by mouth 4 (four) times a day. Active traMADoL 300 mg 24 hr multiphasic tablet Take 300 mg by mouth daily. Active omega-3 acid ethyl esters (LOVAZA) 1 gram capsule Take 2 g by mouth 2 (two) times a day. Active Active Problems No known active problems Social History Tobacco Use Types Packs/Day Years Used Date Smoking Tobacco: Never Smokeless Tobacco: Current Chew Comments:44 years chewing to [employer] Education Answer Date Recorded Are you interested [...] on file Sexual Orientation Not on file Last Filed Vital Signs Vital Sign Reading Time Taken Comments Blood Pressure 148/88 02/16/2021 8:35 AM EDT Pulse 76 02/16/2021 8:35 AM EDT Temperature 36.7 C (98.1 F) 02/16/2021 8:35 AM EDT Respiratory Rate 18 02/16/2021 8:35 AM EDT Oxygen Saturation 98% 02/16/2021 8:35 AM EDT Inhaled Oxygen Concentration - - Weight 94.3 kg (208 lb) 02/16/2021 8:35 AM EDT Height 172.7 cm (5' 8 ) 02/16/2021 8:35 AM EDT Body Mass Index 31.63 02/16/2021 8:35 AM EDT Plan of Treatment Health Maintenance Due Date Last Done Comments CREATININE LEVEL 1967 LIPID PANEL 1967 POTASSIUM LEVEL 1967 DEPRESSION SCREENING 1979 HEPATITIS C SCREENING 1985 HIV ONE-TIME SCREENING (18-6 5 YEARS) 1985 COLOGUARD 01/12/2012 COLONOSCOPY 01/12/2012 COLORECTAL CANCER SCREENING 01/12/2012 FIT TEST 01/12/2012 FOBT 01/12/2012 SIGMOIDOSCOPY 01/12/2012 VIRTUAL COLONOSCOPY 01/12/2012 PNEUMOCOCCAL VACCINES (50+ years) (1 of 1 - PCV) 2017 ZOSTER VACCINES (2 of 2) 11/25/2020 09/30/2020 COVID-19 VACCINE (4 - 2023-2 5 season) 2024 08/30/2021, 02/17/2021, 01/26/2021 Adult Td,Tdap Booster 05/20/2031 05/20/2021 SMOKING STATUS SCREENING (On ce After 26 Yrs) Completed 02/16/2021 HEPATITIS A VACCINES Aged Out No long er eligible based on patient's age to complete this topic HIB VACCINES Aged Out No longer eligi ble based on patient's age to complete this topic MENINGOCOCCAL VACCINES (ACWY) Aged Out No longer eligible based on patient's age to complete this topic MENINGOCOCCAL VACCINES (B) Aged Out N o longer eligible based on patient's age to complete this topic Medical Devices Not on file Insurance [facility] MEDICARE SUPPLEMENT [facility] Address: [address] [address] [facility] MEDICARE REPLACEMENT [facility] MEDICARE SUPPLEMENT [facility] Address: [address] [address] [facility] MEDICARE REPLACEMENT [facility] MEDICARE SUPPLEMENT [facility] Address: [address] [address] [facility] MEDICARE REPLACEMENT [facility] MEDICARE SUPPLEMENT [facility] Address: [address] [address] [facility] MEDICARE REPLACEMENT FOR LIFE MEDICARE SUPPLEMENT [facility] Address: [address] [address] [facility] MEDICARE REPLACEMENT [facility] MEDICARE SUPPLEMENT [facility] MEDICARE REPLACEMENT FOR LIFE MEDICARE SUPPLEMENT [facility] Address: [address] [address] [facility] MEDICARE REPLACEMENT [facility] MEDICARE SUPPLEMENT [facility] Address: [address] [address] [facility] MEDICARE REPLACEMENT FOR LIFE MEDICARE SUPPLEMENT [facility] MEDICARE REPLACEMENT Care Teams Lime Kiln Worker Relationship Specialty Start Date End Date Paola Wade NP PCP - General Family Medicine 02/16/21 Additional Source Comments The information contained in this document represents components of the legal health record. It is not the complete legal health record.[facility]
--- NOTE | 2025-04-03 15:29 | A.OFFPC_ITS ---
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 BP today 122/70, 84p. He is on losartan-HCTZ 100-12.5mg daily, amlodipine 10mg daily. Labs drawn 03/30/25. Reviewed labs with pt. A1c 6.1%. Elevated liver enzymes - AST 40, ALT 49. Triglycerides 198. TC 197. LDL 120. HDL low at 38. PSA 1.00. TSH 2.52 uIU/mL. PHQ-9 10, ANTHONY-7 3 today. HPI Comments History of Present Illness Details Documentation assistance for Vasyl Mckay MD, was provided by Benny Zuleta, Medical Biller/Coder on 04/03/2025 at 3:53 PM EST. I, Dr. Mckay, have read, observed, and verified documentation. [facility] Medical History Migraine NAFLD (nonalcoholic fatty liver disease) Chronic LUQ pain Schatzki's ring Abdominal pain Dysphagia Back pain Depression Asthma Elevated cholesterol HTN (hypertension) GERD (gastroesophageal reflux disease) Surgical History Hx of left inguinal hernia repair History of repair of vocal cord History of esophageal surgery Hx of hand surgery H/O colonoscopy History of esophagogastroduodenoscopy (EGD) History of back surgery Family History Father Paternal family history of mental health disorder Alcoholism Mother No problems noted. Brother Brain aneurysm Other Mental health disorder Substance use disorder Social History Household Members Other:: With his mother- relocated from [place]- getting Housing: House Alcohol intake: current Alcohol intake frequency: holidays/special occasions only Patient Tobacco Use Status: Current everyday Tobacco user Tobacco use type: Smokeless Tobacco e-Cigarette/Vaping Use: Never Used Second Hand Smoke Exposure: No service: Yes Current occupational status: retired and disabled Cognitive needs: No Hearing needs: No Vision needs: No Questionnaire PHQ-9 Over the last 2 weeks, how often have you been bothered by any of the following problems? 1. Little interest or pleasure in doing things: not at all 2. Feeling down, depressed, or hopeless: not at all 3. Trouble falling or staying asleep, or sleeping too much: nearly every day 4. Feeling tired or having little energy: nearly every day 5. Poor appetite or overeating: nearly every day 6. Feeling bad about yourself - or that you are a failure or have let yourself or your family down: not at all 7. Trouble concentrating on things, such as reading the newspaper or watching television: not at all 8. Moving or speaking so slowly that other people could have noticed. Or the opposite - being so fidgety or restless that you have been moving around a lot more than usual: several days 9. Thoughts that you would be better off or of hurting yourself in some way: not at all Total score: 10 Depression Screening Interpretation: Positive Depression Screening Follow-up: Declines treatment Depression Screening Done: Yes 91530 - PHQ-9 Billing: Yes Source: Developed by Drs. Doyle Guardado, Isabel Dalton, Hector Durham and colleagues, with an educational delfin from [employer]. Thrive Questionnaire Date Thrive assessed: 10/08/24 I am a: Patient What is your living situation today?: I have a steady place to live Within the past 12 months, did the food you bought not last and you didn't have the money to get more?: Never true Within the past 12 months, did you worry whether your food would run out before you got money to buy more?: Never true Do you have trouble paying for medicines?: No Do you have trouble getting transportation to medical appointments?: No Do you have trouble paying your heating and electricity bill?: No Do you have trouble taking care of your child, family member or friend?: No Do you have trouble with day-to-day activities such as bathing, preparing meals, shopping, managing finances, etc.?: No Are you currently unemployed and looking for a job?: No Are you interested in more education?: No Please select the resources that you would like help with: None Currently or been in a relationship where the following occur: No concerns reported THRIVE Score: 0 ANTHONY-7 AMB Questionnaire ANTHONY-7 Date ANTHONY - 7 assessed: 04/03/25 Feeling nervous, anxious, or on edge: 1 = Several days Not being able to stop or control worryin = Not at all Worrying too much about different things: 0 = Not at all Trouble relaxin = Several days Being so restless that it is hard to sit still: 1 = Several days Becoming easily annoyed or irritable: 0 = Not at all Feeling afraid as if something awful might happen: 0 = Not at all Total ANTHONY-7 score (0-4 normal; 5-9 mild; 10-14 moderate; 15-21 severe): 3 Source: Developed by Drs. Doyle Guardado, Isabel Dalton, Hector Durham and colleagues, with an educational delfin from [employer]. Review of Systems Const Denies chills, Denies fatigue, Denies fever(s), Denies headache(s) and Denies weakness Eyes Denies change in vision ENT Denies dizziness, Denies headache(s), Denies hearing loss, Denies nasal congestion, Denies sinus pain, Denies sinus pressure and Denies sore throat Card Denies chest pain, Denies lightheadedness, Denies dyspnea and Denies other (p alpitations) Resp Denies cough, Denies dyspnea and Denies wheezing GI Denies abdominal pain, Denies melena, Denies hematochezia, Denies change in elizabeth l habits, Denies dyspepsia and Denies nausea Denies hematuria and Denies dysuria Musc Denies abnormal gait, Denies myalgias, Denies arthralgias, Denies numbness and Denies tingling Skin/Breast Denies rash, Denies unusual bruising and Denies wounds Neuro Denies abnormal gait, Denies dizziness, Denies headache(s), Denies memory loss, Denies numbness, Denies Sensory deficit (Neuro), Denies tingling and Denies weakness Psych Reports depression and Denies memory loss Endo Denies cold intolerance, Denies fatigue, Denies heat intolerance, Denies polydipsia and Denies polyuria Juancarlos/Lymph Denies easy bleeding and Denies easy bruising Aller/Immun Denies wheezing Physical exam (Primary Care) Vital Signs: Last Vital Signs Temp 98.7 F 04/03/25 15:38 Pulse 84 04/03/25 15:38 Resp 16 04/03/25 15:38 BP 122/70 04/03/25 15:40 Pulse Ox 98 04/03/25 15:38 Oxygen Delivery Method Room Air 04/03/25 15:38 BMI result Body Mass Index 36.2 Tobacco/Smoking Status: Tobacco use Status Tobacco use date assessed 12/11/23 04/03/25 15:29 Patient Tobacco Use Status Current everyday Tobacco 04/03/25 15:29 Tobacco use type Smokeless Tobacco 04/03/25 15:29 e-Cigarette/Vaping Use Never Used 04/03/25 15:29 PHQ-9: PHQ-9 Score PHQ-9: Total score 10 04/03/25 15:43 Depression Screening Interpretation: Positive Depression Screening Follow-up: Declines treatment Thrive Assessment: Date of Thrive Assessment Date Thrive assessed 10/08/24 04/03/25 15:29 Currently or been in a relationship where the following occur: No concerns reported Const General: no acute distress, well developed, alert and awake Nutritional Appearance: well nourished Orientation/consciousness: patient oriented x3 HENMT Head: Yes normocephalic and Yes atraumatic Ears: hearing grossly normal bilaterally and TM's normal bilaterally General nose exam: Normal external nose present and Normal nares present Mouth: Normal oral and palatal mucosa present and moist mucous membranes Teeth and gingiva: dentition normal Throat: Yes posterior oropharynx normal Eyes General: appearance normal, both eyes and all related structures Pupils: Equal, round and reactive pupils present and Pupil accommodation reflex normal EOM: EOMs intact bilaterally Neck Neck: Yes normal visual inspection, Yes no lymphadenopathy and Yes trachea midline Thyroid: Thyroid normal Carotids: no bruits Lymphatic: no lymphadenopathy noted Chest Chest palpation & inspection: normal inspection of the chest Resp Effort & Inspection: normal respiratory effort Auscultation: clear to auscultation bilaterally Cardio Rate: regular rate Rhythm: regular rhythm Heart sounds: S1 normal heart sound present, S2 normal heart sound present, no gallops, no murmurs and no rubs Bruits: no abdominal aortic bruits and no carotid bruits GI Palpation (GI): No Abdominal aortic bruit present, Soft to palpation, nontender, No hepatosplenomegaly present and No Rebound tenderness present Auscultation: normal bowel sounds General: Yes no CVA tenderness Back/Spine/Pelvis Back: no CVA tenderness Cervical Spine: cervical ROM normal and No Cervical spine tenderness Thoracic/Lumbar Spine: thoraco-lumbar ROM normal, No pain with thoraco-lumbar ROM, No thoracic spinal tenderness and No lumbar spinal tenderness Skin Lesions: no lesions Rashes: no rashes Trauma: no lacerations or abrasions Wounds: no wounds Nails: normal Neuro General: patient oriented x3 Cranial nerves: Yes Equal, round and reactive pupils present Cognition (Neuro): normal cognition Gait exam (Neuro): Normal gait present Motor exam (neuro): 5/5 motor strength present throughout Sensory Exam: No Sensory deficit (Neuro) Deep tendon reflexes (DTR's): Right patellar reflex intensity grade: 2+ and Left patellar reflex intensity grade: 2+ Extrem General: Yes normal to inspection and No edema Psych Appearance: grossly normal Affect: normal affect Attitude: cooperative Thought process: Normal thought process present Coding Level of Care Code Est Pt Prev Care 40-64y(88287) Diagnoses Annual physical exam Z00.00 Essential hypertension I10 Hypertension type: essential hypertension Pre-diabetes R73.03 Elevated liver enzymes R74.8 Dysthymia F34.1 Depression Type: dysthymia Hyperlipidemia E78.5 Low HDL (under 40) E78.6 Screening for colon cancer Z12.11 Low back pain M54.5 Screening for prostate cancer Z12.5 Additional Codes PHQ-9 - 36357 - PHQ-9 Billing: Yes ([id number]) Assessment & Plan Assessment & Plan (1) Annual physical exam: Code(s): Z00.00 - Encounter for general adult medical examination without abnormal findings Category: Medical Plan: 60-year-old male presents for complete physical exam Encouraged healthy diet with active lifestyle and plenty of exercise (2) Hypertension: Onset Date: Unknown Code(s): I10 - Essential (primary) hypertension Category: Medical Qualifiers: Hypertension type: essential hypertension Qualified Code(s): I10 - Essential (primary) hypertension Plan: Blood pressure is elevated on presentation and comes down into controlled range with relaxation. Goal is less than 140/90 Continue current medication (3) Pre-diabetes: Code(s): R73.03 - Prediabetes Category: Medical Plan: A1c remains in pre diabetes range Encouraged a diet low in sugars and starches Encouraged exercise and weight loss (4) Elevated liver enzymes: Code(s): R74.8 - Abnormal levels of other serum enzymes Category: Medical Plan: Ongoing mildly elevated liver enzymes He has a history of hepatic steatosis Encouraged weight loss Encouraged good hydration (5) Depression: Code(s): F32.9 - Major depressive disorder, single episode, unspecified Category: Medical Qualifiers: Depression Type: dysthymia Qualified Code(s): F34.1 - Dysthymic disorder Plan: Screening positive for depression. Patient declines treatment. He says he has had a therapist past. Declines medications No Si/HI Let him know that he contact me if he would like any treatment. (6) Hyperlipidemia: Code(s): E78.5 - Hyperlipidemia, unspecified Category: Medical Plan: Mildly elevated lipids and we will continue to monitor Encouraged weight loss and exercise (7) Low HDL (under 40): Code(s): E78.6 - Lipoprotein deficiency Category: Medical Plan: Encouraged exercise as tolerated (8) Screening for colon cancer: Code(s): Z12.11 - Encounter for screening for malignant neoplasm of colon Category: Medical Plan: Patient had colonoscopy around age 52 and says that he was told to follow-up in 10 years Will readdress in a couple of years (9) Low back pain: Code(s): M54.5 - Low back pain Category: Medical Plan: Chronic low back pain Currently stable/baseline He can follow-up with pain management as needed (10) Screening for prostate cancer: Code(s): Z12.5 - Encounter for screening for malignant neoplasm of prostate Category: Medical Plan: PSA was within normal range Will continue annual screening
[2025-04-03 15:38] VITALS: BP 150/74; PULSE 84; RESP 16; TEMP 37.1; O2SAT 98; BMI 36.2
[2025-04-03 15:40] VITALS: BP 122/70
== END 2025-04-03 16:08 | disposition home or self-care (01) ==
LOC: HO.HMCFM 15:24
PROVIDERS: PCP Family Medicine; Visit Provider Family Medicine
DX: Z00.00 Encounter for general adult medical examination without abnormal findings (principal); I10 Essential (primary) hypertension; R73.03 Prediabetes; R74.8 Abnormal levels of other serum enzymes; F34.1 Dysthymic disorder; E78.5 Hyperlipidemia, unspecified; E78.6 Lipoprotein deficiency; Z12.11 Encounter for screening for malignant neoplasm of colon; M54.50 Low back pain, unspecified; Z12.5 Encounter for screening for malignant neoplasm of prostate

== ENCOUNTER → 2025-04-03 15:23 | Outpatient (BNVA) | payer MEDICARE, SELFPAY | PROVIDERS: PCP Family Medicine; Visit Provider Family Medicine | DX: Z00.00 Encounter for general adult medical examination without abnormal findings (principal); I10 Essential (primary) hypertension; R73.03 Prediabetes; R74.8 Abnormal levels of other serum enzymes; F34.1 Dysthymic disorder; E78.5 Hyperlipidemia, unspecified; E78.6 Lipoprotein deficiency; M54.50 Low back pain, unspecified | CPT/HCPCS: 96127; 99396 ==

== ENCOUNTER 2025-06-25 08:14 | Outpatient (REF) | payer MEDICARE, SELFPAY ==
[2025-06-25 11:32] LABS: Appearance Urine Clear; Glucose Urine UA Negative (Negative); PH 8.5 (5.0-9.0); Specific Gravity - Urine 1.015 (1.005-1.025)
[2025-06-25 11:56] LABS: Alanine Aminotransferase 41 U/L (0-40); Albumin Level 4.7 g/dL (3.5-5.0); Alkaline Phosphatase 56 U/L (39-117); Anion Gap 10 (12-20); Aspartate Amino Transferase 34 U/L (5-37); Blood Urea Nitrogen 14 mg/dL (9-16); Calcium 9.3 mg/dL (8.4-10.2); Carbon Dioxide 27 mmol/L (22-29); Chloride 107 mmol/L (96-108); Estimated Glomerular Filt Rate > 60; Potassium 3.5 mmol/L (3.3-5.1); Sodium 140 mmol/L (135-145); Total Protein 7.6 g/dL (6.5-8.0)
== END 2025-06-25 08:15 | disposition home or self-care (01) ==
LOC: HO.WFDLDS 08:14
PROVIDERS: Visit Provider Family Medicine
DX: Z00.00 Encounter for general adult medical examination without abnormal findings (principal)
CPT/HCPCS: 36415; 80053; 81003

== ENCOUNTER 2025-07-08 10:25 | Outpatient (AMB) | payer MEDICARE, SELFPAY ==
--- OUTSIDE RECORDS SUMMARY | 2021-02-16 08:51 | XMS_ITS | Encounter Summary ---
Author Organization [facility] Address [address] [facility] [address] [place] [phone] Phone Care Team Providers Care Police Service Technician Name Role Phone Paola Wade LEATHER GOODS MAKER Primary Care Provider Encounter Details Date Type Department Care Team (Late st Contact Info) Description 02/16/2021 8:51 AM EDT Hospital Encounter [facility] [address] [place] [phone] Rox Sandy CNP [address] [place] [phone] Social History Tobacco Use Types Packs/Day Years [...] reportoriginally created by Elin Lopez. Rox Sandy DRILLING FIELD OPERATOR IMG XR LOWER EXTREMITY Adriana l Result documented in this encounter Visit Diagnoses Not on filedocumented in this encounter Care Teams Police Service Technician Relationship Specialty Start Date End Date Paola Wade NP PCP - General Family Medicine 02/16/21 documented as of this encounter Additional Source Comments The information contained in this document represents components of the legal health record. It is not the complete legal health record.[facility]
--- NOTE | 2025-07-08 10:58 | A.OFFPC_ITS ---
Vital Signs 07/08/25 11:09 07/08/25 11:17 Height 5 ft 7 in Weight 231 lb 5 oz BMI 36.2 BP 140/70 H 130/68 Blood Pressure Location Rt brachial Rt brachial Position Sitting Sitting Respiration 16 Pulse 81 Pulse Source Pulse Oximeter Temp 97.9 F Temp Source Oral Pulse Oximetry (%) 97 Oxygen Delivery Method Room Air Intake Visit Reasons: f/u HTN, pre-diabetes, liver enzymes Intake Note: patient is scheduled to review labs and follow up on his htn and pre-dm. A1c will be done in office today.patient states he has been exibiting some lower back pain [id number] and would like to discuss possibly starting a pain medication to help sleep better at night. 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 Allergies Hydrocodone-Ibuprofen Adverse Reaction (Mild, Uncoded 07/08/24 15:09) Headache Medication List - Last Reconciled 07/08/25 by Vasyl Mckay MD amlodipine 10 mg PO DAILY atorvastatin 20 mg PO DAILY 90 days fenofibrate micronized 134 mg PO DAILY 90 days gabapentin 600 mg PO DAILY 90 days losartan-hydrochlorothiazide 100-12.5 mg 1 tab PO DAILY 90 days methocarbamol 750 mg PO Q8H PRN omega3,5,6,7,9 no.1-salmon oil 700-1,500 mg-mg 4 caps PO DAILY 90 days pantoprazole 40 mg PO DAILY sumatriptan succinate take 1 tab at onset of headache; if no relief may repeat 1 tab after at least 2 hrs; max = 4 tabs/24 hr PO 30 days Tobacco use date assessed: 12/11/23 Dental Screening Dental Screen Date: 04/03/25 HPI f/u HTN, pre-diabetes, liver enzymes HPI Details 60 y/o male presents to f/u HTN, pre-bari osvaldo, labs. Prior A1c 03/30/25 6.1%. A1c today 07/08/25 6.2%. Labs drawn 06/25/25. Reviewed labs with pt. AST improved from 40 to 34. ALT improved from 49 to 41. Blood pressure today 130/68, 81p. He is on amlodipine 10mg, losartan-HCTZ 100-12.5mg daily. Pt reports low back pain x2 months. Has been taking advil for pain relief. HPI Comments History of Present Illness Details Documentation assistance for Vasyl Mckay MD, was provided by Benny Zuleta, Drafter Geophysical on 07/08/2025 at 11:32 AM EST. I, Dr. Mkcay, have read, observed, and verified documentation. [facility] Medical History Migraine NAFLD (nonalcoholic fatty liver disease) Chronic LUQ pain Schatzki's ring Abdominal pain Dysphagia Back pain Depression Asthma Elevated cholesterol HTN (hypertension) GERD (gastroesophageal reflux disease) Surgical History Hx of left inguinal hernia repair History of repair of vocal cord History of esophageal surgery Hx of hand surgery H/O colonoscopy History of esophagogastroduodenoscopy (EGD) History of back surgery Family History Father Paternal family history of mental health disorder Alcoholism Mother No problems noted. Brother Brain aneurysm Other Mental health disorder Substance use disorder Social History Household Members Other:: With his mother- relocated from [place]- getting Housing: House Alcohol intake: current Alcohol intake frequency: holidays/special occasions only Patient Tobacco Use Status: Current everyday Tobacco user Tobacco use type: Smokeless Tobacco e-Cigarette/Vaping Use: Never Used Second Hand Smoke Exposure: No service: Yes Current occupational status: retired and disabled Cognitive needs: No Hearing needs: No Vision needs: No Questionnaire Thrive Questionnaire Date Thrive assessed: 10/08/24 I am a: Patient What is your living situation today?: I have a steady place to live Within the past 12 months, did the food you bought not last and you didn't have the money to get more?: Never true Within the past 12 months, did you worry whether your food would run out before you got money to buy more?: Never true Do you have trouble paying for medicines?: No Do you have trouble getting transportation to medical appointments?: No Do you have trouble paying your heating and electricity bill?: No Do you have trouble taking care of your child, family member or friend?: No Do you have trouble with day-to-day activities such as bathing, preparing meals, shopping, managing finances, etc.?: No Are you currently unemployed and looking for a job?: No Are you interested in more education?: No Please select the resources that you would like help with: None Currently or been in a relationship where the following occur: No concerns reported THRIVE Score: 0 ANTHONY-7 AMB Questionnaire ANTHONY-7 Date ANTHONY - 7 assessed: 04/03/25 Source: Developed by Drs. Doyle Guardado, Isabel Dalton, Hector Durham and colleagues, with an educational delfin from [employer]. Review of Systems Const Denies chills, Denies fatigue, Denies fever(s), Denies headache(s) and Denies weakness ENT Denies dizziness and Denies headache(s) Card Denies dyspnea Resp Denies cough, Denies dyspnea, Denies wheezing and Denies other (shortness of breath) Musc Reports back pain, Denies numbness and Denies tingling Neuro Denies dizziness, Denies headache(s), Denies numbness, Denies tingling and Denies weakness Psych Denies anxiety and Denies depression Endo Denies fatigue Aller/Immun Denies wheezing Physical exam (Primary Care) Vital Signs: Last Vital Signs Temp 97.9 F 07/08/25 11:09 Pulse 81 07/08/25 11:09 Resp 16 07/08/25 11:09 BP 130/68 07/08/25 11:17 Pulse Ox 97 07/08/25 11:09 Oxygen Delivery Method Room Air 07/08/25 11:09 BMI result Body Mass Index 36.2 Tobacco/Smoking Status: Tobacco use Status Tobacco use date assessed 12/11/23 07/08/25 10:58 Patient Tobacco Use Status Current everyday Tobacco 07/08/25 10:58 Tobacco use type Smokeless Tobacco 07/08/25 10:58 e-Cigarette/Vaping Use Never Used 07/08/25 10:58 Thrive Assessment: Date of Thrive Assessment Date Thrive assessed 10/08/24 07/08/25 10:58 Currently or been in a relationship where the following occur: No concerns reported Const General: well developed; No acute distress Nutritional Appearance: well nourished Orientation/consciousness: patient oriented x3 HENMT Head: Yes normocephalic and Yes atraumatic Eyes General: appearance normal, both eyes and all related structures Pupils: Equal, round and reactive pupils present EOM: EOMs intact bilaterally Resp Effort & Inspection: normal respiratory effort Neuro Other: Walking slowly, hunched over General: patient oriented x3 and No gait normal Cranial nerves: Yes Equal, round and reactive pupils present Psych Affect: normal affect Results AMB Hemoglobin A1c AMB Hemoglobin A1c 6.2 % Last Edit by MUSA Gayle on 07/08/25 11:24 Results Reviewed Results Reviewed: Laboratory Last Values Hgb A1c (Clinic) 6.2 % (4.0-6.0) H 07/08/25 11:22 Coding Level of Care Code Est Pt Level 4 (85874) Diagnoses Essential hypertension I10 Hypertension type: essential hypertension Pre-diabetes R73.03 Elevated liver enzymes R74.8 Low back pain M54.5 Assessment & Plan Assessment & Plan (1) Hypertension: Onset Date: Unknown Code(s): I10 - Essential (primary) hypertension Category: Medical Qualifiers: Hypertension type: essential hypertension Qualified Code(s): I10 - Essential (primary) hypertension Plan: Blood pressure is controlled. Goal is less than 140/90 Continue current medication Work on weight loss and salt/sodium avoidance (2) Pre-diabetes: Code(s): R73.03 - Prediabetes Category: Medical Plan: A1c climbed again from 6.1% to 6.2%. Pre diabetes range but climbing Work on diet lower in sugars and starches Work on weight loss (3) Elevated liver enzymes: Code(s): R74.8 - Abnormal levels of other serum enzymes Category: Medical Plan: Liver enzymes are improving Had advised good hydration and weight loss. Patient has not lost any weight yet. Encouraged additional hydration and weight loss Will recheck with next blood draw (4) Low back pain: Code(s): M54.5 - Low back pain Category: Medical Plan: Severe low back pain He had been followed by pain management but has not seen them in quite some time. He is using Advil and methocarbamol Will have him switch Advil to meloxicam Can also use a small amount of Tylenol-do not exceed recommended dosages Continue methocarbamol Will give him a short burst of prednisone Start physical therapy Referring him back to pain management Orders: Orders AMB Hemoglobin A1c Today R73.03 - Prediabetes PT Evaluation and Treatment Today M54.5 - Low back pain Lipid Panel Today E78.5 - Hyperlipidemia, unspecified, Z00.00 - Encounter for general adult medical examination without abnormal findings Hemoglobin A1c Today R73.01 - Impaired fasting glucose, R73.03 - Prediabetes Comprehensive [place]. Panel Fast Today E78.5 - Hyperlipidemia, unspecified, Z00.00 - Encounter for general adult medical examination without abnormal findings Referrals Pain Management Referral M54.5 - Low back pain Medications: New meloxicam 15 mg PO DAILY 30 tabs 2RF 30 days prednisone 40 mg (2 x 20 mg) PO DAILY 8 tabs 0RF 4 days Refilled methocarbamol 750 mg PO Q8H PRN 90 tabs 1RF muscle spasm M47.816 - Spondylosis without myelopathy or radiculopathy, lumbar region, M51.36 - Other intervertebral disc degeneration, lumbar region, M62.838 - Other muscle spasm, M 96.1 - Postlaminectomy syndrome, not elsewhere classified
[2025-07-08 11:09] VITALS: BP 140/70; PULSE 81; RESP 16; TEMP 36.6; O2SAT 97; BMI 36.2
[2025-07-08 11:17] VITALS: BP 130/68
--- OUTSIDE RECORDS SUMMARY | 2025-07-08 13:01 | XMS_ITS | Patient Health Record ---
[facility] Organization [facility] Address [address] [place] [address] Care Team Providers Care Dispenser Operator Name Role Phone Vasyl Mckay MD Primary Care Provider Paula Stewart Unavailable [phone] Allergies Allergen (clinical drug ingredient) Drug/Non Drug [...] Duration: 30 day(s) Active Methocarbamol 1500mg Active Okay 3 4000mg Active Gabapentin 600 MG 1 [...] W/U Status Risk Notes Problem Plantar wart ([id number]) Plantar wart (B07.0) Active confirmed Plan Of Treatment No Information Insurance Providers Payer Name Payer Address Payer Phone Subscriber Number Group Number Insured Name Patient Relationship to Insured Coverage Start Date Coverage End Date [facility] Medicare Complete [address] [address] [place] [address] [id number] Javier Jerez Self - patient is the [...]
--- OUTSIDE RECORDS SUMMARY | 2025-07-08 13:01 | XMS_ITS | Clinical Summary ---
Author Organization [facility] Address [address] [id number] Phone Care Team Providers Care Irrigation Laborer Name Role Phone Paola Wade MAYANK Primary [...] Tobacco: Current Chew Comments:44 years chewing to [employer] Answer Date Recorded Are you interested [...] ZOSTER VACCINES (2 of 2) 11/25/2020 09/30/2020 INFLUENZA VACCINE (#1) 2025 05/20/2021 COVID-19 VACCINE (4 - 2024-2 6 season) 2025 08/30/2021, 02/17/2021, 01/26/2021 Adult Td,Tdap Booster 05/20/2031 05/20/2021 RSV VACCINE (1 - 1-dose 75+ series) 2042 SMOKING STATUS SCREENING (On ce After 26 [...] topic Medical Devices Not on file Insurance FOR LIFE MEDICARE SUPPLEMENT [facility] Address: [address] [address] [facility] MEDICARE REPLACEMENT [facility] [employer] MEDICARE SUPPLEMENT [facility] Address: [address] [address] [facility] MEDICARE REPLACEMENT FOR LIFE MEDICARE SUPPLEMENT [facility] Address: [address] [id number] [place] [address] MEDICARE REPLACEMENT FOR LIFE MEDICARE SUPPLEMENT [facility] Address: [address] [address] [facility] MEDICARE REPLACEMENT [facility] FOR LIFE MEDICARE SUPPLEMENT [facility] Address: [address] [address] [facility] MEDICARE REPLACEMENT [facility] FOR LIFE MEDICARE SUPPLEMENT [facility] Address: [address] [address] [facility] MEDICARE REPLACEMENT FOR LIFE MEDICARE SUPPLEMENT [facility] Address: [address] [address] [facility] MEDICARE REPLACEMENT FOR LIFE MEDICARE SUPPLEMENT [facility] MEDICARE REPLACEMENT FOR LIFE MEDICARE SUPPLEMENT [facility] Address: [address] [address] [facility] MEDICARE REPLACEMENT [place] [id number] Care Teams Irrigation Laborer Relationship Specialty Start Date End Date Paola Wade NP PCP - General Family Medicine 02/16/21 Additional Source Comments The information contained in this document represents components of the legal health record. It is not the complete legal health record.[facility]
== END 2025-07-08 11:46 | disposition home or self-care (01) ==
LOC: HO.HMCFM 10:26
PROVIDERS: PCP Family Medicine; Visit Provider Family Medicine
DX: I10 Essential (primary) hypertension (principal); R73.03 Prediabetes; R74.8 Abnormal levels of other serum enzymes; M54.50 Low back pain, unspecified

== ENCOUNTER → 2025-07-08 10:25 | Outpatient (BNVA) | payer MEDICARE, SELFPAY | PROVIDERS: PCP Family Medicine; Visit Provider Family Medicine | DX: I10 Essential (primary) hypertension (principal); R73.03 Prediabetes; R74.8 Abnormal levels of other serum enzymes; M54.50 Low back pain, unspecified; E78.5 Hyperlipidemia, unspecified; R73.01 Impaired fasting glucose | CPT/HCPCS: 83036; 99212 ==

== ENCOUNTER 2025-08-05 15:07 | Outpatient (AMB) | payer MEDICARE, SELFPAY ==
--- OUTSIDE RECORDS SUMMARY | 2021-02-16 07:51 | XMS_ITS | Encounter Summary ---
Author Organization [facility] Address [address] [facility] [address] [place] [phone] Phone Care Team Providers Care Pathologist Name Role Phone Paola Wade ADOBE ARCHITECT Primary Care Provider Encounter Details Date Type Department Care Team (Late st Contact Info) Description 02/16/2021 8:51 AM EDT Hospital Encounter [facility] [address] [place] [phone] Rox Sandy CNP [address] [place] [id number] [email or web address] Social History Tobacco Use Types Packs/Day Years [...] reportoriginally created by Elin Lopez. Rox Sandy TRAFFIC TECHNICIAN IMG XR LOWER EXTREMITY Adriana l Result documented in this encounter Visit Diagnoses Not on filedocumented in this encounter Care Teams Pathologist Relationship Specialty Start Date End Date Paola Wade NP PCP - General Family Medicine 02/16/21 documented as of this encounter Additional Source Comments The information contained in this document represents components of the legal health record. It is not the complete legal health record.[facility]
[2025-08-05 15:10] VITALS: BP 152/82; PULSE 84; RESP 16; O2SAT 95; BMI 36.2
--- NOTE | 2025-08-05 15:10 | MHC.OFFVIS ---
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 He received caudal epidural steroid injection with catheter under sedation 04/24/2024. He reported 75% pain improvement after the procedure. He reported better mobility better activities of daily living better social interactions. The pain relief in this magnitude lasted for 1 year. About 2 months ago patient started to experience pain coming back. I will schedule him for caudal epidural steroid injection with a catheter more to the left He is also suffering from pain on the right most likely from the nephrolithiasis. I will see this patient after the caudal epidural steroid injection in the office. Prior: Patient presents today for follow up for chronic low back pain with bilateral radiculopathy. He was last seen in our office in early 2022 and was sent for Neurosurgical evaluation. Patient was seen by Dr. Lay in October 2023 with repeated imaging as noted below and was recommended to follow up with us for potential injections to address posterior disc bulge at L1-L2 level. Patient reports he had episodic flare ups in low back pain with shooting and pounding pain radiating into his buttocks and posterior lower extremities, regularly on the left and intermittently on the right with associated numbness, tingling and intermittent weakness. Pain increases during heavy lifting, pulling, pull-ups or summer projects and physical activities and pain would last for about 3 weeks during which he takes meloxicam, gabapentin, methocarbamol with partial relief. He reports tramadol in the past has relieved severe pounding low back pain. Today his back pain symptoms are minimal at rest, rating it at 3/10 and increases to 7-8/10 with physical activities, pulling or lifting. He denies any significant pain in the L1-L2 distribution today. We were previously planning Caudal VERONICA last year but patient never followed up to schedule this. He would like to schedule this injection today. Denies any fever, abdominal or groin pain, foot drop, bladder or bowel dysfunction or saddle anesthesia. PRIOR: Patient is a 57 years old male who returns today for worsening lower back pain. He was last seen in this office via telehealth encounter by Amanda LANGLEY with plans for therapeutic left SIJ but has not undergone this due to insurance changes. He moved from [place] to [place] 2 years ago and was followed by Pain Management in [place]. Patient reports today his back pain is mostly axial and has been spreading across his lower back due to recently moving and lifting heavy boxes. He states occasionally his pain will radiate to his left lower extremity posteriorly to the knee level only. Patient reports residual numbness in his left foot s/p lumbar fusion but not his toes. Prolonged sitting worsens his pain. He tolerates long distance driving and notes that walking actually alleviates his pain. Patient reports completing the PT 3-4 years ago with minimal improvement. Patient reports he was on Tramadol in [place] that he takes intermittently. I have informed patient that we currently do not offer opioid prescribing. He also takes gabapentin and methocarbamol for migraine headaches. Denies any fever, unintentional weight loss, abdominal or groin pain, weakness, bowel or bladder incontinence, or saddle anesthesia. [facility] Medical History Migraine NAFLD (nonalcoholic fatty liver disease) Chronic LUQ pain Schatzki's ring Abdominal pain Dysphagia Back pain Depression Asthma Elevated cholesterol HTN (hypertension) GERD (gastroesophageal reflux disease) Surgical History Hx of left inguinal hernia repair History of repair of vocal cord History of esophageal surgery Hx of hand surgery H/O colonoscopy History of esophagogastroduodenoscopy (EGD) History of back surgery Family History Father Paternal family history of mental health disorder Alcoholism Mother No problems noted. Brother Brain aneurysm Other Mental health disorder Substance use disorder Social History Household Members Other:: With his mother- relocated from [place]- getting Housing: House Alcohol intake: current Alcohol intake frequency: holidays/special occasions only Patient Tobacco Use Status: Current everyday Tobacco user Tobacco use type: Smokeless Tobacco e-Cigarette/Vaping Use: Never Used Second Hand Smoke Exposure: No service: Yes Current occupational status: retired and disabled Cognitive needs: No Hearing needs: No Vision needs: No Review of Systems Const All systems reviewed & are unremarkable except as noted in HPI and below ENT Reports Normal hearing present Neuro Reports Normal hearing present, Denies Abnormal speech present and Denies Sensory deficit (Neuro) Physical Exam Vital Signs: Last Vital Signs Pulse 84 08/05/25 15:10 Resp 16 08/05/25 15:10 BP 152/82 H 08/05/25 15:10 Pulse Ox 95 08/05/25 15:10 Oxygen Delivery Method Room Air 08/05/25 15:10 BMI result Body Mass Index 36.2 Const General: cooperative, no acute distress, alert and awake Nutritional Appearance: obese Orientation/consciousness: patient oriented x3 HEENT Head: Yes normal to inspection and Yes normocephalic Eyes General: appearance normal, both eyes and all related structures Cardio Jugular venous distension: no JVD Rate: regular rate Peripheral pulses: Peripheral pulses 2+ throughout GI Inspection: Yes obesity Palpation (GI): Soft to palpation, nontender and no guarding General: Yes no CVA tenderness Back/Spine/Pelvis Other: Limited lumbar ROM, flexion, extension, bending and rotations reproduce mild-moderate pain. Slightly antalgic gait. No limping. Can flex forward to 60-70 degrees and extend to 5-10 degrees before experiencing lumbar pain. Demonstrates 5/5 strength of quadriceps bilaterally as well as flexion/dorsiflexion of bilateral feet against resistance. 2+ pedal pulses bilaterally. Straight leg rise with dorsiflexion positive bilaterally. +1 patellar and achilles reflexes bilaterally. Facet loading test positive bilaterally. Alex signs positive bilaterally. Pelvic compression, Sajan?s, and Stinchfield tests are positive bilaterally, L>R. No pain with I/E hip rotations bilaterally. Valsalva maneuver negative. Back: no CVA tenderness Cervical Spine: cervical muscular tenderness and No Cervical spine tenderness Thoracic/Lumbar Spine: thoracic and lumbar spine normal to inspection, Thoracic/lumbar spine scar(s), Lasegue's sign positive bilateral, pain with thoraco-lumbar ROM, paraspinal muscle tenderness, thoraco-lumbar ROM limited, No thoracic spinal tenderness and lumbar spinal tenderness (L4-S1) Pelvis: buttock tenderness bilaterally Sacroiliac joints: bilaterally tender to palpation Neuro General: patient oriented x3 and no focal motor deficits Cranial nerves: Yes Normal hearing present Cognition (Neuro): normal cognition Speech: No Abnormal speech present Gait exam (Neuro): Antalgic gait present Motor exam (neuro): 5/5 motor strength present throughout, no tremor noted and Motor abnormalities not present Sensory Exam: No Sensory deficit (Neuro) Extrem General: Yes capillary refill normal, Yes no clubbing, cyanosis or edema and Yes no calf tenderness Psych Appearance: grossly normal Mental Status: mental status grossly normal Speech and movement: Clear speech present Affect: normal affect and Anxious affect present Attitude: cooperative Thought process: Normal thought process present Thought content: Normal thought content present Insight: Good insight present (Psych) Judgement: Good judgement present (Psych) Assessment & Plan Assessment & Plan (1) Lumbar radiculopathy: Code(s): M54.16 - Radiculopathy, lumbar region Category: Medical (2) Lumbar spondylosis: Code(s): M47.816 - Spondylosis without myelopathy or radiculopathy, lumbar region Category: Medical (3) Lumbar degenerative disc disease: Code(s): M51.36 - Other intervertebral disc degeneration, lumbar region Category: Medical (4) Post laminectomy syndrome: Code(s): M96.1 - Postlaminectomy syndrome, not elsewhere classified Category: Medical (5) Low back pain: Code(s): M54.5 - Low back pain Category: Medical Plan Caudal VERONICA with catheter with resulted in good pain relief on the left. Pain in right flank probably is different entity. Good results for caudal VERONICA. He had 1 year of 75% pain relief. I will schedule him again for the same procedure, I will see him in the office 1 month after the procedure. Coding Level of Care Code Est Pt Level 3 (60614) Diagnoses Lumbar radiculopathy M54.16 Lumbar spondylosis M47.816 Lumbar degenerative disc disease M51.36 Post laminectomy syndrome M96.1 Low back pain M54.5
--- OUTSIDE RECORDS SUMMARY | 2025-08-06 03:41 | XMS_ITS | Clinical Summary ---
Author Organization [facility] Address [address] [phone] Phone Care Team Providers Care Criminal Defense Lawyer Name Role Phone Paola Wade MAYANK Primary [...] Tobacco: Current Chew Comments:46 years chewing to [employer] Answer Date Recorded Are you interested [...] on patient's age to complete this topic IPV VACCINES Aged Out No longer eligi ble based on patient's age to complete this topic MENINGOCOCCAL VACCINES (ACWY) Aged Out No longer eligible based on patient's age to complete this topic MENINGOCOCCAL VACCINES (B) Aged Out N o longer eligible based on patient's age to complete this topic Medical Devices Not on file Insurance [employer] MEDICARE SUPPLEMENT [facility] MEDICARE REPLACEMENT [employer] MEDICARE SUPPLEMENT [facility] MEDICARE REPLACEMENT FOR LIFE MEDICARE SUPPLEMENT [facility] MEDICARE REPLACEMENT FOR LIFE MEDICARE SUPPLEMENT [facility] MEDICARE REPLACEMENT FOR LIFE MEDICARE SUPPLEMENT MEDICARE REPLACEMENT FOR LIFE MEDICARE SUPPLEMENT [facility] MEDICARE REPLACEMENT FOR LIFE MEDICARE SUPPLEMENT [facility] MEDICARE REPLACEMENT FOR LIFE MEDICARE SUPPLEMENT [facility] MEDICARE REPLACEMENT FOR LIFE MEDICARE SUPPLEMENT [facility] MEDICARE REPLACEMENT Care Teams Criminal Defense Lawyer Relationship Specialty Start Date End Date Paola Wade NP PCP - General Family Medicine 02/16/21 Additional Source Comments The information contained in this document represents components of the legal health record. It is not the complete legal health record.[facility]
--- OUTSIDE RECORDS SUMMARY | 2025-08-06 03:41 | XMS_ITS | Patient Health Record ---
Author Organization [facility] Address [address] [place] [address] Care Team Providers Care Legal Secretary Receptionist Name Role Phone Vasyl Mckay MD Primary Care Provider Paula Stewart Unavailable [phone] Allergies Allergen (clinical drug ingredient) Drug/Non Drug [...] Duration: 30 day(s) Active Methocarbamol 1500mg Active [place] 3 4000mg Active Gabapentin 600 MG 1 [...] W/U Status Risk Notes Problem Plantar wart ([id number]) Plantar wart (B07.0) Active confirmed Plan Of Treatment No Information Insurance Providers Payer Name Payer Address Payer Phone Subscriber Number Group Number Insured Name Patient Relationship to Insured Coverage Start Date Coverage End Date [facility] Medicare Complete [address] [address] [place] [address] [id number] Javier Jerez Self - patient is the [...]
== END 2025-08-05 15:35 | disposition home or self-care (01) ==
LOC: HO.PMC 15:08
PROVIDERS: PCP Family Medicine; Visit Provider Anesthesiology
DX: M54.16 Radiculopathy, lumbar region (principal); M47.816 Spondylosis without myelopathy or radiculopathy, lumbar region; M51.369 Other intervertebral disc degeneration, lumbar region without mention of lumbar back pain or lower extremity pain; M96.1 Postlaminectomy syndrome, not elsewhere classified; M54.50 Low back pain, unspecified
CPT/HCPCS: 99213

== ENCOUNTER → 2025-08-05 15:07 | Outpatient (BNVA) | payer MEDICARE, SELFPAY | PROVIDERS: PCP Family Medicine; Visit Provider Anesthesiology | DX: M54.50 Low back pain, unspecified (principal); M96.1 Postlaminectomy syndrome, not elsewhere classified; M54.16 Radiculopathy, lumbar region; M47.816 Spondylosis without myelopathy or radiculopathy, lumbar region; M51.369 Other intervertebral disc degeneration, lumbar region without mention of lumbar back pain or lower extremity pain | CPT/HCPCS: 99212 ==

== ENCOUNTER 2025-09-03 09:53 | Outpatient (REF) | payer MEDICARE, SELFPAY ==
--- OUTSIDE RECORDS SUMMARY | 2021-02-16 07:51 | XMS_ITS | Encounter Summary ---
Author Organization [facility] Address [address] [facility] [address] [place] [phone] Phone Care Team Providers Care Aviation Electrician Name Role Phone Paola Wade TUBE STATION ATTENDANT Primary Care Provider Encounter Details Date Type Department Care Team (Late st Contact Info) Description 02/16/2021 8:51 AM EDT Hospital Encounter [facility] [address] [place] [id number] Rox Sandy CNP [address] [place] [phone] Social History Tobacco Use Types Packs/Day Years Used Date Smoking Tobacco: Never Smokeless Tobacco: Current Chew Comments:44 years chewing to bacco Education Answer Date Recorded Are you interested in more education? Not on james e 01/13/2023 Are you concerned about learning? Not on file 01/13/2023 No 01/13/2023 No 01/13/2023 Digital Access Answer Date Recorded No 02/10/2023 No 02/10/2023 Reliable internet access at home? Not on file 02/10/2023 Device with a working camera? Not on file Sex and Gender Information Value Date Recorded Sex Assigned at Not on file Legal Sex Male 8:22 AM EDT Gender Identity Not on file Sexual Orientation Not on file documented as of this encounter Plan of Treatment Not on file documented as of this encounter Procedures Procedure Name Priority Date/Time Associated Diagnosis Comments XR ANKLE 3 OR MORE VIEWS (RIGHT) Urgent/patient waiting 02/16/2021 8:58 AM EDT Pain and swelling of right ankle documented in this encounter Results * XR ANKLE 3 OR MORE VIEWS (RIGHT) (02/16/2021 8:58 AM EDT) Anatomical Region Laterality Modality Ankle Right Computed Radiogr aphy 02/16/2021 9:51 AM EDT Impressions 02/16/2021 9:51 AM EDT 1. Tiny ossific density along the anterosuperior aspect of the talus on the lateral view with associated mild soft tissue swelling. Could represent avulsion injury if focal tenderness. 2. Mild soft tissue swelling adjacent to the lateral malleolus. Critical results were communicated and documented using the Alert Notification of Critical Radiology Results (ANCR) system. ATTESTATION: I, Terri Buck as teaching physician, have reviewed the images for this case and if necessary edited the report originally created by Elin Lopez. Narrative 02/16/2021 9:51 AM EDT Reason for exam (per EHR order): Trauma: Fall from >3 ft (>5 stairs); knocked off lawnmower, while standing- cutting tree limb TECHNIQUE: Frontal, lateral, and mortise radiographs of the right ankle. COMPARISON: None. FINDINGS: Alignment of the ankle is intact, without acute displaced fracture or dislocation. Ankle mortise and talar dome are preserved. Tiny ossific density along the anterosuperior aspect of the talus on the lateral view with associated mild soft tissue swelling. Moderate soft tissue swelling soft tissue edema of the lateral right ankle. Associated small ankle effusion. Procedure Note Anuradha Souza MD - 02/16/2021 Reason for exam (per EHR order): Trauma: Fall from >3 ft (>5 stairs);knocked off lawnmower, while standing- cutting tree limb TECHNIQUE: Frontal, lateral, and mortise radiographs of the right ankle. COMPARISON: None. FINDINGS: Alignment of the ankle is intact, without acute displaced fracture ordislocation. Ankle mortise and talar dome are preserved. Tiny ossificdensity along the anterosuperior aspect of the talus on the lateral viewwith associated mild soft tissue swelling. Moderate soft tissue swellingsoft tissue edema of the lateral right ankle. Associated small ankleeffusion. IMPRESSION: 1. Tiny ossific density along the anterosuperior aspect of the talus onthe lateral view with associated mild soft tissue swelling. Couldrepresent avulsion injury if focal tenderness. 2. Mild soft tissue swelling adjacent to the lateral malleolus. Critical results were communicated and documented using the AlertNotification of Critical Radiology Results (ANCR) system. ATTESTATION: I, Terri Buck as teaching physician, havereviewed the images for this case and if necessary edited the reportoriginally created by Elin Lopez. Rox Sandy TRANSPORT AIRCREWMAN IMG XR LOWER EXTREMITY Adriana l Result documented in this encounter Visit Diagnoses Not on filedocumented in this encounter Care Teams Aviation Electrician Relationship Specialty Start Date End Date Paola Wade NP PCP - General Family Medicine 02/16/21 documented as of this encounter Additional Source Comments The information contained in this document represents components of the legal health record. It is not the complete legal health record.[facility]
--- OUTSIDE RECORDS SUMMARY | 2025-09-03 12:08 | XMS_ITS | Clinical Summary ---
Author Organization [facility] Address [address] [phone] Phone Care Team Providers Care Steward/Stewardess Room Name Role Phone Paola Wade MAYANK Primary [...] Tobacco: Current Chew Comments:44 years chewing to [employer] Education Answer Date Recorded Are you interested [...] on file Insurance FOR LIFE MEDICARE SUPPLEMENT [facility] MEDICARE REPLACEMENT [facility] [id number] MEDICARE SUPPLEMENT [facility] MEDICARE REPLACEMENT FOR LIFE MEDICARE SUPPLEMENT MEDICARE REPLACEMENT FOR LIFE MEDICARE SUPPLEMENT [facility] MEDICARE REPLACEMENT [facility] FOR LIFE MEDICARE SUPPLEMENT [facility] MEDICARE REPLACEMENT [facility] FOR LIFE MEDICARE SUPPLEMENT [facility] MEDICARE REPLACEMENT FOR LIFE MEDICARE SUPPLEMENT [facility] MEDICARE REPLACEMENT FOR LIFE MEDICARE SUPPLEMENT [facility] MEDICARE REPLACEMENT FOR LIFE MEDICARE SUPPLEMENT [facility] MEDICARE REPLACEMENT [address] [id number] Care Teams Steward/Stewardess Room Relationship Specialty Start Date End Date Paola Wade NP PCP - General Family Medicine 02/16/21 Additional Source Comments The information contained in this document represents components of the legal health record. It is not the complete legal health record.[facility]
--- OUTSIDE RECORDS SUMMARY | 2025-09-03 12:08 | XMS_ITS | Patient Health Record ---
Author Organization [facility] Address [address] [place] [address] Care Team Providers Care Dish Person Name Role Phone Vasyl Mckay MD Primary Care Provider Paula Stewart Unavailable [phone] Allergies Allergen (clinical drug ingredient) Drug/Non Drug [...] Duration: 30 day(s) Active Methocarbamol 1500mg Active [place] 3 4000mg Active Gabapentin 600 MG 1 [...] W/U Status Risk Notes Problem Plantar wart ([id number]) Plantar wart (B07.0) Active confirmed Plan Of Treatment No Information Insurance Providers Payer Name Payer Address Payer Phone Subscriber Number Group Number Insured Name Patient Relationship to Insured Coverage Start Date Coverage End Date [facility] Medicare Complete [address] [address] [place] [address] [id number] Javier Jerez Self - patient is the [...]
[2025-09-03 15:49] LABS: Alanine Aminotransferase 47 U/L (0-40); Albumin Level 4.8 g/dL (3.5-5.0); Alkaline Phosphatase 59 U/L (39-117); Anion Gap 13 (12-20); Aspartate Amino Transferase 42 U/L (5-37); Blood Urea Nitrogen 27 mg/dL (9-16); Calcium 9.9 mg/dL (8.4-10.2); Carbon Dioxide 29 mmol/L (22-29); Chloride 104 mmol/L (96-108); Cholesterol 178 mg/dL (<200); Estimated Glomerular Filt Rate > 60; HDL Cholesterol 42 mg/dL (>40); Potassium 4.0 mmol/L (3.3-5.1); Sodium 142 mmol/L (135-145); Total Protein 7.7 g/dL (6.5-8.0); Triglycerides 141 mg/dL (<150)
== END 2025-09-03 09:54 | disposition home or self-care (01) ==
LOC: HO.WFDLDS 09:53
PROVIDERS: Visit Provider Family Medicine
DX: Z00.00 Encounter for general adult medical examination without abnormal findings (principal); E78.5 Hyperlipidemia, unspecified; R73.01 Impaired fasting glucose; R73.03 Prediabetes
CPT/HCPCS: 36415; 80053; 80061; 83036

== ENCOUNTER 2025-09-08 08:19 | Outpatient (AMB) | payer MEDICARE, SELFPAY ==
--- OUTSIDE RECORDS SUMMARY | 2021-02-16 07:51 | XMS_ITS | Encounter Summary ---
Author Organization [facility] Address [address] [place] [phone] Phone Care Team Providers Care Bus Inspector Name Role Phone Paola Wade RECREATIONAL VEHICLE REPAIRER Primary Care Provider Encounter Details Date Type Department Care Team (Late st Contact Info) Description 02/16/2021 8:51 AM EDT Hospital Encounter [facility] [address] [place] [phone] Rox Sandy CNP [address] [place] [phone] Social History Tobacco Use Types Packs/Day Years [...] reportoriginally created by Elin Lopez. Rox Sandy EXPERIMENTAL ROCKET SLED MECHANIC IMG XR LOWER EXTREMITY Adriana l Result documented in this encounter Visit Diagnoses Not on filedocumented in this encounter Care Teams Bus Inspector Relationship Specialty Start Date End Date Paola Wade NP PCP - General Family Medicine 02/16/21 documented as of this encounter Additional Source Comments The information contained in this document represents components of the legal health record. It is not the complete legal health record.[facility]
--- NOTE | 2025-09-08 08:24 | MHC.PC.OV ---
Vital Signs 09/08/25 08:28 Height 5 ft 7 in Weight 234 lb 8 oz BMI 36.7 BP 110/70 Blood Pressure Location Rt brachial Position Sitting Respiration 16 Pulse 83 Pulse Source Pulse Oximeter Temp 98.0 F Temp Source Temporal Artery Scan Pulse Oximetry (%) 96 Oxygen Delivery Method Room Air Intake Visit Reasons: f/u prediabetes, liver enzymes Intake Note: Javier presents in the office today for prediabetes and his liver enzymes. Voltmeter Operator Required: No Allergies Hydrocodone-Ibuprofen Adverse Reaction (Mild, Uncoded 09/08/25 08:26) Headache Medication List - Last Reconciled 09/08/25 by Vasyl Mckay MD amlodipine 10 mg PO DAILY atorvastatin 20 mg PO DAILY 90 days fenofibrate micronized 134 mg PO DAILY 90 days gabapentin 600 mg PO DAILY 90 days losartan-hydrochlorothiazide 100-12.5 mg 1 tab PO DAILY 90 days meloxicam 15 mg PO DAILY 30 days methocarbamol 750 mg PO Q8H PRN omega3,5,6,7,9 no.1-salmon oil 700-1,500 mg-mg 4 caps PO DAILY 90 days pantoprazole 40 mg PO DAILY sumatriptan succinate take 1 tab at onset of headache; if no relief may repeat 1 tab after at least 2 hrs; max = 4 tabs/24 hr PO 30 days Tobacco use date assessed: 12/11/23 Dental Screening Dental Screen Date: 09/08/25 Did you have a dental visit in the last 12 months?: No Did you have a dental problem in the last 6 months where you did not have access to dental care?: No Was dental information given to patient?: Patient declined HPI f/u prediabetes, liver enzymes HPI Details 60 y/o male presents to f/u prediabetes, liver enzymes. Labs drawn 09/03/25. Reviewed labs with pt. A1c 6.2%. Ongoing elevated liver enzymes - AST 42, ALT 47. Triglycerides 141. TC 178. LDL 108. HDL 42. Blood pressure today 110/70, 83p. He is on amlodipine 10mg, losartan-HCTZ 100-12.5mg daily. [facility] Medical History Migraine NAFLD (nonalcoholic fatty liver disease) Chronic LUQ pain Schatzki's ring Abdominal pain Dysphagia Back pain Depression Asthma Elevated cholesterol HTN (hypertension) GERD (gastroesophageal reflux disease) Surgical History Hx of left inguinal hernia repair History of repair of vocal cord History of esophageal surgery Hx of hand surgery H/O colonoscopy History of esophagogastroduodenoscopy (EGD) History of back surgery Family History Father Paternal family history of mental health disorder Alcoholism Mother No problems noted. Brother Brain aneurysm Other Mental health disorder Substance use disorder Social History (Updated 09/08/25 @ 08:28 by Quynh Pratt CMA) Household Members Other:: With his mother- relocated from [place]- getting Housing: House Alcohol intake: current Alcohol intake frequency: holidays/special occasions only Patient Tobacco Use Status: Current everyday Tobacco user Tobacco use type: Smokeless Tobacco e-Cigarette/Vaping Use: Never Used Second Hand Smoke Exposure: No Use of substances other than those prescribed or required for medical reasons: No service: Yes Current occupational status: retired and disabled Cognitive needs: No Hearing needs: No Vision needs: No Questionnaire Thrive Questionnaire Date Thrive assessed: 10/08/24 I am a: Patient What is your living situation today?: I have a steady place to live Within the past 12 months, did the food you bought not last and you didn't have the money to get more?: Never true Within the past 12 months, did you worry whether your food would run out before you got money to buy more?: Never true Do you have trouble paying for medicines?: No Do you have trouble getting transportation to medical appointments?: No Do you have trouble paying your heating and electricity bill?: No Do you have trouble taking care of your child, family member or friend?: No Do you have trouble with day-to-day activities such as bathing, preparing meals, shopping, managing finances, etc.?: No Are you currently unemployed and looking for a job?: No Are you interested in more education?: No Currently or been in a relationship where the following occur: No concerns reported THRIVE Score: 0 ANTHONY-7 AMB Questionnaire ANTHONY-7 Date ANTHONY - 7 assessed: 04/03/25 Source: Developed by Isabel Riley Sha, Hector Durham and colleagues, with an educational delfin from [employer]. Review of Systems Const Denies chills, Denies fatigue, Denies fever(s), Denies headache(s) and Denies weakness ENT Denies dizziness and Denies headache(s) Card Denies dyspnea Resp Denies cough, Denies dyspnea, Denies wheezing and Denies other (shortness of breath) Musc Denies numbness and Denies tingling Neuro Denies dizziness, Denies headache(s), Denies numbness, Denies tingling and Denies weakness Psych Denies anxiety and Denies depression Endo Denies fatigue Aller/Immun Denies wheezing Physical exam (Primary Care) Vital Signs: Last Vital Signs Temp 98.0 F 09/08/25 08:28 Pulse 83 09/08/25 08:28 Resp 16 09/08/25 08:28 BP 110/70 09/08/25 08:28 Pulse Ox 96 09/08/25 08:28 Oxygen Delivery Method Room Air 09/08/25 08:28 BMI result Body Mass Index 36.7 Tobacco/Smoking Status: Tobacco use Status Tobacco use date assessed 12/11/23 09/08/25 08:33 Patient Tobacco Use Status Current everyday Tobacco 09/08/25 08:33 Tobacco use type Smokeless Tobacco 09/08/25 08:33 e-Cigarette/Vaping Use Never Used 09/08/25 08:33 Thrive Assessment: Date of Thrive Assessment Date Thrive assessed 10/08/24 09/08/25 08:33 Currently or been in a relationship where the following occur: No concerns reported Const General: well developed; No acute distress Nutritional Appearance: well nourished and obese Orientation/consciousness: patient oriented x3 [facility] Head: Yes normocephalic and Yes atraumatic Eyes General: appearance normal, both eyes and all related structures Pupils: Equal, round and reactive pupils present EOM: EOMs intact bilaterally Resp Effort & Inspection: normal respiratory effort Neuro General: patient oriented x3 and gait normal Cranial nerves: Yes Equal, round and reactive pupils present Psych Affect: normal affect Coding Level of Care Code Est Pt Level 4 (08950) Diagnoses Essential hypertension I10 Hypertension type: essential hypertension Hyperlipidemia E78.5 Pre-diabetes R73.03 Elevated liver enzymes R74.8 Assessment & Plan Assessment & Plan (1) Hypertension: Onset Date: Unknown Code(s): I10 - Essential (primary) hypertension Category: Medical Qualifiers: Hypertension type: essential hypertension Qualified Code(s): I10 - Essential (primary) hypertension Plan: Blood pressure is controlled. Goal is less than 140/90 Continue current medications Encouraged weight loss (2) Hyperlipidemia: Code(s): E78.5 - Hyperlipidemia, unspecified Category: Medical Plan: LDL cholesterol has improved though is still slightly above goal. Continue atorvastatin Will continue to monitor I encouraged weight loss (3) Pre-diabetes: Code(s): R73.03 - Prediabetes Category: Medical Plan: A1c still at 6.2%. Encouraged diet lower in sugars and starches Encouraged weight loss (4) Elevated liver enzymes: Code(s): R74.8 - Abnormal levels of other serum enzymes Category: Medical Plan: Liver enzymes have climbed He has gained some additional weight and says he does not drink much water Encouraged hydration and weight loss Will check ultrasound and follow-up with patient Orders: Orders US abdomen nur w elastography Today R74.8 - Abnormal levels of other serum enzymes
--- OUTSIDE RECORDS SUMMARY | 2025-09-08 08:27 | XMS_ITS | Clinical Summary ---
Author Organization [facility] Address [address] [phone] Phone Care Team Providers Care Group Home Counselor Name Role Phone Paola Wade MAYANK Primary [...] Tobacco: Current Chew Comments:44 years chewing to [employer] Answer Date Recorded Are you interested [...] on file Insurance FOR LIFE MEDICARE SUPPLEMENT [facility] MEDICARE REPLACEMENT [facility] [employer] MEDICARE SUPPLEMENT [facility] MEDICARE REPLACEMENT FOR [employer] MEDICARE SUPPLEMENT MEDICARE REPLACEMENT FOR [employer] MEDICARE SUPPLEMENT [facility] MEDICARE REPLACEMENT [facility] FOR LIFE MEDICARE SUPPLEMENT [facility] MEDICARE [facility]PLACEMENT [facility] FOR LIFE MEDICARE SUPPLEMENT [facility] MEDICARE REPLACEMENT FOR [employer] MEDICARE SUPPLEMENT [facility] MEDICARE REPLACEMENT [employer] MEDICARE SUPPLEMENT [facility] MEDICARE REPLACEMENT FOR [employer] MEDICARE SUPPLEMENT [facility] MEDICARE REPLACEMENT [place] [id number] Care Teams Group Home Counselor Relationship Specialty Start Date End Date Paola Wade NP PCP - General Family Medicine 02/16/21 Additional Source Comments The information contained in this document represents components of the legal health record. It is not the complete legal health record.[facility]
--- OUTSIDE RECORDS SUMMARY | 2025-09-08 08:27 | XMS_ITS | Patient Health Record ---
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 Name Role Phone Vasyl Mckay MD Primary Care Provider Paula Stewart Unavailable [phone] Allergies Allergen (clinical drug ingredient) Drug/Non Drug [...] Duration: 30 day(s) Active Methocarbamol 1500mg Active Union 3 4000mg Active Gabapentin 600 MG 1 [...] W/U Status Risk Notes Problem Plantar wart (99106300) Plantar wart (B07.0) Active confirmed Plan Of Treatment No Information Insurance Providers Payer Name Payer Address Payer Phone Subscriber Number Group Number Insured Name Patient Relationship to Insured Coverage Start Date Coverage End Date [facility] Medicare Complete [address] [address] [place] [address] [id number] Javier Jerez Self - patient is the [...]
[2025-09-08 08:28] VITALS: BP 110/70; PULSE 83; RESP 16; TEMP 36.7; O2SAT 96; BMI 36.7
== END 2025-09-08 08:43 | disposition home or self-care (01) ==
LOC: HO.HMCFM 08:19
PROVIDERS: PCP Family Medicine; Visit Provider Family Medicine
DX: I10 Essential (primary) hypertension (principal); E78.5 Hyperlipidemia, unspecified; R73.03 Prediabetes; R74.8 Abnormal levels of other serum enzymes

== ENCOUNTER → 2025-09-08 08:19 | Outpatient (BNVA) | payer MEDICARE, SELFPAY | PROVIDERS: PCP Family Medicine; Visit Provider Family Medicine | DX: I10 Essential (primary) hypertension (principal); R73.03 Prediabetes; E78.5 Hyperlipidemia, unspecified; R74.8 Abnormal levels of other serum enzymes; Z79.899 Other long term (current) drug therapy | CPT/HCPCS: 99212 ==